=== PATIENT | male | born 1950 | race Caucasian/White ===

== ENCOUNTER 2023-04-24 15:16 | Emergency (ER) | payer MEDICARE, SELFPAY ==
[2023-04-24] VITALS (7 sets, daily range): BP systolic 162–169; BP diastolic 63–78; PULSE 64–70; RESP 16–22; TEMP 36.8; O2SAT 94–97; BMI 31.2
--- NOTE | 2023-04-24 15:35 | ECG_ITS ---
The 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
--- NOTE | 2023-04-24 15:35 | XR_ITS ---
The [address] [address] Patient Name: DONTAE GARCIA MRN: [id number] date: 1950 Sex: M Assigned Patient Location: ER Current Patient Location: ER Accession/Order Number: [id number] Exam Date: 04/24/2023 16:10 Report Date: 04/24/2023 16:35 At the request of: NGUYEN ASIF Procedure: XR chest 1V EXAM: XR chest 1V at 1606 hours HISTORY: SOB COMPARISON: None. TECHNIQUE: AP upright portable chest x-ray FINDINGS: The heart is at the upper limits of normal in size. No acute infiltrate, effusion or pneumothorax is identified. A subtle shadow within the cardiac silhouette suggest a hiatal hernia. The osseous structures are grossly intact. Surgical clips are seen at the base of the neck. XR/XR chest 1V IMPRESSION: No acute infiltrate or evidence of overt cardiac decompensation. A hiatal hernia is suggested. Direct comparison with a previous study may be helpful in confirming the chronicity of these findings. Electronically authenticated by: NOHEMI DA SILVA Date: 04/24/2023 16:35
--- NOTE | 2023-04-24 15:38 | ED.GENADUL1 ---
HPI - General Adult General Chief complaint: Shortness of Breath/Dyspnea Stated complaint: Uncontrolled Shaking Time Seen by Provider: 04/24/23 15:20 Source: patient Mode of arrival: walk-in Limitations: no limitations History of Present Illness HPI narrative: 72-year-old male presents for feeling shaky. It has been this way for a month. He recently lost his job. He was seen at another hospital emergency department and then was admitted to the psychiatric floor at [facility]. His son gives much of the history and states he was not put on any medications for anxiety. He has not had a fever or chest pain or palpitations. No syncope or vomiting Related Data Home Medications Medication Instructions Recorded Confirmed alprazolam 1 mg tablet 1 mg PO BEDTIME 04/24/23 04/24/23 diltiazem HCl 180 mg 180 mg PO Q24H 04/24/23 04/24/23 capsule,extended release 24 hr flecainide 100 mg tablet 100 mg PO Q12H 04/24/23 04/24/23 hydralazine 100 mg tablet 100 mg PO Q12H 04/24/23 04/24/23 levothyroxine 137 mcg tablet 137 mcg PO DAILY 04/24/23 04/24/23 (Synthroid) warfarin 5 mg tablet (Jantoven) 5 mg PO BEDTIME 04/24/23 04/24/23 Allergies Allergy/AdvReac Type Severity Reaction Status Date / Time No Known Drug Allergies Allergy Verified 04/24/23 15:33 Review of Systems ROS Narrative A ten point review of systems is negative except as noted above. PFSH PFSH Social History Smoking status: Heavy tobacco smoker Exam Narrative Exam Narrative: Nurses note and vital signs reviewed and patient is not hypoxic. General: The patient appears in no apparent respiratory distress. Patient is resting comfortably on cart. Skin: Warm, dry, no pallor noted. There is no rash noted. Head: Normocephalic, atraumatic Eye: Normal conjunctiva, no drainage Ears, Nose, Mouth, and Throat: oral mucosa is moist. Nares patent. Cardiovascular: Regular Rate and Rhythm Respiratory: Patient is in no distress, no accessory muscle use, lungs are clear to auscultation, no wheezing, rales or rhonchi Back: non-tender GI: Soft and nontender Musculoskeletal: The patient has no evidence of calf tenderness, no pitting edema, symmetrical pulses noted bilaterally Neurological: A&O, normal speech Psychiatric: Cooperative Constitutional Vital Signs, click to edit/add: Last Vital Signs Temp 98.2 F 04/24/23 15:21 Pulse 70 04/24/23 16:10 Resp 22 04/24/23 16:10 BP 162/73 H 04/24/23 16:00 Pulse Ox 96 04/24/23 16:10 O2 Del Method Room Air 04/24/23 15:21 Course Vital Signs Vital signs: Vital Signs Temperature 98.2 F 04/24/23 15:21 Pulse Rate 69 04/24/23 15:21 Respiratory Rate 16 04/24/23 15:21 Blood Pressure 169/78 H 04/24/23 15:21 Pulse Oximetry 97 04/24/23 15:21 Oxygen Delivery Method Room Air 04/24/23 15:21 Temperature 98.2 F 04/24/23 15:21 Pulse Rate 70 04/24/23 16:10 Respiratory Rate 22 04/24/23 16:10 Blood Pressure 162/73 H 04/24/23 16:00 Pulse Oximetry 96 04/24/23 16:10 Oxygen Delivery Method Room Air 04/24/23 15:21 Medical Decision Making MDM Narrative Medical decision making narrative: Extensive workup including CT brain here is negative. My clinical impression is that he has anxiety. He was instructed to have follow-up with his PCP. Treatment diagnosis and follow-up were discussed thoroughly with the patient and his son. Differential Diagnosis Differential Diagnosis: UTI, pneumonia, intracranial pathology, Lab Data Lab results reviewed: Yes I reviewed the patient's lab results Labs: Lab Results 04/24/23 04/24/23 04/24/23 Range/Units 15:41 16:00 16:04 WBC 8.8 (4.0-11.0) 10^3/uL RBC 3.90 L (4.70-6.10) 10^6/uL Hgb 12.0 L (14.0-18.0) g/dL Hct 34.5 L (42.0-54.0) % MCV 88.5 (80.0-94.0) fL MCH 30.8 (25.9-34.0) pg MCHC 34.8 (29.9-35.2) g/dL RDW 12.6 (11.0-15.0) % Plt Count 295 (150-450) 10^3/uL MPV 9.5 (9.5-13.5) fL Neut % (Auto) 79.9 H (43.0-75.0) % Lymph % (Auto) 8.2 L (20.5-60.0) % [place] % (Auto) 10.5 (1.7-12.0) % Eos % (Auto) 0.6 L (0.9-7.0) % Baso % (Auto) 0.5 (0.2-2.0) % Neut # (Auto) 7.0 H (1.4-6.5) 10^3/uL Lymph # (Auto) 0.7 L (1.2-3.8) 10^3/uL [place] # (Auto) 0.9 H (0.3-0.8) 10^3/uL Eos # (Auto) 0.1 (0.0-0.7) 10^3/uL Baso # (Auto) 0.0 (0.0-0.1) 10^3/uL Abs Immat Gran (auto) 0.03 (0.00-0.03) 10^3/uL Imm/Tot Granulo (auto) 0.3 (0.0-0.5) % Sodium 132 L (136-145) mmol/L Potassium 3.6 (3.5-5.1) mmol/L Chloride 98 (98-107) mmol/L Carbon Dioxide 25.7 (21.0-32.0) mmol/L Anion Gap 11.9 BUN 17.0 (7.0-18.0) mg/dL Creatinine 1.19 (0.70-1.30) mg/dL Est GFR ( Amer) >60 (>=60) Est GFR (Non-Af Amer) >60 (>=60) BUN/Creatinine Ratio 14.3 Glucose 105 (74-106) mg/dL Calcium 9.1 (8.5-10.1) mg/dL Troponin I High Sens 14.6 (4.0-76.1) pg/mL Urine Color Yellow (YELLOW) Urine Clarity Clear (CLEAR) Urine pH 5.5 (5.0-9.0) Ur Specific [place] 1.015 (1.005-1.025) Urine Protein Negative (NEG/TRACE) mg/dL Urine Glucose (UA) Negative (NEGATIVE) mg/dL Urine Ketones Negative (NEGATIVE) mg/dL Urine Occult Blood Negative (NEGATIVE) Urine Nitrite Negative (NEGATIVE) Urine Bilirubin Negative (NEGATIVE) Urine Urobilinogen 0.2 (0.2-1.0) EU/dL Ur Leukocyte Esterase Negative (NEGATIVE) Urine RBC None seen (0-2) #/HPF Urine WBC 0-2 A (NONE SEEN) #/HPF Ur Squamous Epith Cells None seen (NONE/RARE) #/LPF Urine Crystals None seen (None Seen) #/HPF Urine Bacteria Trace A (NONE SEEN) #/HPF Urine Casts None seen (NONE SEEN) #/LPF Urine Mucus Trace A (NONE SEEN) Influenza Type A Ag Negative Influenza Type B Ag Negative SARS-CoV-2 Ag (CV2AG) Negative (NEGATIVE) Imaging Data CT scan - head: Radiologist's impression: ITS Impressions Chest X-Ray 04/24/23 15:35 IMPRESSION: No acute infiltrate or evidence of overt cardiac decompensation. A hiatal hernia is suggested. Direct comparison with a previous study may be helpful in confirming the chronicity of these findings. Electronically authenticated by: NOHEMI DA SILVA Date: 04/24/2023 16:[address] 04/24/23 16:13 IMPRESSION: There is a focal area of diminished attenuation in the insular temporal lobe on the left, possibly a remote infarct or a cyst. No other intracranial abnormality is identified. There is a focal slightly expansile bone lesion frontally on the left, of uncertain etiology. Direct comparison with a previous study would be helpful. If no previous studies available and further evaluation of the above abnormalities is clinically indicated then an MRI is recommended. Electronically authenticated by: NOHEMI DA SILVA Date: 04/24/2023 16:48 ECG Data Attestation: I personally reviewed and interpreted this ECG as follows: (EKG on my interpretation shows sinus rhythm with a rate of 65.) Discharge Plan Discharge Chief Complaint: Shortness of Breath/Dyspnea Clinical Impression: Anxiety Patient Disposition: Home, Self-Care Time of Disposition Decision: 17:41 Condition: Good Mode of Transportation: Private Vehicle Prescriptions / Home Meds: No Action alprazolam 1 mg tablet 1 mg PO BEDTIME flecainide 100 mg tablet 100 mg PO Q12H hydralazine 100 mg tablet 100 mg PO Q12H warfarin [Danielven] 5 mg tablet 5 mg PO BEDTIME diltiazem HCl 180 mg capsule,extended release 24hr 180 mg PO Q24H levothyroxine [Synthroid] 137 mcg tablet 137 mcg PO DAILY Instructions: Anxiety (ED) Additional Instructions: Follow-up promptly with your PCP Stand Alone Forms: Portal Instructions Referrals: ZACHERY THURMAN [Primary Care Provider] - 1 week
--- NOTE | 2023-04-24 15:45 | PC.NURSE ---
PT STATED BEEN DEPRESSED. PT STATES HAVING SOB AND SHAKINESS FOR A FEW WEEKS AND SEEN AT [facility] [place] FOR SIMILAR EPISODES. PT BEEN CRYING A LOT TODAY. PT STATES [facility] [place] WANTED TO ADMIT TO THEIR PSYCHIATRIC UNIT BUT PT REFUSED. PT STATES WAS PLACED O ANTIDEPRESSANT BUT STOPPED AFTER 2 PILLS BECAUSE HE DIDN'T LIKE HOW IT MADE HIM FEEL. PT TAKES XANAX AT HOME BUT IT HASN'T BEEN HELPING WITH SYMPTOMS. PT FAMILY AT BEDSIDE STATES HAS HAS A COUPLE GAS LEAKS IN HIS APARTMENT AND THINK MAYBE HE HAS CARBON MONOXIDE POISONING
--- NOTE | 2023-04-24 16:13 | CT_ITS ---
The [address] [address] Patient Name: DONTAE GARCIA MRN: [id number] date: 1950 Sex: M Assigned Patient Location: ER Current Patient Location: ER Accession/Order Number: [id number] Exam Date: 04/24/2023 16:26 Report Date: 04/24/2023 16:48 At the request of: NGUYEN ASIF Procedure: CT head/brain wo con EXAM: CT head/brain wo con HISTORY: Intermittent confusion COMPARISON: None. TECHNIQUE: Multiple thin computed tomograms of the head were obtained, with sagittal and coronal reconstructions. FINDINGS: The ventricles are not enlarged, the lateral ventricles are symmetric and the third ventricles in the midline. The sylvian fissures are unremarkable. There is slight prominence of the cortical sulci over the convexities of the brain. A small amount of benign calcification is seen in the falx. A small area of diminished attenuation is seen in the insular temporal bone on the left, as best seen in image 19 of series 5, which may indicate a small remote infarct or possibly a benign cystic structure. No other focal abnormality is identified in the deep white matter. The cerebellum appears slightly atrophic but otherwise intact, and the visualized brainstem is unremarkable. The visualized paranasal sinuses are clear. The middle ears are aerated. The mastoid sinuses are clear. There is no apparent acute skull fracture. There is a focal lesion in the skull anteriorly on the left, as best seen in image 40 of series 3, measuring 2.5 by 2.1 x 1.5 cm, and slightly expanding the outer cortex. CT/CT head/brain wo con IMPRESSION: There is a focal area of diminished attenuation in the insular temporal lobe on the left, possibly a remote infarct or a cyst. No other intracranial abnormality is identified. There is a focal slightly expansile bone lesion frontally on the left, of uncertain etiology. Direct comparison with a previous study would be helpful. If no previous studies available and further evaluation of the above abnormalities is clinically indicated then an MRI is recommended. Electronically authenticated by: NOHEMI DA SILVA Date: 04/24/2023 16:48
[2023-04-24 16:18] LABS: Basophils Percent Auto 0.5 % (0.2-2.0); Eosinophils Absolute Auto 0.1 10^3/uL (0.0-0.7); Eosinophils Percent Auto 0.6 % (0.9-7.0); Hematocrit 34.5 % (42.0-54.0); Immature Granulocytes Abs Auto 0.03 10^3/uL (0.00-0.03); Immature Granulocytes Pct Auto 0.3 % (0.0-0.5); Lymphocytes Absolute Auto 0.7 10^3/uL (1.2-3.8); Lymphocytes Percent Auto 8.2 % (20.5-60.0); Mean Corpuscular HGB Conc 34.8 g/dL (29.9-35.2); Mean Corpuscular Hemoglobin 30.8 pg (25.9-34.0); Mean Corpuscular Volume 88.5 fL (80.0-94.0); Mean Platelet Volume 9.5 fL (9.5-13.5); Monocytes Absolute Auto 0.9 10^3/uL (0.3-0.8); Monocytes Percent Auto 10.5 % (1.7-12.0); Neutrophils Percent Auto 79.9 % (43.0-75.0); Platelet Count 295 10^3/uL (150-450); Red Cell Distribution Width 12.6 % (11.0-15.0); White Blood Count 8.8 10^3/uL (4.0-11.0)
[2023-04-24 16:22] LABS: Bilirubin Urine NEGATIVE (NEGATIVE); Blood Urine NEGATIVE (NEGATIVE); Clarity Urine CLEAR (CLEAR); Color Urine YELLOW (YELLOW); Glucose Urine UA NEGATIVE (NEGATIVE); Ketones Urine NEGATIVE (NEGATIVE); Leukocyte Esterase Urine NEGATIVE (NEGATIVE); Nitrite Urine NEGATIVE (NEGATIVE); Protein Urine NEGATIVE (NEG/TRACE); Specific Gravity Urine 1.015 (1.005-1.025); Urobilinogen Urine 0.2 EU/dL (0.2-1.0); pH Urine 5.5 (5.0-9.0)
[2023-04-24 16:29] LABS: Influenza Virus A Antigen Negative; Influenza Virus B Antigen Negative; Internal Control Within Normal Limits; SARS-CoV-2 Ag NEGATIVE (NEGATIVE)
[2023-04-24 16:33] LABS: Bacteria Urine TRACE #/HPF (NONE SEEN); Cast Seen? NONE SEEN #/LPF (NONE SEEN); Crystals Seen? None Seen #/HPF (None Seen); Mucus Urine TRACE (NONE SEEN); RBC Urine NONE SEEN #/HPF (0-2); Squamous Epithelial Cell Urine NONE SEEN #/LPF (NONE/RARE); WBC Urine 0-2 #/HPF (NONE SEEN)
[2023-04-24 16:33] LABS: Anion Gap 11.9; BUN Creatinine Ratio 14.3; Calcium 9.1 mg/dL (8.5-10.1); Carbon Dioxide 25.7 mmol/L (21.0-32.0); Chloride 98 mmol/L (98-107); Estimated GFR (African America >60 (>=60); Estimated GFR (Non-African Ame >60 (>=60); Glucose 105 mg/dL (74-106); Potassium 3.6 mmol/L (3.5-5.1); Sodium 132 mmol/L (136-145); Troponin I High Sensitivity 14.6 pg/mL (4.0-76.1)
--- NOTE | 2023-04-24 17:59 | PC.NURSE ---
Patients son states I just want to figure out why he's all of a sudden always anxious. He has slowed down on his partying since he lost his job a few weeks ago. 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 Son states its about time my dad started slowing down from living his best life. Pt states since I lost my job a few weeks ago, my income decreased by half so I can't afford all the drugs and alcohol anymore. I stopped using abruptly. Pts son told patient dad, you should stop using that synthetic weed from the vending machines at the bar too, that might be causing more anxiety. Physician notified of conversation.
== END 2023-04-24 18:04 | disposition home or self-care (01) ==
PROVIDERS: Emergency Provider Emergency Medicine; PCP Internal Medicine
DX: F41.9 Anxiety disorder, unspecified (principal); F17.210 Nicotine dependence, cigarettes, uncomplicated; Z20.822 Contact with and (suspected) exposure to COVID-19; Z79.01 Long term (current) use of anticoagulants; Z79.890 Hormone replacement therapy; Z79.899 Other long term (current) drug therapy
CPT/HCPCS: 36415; 70450; 71045; 80048; 81001; 84484; 85025; 87804; 87811; 93005; 99285

== ENCOUNTER 2023-05-29 15:10 | Emergency (ER) | payer MEDICARE, SELFPAY ==
[2023-05-29 15:15] VITALS: BP 158/64; PULSE 71; RESP 20; TEMP 36.8; O2SAT 96; BMI 30.4
--- NOTE | 2023-05-29 15:26 | ECG_ITS ---
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
--- NOTE | 2023-05-29 15:26 | XR_ITS ---
The [address] [address] Patient Name: DONTAE GARCIA MRN: [id number] date: 1950 Sex: M Assigned Patient Location: ER Current Patient Location: ER Accession/Order Number: [id number] Exam Date: 05/29/2023 15:35 Report Date: 05/29/2023 15:51 At the request of: NGUYEN ASIF Procedure: XR chest 1V EXAM: XR chest 1V HISTORY: SOB COMPARISON: 04/24/2023 TECHNIQUE: Upright AP portable chest x-ray FINDINGS: Lungs are clear without infiltrate or edema. Cardiac silhouette is prominent accentuated by magnification unchanged. Stable mediastinal contour. She'll cardiac density probable hiatal hernia. No pleural effusion or pneumothorax. Surgical clips lower neck area. XR/XR chest 1V IMPRESSION: Stable chest x-ray, no acute findings. Electronically authenticated by: YESSY KRAUSE Date: 05/29/2023 15:51
--- OUTSIDE RECORDS SUMMARY | 2023-05-29 15:32 | XMS_ITS | CCD ---
Author Name Unknown Address [address] [place] [address] Organization [facility] Care Team Providers Care Scaffold Builder Name Role Phone CHRISTINE KING Attending Unavailable JAILYN ROSENTHAL Primary Care Unavailable Unavailable Unavailable Zuhair Aguirre Unavailable Rony Sampson Unavailable [phone] Zachery Thurman MD Primary Care Provider Christine King Unavailable Saundra Cunningham RN Unavailable Rikki Castro MD Unavailable Yamile Mccoy PA-C Unavailable Ernestina Muñoz Unavailable Unavailable Unavailable Zuhair Aguirre Unavailable [phone] Rony Sampson Unavailable Zachery Thurman MD Primary Care Provider [phone] Christine King Unavailable Octavio CHIN, Saundra Alcala Unavailable Rikki Castro MD Unavailable [phone] Yamile Mccoy PA-C Unavailable Rony Sampson Unavailable Christine King Unavailable Octavio CHIN, Saundra Alcala Unavailable Matthew GARCIA Rikki Unavailable MD Zachery Thurman Primary Care Provider MD Christine King Attending Provider [phone] MD Nima Molina Attending Provider MD Zachery Thurman Primary Care Provider [phone] MD Christine King Attending Provider Issac, [facility] Cindi Alas Emergency Provider [phone] Zuhair Aguirre Unavailable Rony Balderas Unavailable [phone] Zachery Thurman MD Primary Care Provider Christine King Unavailable Saundra Cunningham RN Unavailable Rikki Castro MD Unavailable Yamile Mccoy PA-C Unavailable Adriana Bills Unavailable Cesar Martines Unavailable Christine King Attending Unavailable Christine King Referring Unavailable Zachery Thurman Primary Care Unavailable Christine King Attending Unavailable Christine King Referring Unavailable Zachery Thurman Primary Care Unavailable Christine King Attending Unavailable Christine King Referring Unavailable Zachery Thurman Primary Care Unavailable Knig, Christine Referring Unavailable King, Christine Attending Unavailable Zachery Thurman Primary Care Unavailable Saundra Cunningham RN Unavailable [phone] Zachery Thurman MD Primary Care Provider CHRISTINE KING Attending Unavailable ZACHERY THURMAN Primary Care Unavailable MD Zachery Thurman Primary Care Provider MD Christine King Attending Provider MD Anita Merrill Emergency Provider MD Zachery Thurman Primary Care Provider MD Christine King Attending Provider [phone] DO Pham Edmond Emergency Provider MD Darrell Duenas Admit Provider [phone] MD Darrell Duenas Attending Provider [phone] Christine King MD Unavailable [phone] ZACHERY THURMAN Attending Unavailable FAREED, ZACHERY L Referring Unavailable FAREED, ZACHERY L Referring Unavailable JORI LUJAN Attending Unava praveenaable JORI LUJAN Referring Unava ilable ZACHERY THURMAN Attending Unavailable FAREED, ZACHERY L Referring Unavailable FAREED, ZACHERY Coon Attending Unavailable ZACHERY THUMRAN L Referring Unavailable Zachery Thurman MD Unavailable Zachery Thurman MD Primary Care Provider Christine King MD Unavailable [phone] Phillip Orr MD Unavailable Regino GARCIA, Rony Unavailable MD Christine King Attending Provider FAREED, ZACHERY JANET Primary Care Unavailable CLAUDIA LEE Attending Unavailable CLAUDIA LEE Admitting Unavailable TRACY, NIMA Referring Unavailable HILL, ZACHERY JANET Primary Care Unavailable TRACY, NIMA Attending Unavailable TRACY, NIMA Referring Unavailable HILL, ZACHERY JANET Primary Care Unavailable CENTRE HALL, ZACHERY JANET Primary Care Unavailable CLAUDIA LEE Attending Unavailable CLAUDIA LEE Referring Unavailable CENTRE HALL, ZACHERY JANET Primary Care Unavailable CLAUDIA LEE Attending Unavailable CENTRE HALL, ZACHERY JANET Primary Care Unavailable LEECLAUDIA Attending Unavailable CENTRE HALL, ZACHERY JANET Primary Care Unavailable KEVIN TURCIOS Referring Unavailable HILL, ZACHERY JANET Primary Care Unavailable TRACY, NIMA Attending Unavailable HILL, ZACHERY JANET Primary Care Unavailable CLAUDIA LEE Attending Unavailable HILL, ZACHERY JANET Primary Care Unavailable TRACY, NIMA Attending Unavailable Fareed, Zachery Primary Care Unavailable Christine King Admitting Unavailable Christine King Attending Unavailable Srinivasan Gross Admitting Unavailable Srinivasan Gross Attending Unavailable [place], Zachery Primary Care Unavailable Darrell Duenas Admitting Unavailable John Bennett Attending Unavailab le [place], Zachery Primary Care Unavailable Eduardo Redding Jr Attending Unavailable Zachery Thurman Primary Care Unavailable Eduardo Redding Jr Admitting Unavailable Anita Merrill Admitting Unavailable Anita Merrill Attending Unavailable Zachery Thurman Primary [facility] Unavailable Zachery Thurman Primary [facility] Unavailable Юлия Ornelas Admitting Unavailable Юлия Ornelas Attending Unavailable Zachery Thurman Primary [facility] Unavailable Christine King Admitting Unavailable Christine King Attending Unavailable Medications Current Medications Medication Drug Class(es) Dates Sig (Normalized) Sig (Original) brimonidine tartrate 0.25 mg/ml ophthalmic solution (1 source) alpha-Adrenergic Agonist Brimonidine Tartrate (Lumify) 0.025 % solution Indications: Eye Redness Administer 1 drop into affected eye(s) Daily as needed 0 Active Carboxymethylcellulose (1 source) Carboxymethylcel lulose Sodium (REFRESH TEARS OP) Administer 1 drop into affected eye(s) if needed 0 Active dexamethasone 0.001 mg/mg / neomycin 0.0035 mg/mg / polymyxin b 10 unt/mg ophthalmic ointment (1 source) Aminoglycoside Antibacterial, Polymyxin-class Antibacterial, Corticosteroid Start: 023 End: NEOMYCIN 3.5 MG/G-POLYMYXIN B 10,000 UNIT/G-DEXAMETH 0.1 % EYE OINT Use 1 application in the left eye twice daily for 10 days. 3.5 g 2 06/07/2022 06/17/2022 Active Comment on above: Use 1 application in the left eye twice daily for 10 days. 24 hr dilTIAZem hydrochloride 180 mg extended release oral capsule (20 sources) Calcium Channel Av Start: 023 take 1 capsule by mouth once daily dilTIAZem CD (Cardizem CD) 180 mg 24 hr capsule Take 1 capsule (180 mg) by mouth once daily. 0 11/28/2022 Active Start: 03-23-2022 take 180 mg by mouth once daily in the morning Diltiazem Hcl Active 180 MG PO Every morning March 23, 2022 10:07am Start: 12-14-2020 dilTIAZem HCl ER Beads 180 MG Oral Capsule Extended Release 24 Hour Quantity: 90 Refills: 0 Ordered: 14-Dec-2020 DO Start : 14-Dec-2020 Active Start: 04-28-2020 End: 03-23-2022 take 120 mg by mouth once daily in the morning Diltiazem Hcl Discontinued 120 MG PO Every morning April 28, 2020 12:00am March 23, 2022 10:07am Start: 06-06-2018 End: 04-29-2020 take 180 mg by mouth once daily in the morning Diltiazem Hcl Discontinued 180 MG PO Every morning June 05, 2018 11:00pm April 29, 2020 11:01am Start: 04-18-2018 End: 06-06-2018 take 120 mg by mouth once daily Diltiazem Hcl Disconti nued 120 MG PO Daily April 18, 2018 12:00am June 06, 2018 11:30am take 1 capsule by mo ut every twenty-four hours in the morning dilTIAZem ER (Tiazac) 180 MG 24 hr capsule Take 1 capsule by mouth in the morning. 0 Active Comment on above: Take 180 mg by mouth once daily. flecainide acetate 100 mg oral tablet (20 sources) Antiarrhythmic Start: take 1 tablet by mouth every twelve hours flecainide (Tambocor) 100 mg tablet Take 1 tablet (100 mg) by mouth every 12 hours. 0 10/28/2020 Active Start: 04-28-2020 take 100 mg by mouth twice daily Flecainide Active 100 MG PO Twice daily 60 April 28, 2020 12:00am Start: 04-03-2020 End: 04-29-2020 take 100 mg by mouth twice daily Flecainide Discontinued 100 MG PO Twice daily April 03, 2020 12:00am April 29, 2020 11:01am Start: 11-11-2019 End: 04-03-2020 take 100 mg by mouth twice daily Flecainide Discontinued 100 MG PO Twice daily November 10, 2019 11:00pm April 03, 2020 1:16pm Start: 06-06-2018 End: 06-01-2019 take 50 mg by mouth every twelve hours Flecainide Discontinued 50 MG PO Q12H 60 June 05, 2018 11:00pm May 31, 2019 11:03pm take 1 tablet by zenaida th every twelve hours flecainide (Tambocor) 100 MG tablet Take 1 tablet by mouth every 12 (twelve) hours. 0 Active End: 03-30-2021 flecainide (TAMBOCOR) 50 mg tablet Take 100 mg by mouth twice daily. 0 03/30/2021 Discontinued (Dosage adjustment) Comment on above: Take 100 mg by mouth twice daily. fluconazole 200 mg oral tablet (1 source) Azole Antifungal Start: 06-12-19 End: 06-13-19 take 1 tablet by mouth once fluconazole (DIFLUCAN) 200 mg tablet Take 1 tablet by mouth one time only for 1 dose. 1 tablet 0 06/11/2021 06/12/2021 Active Comment on above: Take 1 tablet by zenaida th one time only for 1 dose. indapamide 1.25 mg oral tablet (1 source) Thiazide-like Diuretic Start: 02-23-20 End: 02-22-20 take 1 tablet by mouth once daily in the morning indapamide (Lozol) 1.25 mg tablet Indications: Essential hypertension, benign , Paroxysmal atrial fibrillation (CMS/HCC) Take 1 tablet (1.25 mg) by mouth once daily in the morning. 30 tablet 11 02/22/2023 02/22/2024 Active levothyroxine sodium 0.125 mg oral tablet (20 sources) l-Thyroxine Start: 04-16-19 take 137 ug by mouth once daily Levothyroxine Active 137 MCG PO DAILY@629April 16, 2023 12:00am Start: 06-01-2022 take 1 tablet by zenaida th once daily SYNTHROID 137 mcg tablet Take 1 tablet by mouth once daily. 0 06/01/2022 Active Start: 04-28-2020 End: 04-16-2023 take 125 ug by mouth once daily Levothyroxine Disconti nued 125 MCG PO DAILY@629April 28, 2020 12:00am April 16, 2023 8:03am Start: 04-18-2018 End: 04-29-2020 take 111 ug by mouth once daily in the morning Levothyroxine Discontinued 111 MCG PO Every morning April 18, 2018 12:00am April 29, 2020 11:01am Start: 03-26-2018 take 1 tablet by zenaida th once daily in the morning Levothyroxine Sodium 125 MCG 1 tablet on an empty stomach in the morning Orally Once a day Mar, Active Start: 03-26-2018 take 1 tablet by zenaida th once daily in the morning Levothyroxine Sodium 125 MCG 1 tablet on an empty stomach in the morning Orally Once a day Mar, Active Start: 04-02-2014 End: 03-30-2021 take 1 tablet by mouth once daily levothyroxine (SYNTHROID) 112 mcg tablet Indications: Hypothyroidism, postsurgical Take 1 tablet by mouth once daily. 30 tablet 6 04/02/2014 03/30/2021 Discontinued (Dosage adjustment) Comment on above: Take 125 mcg by mout h daily before breakfast. Take 1 tablet by zenaida th once daily. lidocaine 0.05 mg/mg medicated patch (5 sources) Antiarrhythmic, Amide Local Anesthetic Start: 03-23-19 apply 1 dose topically once daily Lidocaine Active 1 PATCH TOPICAL Daily March 23, 2022 12:00am leave on most painful area for up to 12 hrs sildenafil 50 mg oral tablet (20 sources) Phosphodiesterase 5 Inhibitor Start: 12-10-19 take 1 tablet by mouth every twenty-four hours as needed sildenafil (Viagra) 50 MG tablet Take 1 tablet by mouth Daily as needed for erectile dysfunction. 0 12/09/2021 Active Start: 07-02-2018 take 1 tablet by zenaida th once daily as needed Viagra 25 MG 1 tablet as needed Orally Once a day as needed for 30 day(s) Jun, Active Completed/Discontinued Medications Medication Drug Class(es) Dates Sig (Normalized) Sig (Original) acetaminophen 500 mg oral tablet (6 sources) Start: 04-28-2020 End: 05-28-2020 take 500 mg by mouth every four hours Acetaminophen Discontinued 500 MG PO Q4H 100 April 28, 2020 12:00am May 28, 2020 6:29am acetaminophen 21.7 mg/ml / HYDROcodone bitartrate 0.5 mg/ml oral solution (13 sources) Opioid Agonist Start: 05-14-2021 End: 07-27-2021 take 10 mL by mouth every six hours as needed for pain HYDROcodone-acetam inophen (HYCET) 7.5-325 mg/15 mL oral liquid Indications: Tonsil cancer (HCC) Take 10 mL by mouth every 6 hours as needed for pain. May alternate with NSAID if allowed. Take with stool softener. 400 mL 0 05/14/2021 07/27/2021 Discontinued (Discontinued by Patient) Comment on above: Take 10 mL by mouth every 6 hours as needed for pain. May alternate with NSAID if allowed. Take with stool softener. ALPRAZolam 1 mg oral tablet (20 sources) Benzodiazepine Start: 03-11-2014 End: 06-01-2023 take 1 mg by mouth once daily at bedtime Alprazolam Discontinued 1 MG PO Daily at bedtime April 18, 2018 12:00am April 29, 2020 11:01am Comment on above: Take 1 mg by mouth a t bedtime as needed. PO QHS PRN apixaban 5 mg oral tablet (8 sources) Factor Xa Inhibitor Start: 03-30-2020 Eliquis 5 MG Oral Tablet Quantity: 180 Refills: 0 Ordered: 30-Mar-2020 DO Start : 30-Mar-2020 Complete Start: 04-18-2018 End: 04-29-2020 take 2 tablets by mouth twice daily, then take 1 tablet by mouth twice daily Apixaban (Eliquis) 5 mg tablet Discontinued 5 MG PO Twice daily 60 April 18, 2018 12:00am April 29, 2020 11:01am 10 mg po BID x 7 days, then 5 mg po BID End: 03-18-2021 apixaban (ELIQUIS) 5 mg tab( s) Take by mouth twice daily. 0 03/18/2021 Discontinued Comment on above: Take by mouth twice daily. ascorbic acid 250 mg oral tablet (16 sources) Vitamin C Start: 04-14-2020 End: 04-29-2020 take 1 tablet by mouth once daily Ascorbic Acid (Vitamin C) (Vitamin C) 250 mg Tablet Discontinued 250 MG PO Daily April 14, 2020 12:00am April 29, 2020 11:01am take 1 tablet by mouth in the mo rning ascorbic acid (Vitamin C) 1000 MG tablet Take 1,000 mg by mouth in the morning. 0 Active ascorbic acid (V ITAMIN C ORAL) Take by mouth. 0 Active Comment on above: Take by mouth. calcium carbonate 500 mg chewable tablet (6 sources) Start: End: take 1000 mg by mouth every four hours Calcium Carbonate Discontinued 1000 MG PO Q4H April 28, 2020 12:00am May 28, 2020 6:33am cefuroxime 500 mg oral tablet (1 source) Cephalosporin Antibacterial Start: Cefuroxime Axetil 500 MG Oral Tablet Quantity: 20 Refills: 0 Ordered: 29-Apr-2020 DO Start : 29-Apr-2020 Complete Cholecalciferol (8 sources) Vitamin D Start: End: take 1 capsule by mouth once daily in the morning Cholecalciferol (Vitamin D3) (Vitamin D3) 100 mcg (4,000 unit) Capsule Discontinued 50 MCG PO Every morning November 10, 2019 11:00pm April 29, 2020 11:01am Start: 11-11-2019 End: 04-27-2021 cholecalciferol, vitamin D3, 100 mcg (4,000 unit) cap Cholecalciferol Cholecalciferol (Vitamin D3) Active 50 MCG Oral Daily November 11, 2019 3:11pm 11-11-2019 [facility] ([id number]) 0 11/11/2019 04/27/2021 Discontinued (Other) take 1 tablet by zenaida th in the morning cholecalciferol (Vitamin D-3) 10 MCG (400 UNIT) tablet Take 1 tablet by mouth in the morning. 0 Active Comment on above: Cholecalciferol Chol ecalciferol (Vitamin D3) Active 50 MCG Oral Daily November 11, 2019 3:11pm 11-11-2019 [facility] ([id number]) clotrimazole 10 mg oral lozenge (1 source) Azole Antifungal Start: End: clotrimazole (MYCELEX) 10 mg jules Use 1 Jules as instructed three times daily for 14 days. 42 tablet 0 06/25/2021 07/27/2021 Discontinued (Discontinued by Patient) Comment on above: Use 1 Jules as inst ructed three times daily for 14 days. cyanocobalamin, vitamin B-12, (VITAMIN B-12 ORAL) (9 sources) cyanocobalamin, vitamin B-12, (VITAMIN B-12 ORAL) Take by mouth. 0 Active Comment on above: Take by mouth. diphenhydrAMINE 12.5 mg/5 mL lidocaine visc 2% MAALOX 200-200-20 mg/5 mL oral liquid 1:1:1 (CPD) (1 source) Start: End: diphenhydrAMINE 12.5 mg/5 mL lidocaine visc 2% MAALOX 200-200-20 mg/5 mL oral liquid 1:1:1 (CPD) Take 5-10 mL by mouth, allowing to coat back of mouth and throat, 5-6 times daily as needed for discomfort (including before meals and at bedtime) 360 mL 1 05/12/2021 06/02/2021 Discontinued Comment on above: Take 5-10 mL by mout h, allowing to coat back of mouth and throat, 5-6 times daily as needed for discomfort (including before meals and at bedtime) diphenhydrAMINE 12.5 mg/5 mL lidocaine visc 2% MAALOX 200-200-20/5 mL nystatin oral liquid 4:1.66:1:1 (CPD) (8 sources) Start: End: take 5 mL by mouth every six hours as needed diphenhydrAMINE 12.5 mg/5 mL lidocaine visc 2% MAALOX 200-200-20/5 mL nystatin oral liquid 4:1.66:1:1 (CPD) Swish and swallow 5 mL by mouth every 6 hours as needed. 240 mL 2 06/02/2021 06/25/2021 Discontinued Start: 06-02-2021 take 5 mL by mouth e very six hours as needed diphenhydrAMINE 12.5 mg/5 mL lidocaine visc 2% MAALOX 200-200-20/5 mL nystatin oral liquid 4:1.66:1:1 (CPD) Swish and swallow 5 mL by mouth every 6 hours as needed. 240 mL 2 06/02/2021 Active Comment on above: Swish and swallow 5 mL by mouth every 6 hours as needed. docusate sodium 100 mg oral capsule (6 sources) Start: 04-28-19 End: 05-29-19 take 1 capsule by mouth twice daily Docusate Sodium (Dok) 100 mg Capsule Discontinued 100 MG PO Twice daily 60 April 28, 2020 12:00am May 28, 2020 6:32am dorzolamide 20 mg/ml / timolol 5 mg/ml ophthalmic solution (2 sources) Carbonic Anhydrase Inhibitor, beta-Adrenergic Av Start: 06-08-19 End: 09-06-19 take 1 drop(s) into the eye(s) twice daily dorzolamide-timolol (COSOPT) 22.3-6.8 mg/mL ophthalmic solution Use 1 Drop in the left eye twice daily. 5 mL 0 06/08/2022 2022 Discontinued (Other) Comment on above: Use 1 Drop in the le ft eye twice daily. Durolane (20 sources) Start: 12-19-19 Durolane Dec, 60 mg FLUoxetine 20 mg oral capsule (2 sources) Serotonin Reuptake Inhibitor Start: 04-16-19 End: 04-18-19 take 20 mg by mouth once daily Fluoxetine Discontinued 20 MG PO Daily April 16, 2023 12:00am April 18, 2023 12:34pm furosemide 20 mg oral tablet (6 sources) Loop Diuretic Start: 04-28-19 End: 05-29-19 take 20 mg by mouth once daily Furosemide Discontinued 20 MG PO Daily at 0800 30 April 28, 2020 12:00am May 28, 2020 6:32am hydrALAZINE hydrochloride 50 mg oral tablet (20 sources) Arteriolar Vasodilator Start: 02-25-20 take 2 tablets by mouth twice daily hydrALAZINE (APRESOLINE) 50 mg tablet Take 100 mg by mouth twice daily. 0 02/24/2021 Active Start: 01-14-2021 take 50 mg by mouth twice franco y Hydralazine Active 50 MG PO Twice daily March 23, 2022 12:00am Start: 01-14-2021 take 1 tablet by zenaida th twice daily hydrALAZINE (Apresoline) 100 mg tablet Take 1 tablet (100 mg) by mouth 2 times a day. 0 01/11/2023 Active Start: 04-28-2020 End: 05-28-2020 take 10 mg by mouth every four hours Hydralazine Discontinued 10 MG PO Q4H 60 April 28, 2020 12:00am May 28, 2020 6:32am Comment on above: Take 50 mg by mouth twice daily. Take 100 mg by mouth twice daily. hydroCHLOROthiazide 12.5 mg oral tablet (2 sources) Thiazide Diuretic Start: 2020 take 1 tablet by mouth once daily in the morning hydroCHLOROthiazide 12.5 MG Oral Tablet TAKE 1 TABLET DAILY IN THE MORNING. Quantity: 90 Refills: 3 Ordered: 28-Jan-2021 Christine King MD Start : 28-Jan-2021 Active hydroCHLOROthiazide 12.5 mg / lisinopril 20 mg oral tablet (20 sources) Thiazide Diuretic, Angiotensin Converting Enzyme Inhibitor Start: 2020 End: 2021 take 1 tablet by mouth once daily Lisinopril-hydroCHLOROth iazide 20-12.5 MG Oral Tablet TAKE 1 TABLET DAILY. Quantity: 90 Refills: 3 Ordered: 22-Feb-2021 Christine King MD Start : 22-Feb-2021 Active Start: 12-02-2020 Lisinopril-hyd roCHLOROthiazide 20-25 MG Oral Tablet Quantity: 90 Refills: 0 Ordered: 02-Dec-2020 DO Start : 02-Dec-2020 Complete Start: 05-28-2020 End: 03-23-2022 take 1 tablet by mouth once daily Lisinopril-Hydrochlorothiazide Discontin ued 20 - 25 TAB PO Daily May 28, 2020 12:00am March 23, 2022 10:08am Start: 04-18-2018 End: 04-29-2020 take 1 tablet by mouth once daily in the morning Lisinopril-Hydrochlorothiazide Discontin ued 1 TAB PO Every morning April 18, 2018 12:00am April 29, 2020 11:01am Start: 03-11-2014 End: 03-30-2021 lisinopril-hydrochlorothiazi de (PRINZIDE,ZESTORETIC) 20-12.5 mg per tablet PO 0 03/11/2014 03/30/2021 Discontinued (Dosage adjustment) Comment on above: Take 1 tablet by zenaida th once daily. PO hydrOXYzine pamoate 25 mg oral capsule (18 sources) Antihistamine Start: End: take 25 mg by mouth every three hours Hydroxyzine Pamoate Discontinued 25 MG PO Q3H April 28, 2020 12:00am May 28, 2020 6:31am Start: 04-16-2020 End: 04-29-2020 take 50 mg by mouth every three hours Hydroxyzine Pamoate Discontinued 50 MG PO Q3H April 16, 2020 12:00am April 29, 2020 11:01am iv contrast (will be provided with radiology test) (10 sources) Start: 2022 End: 2022 inject 1 dose intravenously once, then inject 1 dose intravenously once iv contrast (will be provided with radiology test) Indications: Localized enlarged lymph nodes , History of cancer tonsil , History of radiation therapy Inject 1 Each intravenously one time only for [address] Neck W IVCON No IV access, insert saline lock prior to the sedation, infusion, injection for imaging exam. Discontinue saline lock post exam. If Pt. has a central line or IVAD, may access for administration according to line specific nursing protocol. Once exam is complete flush line and de-access according to line specific nursing protocol in the CT contrast administration guidelines link. 1 Each 0 2022 2022 Start: 10-12-2021 End: 10-12-2021 inject 1 dose intravenously once, then inject 1 dose intravenously once iv contrast (will be provided with radiology test) Indications: History of cancer tonsil , History of radiation therapy , History of chemotherapy Inject 1 Each intravenously one time only for [address] Neck W IVCON No IV access, insert saline lock prior to the sedation, infusion, injection for imaging exam. Discontinue saline lock post exam. If Pt. has a central line or IVAD, may access for administration according to line specific nursing protocol. Once exam is complete flush line and de-access according to line specific nursing protocol in the CT contrast administration guidelines link. 1 Each 0 10/12/2021 10/12/2021 Start: 06-25-2021 End: 08-27-2021 iv contrast (will be provide d with radiology test) CT Chest W -Inject, intravenously, once for 1 dose.No IV access, insert saline lock prior to the beginning of sedation, infusion, injection of imaging exam. Discontinue saline lock post exam. If Pt. has a central line or IVAD, may access for administration according to line specific nursing protocol. Once exam is complete flush line and de-access according to line specific nursing protocol in the CT contrast administration guidelines link. 1 Each 0 06/25/2021 08/27/2021 Discontinued Start: 06-25-2021 iv contrast (w ill be provided with radiology test) CT Chest W -Inject, intravenously, once for 1 dose.No IV access, insert saline lock prior to the beginning of sedation, infusion, injection of imaging exam. Discontinue saline lock post exam. If Pt. has a central line or IVAD, may access for administration according to line specific nursing protocol. Once exam is complete flush line and de-access according to line specific nursing protocol in the CT contrast administration guidelines link. 1 Each 0 06/25/2021 Active Comment on above: CT Chest W -Inject, intravenously, once for 1 dose.No IV access, insert saline lock prior to the beginning of sedation, infusion, injection of imaging exam. Discontinue saline lock post exam. If Pt. has a central line or IVAD, may access for administration according to line specific nursing protocol. Once exam is complete flush line and de-access according to line specific nursing protocol in the CT contrast administration guidelines link. Inject 1 Each intrav enously one time only for [address] Neck W IVCON No IV access, insert saline lock prior to the sedation, infusion, injection for imaging exam. Discontinue saline lock post exam. If Pt. has a central line or IVAD, may access for administration according to line specific nursing protocol. Once exam is complete flush line and de-access according to line specific nursing protocol in the CT contrast administration guidelines link. Krill Voe-Peyeq-9-Dha-Epa (6 sources) Start: End: take 1 capsule by mouth once daily in the morning Krill Izh-Swnkv-3-Dha-Epa Discontinued 1 CAP PO Every morning November 10, 2019 11:00pm April 29, 2020 11:01am krill yzm-vralq-5-dha-epa 300-90 (27-45) mg cap (1 source) Start: End: 022 krill qlu-eraqo-4-dha-epa 300-90 (27-45) mg cap Krill Pri-Dkemv-2-Dha-Epa Krill Pua-Ukluf-5-Dha-Epa Active 1 CAP Oral Daily November 11, 2019 3:11pm 11-11-2019 [facility] ([id number]) 0 11/11/2019 04/26/2021 Discontinued (Discontinued by Patient) Comment on above: Krill [id number]-5-Dh a-Epa Krill Qul-Juenm-4-Dha-Epa Active 1 CAP Oral Daily November 11, 2019 3:11pm 11-11-2019 [facility] ([id number]) lisinopril 20 mg oral tablet (20 sources) Angiotensin Converting Enzyme Inhibitor Start: lisinopril (ZESTRIL, PRINIVIL) 20 mg tablet metaxalone 800 mg oral tablet (6 sources) Start: End: take 1 tablet by mouth three times daily Metaxalone (Skelaxin) 800 mg Tablet Discontinued 800 MG PO Three times daily October 06, 2019 11:00pm November 12, 2019 7:24am metoclopramide 5 mg oral tablet (6 sources) Dopamine-2 Receptor Antagonist Start: End: take 5 mg by mouth three times daily Metoclopramide Hcl Discontinued 5 MG PO Three times daily April 28, 2020 12:00am May 28, 2020 6:31am MULTIVITAMIN ORAL (3 sources) End: MULTIVITAMIN ORAL Take by mouth. 0 06/08/2021 Discontinued (Discontinued by Patient) Comment on above: Take by mouth. Multivitamin With Folic Acid (Thera) 400 mcg Tablet (6 sources) Start: End: take 1 tablet by mouth once daily in the morning Multivitamin With Folic Acid (Thera) 400 mcg Tablet Discontinued 1 TAB PO Every morning April 28, 2020 12:00am March 23, 2022 10:08am Start: 04-28-2020 take 1 tablet by zenaida th once daily in the morning Multivitamin With Folic Acid (Thera) 400 mcg Tablet Active 1 TAB PO Every morning April 28, 2020 12:00am multivitamin,ther and minerals (MULTIVITAMIN,TX-MINERALS ORAL) (1 source) Start: 11-11-2019 End: 03-27-2021 multivitamin,ther and minerals (MULTIVITAMIN,TX-MINERALS ORAL) Multivitamin,Tx-Minerals Multivitamin,Tx-Minerals Active 1 CAP Oral Daily November 11, 2019 3:11pm 11-11-2019 [facility] ([id number]) 0 11/11/2019 03/27/2021 Discontinued Comment on above: Multivitamin,Tx-Mine rals Multivitamin,Tx-Minerals Active 1 CAP Oral Daily November 11, 2019 3:11pm 11-11-2019 [facility] ([id number]) Multivitamin,Tx-Minerals (Multi-Vitamin Hp/Minerals) Capsule (6 sources) Start: 11-11-2019 End: 04-29-2020 take 1 capsule by mouth once daily in the morning Multivitamin,Tx-Minerals (Multi-Vitamin Hp/Minerals) Capsule Discontinued 1 CAP PO Every morning November 10, 2019 11:00pm April 29, 2020 11:01am nystatin [id number] unt/ml oral suspension (1 source) Polyene Antifungal Start: 05-31-2021 End: 06-07-2021 take 5 mL by mouth four times daily nystatin (MYCOSTATIN) 100,000 unit/mL suspension Swish and swallow 5 mL by mouth four times daily for 7 days. 140 mL 0 05/31/2021 06/07/2021 Comment on above: Swish and swallow 5 mL by mouth four times daily for 7 days. [place]-3 Fatty Acids-Fish Oil (Fish Oil) 340-1,000 mg Capsule (6 sources) Start: 04-28-2020 End: 03-23-2022 take 1 capsule by mouth once daily in the morning [place]-3 Fatty Acids-Fish Oil (Fish Oil) 340-1,000 mg Capsule Discontinued 1000 MG PO Every morning April 28, 2020 12:00am March 23, 2022 10:08am Start: 04-28-2020 take 1 capsule by [facility] once daily in the morning [place]-3 Fatty Acids-Fish Oil (Fish Oil) 340-1,000 mg Capsule Active 1000 MG PO Every morning April 28, 2020 12:00am ondansetron 8 mg oral tablet (20 sources) Serotonin-3 Receptor Antagonist Start: 04-22-2021 End: 08-27-2021 take 1 tablet by mouth every eight hours as needed ondansetron (ZOFRAN) 8 mg tablet Take 1 tablet by mouth every 8 hours as needed for nausea/vomiting. 90 tablet 2 04/22/2021 08/27/2021 Discontinued Start: 04-28-2020 End: 05-28-2020 take 4 mg by mouth every four hours Ondansetron Discontinued 4 MG PO Q4H April 28, 2020 12:00am May 28, 2020 6:31am Comment on above: Take 1 tablet by zenaida th every 8 hours as needed for nausea/vomiting. oxyCODONE hydrochloride 5 mg oral tablet (18 sources) Opioid Agonist Start: 04-16-19 End: 04-29-19 take 10 mg by mouth every four hours Oxycodone Discontinued 10 MG PO Every 4 hours April 16, 2020 April 29, 2020 11:01am Start: 04-16-2020 End: 05-28-2020 take 5 mg by mouth every four hours Oxycodone Discontinued 5 MG PO Every 4 hours 40 7 April 28, 2020 May 28, 2020 6:30am polysaccharide iron complex 150 mg oral capsule (6 sources) Start: 04-28-2020 End: 05-28-2020 Polysaccharide Iron Complex (Ferrex 150) 150 mg iron Capsule Discontinued 150 MG PO Every morning April 28, 2020 12:00am May 28, 2020 6:30am predniSONE 50 mg oral tablet (5 sources) Start: 03-23-2022 End: 04-16-2023 take 50 mg by mouth once daily at mealtime Prednisone Discontinued 50 MG PO Daily 07 22March 23, 2022 12:00am April 16, 2023 10:24am administer with food or milk prochlorperazine 10 mg oral tablet (18 sources) Phenothiazine Start: 04-22-2021 End: 08-27-2021 take 1 tablet by mouth every six hours as needed prochlorperazine (COMPAZINE) 10 mg tablet Take 1 tablet by mouth every 6 hours as needed. 100 tablet 2 04/22/2021 08/27/2021 Discontinued Comment on above: Take 1 tablet by zenaida every 6 hours as needed. sennosides, long-term 1.76 mg/ml oral solution (13 sources) Start: 05-14-2021 End: 07-27-2021 take 5 mL by mouth once daily at bedtime sennosides (SENNA) 8.8 mg/5 mL oral liquid Take 5 mL by mouth daily at bedtime. Hold for loose stool/diarrrhea. 200 mL 1 05/14/2021 07/27/2021 Discontinued (Discontinued by Patient) Comment on above: Take 5 mL by mouth d aily at bedtime. Hold for loose stool/diarrrhea. sulfamethoxazole 400 mg / trimethoprim 80 mg oral tablet (1 source) Dihydrofolate Reductase Inhibitor Antibacterial, Sulfonamide Antimicrobial Start: 05-20-2020 Sulfamethoxazole-Tri methoprim 400-80 MG Oral Tablet Quantity: 42 Refills: 0 Ordered: 20-May-2020 DO Start : 20-May-2020 Complete tamsulosin hydrochloride 0.4 mg oral capsule (6 sources) alpha-Adrenergic Av Start: 04-28-2020 End: 03-23-2022 take 0.4 mg by mouth at bedtime Tamsulosin Discontinued 0.4 MG PO Bedtime April 28, 2020 12:00am March 23, 2022 10:08am Triamcinolone (20 sources) Corticosteroid Start: 07-25-2017 Kenalog -40 mg July, 40 mg vancomycin 125 mg oral capsule (1 source) Glycopeptide Antibacterial Start: 05-11-2021 End: 05-22-2021 take 1 capsule by mouth four times daily vancomycin (VANCOCIN HCL) 125 mg capsule Take 1 capsule by mouth four times daily for 10 days. 40 capsule 0 05/11/2021 05/22/2021 Comment on above: Take 1 capsule by mo ut four times daily for 10 days. warfarin sodium 5 mg oral tablet (20 sources) Vitamin K Antagonist Start: 03-30-2021 take 1 tablet by mouth once daily warfarin (COUMADIN) 5 mg tablet Take 1 tablet by mouth once daily. jia 0 03/30/2021 Active Start: 06-19-2020 End: 03-26-2021 take 1 tablet by mouth once daily warfarin (COUMADIN) 5 mg tablet Take 1 tablet by mouth once daily. jia 0 03/30/2021 Active take 1 tablet by zenaida th once daily in the evening Warfarin 5mg 5 mg 1 tablet by mouth once daily in the evening Active Comment on above: Take 1 tablet by zenaida th once daily. jia Take 5 mg by mouth o nce daily. jia Problems Active Problems Problem Classification Problem Date Documented Da te Episodic/Chronic Abdominal pain (1 source) Upper abdominal pain, unspecified; Translations: [Upper abdominal pain, unspecified] Onset: 4 Episodic Acute and unspecified renal failure (6 sources) Injury of kidney; Translations: [Acute kidney failure, unspecified] 04-20-2020 Episodic Acute posthemorrhagic anemia (6 sources) Anemia following acute postoperative blood loss; Translations: [Acute posthemorrhagic anemia] 04-17-2020 Episodic Administrative/social admission (6 sources) Other reduced mobility; Translations: [Impaired mobility and activities of daily living] 04-17-2020 Episodic Alcohol-related disorders (20 sources) Alcoholism; Translations: [Alcohol dependence, uncomplicated] Chronic Anxiety disorders (20 sources) Anxiety; Translations: [Anxiety disorder, unspecified] Onset: 3 Resolved: 4 04-02-2023 Chronic Cancer of bone and connective tissue (1 source) 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, face and neck; Translations: [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, face and neck] 02-01-2021 Chronic Cancer of esophagus (14 sources) Malignant tumor of esophagus; Translations: [Malignant neoplasm of esophagus, unspecified site] Onset: 3 02-21-2023 Chronic Cancer of esophagus (20 sources) Personal history of malignant neoplasm of esophagus; Translations: [History of malignant neoplasm of esophagus] Onset: 9 04-20-2020 Episodic Cancer of head and neck (20 sources) Malignant tumor of tonsil; Translations: [Malignant neoplasm of tonsil, unspecified] Onset: 2 Chronic Cancer; other and unspecified primary (1 source) Malignant tumor of conjunctiva; 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] Onset: 3 09-05-2022 Chronic Cardiac dysrhythmias (20 sources) Paroxysmal atrial fibrillation; Translations: [Cardiac arrhythmia, unspecified] Onset: 4 04-02-2021 Chronic Chronic kidney disease (7 sources) Chronic kidney disease stage 3; Translations: [Stage 3 chronic kidney disease] Onset: 3 04-24-2020 Chronic Chronic obstructive pulmonary disease and bronchiectasis (20 sources) Simple chronic bronchitis; Translations: [Simple chronic bronchitis] Chronic Complications of surgical procedures or medical care (20 sources) Postoperative hypothyroidism; Translations: [Postprocedural hypothyroidism] Onset: 4 04-02-2021 Chronic Delirium, dementia, and amnestic and other cognitive disorders (6 sources) Cognitive disorder; Translations: [Unspecified 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] 03-28-2021 Chronic Esophageal disorders (20 sources) Rodriguez's esophagus; Translations: [Rodriguez's esophagus without dysplasia] 03-26-2021 Chronic Essential hypertension (20 sources) Essential (primary) hypertension; Translations: [Benign essential hypertension] Onset: 4 04-02-2021 Chronic Genitourinary symptoms and ill-defined conditions (6 sources) Retention of urine; Translations: [Retention of urine, unspecified] 04-23-2020 Episodic Hypertension with complications and secondary hypertension (6 sources) Chronic kidney disease due to hypertension; Translations: [Hypertensive chronic kidney disease with stage 1 through stage 4 chronic kidney disease, or unspecified chronic kidney disease] 04-24-2020 Chronic Miscellaneous mental health disorders (20 sources) Abnormal sexual function; Translations: [Sexual dysfunction, unspecified] Episodic Mood disorders (12 sources) Depressive disorder; Translations: [Depression with suicidal ideation] Onset: 4 04-16-2023 Chronic Mood disorders (2 sources) Mood disorders; Translations: [Depression, unspecified] Onset: 4 04-13-2023 Mycoses (1 source) Candidiasis of mouth; Translations: [Candidal stomatitis] Episodic Nausea and vomiting (6 sources) Nausea; Translations: [Nausea] 04-28-2020 Episodic Neoplasms of unspecified nature or uncertain behavior (4 sources) Conjunctival intraepithelial neoplasia; Translations: [Neoplasm of unspecified behavior of other specified sites] Episodic Nutritional deficiencies (6 sources) Nutritional deficiency state; Translations: [Nutritional deficiency, unspecified] 04-17-2020 Episodic Osteoarthritis (20 sources) Primary gonarthrosis, bilateral; Translations: [Bilateral primary osteoarthritis of knee] Chronic Other aftercare (20 sources) Encounter for therapeutic drug level monitoring; Translations: [Medication monitoring encounter Z51.81] Onset: 1 Resolved: 2 Episodic Other aftercare (2 sources) Taking high risk medication; Translations: [Other terminal carman (current) drug therapy] Onset: 3 02-22-2023 Episodic Other aftercare (2 sources) Other fci (current) drug therapy; Translations: [Other terminal carman (current) drug therapy] Onset: 3 Episodic Other and unspecified benign neoplasm (1 source) Papilloma of conjunctiva of left eye; Translations: [Benign neoplasm of left conjunctiva] Episodic Other circulatory disease (6 sources) H/O: atrial fibrillation; Translations: [Personal history of other diseases of the circulatory system] 04-17-2020 Episodic Other connective tissue disease (20 sources) History of bilateral total knee replacement; Translations: [Presence of artificial knee joint, bilateral] Chronic Other connective tissue disease (20 sources) History of total hip arthroplasty; Translations: [Presence of artificial hip joint, bilateral] Chronic Other connective tissue disease (12 sources) History of total knee arthroplasty; Translations: [Presence of right artificial knee joint] 04-14-2020 Chronic Other gastrointestinal disorders (20 sources) Occult blood in stools; Translations: [Other fecal abnormalities] 04-19-2020 Episodic Other gastrointestinal disorders (7 sources) Abnormal feces; Translations: [Other fecal abnormalities] Episodic Other injuries and conditions due to external causes (6 sources) Food lodged in esophagus; Translations: [Food in esophagus causing other injury, initial encounter] 01-20-2020 Episodic Other lower respiratory disease (1 source) Shortness of breath; Translations: [Shortness of breath] Onset: 4 Episodic Other nervous system disorders (20 sources) Chronic pain; Translations: [Other chronic pain] Chronic Other nutritional; endocrine; and metabolic disorders (1 source) Obesity, unspecified Onset: 9 Chronic Other nutritional; endocrine; and metabolic disorders (15 sources) Obesity; Translations: [Obesity, unspecified] Onset: 3 02-22-2023 Chronic Other nutritional; endocrine; and metabolic disorders (20 sources) Obese class I; Translations: [Obesity, unspecified] Onset: 4 03-26-2021 Chronic Other screening for suspected conditions (not mental disorders or infectious disease) (7 sources) Abnormal electrocardiogram [ECG] [EKG]; Translations: [Protein level - finding] Onset: 9 04-17-2020 Episodic Other skin disorders (6 sources) Neck swelling; Translations: [Localized swelling, mass and lump, neck] 04-11-2021 Episodic Peripheral and visceral atherosclerosis (1 source) Atherosclerosis of aorta; Translations: [Atherosclerosis of aorta] Onset: 4 03-29-2023 Chronic Residual codes; unclassified (20 sources) Patient encounter status; Translations: [Encounter for prophylactic measures, unspecified] Onset: 4 03-15-2021 Episodic Residual codes; unclassified (5 sources) History of antineoplastic chemotherapy; Translations: [Personal history of antineoplastic chemotherapy] Episodic Residual codes; unclassified (6 sources) Bilateral lower limb edema; Translations: [Localized edema] 04-17-2020 Episodic Screening and history of mental health and substance abuse codes (20 sources) Ex-smoker; Translations: [Personal history of tobacco use] Onset: 3 01-19-2021 Episodic Comment on above: quit 02/2018; Spondylosis; intervertebral disc disorders; other back problems (6 sources) Lumbar radiculopathy; Translations: [Radiculopathy, lumbar region] 10-07-2019 Episodic Substance-related disorders (20 sources) Nicotine dependence, unspecified, uncomplicated; Translations: [Nicotine dependence] Onset: 9 04-02-2021 Chronic Substance-related disorders (20 sources) Marijuana user; Translations: [Cannabis use, unspecified, uncomplicated] Onset: 3 03-26-2021 Episodic Suicide and intentional self-inflicted injury (1 source) Suicidal ideations; Translations: [Suicidal ideations] Onset: 4 Episodic Thyroid disorders (20 sources) Hypothyroidism; Translations: [Unspecified acquired hypothyroidism] Onset: 3 02-22-2023 Chronic Unclassified (1 source) Other terminal carman (current) drug therapy Onset: 9 Unclassified (20 sources) DISPOSITION AND FOLLOW-UP Onset: 4 03-15-2021 Urinary tract infections (6 sources) Urinary tract infection caused by Klebsiella; Translations: [Urinary tract infection, site not specified] 04-27-2020 Episodic Past or Other Problems Problem Classification Problem Date Documented Date Episodic/Chronic Cancer of head and neck (8 sources) History of malignant neoplasm of tonsil; Translations: [Personal history of malignant neoplasm of other sites of lip, oral cavity, and pharynx] Onset: 10-13-2022 Episodic Deficiency and other anemia (20 sources) Anemia; Translations: [Anemia, unspecified] Onset: 09-05-2022 02-21-2023 Episodic Fluid and electrolyte disorders (20 sources) Hypervolemia; Translations: [Fluid overload, unspecified] Onset: 05-16-2013 03-15-2021 Episodic Lymphadenitis (2 sources) Localized enlarged lymph nodes; Translations: [Localized enlarged lymph nodes] Onset: 10-13-2022 Episodic Other aftercare (20 sources) Drug therapy finding; Translations: [Long-term (current) use of other medications] Onset: 05-16-2013 03-15-2021 Episodic Other aftercare (20 sources) Long-term current use of anticoagulant; Translations: [[facility] (current) use of anticoagulants] Onset: 01-19-2021 01-19-2021 Episodic Other and unspecified benign neoplasm (1 source) Benign neoplasm of left conjunctiva; Translations: [Conjunctival papilloma, left] Onset: 05-30-2022 Episodic Other lower respiratory disease (20 sources) Respiratory insufficiency; Translations: [Other abnormalities of breathing] Onset: 03-23-2021 03-26-2021 Episodic Other nervous system disorders (20 sources) Postoperative pain ; Translations: [Other acute postprocedural pain] Onset: 05-15-2013 03-26-2021 Episodic Pleurisy; pneumothorax; pulmonary collapse (20 sources) Atelectasis; Translations: [Atelectasis] Onset: 05-15-2013 03-15-2021 Episodic Residual codes; unclassified (1 source) Personal history of irradiation; Translations: [History of radiation therapy] Onset: 10-13-2022 Episodic Unclassified (1 source) Onset: 02-22-2023 02-22-2023 Viral infection (20 sources) Disease caused by 2019-nCoV; Translations: [COVID-19] Onset: 03-18-2021 03-26-2021 Episodic Results Test Name Value Interpretation Reference Range Facility B-Type Natriuretic Peptideon 05-26-2023 Natriuretic peptide B (Bld) [Mass/Vol] 11.0 pg/mL Normal 5-100 [facility] Comment on above: Result Comment: PERF ORMED BY: [place] [address] PATHOLOGIST BAT LATHE OPERATOR MAXINE EL M.D. Performed By: #### U A #### [address] Complete Blood Count Auto Di ffon 05-26-2023 Basophils (Bld) [#/Vol] 0.1 10*3/uL Normal 0.0-0.2 [facility] Comment on above: Result Comment: PERF ORMED BY: [place] [address] PATHOLOGIST BAT LATHE OPERATOR MAXINE EL M.D. Performed By: #### U A #### [address] Basophils/100 WBC (Bld) 0.5 % Normal . [facility] Comment on above: Performed By: #### U A #### [address] Eosinophils (Bld) [#/Vol] 0.1 10*3/uL Normal 0.0-0.45 [facility] Comment on above: Performed By: #### U A #### [address] Eosinophils/100 WBC (Bld) 1.1 % Normal . [facility] Comment on above: Performed By: #### U A #### [address] Erythrocyte distribution width (RBC) [Ratio] 13.2 % Normal 12.0-14.8 [facility] Comment on above: Performed By: #### U A #### [address] Hematocrit (Bld) [Volume fraction] 35.0 % Low 38.8-50.0 [facility] Comment on above: Performed By: #### U A #### [address] Hemoglobin (Bld) [Mass/Vol] 11.9 g/dL Low 13.0-17.0 [facility] Comment on above: Performed By: #### U A #### [address] Lymphocytes (Bld) [#/Vol] 0.6 10*3/uL Low 1.00-4.8 [facility] Comment on above: Performed By: #### U A #### [address] Lymphocytes/100 WBC (Bld) 6.7 % Normal . [facility] Comment on above: Performed By: #### U A #### [address] MCH (RBC) [Entitic mass] 30.3 pg Normal 27.5-35.2 [facility] Comment on above: Performed By: #### U A #### [address] MCV (RBC) [Entitic vol] 88.8 fL Normal 83.5-101 [facility] Comment on above: Performed By: #### U A #### [address] Mean Corpuscular HGB Conc 34.1 g/dL Normal 32.5-35.6 [facility] Comment on above: Performed By: #### U A #### [address] Monocytes (Bld) [#/Vol] 0.8 10*3/uL Normal 0.0-0.8 [facility] Comment on above: Performed By: #### U A #### [address] Monocytes/100 WBC (Bld) 16.37 % Normal 0.00-20.00 [facility] Comment on above: Performed By: #### U A #### [address] Monocytes/100 WBC (Bld) 8.5 % Normal . [facility] Comment on above: Performed By: #### U A #### [address] Neutrophils (Bld) [#/Vol] 7.9 10*3/uL High 1.8-7.7 [facility] Comment on above: Performed By: #### U A #### [address] Neutrophils/100 WBC (Bld) 83.2 % Normal . [facility] Comment on above: Performed By: #### U A #### [address] NRBC% 0.0 /100{WBC} Normal 0-0.5 [facility] Comment on above: Performed By: #### U A #### [address] Platelet mean volume (Bld) [Entitic vol] 7.4 fL Normal 6.6-10.1 [facility] Comment on above: Performed By: #### U A #### [address] Platelets (Bld) [#/Vol] 320 10*3/uL Normal 150-450 [facility] Comment on above: Performed By: #### U A #### [address] RBC (Bld) [#/Vol] 3.94 10*6/uL Normal 3.90-5.60 [facility] Comment on above: Performed By: #### U A #### [address] WBC (Bld) [#/Vol] 9.5 10*3/uL Normal 4.1-10.5 [facility] Comment on above: Performed By: #### U A #### [address] Comprehensive Metabolic Pane jameson 05-26-2023 Albumin [Mass/Vol] 3.9 g/dL Normal 3.5-5.7 [facility] Comment on above: Performed By: #### U A #### [facility] [address] [place] [address] Albumin/Globulin [Mass ratio] 1.5 {ratio} Normal [facility] Comment on above: Performed By: #### U A #### [facility] [address] [place] [address] ALP [Catalytic activity/Vol] 58 U/L Normal 34-104 [facility] Comment on above: Performed By: #### U A #### [facility] [address] [place] [address] ALT [Catalytic activity/Vol] 13 U/L Normal 7-52 [facility] Comment on above: Performed By: #### U A #### [facility] [address] [place] [address] Anion gap [Moles/Vol] 13.8 mmol/L Normal 6.0-15.0 [facility] Comment on above: Performed By: #### U A #### [facility] [address] [place] [address] AST [Catalytic activity/Vol] 14 U/L Normal 13-39 [facility] Comment on above: Performed By: #### U A #### [facility] [address] [place] [address] Bilirubin [Mass/Vol] 0.6 mg/dL Normal 0.3-1.0 [facility] Comment on above: Performed By: #### U A #### [facility] [address] [place] [address] Calcium [Mass/Vol] 8.8 mg/dL Normal 8.6-10.3 [facility] Comment on above: Performed By: #### U A #### [facility] [address] [place] [address] Chloride [Moles/Vol] 97 mmol/L Low 98-107 [facility] Comment on above: Performed By: #### U A #### [address] CO2 [Moles/Vol] 21.7 mmol/L Normal 21.0-31.0 [facility] Comment on above: Performed By: #### U A #### [facility] [address] Creatinine [Mass/Vol] 1.19 mg/dL Normal 0.70-1.30 [facility] Comment on above: Performed By: #### U A #### [address] Creatinine Clr Calc Pharmacy 62.27 [facility] Comment on above: Result Comment: PERF ORMED BY: [place] [address] PATHOLOGIST BAT LATHE OPERATOR MAXINE EL M.D. Performed By: #### U A #### [address] GFR/1.73 sq M.predicted MDRD (S/P/Bld) [Vol rate/Area] mL/min/{1.73_m2} [facility] Comment on above: Performed By: #### U A #### [address] Globulin (S) [Mass/Vol] 2.6 g/dL Normal [facility] Comment on above: Performed By: #### U A #### [address] Glucose [Mass/Vol] 95 mg/dL Normal 70-100 [facility] Comment on above: Result Comment: [facility] Glucose Reference Range is dependent on time and content of last meal. Glucose of more than 200 mg/dL in a nonstressed, ambulatory subject supports the diagnosis of Diabetes Mellitus. ADA recommended reference range Performed By: #### U A #### [address] Potassium [Moles/Vol] 3.5 mmol/L Normal 3.5-5.1 [facility] Comment on above: Performed By: #### U A #### [address] Protein [Mass/Vol] 6.5 g/dL Normal 6.4-8.9 [facility] Comment on above: Performed By: #### U A #### [facility] [address] Sodium [Moles/Vol] 129 mmol/L Low 136-145 [facility] Comment on above: Performed By: #### U A #### [facility] [address] Urea nitrogen [Mass/Vol] 14 mg/dL Normal 7-25 [facility] Comment on above: Performed By: #### U A #### [facility] [address] Creatine Kinaseon 05-26-2023 CK [Catalytic activity/Vol] 37 U/L Normal 30-223 [facility] Comment on above: Performed By: #### U A #### [facility] [address] [place] [address] ECG 12 lead ECGon 05-26-2023 ECG 12 lead ECG [facility] Main [place] [address] [place] [address] Electrocardiograph Report Signed Patient: Washington Garcia MR#: [id number] : 1950 Acct:[id number] Age/Sex: 72 / M ADM Date: 05/25/23 Loc: ER Room: Type: [facility] ER Attending Dr: Ordering Provider: Eduardo Redding Jr, MD Date of Service: 05/25/2310/10/2199 ECG/ECG 12 lead ECG: Shortness of Breath/Dyspnea Copies to: Test Reason : Blood Pressure : 150/067 mmHG Vent. Rate : 075 BPM Atrial Rate : 075 BPM P-R Int : 198 ms QRS Dur : 118 ms QT Int : 420 ms P-R-T Axes : 089 047 010 degrees QTc Int : 469 ms Normal sinus rhythm Nonspecific ST abnormality Abnormal ECG When compared with ECG of 23-MAY-2023 17:55, No significant change was found Confirmed by EDUARDO REDDING MD ([id number]) on 05/27/2023 3:56:33 AM Referred By: Electronically Signed By:EDUARDO REDDING MD Transcribed By: MUS Signed By Eduardo Redding Jr, MD [id number] [facility] Troponin I High Sensitivityo n 05-26-2023 Troponin I High Sensitivity 15.8 pg/mL Normal 0.0-20.0 [facility] Comment on above: Result Comment: PERF ORMED BY: [place] [address] PATHOLOGIST BAT LATHE OPERATOR MAXINE EL M.D. Performed By: #### P TT, HS TROP, PT #### [address] XR chest 2V*on 05-26-2023 XR chest 2V* [facility] Main [place] [address] [place] [address] XRay Report Signed Patient: Washington Garcia MR#: [id number] : 1950 Acct:[id number] Age/Sex: 72 / M ADM Date: 05/25/23 Loc: ER Room: Type: [facility] ER Attending Dr: Copies to: Eduardo Redding Jr, MD Ordering Provider: Eduardo Redding Jr, MD Date of Service: 05/25/23 XR/XR chest 2V*: Shortness of Breath/Dyspnea AP erect AND LATERAL CHEST: CLINICAL HISTORY: Recent COVID and RSV. Shortness of breath, greater when laying down. Esophageal cancer. COMPARISON: 05/23/2023 There is mild basilar atelectasis and possible scarring. There is no additional consolidation, effusion or pneumothorax. The cardiac, hilar and mediastinal silhouettes are similar including a hiatal hernia/gastric pull-through . There is no vascular congestion. Mild degenerative changes seen at the spine. XR/XR chest 2V* IMPRESSION: MINOR ATELECTASIS AND POSSIBLE SCARRING. NO ACUTE FINDINGS. Impression dictated by: Tonie Murray M.D.05/26/2023 10:16 AM Dictation Location: [place] [address] Transcribed By: [facility] 05/26/23 1016 Dictated By: Tonie Murray MD 05/26/23 1013 Signed By: 05/26/23 1016 Normal [facility] Arterial Blood Gason 024 ABG Base Excess 1.2 mmol/L Normal -3.0-3.0 [facility] Comment on above: Performed By: #### P TT, HS TROP, PT #### [facility] [address] [place] [address] ABG Frac Inspired O2 21 % Normal [facility] Comment on above: Performed By: #### P TT, HS TROP, PT #### [facility] [address] [place] [address] ABG Oxygen Content 7.1 mmol/L Normal 6.6-9.7 [facility] Comment on above: Performed By: #### P TT, HS TROP, PT #### [facility] [address] [place] [address] ABG Oxygen Saturation 92.6 % Low 95.0-100.0 [facility] Comment on above: Performed By: #### P TT, HS TROP, PT #### [facility] [address] [place] [address] ABG PCO2 34.0 mm[Hg] Low 35.0-45.0 [facility] Comment on above: Performed By: #### P TT, HS TROP, PT #### [facility] [address] [place] [address] ABG PH 7.47 High 7.35-7.45 [facility] Comment on above: Performed By: #### P TT, HS TROP, PT #### [facility] [address] [place] [address] ABG PO2 63.4 mm[Hg] Low 80.0-100.0 [facility] Comment on above: Performed By: #### P TT, HS TROP, PT #### [facility] [address] [place] [address] [place] CO2 [Moles/Vol] 25.4 mmol/L Normal 23.0-27.0 [facility] Comment on above: Performed By: #### P TT, HS TROP, PT #### [facility] [address] [place] [address] [place] HCO3 (Bld) [Moles/Vol] 24.4 mmol/L Normal 23.0-29.0 [facility] Comment on above: Performed By: #### P TT, HS TROP, PT #### [facility] [address] [place] [address] Respiratory Critical Normal [facility] Comment on above: Result Comment: Crit ical Value called on: 05/23/2023 at 19:53 PERFORMED BY: [place] [address] PATHOLOGIST BAT LATHE OPERATOR MAXINE EL M.D. Performed By: #### P TT, HS TROP, PT #### [facility] [address] [place] [address] VBG Draw Site Left Radial Normal [facility] Comment on above: Performed By: #### P TT, HS TROP, PT #### [facility] [address] [place] [address] B-Type Natriuretic Peptideon 05-23-2023 Natriuretic peptide B (Bld) [Mass/Vol] 14.0 pg/mL Normal 5-100 [facility] Comment on above: Result Comment: PERF ORMED BY: [place] [address] PATHOLOGIST BAT LATHE OPERATOR MAXINE EL M.D. Performed By: #### C BC, BMP, TSH3 #### [facility] [address] [place] [address] COVID-19 / Flu A/B / RSV PCR on 05-23-2023 SARS-CoV-2 (COVID-19) RNA ALAN+probe Ql (Unsp spec) COVID-19 Cepheid Result Negative for SARS-CoV-2 RNA by RT-PCR Flu A Cepheid Result Negative for Flu A RNA by RT-PCR Flu B Cepheid Result Negative for Flu B RNA by RT-PCR RSV Cepheid Result Positive for RSV RNA by RT-PCR COVID19 Blank Space ---- Reference: Negative COVID19 Blank Space ---- Cepheid Disclaimer The Cepheid Xpert Xpress CoV-2/Flu/RSV Plus has Cepheid Disclaimer not been FDA cleared or approved; this test has Cepheid Disclaimer been authorized by FDA under an EUA for use by Cepheid Disclaimer authorized laboratories; this test has been Cepheid Disclaimer authorized only for the simultaneous qualitative Cepheid Disclaimer detection and differentiation of nucleic acids from Cepheid Disclaimer SARS-CoV-2, influenza A, influenza B, and Cepheid Disclaimer respiratory syncytial virus (RSV), and not for any Cepheid Disclaimer other viruses or pathogens; and this test is only Cepheid Disclaimer authorized for the duration of the declaration that Cepheid Disclaimer circumstances exist justifying the authorization of Cepheid Disclaimer emergency use of in vitro diagnostic tests for Cepheid Disclaimer detection and/or diagnosis of COVID-19 under Cepheid Disclaimer Section 564(b)(1) of the Act, 21 U.S.C. 360bbb- Cepheid Disclaimer 3(b)(1), unless the authorization is terminated or Cepheid Disclaimer revoked sooner. PERFORMED BY: [place] [address] PATHOLOGIST BAT LATHE OPERATOR MAXINE EL M.D. Normal [facility] Comment on above: Performed By: #### C OVID19 FLU RSV, CEPHEID NEG #### [facility] [address] Cepheid COVID PCR Negativeon 05-23-2023 SARS-CoV-2 (COVID-19) RNA ALAN+probe Ql (Unsp spec) Negative Normal Negative [facility] Comment on above: Result Comment: This is a duplicate Cepheid Xpert Xpress CoV-2/Flu/RSV Plus RNA by RT-PCR result to be used for statistical tracking purpose only. PERFORMED BY: [facility] [address] [place] [address] PATHOLOGIST BAT LATHE OPERATOR JIANLAN SUN M.D. Performed By: #### C OVID19 FLU RSV, CEPHEID NEG #### [facility] [address] Complete Blood Count Auto Di ffon 05-23-2023 Basophils (Bld) [#/Vol] 0.1 10*3/uL Normal 0.0-0.2 [facility] Comment on above: Result Comment: PERF ORMED BY: [place] [address] PATHOLOGIST BAT LATHE OPERATOR MAXINE EL M.D. Performed By: #### C BC, BMP, TSH3 #### [facility] [address] Basophils/100 WBC (Bld) 0.8 % Normal . [facility] Comment on above: Performed By: #### C BC, BMP, TSH3 #### [address] Eosinophils (Bld) [#/Vol] 0.1 10*3/uL Normal 0.0-0.45 [facility] Comment on above: Performed By: #### C BC, BMP, TSH3 #### [address] Eosinophils/100 WBC (Bld) 0.7 % Normal . [facility] Comment on above: Performed By: #### C BC, BMP, TSH3 #### [address] Erythrocyte distribution width (RBC) [Ratio] 13.3 % Normal 12.0-14.8 [facility] Comment on above: Performed By: #### C BC, BMP, TSH3 #### [address] Hematocrit (Bld) [Volume fraction] 35.9 % Low 38.8-50.0 [facility] Comment on above: Performed By: #### C BC, BMP, TSH3 #### [address] Hemoglobin (Bld) [Mass/Vol] 12.4 g/dL Low 13.0-17.0 [facility] Comment on above: Performed By: #### C BC BMP, TSH3 #### [address] Lymphocytes (Bld) [#/Vol] 0.8 10*3/uL Low 1.00-4.8 [facility] Comment on above: Performed By: #### C BC BMP, TSH3 #### [address] Lymphocytes/100 WBC (Bld) 9.0 % Normal . [facility] Comment on above: Performed By: #### C BC BMP, TSH3 #### [address] MCH (RBC) [Entitic mass] 30.6 pg Normal 27.5-35.2 [facility] Comment on above: Performed By: #### C RG BMP, TSH3 #### [address] MCV (RBC) [Entitic vol] 89.0 fL Normal 83.5-101 [facility] Comment on above: Performed By: #### C STACIE DIEZ, TSH3 #### [address] Mean Corpuscular HGB Conc 34.4 g/dL Normal 32.5-35.6 [facility] Comment on above: Performed By: #### C BC BMP, TSH3 #### [address] Monocytes (Bld) [#/Vol] 0.9 10*3/uL High 0.0-0.8 [facility] Comment on above: Performed By: #### C BC BMP, TSH3 #### [address] Monocytes/100 WBC (Bld) 16.85 % Normal 0.00-20.00 [facility] Comment on above: Performed By: #### C BC, BMP, TSH3 #### [address] Monocytes/100 WBC (Bld) 9.7 % Normal . [facility] Comment on above: Performed By: #### C STACIE DIEZ, TSH3 #### [address] Neutrophils (Bld) [#/Vol] 7.5 10*3/uL Normal 1.8-7.7 [facility] Comment on above: Performed By: #### C STACIE DIEZ, TSH3 #### [address] Neutrophils/100 WBC (Bld) 79.8 % Normal . [facility] Comment on above: Performed By: #### C STACIE DIEZ TSH3 #### [address] NRBC% 0.0 /100{WBC} Normal 0-0.5 [facility] Comment on above: Performed By: #### C STACIE DIEZ, TSH3 #### [address] Platelet mean volume (Bld) [Entitic vol] 7.5 fL Normal 6.6-10.1 [facility] Comment on above: Performed By: #### C STACIE DIEZ, TSH3 #### [address] Platelets (Bld) [#/Vol] 312 10*3/uL Normal 150-450 [facility] Comment on above: Performed By: #### C STACIE DIEZ, TSH3 #### [address] RBC (Bld) [#/Vol] 4.03 10*6/uL Normal 3.90-5.60 [facility] Comment on above: Performed By: #### C STACIE DIEZ, TSH3 #### [address] WBC (Bld) [#/Vol] 9.4 10*3/uL Normal 4.1-10.5 [facility] Comment on above: Performed By: #### C STACIE DIEZ, TSH3 #### [facility] [address] Comprehensive Metabolic Pane jameson 05-23-2023 Albumin [Mass/Vol] 4.1 g/dL Normal 3.5-5.7 [facility] Comment on above: Performed By: #### C BC, BMP, TSH3 #### [facility] [address] Albumin/Globulin [Mass ratio] 1.6 {ratio} Normal [facility] Comment on above: Performed By: #### C BC, BMP, TSH3 #### [facility] [address] ALP [Catalytic activity/Vol] 61 U/L Normal 34-104 [facility] Comment on above: Performed By: #### C BC, BMP, TSH3 #### [facility] [address] ALT [Catalytic activity/Vol] 11 U/L Normal 7-52 [facility] Comment on above: Performed By: #### C BC, BMP, TSH3 #### [facility] [address] [place] [id number] [facility] Anion gap [Moles/Vol] 15.2 mmol/L High 6.0-15.0 [facility] Comment on above: Performed By: #### C BC, BMP, TSH3 #### [facility] [address] [place] [id number] [facility] AST [Catalytic activity/Vol] 13 U/L Normal 13-39 [facility] Comment on above: Performed By: #### C BC, BMP, TSH3 #### [facility] [address] [place] [id number] [place] Bilirubin [Mass/Vol] 0.6 mg/dL Normal 0.3-1.0 [facility] Comment on above: Performed By: #### C BC, BMP, TSH3 #### [facility] [address] [place] [id number] [facility] Calcium [Mass/Vol] 9.1 mg/dL Normal 8.6-10.3 [facility] Comment on above: Performed By: #### C RG, BMP, TSH3 #### [facility] [address] [place] [address] [place] Chloride [Moles/Vol] 100 mmol/L Normal 98-107 [facility] Comment on above: Performed By: #### C BC, BMP, TSH3 #### [facility] [address] CO2 [Moles/Vol] 22.4 mmol/L Normal 21.0-31.0 [facility] Comment on above: Performed By: #### C GR, STACIE, TSH3 #### [facility] [address] Creatinine [Mass/Vol] 1.16 mg/dL Normal 0.70-1.30 [facility] Comment on above: Performed By: #### C RG BMP, TSH3 #### [facility] [address] [place] [address] [place] Creatinine Clr Calc Pharmacy 63.61 [facility] Comment on above: Result Comment: PERF ORMED BY: [place] [address] PATHOLOGIST BAT LATHE OPERATOR MAXINE EL M.D. Performed By: #### C STACIE DIEZ, TSH3 #### [facility] [address] [place] [address] [place] GFR/1.73 sq M.predicted MDRD (S/P/Bld) [Vol rate/Area] mL/min/{1.73_m2} [facility] Comment on above: Performed By: #### C RG, BMP, TSH3 #### [facility] [address] [place] [address] [place] Globulin (S) [Mass/Vol] 2.5 g/dL [facility] Comment on above: Performed By: #### C RG, BMP, TSH3 #### [facility] [address] [place] [address] [place] Glucose [Mass/Vol] 115 mg/dL High 70-100 [facility] Comment on above: Result Comment: [facility] Glucose Reference Range is dependent on time and content of last meal. Glucose of more than 200 mg/dL in a nonstressed, ambulatory subject supports the diagnosis of Diabetes Mellitus. ADA recommended reference range Performed By: #### C STACIE DIEZ, TSH3 #### [facility] [address] Potassium [Moles/Vol] 3.6 mmol/L Normal 3.5-5.1 [facility] Comment on above: Performed By: #### C STACIE DIEZ, TSH3 #### [facility] [address] Protein [Mass/Vol] 6.6 g/dL Normal 6.4-8.9 [facility] Comment on above: Performed By: #### C STACIE DIEZ, TSH3 #### [address] Sodium [Moles/Vol] 134 mmol/L Low 136-145 [facility] Comment on above: Performed By: #### C STACIE DIEZ, TSH3 #### [place] [address] [place] Urea nitrogen [Mass/Vol] 15 mg/dL Normal 7-25 [facility] Comment on above: Performed By: #### C STACIE DIEZ, TSH3 #### [place] [id number] [facility] Creatine Kinaseon 05-23-2023 CK [Catalytic activity/Vol] 35 U/L Normal 30-223 [facility] Comment on above: Performed By: #### C STACIE DIEZ, TSH3 #### [place] [id number] [place] ECG 12 lead ECGon 05-23-2023 ECG 12 lead ECG [facility] Main [place] [address] [place] [address] Electrocardiograph Report Signed Patient: Washington Garcia MR#: [id number] : 1950 Acct:[id number] Age/Sex: 72 / M ADM Date: 05/23/23 Loc: ER Room: Type: [facility] ER Attending Dr: Ordering Provider: Srinivasan Gross PA-C Date of Service: 05/23/2308/10/1750 ECG/ECG 12 lead ECG: DYSPNEA Copies to: Test Reason : Blood Pressure : 214/086 mmHG Vent. Rate : 071 BPM Atrial Rate : 071 BPM P-R Int : 192 ms QRS Dur : 118 ms QT Int : 402 ms P-R-T Axes : 078 067 065 degrees QTc Int : 436 ms Normal sinus rhythm Nonspecific intraventricular conduction delay Nonspecific ST abnormality Abnormal ECG When compared with ECG of 17-MAY-2023 14:11, Non-specific change in ST segment in Inferior leads Confirmed by PHAM EDMOND DO ([id number]) on 05/23/2023 7:00:04 PM Referred By: Electronically Signed By:PHAM EDMOND DO Transcribed By: MUS Signed By Pham Edmond DO 1900 Normal [facility] Partial Thromboplastin Timeo n 05-23-2023 aPTT Coag (Bld) [Time] 53.7 s [facility] 25.1-36.5 [facility] Comment on above: Result Comment: A he matocrit value greater than 55% may lead to inaccurate results in coagulation testing. Patients having hematocrit values >55% require a special collection tube for coagulation studies. Please contact the laboratory at [phone] for redraw instructions. PERFORMED BY: [place] [address] PATHOLOGIST BAT LATHE OPERATOR MAXINE EL M.D. Performed By: #### C , BMP, TSH3 #### [address] Prothrombin Time INRon 05-22 INR Coag (PPP) [Relative time] 5.6 {INR} Off scale [facility] Comment on above: Result Comment: Crit ical value result called at 1921 on 05/23/23 INR Therapeutic Range A) Pre- and Peroperative OAT started two weeks before surgery. NOT HIP SURGERY: 1.5 - 2.5 HIP SURGERY: 2 - 3 B) Primary and secondary prevention of venous THROMBOSIS: 2 - 3 C) Active venous thrombosis, pulmonary embolism and prevention of recurrent venous thrombosis: 2 - 3 D) Prevention of arterial thromboembolism including patients with mechanical heart valves: 3 - 4.5 Performed By: #### C RG, BMP, TSH3 #### [facility] [address] [place] [address] PT Coag (PPP) [Time] 62.1 s High 9.0-12.9 [facility] Comment on above: Result Comment: A he matocrit value greater than 55% may lead to inaccurate results in coagulation testing. Patients having hematocrit values >55% require a special collection tube for coagulation studies. Please contact the laboratory at [phone] for redraw instructions. Performed By: #### C RG, BMP, TSH3 #### [facility] [address] [place] [address] Troponin I High Sensitivityo n 05-23-2023 Troponin I High Sensitivity 11.8 pg/mL Normal 0.0-20.0 [facility] Comment on above: Result Comment: PERF ORMED BY: [place] [address] PATHOLOGIST BAT LATHE OPERATOR MAXINE EL M.D. Performed By: #### C RG, STACIE, TSH3 #### [address] XR chest 2V*on 05-23-2023 XR chest 2V* [facility] Main [place] [address] [place] [address] XRay Report Signed Patient: Washington Garcia MR#: [id number] : 1950 Acct:[id number] Age/Sex: 72 / M ADM Date: 05/23/23 Loc: ER Room: Type: [facility] ER Attending Dr: Copies to: Srinivasan Gross PA-C Ordering Provider: Srinivasan Gross PA-C Date of Service: 05/23/23 XR/XR chest 2V*: DYSPNEA Chest 2 views CLINICAL HISTORY: Shortness of breath wheezing positive COVID. COMPARISON: Chest 04/02/2023 FINDINGS: Heart normal in size. Lungs are clear. No free air. XR/XR chest 2V* IMPRESSION: NO ACUTE CARDIOPULMONARY ABNORMALITY. Impression dictated by: Kristopher Nunez Jr., D.O.05/23/2023 6:05 PM Dictation Location: RADIO-PC-15 Transcribed By: ARMIDA 05/23/231804 Dictated By: Kristopher Nunez Jr, DO 05/23/231803 Signed By: 05/23/231804 [facility] [place] 05-19-2023 CNPN Telephone (THORMN) ----- WASHINGTON GARCIA ([id number]) 1950 [employer]* Date Time Provider Department 05/19/23 ALEX PARKS During your visit today, we recorded the following information about you: Rossy Daniels 05/19/2023 10:11 AM Signed RECEIVED CALL FROM: Patient PATIENT INFORMATION: Name: Washington Garcia : 1950 (home) [phone] (cell) Email: No e-mail address on record Referring Provider: No referring provider defined for this encounter. Phone: N/A Fax: Requested Surgeon: Alex Parks M.D., Ph. D. Reason for appointment/diagnosis: Pt is requesting appt with Dr. Parks. Recently went to ER had acid reflux wants next available appt. Rossy Woods May 19, 2023 10:10 AM Grace Walker, RN 05/22/2023 11:47 AM Signed May 22, 2023 1145 - pt notes that he was having sharp pains in my belly and the ED noted to be acid reflux . Pt notes he also developed a COVID infection last week (tested positive this Friday 05/19). Pt ntoes he does not take PPI notign Oh no that shit messes up my stomach real bad Pt further explained that he had no appetite and not longer teakes request EGD with dr eagle [facility] [employer] visit after per last OPD notes THOR 09/08/2020 IMPRESSION: 70 year old year old male s/p Transhiatal approach, thoracic esophagectomy, proximal gastrectomy, abdominal lymphadenectomy, pyloromyotomy, J-tube placement 05/15/[address] Parks for T1bN0 adenocarcinoma of the esophagus. PLAN: - Return in 2 years for EGD - CT Neck if symptoms continue Grace Walker RN 05/22/2023 11:47 AM Signed Addended by: GRACE WALKER on: 05/22/2023 11:47 AM Modules accepted: Orders Allergies As of Date: 05/19/2023 (No Known Allergies) Date Reviewed: 03/24/2023 Reviewed by: Cristal Conley CT - Fully Assessed Reason for Visit: Appointment [186] Primary Visit Diagnosis:Gastroesophagea l reflux disease, unspecified whether esophagitis present [K21.9] Order(s):EGD DIAGNOSTIC [GI9] Order #: [id number] FUTURE Prescriptions as of 05/22/2023 - SYNTHROID 137 mcg tablet Take 1 tablet by mouth once daily. - ascorbic acid (VITAMIN C ORAL) Take by mouth. - cyanocobalamin, vitamin B-12, (VITAMIN B-12 ORAL) Take by mouth. - lisinopril (ZESTRIL, PRINIVIL) 20 mg tablet - flecainide (TAMBOCOR) 100 mg tablet Take 100 mg by mouth twice daily. - ALPRAZolam (XANAX) 1 mg tablet Take 1 mg by mouth at bedtime as needed. - warfarin (COUMADIN) 5 mg tablet Take 1 tablet by mouth once daily. jia - hydrALAZINE (APRESOLINE) 50 mg tablet Take 100 mg by mouth twice daily. - diltiazem CR (TIAZAC, TAZTIA XT) 180 mg 24 hr capsule Take 180 mg by mouth once daily. 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] Former smoker [Z87.891] Marijuana use [F12.90] Chronic anticoagulation [Z79.01] 01/19/2021 COVID [U07.1] 03/18/2021 Tonsil cancer (HCC) [C09.9] 03/23/2021 Respiratory insufficiency [R06.89] 03/23/2021 Delirium [R41.0] 03/29/2021 04/02/2021 Nicotine use disorder, F17.2 [F17.200] 03/31/2021 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] 04/20/2021 Encounter Status:Closed by ROSSY DANIELS on 05/19/23 Normal [facility] CT abdomen pelvis w conon CT abdomen pelvis w con [facility] [place] [address] CT Scan Report Signed Patient: Washington Garcia MR#: [id number] : 1950 Acct:[id number] Age/Sex: 72 / M ADM Date: 05/17/23 Loc: ER Room: Type: [facility] ER Attending Dr: Copies to: Юлия Ornelas APRN Ordering Provider: Юлия Ornelas APRN Date of Service: 05/17/23 CT/CT abdomen pelvis w con: pain CT ABDOMEN AND PELVIS WITH INTRAVENOUS CONTRAST: CLINICAL HISTORY: Generalized abdominal pain with decreased appetite and diarrhea for 2 days. COMPARISON: CT abdomen and pelvis 04/26/2020 TECHNIQUE: Spiral images were obtained through the abdomen and pelvis following the administration of intravenous contrast. This CT exam was performed using one or more following dose reduction te chniques: Automated exposure control, adjustment of the mA and/or kV according to patient size, or use of iterative reconstruction technique. FINDINGS: Lung Bases: [Partially visualized gastric pull-through with compressive atelectasis involving the right lower lobe.] Organs:Cholelithiasis. No CBD dilatation. Liver portal vein spleen pancreas and adrenal glands all appear unremarkable. Cystic changes involving the kidneys. Abdominal aorta appears normal in caliber.[ GI: Distal stomach is grossly unremarkable. Small bowel appears nondilated. Left colon diverticulosis.[ Pelvis:[Urinary bladder is grossly unremarkable. Prostate gland normal in size.] Peritoneum/Retroperitoneu m:No free air, free fluid or lymphadenopathy.[ Abd wall/Bones:Abdominal wall demonstrates no acute findings. Osseous structures demonstrate degenerative change.[ CT/CT abdomen pelvis w con IMPRESSION: No acute findings. Impression dictated by: Kristopher Nunez Jr., DGissellOGissell05/17/2023 4:16 PM Dictation Location: [place] [address] Transcribed By: [facility] 05/17/23 1616 Dictated By: Kristopher Nunez Jr, DO 05/17/23 1612 Signed By: 05/17/23 1616 Normal [facility] Complete Blood Count Auto Di ffon 05-17-2023 Basophils (Bld) [#/Vol] 0.0 10*3/uL Normal 0.0-0.2 [facility] Comment on above: Result Comment: PERF ORMED BY: [place] [address] PATHOLOGIST BAT LATHE OPERATOR MAXINE EL M.D. Performed By: #### P TT, HS TROP, PT #### [facility] [address] Basophils/100 WBC (Bld) 0.6 % Normal . [facility] Comment on above: Performed By: #### P TT, HS TROP, PT #### [facility] [address] [place] [address] [place] Eosinophils (Bld) [#/Vol] 0.1 10*3/uL Normal 0.0-0.45 [facility] Comment on above: Performed By: #### P TT, HS TROP, PT #### [facility] [address] Eosinophils/100 WBC (Bld) 1.0 % Normal . [facility] Comment on above: Performed By: #### P TT, HS TROP, PT #### [facility] [address] Erythrocyte distribution width (RBC) [Ratio] 13.5 % Normal 12.0-14.8 [facility] Comment on above: Performed By: #### P TT, HS TROP, PT #### [facility] [address] Hematocrit (Bld) [Volume fraction] 36.9 % Low 38.8-50.0 [facility] Comment on above: Performed By: #### P TT, HS TROP, PT #### [facility] [address] Hemoglobin (Bld) [Mass/Vol] 12.8 g/dL Low 13.0-17.0 [facility] Comment on above: Performed By: #### P TT, HS TROP, PT #### [facility] [address] [place] [address] [place] Lymphocytes (Bld) [#/Vol] 0.3 10*3/uL Low 1.00-4.8 [facility] Comment on above: Performed By: #### P TT, HS TROP, PT #### [place] [address] [place] Lymphocytes/100 WBC (Bld) 6.1 % Normal . [facility] Comment on above: Performed By: #### P TT, HS TROP, PT #### [facility] [address] [place] [address] [place] MCH (RBC) [Entitic mass] 31.0 pg Normal 27.5-35.2 [facility] Comment on above: Performed By: #### P TT, HS TROP, PT #### [facility] [address] [place] [address] [place] MCV (RBC) [Entitic vol] 89.0 fL Normal 83.5-101 [facility] Comment on above: Performed By: #### P TT, HS TROP, PT #### [facility] [address] Mean Corpuscular HGB Conc 34.8 g/dL Normal 32.5-35.6 [facility] Comment on above: Performed By: #### P TT, HS TROP, PT #### [facility] [address] [place] [address] [place] Monocytes (Bld) [#/Vol] 1.0 10*3/uL High 0.0-0.8 [facility] Comment on above: Performed By: #### P TT, HS TROP, PT #### [facility] [address] [place] [address] [place] Monocytes/100 WBC (Bld) 17.71 % Normal 0.00-20.00 [facility] Comment on above: Performed By: #### P TT, HS TROP, PT #### [facility] [address] [place] [address] [place] Monocytes/100 WBC (Bld) 17.6 % Normal . [facility] Comment on above: Performed By: #### P TT, HS TROP, PT #### [facility] [address] [place] [address] Neutrophils (Bld) [#/Vol] 4.3 10*3/uL Normal 1.8-7.7 [facility] Comment on above: Performed By: #### P TT, HS TROP, PT #### [facility] [address] [place] [address] [place] Neutrophils/100 WBC (Bld) 74.7 % Normal . [facility] Comment on above: Performed By: #### P TT, HS TROP, PT #### [facility] [address] [place] [address] [place] NRBC% 0.1 /100{WBC} Normal 0-0.5 [facility] Comment on above: Performed By: #### P TT, HS TROP, PT #### [facility] [address] [place] [address] Platelet mean volume (Bld) [Entitic vol] 7.4 fL Normal 6.6-10.1 [facility] Comment on above: Performed By: #### P TT, HS TROP, PT #### [facility] [address] Platelets (Bld) [#/Vol] 256 10*3/uL Normal 150-450 [facility] Comment on above: Performed By: #### P TT, HS TROP, PT #### [facility] [address] RBC (Bld) [#/Vol] 4.14 10*6/uL Normal 3.90-5.60 [facility] Comment on above: Performed By: #### P TT, HS TROP, PT #### [facility] [address] WBC (Bld) [#/Vol] 5.7 10*3/uL Normal 4.1-10.5 [facility] Comment on above: Performed By: #### P TT, HS TROP, PT #### [facility] [address] Comprehensive Metabolic Pane jameson 05-17-2023 Albumin [Mass/Vol] 4.3 g/dL Normal 3.5-5.7 [facility] Comment on above: Performed By: #### P TT, HS TROP, PT #### [facility] [address] Albumin/Globulin [Mass ratio] 1.6 {ratio} Normal [facility] Comment on above: Performed By: #### P TT, HS TROP, PT #### [facility] [address] ALP [Catalytic activity/Vol] 56 U/L Normal 34-104 [facility] Comment on above: Performed By: #### P TT, HS TROP, PT #### [facility] [address] ALT [Catalytic activity/Vol] 15 U/L Normal 7-52 [facility] Comment on above: Performed By: #### P TT, HS TROP, PT #### [facility] [address] [place] [address] [place] Anion gap [Moles/Vol] 12.3 mmol/L Normal 6.0-15.0 [facility] Comment on above: Performed By: #### P TT, HS TROP, PT #### [facility] [address] AST [Catalytic activity/Vol] 15 U/L Normal 13-39 [facility] Comment on above: Performed By: #### P TT, HS TROP, PT #### [facility] [address] [place] [address] [place] Bilirubin [Mass/Vol] 0.5 mg/dL Normal 0.3-1.0 [facility] Comment on above: Performed By: #### P TT, HS TROP, PT #### [facility] [address] Calcium [Mass/Vol] 9.2 mg/dL Normal 8.6-10.3 [facility] Comment on above: Performed By: #### P TT, HS TROP, PT #### [facility] [address] [place] [address] [place] Chloride [Moles/Vol] 98 mmol/L Normal 98-107 [facility] Comment on above: Performed By: #### P TT, HS TROP, PT #### [facility] [address] [place] [address] [place] CO2 [Moles/Vol] 24.8 mmol/L Normal 21.0-31.0 [facility] Comment on above: Performed By: #### P TT, HS TROP, PT #### [facility] [address] [place] [address] [place] Creatinine [Mass/Vol] 1.14 mg/dL Normal 0.70-1.30 [facility] Comment on above: Performed By: #### P TT, HS TROP, PT #### [facility] [address] [place] [address] [place] Creatinine Clr Calc Pharmacy 65.35 Normal [facility] Comment on above: Result Comment: PERF ORMED BY: [facility] [address] [place] [id number] PATHOLOGIST BAT LATHE OPERATOR MAXINE EL M.D. Performed By: #### P TT, HS TROP, PT #### [facility] [address] [place] [address] [place] GFR/1.73 sq M.predicted MDRD (S/P/Bld) [Vol rate/Area] mL/min/{1.73_m2} [facility] Comment on above: Performed By: #### P TT, HS TROP, PT #### [facility] [address] Globulin (S) [Mass/Vol] 2.7 g/dL [facility] Comment on above: Performed By: #### P TT, HS TROP, PT #### [facility] [address] Glucose [Mass/Vol] 103 mg/dL High 70-100 [facility] Comment on above: Result Comment: [place] Glucose Reference Range is dependent on time and content of last meal. Glucose of more than 200 mg/dL in a nonstressed, ambulatory subject supports the diagnosis of Diabetes Mellitus. ADA recommended reference range Performed By: #### P TT, HS TROP, PT #### [facility] [address] Potassium [Moles/Vol] 4.1 mmol/L Normal 3.5-5.1 [facility] Comment on above: Performed By: #### P TT, HS TROP, PT #### [facility] [address] [place] [address] [place] Protein [Mass/Vol] 7.0 g/dL Normal 6.4-8.9 [facility] Comment on above: Performed By: #### P TT, HS TROP, PT #### [facility] [address] [place] [address] [place] Sodium [Moles/Vol] 131 mmol/L Low 136-145 [facility] Comment on above: Performed By: #### P TT, HS TROP, PT #### [facility] [address] [place] [address] [place] Urea nitrogen [Mass/Vol] 13 mg/dL Normal - [facility] Comment on above: Performed By: #### P TT, HS TROP, PT #### [facility] [address] [place], [place] [id number] [facility] ECG 12 lead ECGon 05-17-2023 ECG 12 lead ECG [facility] Main [place] [address] [place] [address] Electrocardiograph Report Signed Patient: [place] Garcia MR#: [id number] : 1950 Acct:[id number] Age/Sex: 72 / M ADM Date: 05/17/23 Loc: ER Room: Type: [facility] ER Attending Dr: Ordering Provider: Юлия Ornelas APRN Date of Service: 05/17/23 ECG/ECG 12 lead ECG: Abdominal Pain Copies to: Test Reason : Blood Pressure : 165/067 mmHG Vent. Rate : 073 BPM Atrial Rate : 073 BPM P-R Int : 186 ms QRS Dur : 104 ms QT Int : 380 ms P-R-T Axes : 057 058 026 degrees QTc Int : 418 ms Normal sinus rhythm Confirmed by Garret ROBINS DO ([id number]) on 05/17/2023 3:19:01 PM Referred By: Electronically Signed By:Garret ROBINS DO Transcribed By: MUS Signed By Garret Robins DO 0 05/17/23 1519 Normal [facility] Lipaseon 05-17-2023 Lipase [Catalytic activity/Vol] 8.0 U/L Low 11.0-82.0 [facility] Comment on above: Result Comment: PERF ORMED BY: [place] [address] PATHOLOGIST BAT LATHE OPERATOR MAXINE EL M.D. Performed By: #### P TT, HS TROP, PT #### [facility] [address] [place], [place] [address] [place] Partial Thromboplastin Timeo n 05-17-2023 aPTT Coag (Bld) [Time] 49.7 s High 25.1-36.5 [facility] Comment on above: Result Comment: A he matocrit value greater than 55% may lead to inaccurate results in coagulation testing. Patients having hematocrit values >55% require a special collection tube for coagulation studies. Please contact the laboratory at [phone] for redraw instructions. PERFORMED BY: [place] [address] PATHOLOGIST BAT LATHE OPERATOR MAXINE EL M.D. Performed By: #### P TT, HS TROP, PT #### [address] Prothrombin Time INRon 05-17 INR Coag (PPP) [Relative time] 3.2 {INR} Normal [facility] Comment on above: Result Comment: INR Therapeutic Range A) Pre- and Peroperative OAT started two weeks before surgery. NOT HIP SURGERY: 1.5 - 2.5 HIP SURGERY: 2 - 3 B) Primary and secondary prevention of venous THROMBOSIS: 2 - 3 C) Active venous thrombosis, pulmonary embolism and prevention of recurrent venous thrombosis: 2 - 3 D) Prevention of arterial thromboembolism including patients with mechanical heart valves: 3 - 4.5 Performed By: #### P TT, HS TROP, PT #### [place] [id number] [facility] PT Coag (PPP) [Time] 35.6 s High 9.0-12.9 [facility] Comment on above: Result Comment: A he matocrit value greater than 55% may lead to inaccurate results in coagulation testing. Patients having hematocrit values >55% require a special collection tube for coagulation studies. Please contact the laboratory at [phone] for redraw instructions. Performed By: #### P TT, HS TROP, PT #### [address] Troponin I High Sensitivityo n 05-17-2023 Troponin I High Sensitivity 11.7 pg/mL Normal 0.0-20.0 [facility] Comment on above: Result Comment: PERF ORMED BY: [place] [id number] PATHOLOGIST BAT LATHE OPERATOR MAXINE EL M.D. Performed By: #### P TT, HS TROP, PT #### [address] [place] [address] [place] Urinalysison 05-17-2023 Appearance (U) Clear Normal Clear [facility] Comment on above: Order Comment: Name Collection Type:: Clean-Voided Midstream Performed By: #### U A #### [facility] [address] [place], [place] [address] [place] Bilirubin,Urine Negative Normal Negative [facility] Comment on above: Order Comment: Name Collection Type:: Clean-Voided Midstream Performed By: #### U A #### [facility] [address] [place] [address] [place] Color (U) Yellow Normal Yellow [facility] Comment on above: Order Comment: Name Collection Type:: Clean-Voided Midstream Performed By: #### U A #### [facility] [address] [place] [address] [place] Glucose Ql (U) Normal Normal Normal [facility] Comment on above: Order Comment: Name Collection Type:: Clean-Voided Midstream Performed By: #### U A #### [facility] [address] [place] [address] [place] Ketones Ql (U) Negative Normal Negative [facility] Comment on above: Order Comment: Name Collection Type:: Clean-Voided Midstream Performed By: #### U A #### [facility] [address] [place] [address] [place] Leukocyte esterase Test strip Ql (U) Negative Normal Negative [facility] Comment on above: Order Comment: Name Collection Type:: Clean-Voided Midstream Performed By: #### U A #### [facility] [address] [place] [address] [place] Nitrite,Urine Negative Normal Negative [facility] Comment on above: Order Comment: Name Collection Type:: Clean-Voided Midstream Performed By: #### U A #### [facility] [address] [place], [place] [address] [place] Occult Blood,Urine Negative Normal Negative [facility] Comment on above: Order Comment: Name Collection Type:: Clean-Voided Midstream Result Comment: PERF ORMED BY: [place] [id number] PATHOLOGIST BAT LATHE OPERATOR MAXINE EL M.D. Performed By: #### U A #### [address] pH (U) 6.0 [pH] Normal 5.0-9.0 [facility] Comment on above: Order Comment: Name Collection Type:: Clean-Voided Midstream Performed By: #### U A #### [address] Protein,Urine Negative Normal Negative [facility] Comment on above: Order Comment: Name Collection Type:: Clean-Voided Midstream Performed By: #### U A #### [address] Specificy [place],Urine 1.018 Normal 1.001-1.03 0 [facility] Comment on above: Order Comment: Name Collection Type:: Clean-Voided Midstream Performed By: #### U A #### [address] Urobilinogen,Urine Normal Normal Normal [facility] Comment on above: Order Comment: Name Collection Type:: Clean-Voided Midstream Performed By: #### U A #### [address] Prothrombin Time INRon 04-25 INR Coag (PPP) [Relative time] 2.9 {INR} [facility] [employer] Other Prothrombin Time INR [facility] [employer] Other CNPMichelle 04-24-2023 CNPN Telephone (HNQ) ----- WASHINGTON GARCIA ([id number]) 1950 Delfina Mora Co* Date Time Provider Department 04/24/23 NIMA MOLINA During your visit today, we recorded the following information about you: Krissy Gauthier 04/24/2023 3:50 PM Signed Patient is not in his right mind and this happened in the last month. Kind of similar to what happened after surgery. Frida Ruiz, RN 04/24/2023 3:58 PM Signed Spoke to son, Edi, they are in the ED and just wanted to let know. I told him that was the best place for him. Allergies As of Date: 04/24/2023 (No Known Allergies) Date Reviewed: 03/24/2023 Reviewed by: Cristal Conley, CT - Fully Assessed Reason for Visit: Patient Update [1234] Prescriptions as of 04/24/2023 - SYNTHROID 137 mcg tablet Take 1 tablet by mouth once daily. - ascorbic acid (VITAMIN C ORAL) Take by mouth. - cyanocobalamin, vitamin B-12, (VITAMIN B-12 ORAL) Take by mouth. - lisinopril (ZESTRIL, PRINIVIL) 20 mg tablet - flecainide (TAMBOCOR) 100 mg tablet Take 100 mg by mouth twice daily. - ALPRAZolam (XANAX) 1 mg tablet Take 1 mg by mouth at bedtime as needed. - warfarin (COUMADIN) 5 mg tablet Take 1 tablet by mouth once daily. jia - hydrALAZINE (APRESOLINE) 50 mg tablet Take 100 mg by mouth twice daily. - diltiazem CR (TIAZAC, TAZTIA XT) 180 mg 24 hr capsule Take 180 mg by mouth once daily. Problem List As Of Date 04/24/2023 Noted Resolved Transhiatal approach, thoracic esophagectomy, p*04/18/2013 03/25/2021 Multiple thyroid nodules [E04.2] 04/23/2013 04/02/2014 Atelectasis [J98.11] 05/15/2013 Intravascular volume depletion [E86.1] 05/15/2013 05/16/2013 Postoperative pain [G89.18] 05/15/2013 Fluid overload [E87.70] 05/16/2013 Hypertension [I10] 05/16/2013 DVT prophylaxis [NFH7877] 05/16/2013 DISPOSITION AND FOLLOW-UP [V999.01] 05/16/2013 A-fib (HCC) [I48.91] 05/18/2013 Postoperative hypothyroidism [E89.0] 04/09/2013 Obesity (BMI 30.0-34.9) [E66.9] 04/09/2013 Rdoriguez's esophagus [K22.70] Former smoker [Z87.891] Marijuana use [F12.90] Chronic anticoagulation [Z79.01] 01/19/2021 COVID [U07.1] 03/18/2021 Tonsil cancer (HCC) [C09.9] 03/23/2021 Respiratory insufficiency [R06.89] 03/23/2021 Delirium [R41.0] 03/29/2021 04/02/2021 Nicotine use disorder, F17.2 [F17.200] 03/31/2021 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 NOT HIP SURGERY: 1.5 - 2.5 HIP SURGERY: 2 - 3 B) Primary and secondary prevention of venous THROMBOSIS: 2 - 3 C) Active venous thrombosis, pulmonary embolism and prevention of recurrent venous thrombosis: 2 - 3 D) Prevention of arterial thromboembolism including patients with mechanical heart valves: 3 - 4.5 PERFORMED BY: [place] [address] PATHOLOGIST BAT LATHE OPERATOR MAXINE EL M.D. Performed By: #### P T #### [address] PT Coag (PPP) [Time] 31.9 s High 9.0-12.9 [facility] Comment on above: Result Comment: A he matocrit value greater than 55% may lead to inaccurate results in coagulation testing. Patients having hematocrit values >55% require a special collection tube for coagulation studies. Please contact the laboratory at [phone] for redraw instructions. Performed By: #### P T #### [facility] [address] [place] [id number] [place] Lipid Panelon 04-17-2023 Cholesterol [Mass/Vol] 146 mg/dL Normal 140-200 [facility] Comment on above: Order Comment: FASTI NG N Comment use from ER Result Comment: Chol less than 200 mg/dl low risk Chol 201-239 mg/dl borderline risk Chol 240 mg/dl and greater high risk Performed By: #### P TT, HS TROP, PT #### [facility] [address] [place] [id number] [facility] Cholesterol in HDL [Mass/Vol] 45 mg/dL Normal 23-92 [facility] Comment on above: Order Comment: FASTI NG N Comment use from ER Result Comment: HDL CHOL ATP-III CLASSIFICATION Cardiovascular Risk HDL > or equal to 60 mg/dL LOW HDL < 40 mg/dL HIGH Performed By: #### P TT, HS TROP, PT #### [facility] [address] [place] [id number] [place] Cholesterol.total/Chol esterol in HDL [Mass ratio] 3.2 {ratio} Normal <5.0 [facility] Comment on above: Order Comment: FASTI NG N Comment use from ER Performed By: #### P TT, HS TROP, PT #### [facility] [address] [place] [id number] [facility] LDL Cholesterol,Calculated 85 mg/dL Normal 0-100 [facility] Comment on above: Order Comment: FASTI NG N Comment use from ER Result Comment: LDL ATP III CLASSIFICATION LDL less than 100 mg/dL Optimal LDL 100-129 mg/dL Near or above optimal LDL 130-159 mg/dL Borderline high LDL 160-189 mg/dL High LDL greater than 189 mg/dL Very high Performed By: #### P TT, HS TROP, PT #### [facility] [address] [place] [address] [place] Triglyceride w/Reflex 78 mg/dL Normal 0-149 [facility] Comment on above: Order Comment: FASTI NG N Comment use from ER Result Comment: TRIG ATP III CLASSIFICATION TRIG less than 150 mg/dL Normal TRIG 150-199 mg/dL Borderline high TRIG 200-500 mg/dL High TRIG greater than 500 mg/dL Very high Standard traceable to the Center for Disease Conrtrol and Prevention (CDC) test method. Performed By: #### P TT, HS TROP, PT #### [address] VLDL CHOLESTEROL 15 mg/dL Normal [facility] Comment on above: Order Comment: NICOL AUDRA N Comment use from ER Performed By: #### P TT, HS TROP, PT #### [address] Prothrombin Time INRon 04-17 INR Coag (PPP) [Relative time] 2.8 {INR} Normal [facility] Comment on above: Result Comment: INR Therapeutic Range A) Pre- and Peroperative OAT started two weeks before surgery. NOT HIP SURGERY: 1.5 - 2.5 HIP SURGERY: 2 - 3 B) Primary and secondary prevention of venous THROMBOSIS: 2 - 3 C) Active venous thrombosis, pulmonary embolism and prevention of recurrent venous thrombosis: 2 - 3 D) Prevention of arterial thromboembolism including patients with mechanical heart valves: 3 - 4.5 PERFORMED BY: [place] [address] PATHOLOGIST BAT LATHE OPERATOR MAXINE EL M.D. Performed By: #### P TT, HS TROP, PT #### [place] [id number] [facility] PT Coag (PPP) [Time] 31.5 s High 9.0-12.9 [facility] Comment on above: Result Comment: A he matocrit value greater than 55% may lead to inaccurate results in coagulation testing. Patients having hematocrit values >55% require a special collection tube for coagulation studies. Please contact the laboratory at [phone] for redraw instructions. Performed By: #### P TT, HS TROP, PT #### [address] Thyroid Stim Hormone w/Rflxo n 04-17-2023 Thyroid Stim Hormone w/Rflx 1.13 u[iU]/mL Normal 0.45-5.33 [facility] Comment on above: Order Comment: FASTI NG N Comment use from ER Performed By: #### P TT, HS TROP, PT #### [facility] [address] [place] [id number] [facility] Vitamin D 25 Hydroxy Totalon 04-17-2023 Vitamin D 25 Hydroxy Total 35.7 ng/mL Normal 30-100 [facility] Comment on above: Order Comment: FASTI NG N Comment use from ER Result Comment: OSIEL MIN D STATUS 25(OH)VITAMIN D RANGE (ng/mL) Deficient <20 Insufficient 20 to <30 Sufficient 30 to 100 Reference: Lashawn MF,Thu NC, Joceline VILLALBA, et al. Evaluation,treatment, and prevention of vitamin D deficiency; an Endocrine Society clinical practice guideline. JCEM. 2010; 96(7):1911-30. PERFORMED BY: [place] [address] PATHOLOGIST BAT LATHE OPERATOR MAXINE EL M.D. Performed By: #### P TT, HS TROP, PT #### [facility] [facility] [address] [place] [address] [facility] Alanine aminotransferase [En zymatic activity/volume] in Serum or PlasmaOrdered By: Pham Edmond on 04-16-2023 ALT [Catalytic activity/Vol] 13 U/L 7-52 [facility] Albumin [Mass/volume] in Ser um or Plasma by Bromocresol green (BCG) dye binding methoOrdered By: Pham Edmond on 04-16-2023 Albumin BCG dye [Mass/Vol] 4.1 g/dL 3.5-5.7 [facility] Alkaline phosphatase [Enzyma tic activity/volume] in Serum or PlasmaOrdered By: Pham Edmond on 04-16-2023 ALP [Catalytic activity/Vol] 58 U/L 34-104 [facility] Amphetamine Screen Ql (U)Ord ered By: Pham Edmond on 04-16-2023 Amphetamines Ql (U) Negative Negative [facility] Aspartate aminotransferase [ Enzymatic activity/volume] in Serum or PlasmaOrdered By: Pham Edmond on 04-16-2023 AST [Catalytic activity/Vol] 14 U/L 13-39 [facility] Barbiturates [Presence] in U rine by Screen methodOrdered By: Pham Edmond on 04-16-2023 Barbiturates Screen Ql (U) Negative Negative [facility] Basophils Auto (Bld) [#/Vol] Ordered By: Pham Edmond on 04-16-2023 Basophils (Bld) [#/Vol] 0.1 10*3/uL 0.0-0.2 [facility] Basophils/100 WBC Auto (Bld) Ordered By: Pham Edmond on 04-16-2023 Basophils/100 WBC (Bld) 0.7 % . [facility] Benzodiazepines Screen Ql (U )Ordered By: Pham Edmond on 04-16-2023 Benzodiazepines Ql (U) Positive Negative [facility] Benzoylecgonine [Presence] i n Urine by Screen methodOrdered By: Pham Edmond on 04-16-2023 Benzoylecgonine Screen Ql (U) Negative Negative [facility] Bilirubin Test strip Ql (U)O rdered By: Pham Edmond on 04-16-2023 Bilirubin Ql (U) Negative Negative [facility] Bilirubin.total [Mass/volume ] in Serum or PlasmaOrdered By: Pham Edmond on 04-16-2023 Bilirubin [Mass/Vol] 0.5 mg/dL 0.3-1.0 [facility] Calcium [Mass/volume] in Ser um or PlasmaOrdered By: Pham Edmond on 04-16-2023 Calcium [Mass/Vol] 9.4 mg/dL 8.6-10.3 [facility] Cannabinoids [Presence] in U rine by Screen methodOrdered By: Pham dEmond on 04-16-2023 Cannabinoids Screen Ql (U) Positive Negative [facility] Comment on above: These are unconfirme d results and should not be used for legal purposes. Drug Cut-Off Concentration: AMPH 1000 ng/mL DUC 200 ng/mL BEAU 200 ng/mL COCM 300 ng/mL OP 300 ng/mL PCP 25 ng/mL THC 20 ng/mL Carbon dioxide, total [Moles /volume] in Serum or PlasmaOrdered By: Pahm Edmond on 04-16-2023 CO2 [Moles/Vol] 23.0 mmol/L 21.0-31.0 [facility] Chloride [Moles/volume] in S calos or PlasmaOrdered By: Pham Katherine on 04-16-2023 Chloride [Moles/Vol] 99 mmol/L 98-107 [facility] Color Auto (U)Ordered By: Maicol Edmond on 04-16-2023 Color (U) Yellow Yellow [facility] Complete Blood Count Auto Di ffon 04-16-2023 Basophils (Bld) [#/Vol] 0.1 10*3/uL Normal 0.0-0.2 [facility] Comment on above: Result Comment: PERF ORMED BY: [place] [address] PATHOLOGIST BAT LATHE OPERATOR MAXINE EL M.D. Performed By: #### P TT, HS TROP, PT #### [facility] [address] [place] [address] Basophils/100 WBC (Bld) 0.7 % Normal . [facility] Comment on above: Performed By: #### P TT, HS TROP, PT #### [facility] [address] [place] [address] [place] Eosinophils (Bld) [#/Vol] 0.1 10*3/uL Normal 0.0-0.45 [facility] Comment on above: Performed By: #### P TT, HS TROP, PT #### [facility] [address] [place] [address] [place] Eosinophils/100 WBC (Bld) 1.5 % Normal . [facility] Comment on above: Performed By: #### P TT, HS TROP, PT #### [facility] [address] [place] [address] Erythrocyte distribution width (RBC) [Ratio] 13.5 % Normal 12.0-14.8 [facility] Comment on above: Performed By: #### P TT, HS TROP, PT #### [facility] [address] [place] [address] Hematocrit (Bld) [Volume fraction] 35.8 % Low 38.8-50.0 [facility] Comment on above: Performed By: #### P TT, HS TROP, PT #### [address] Hemoglobin (Bld) [Mass/Vol] 12.4 g/dL Low 13.0-17.0 [facility] Comment on above: Performed By: #### P TT, HS TROP, PT #### [address] Lymphocytes (Bld) [#/Vol] 0.9 10*3/uL Low 1.00-4.8 [facility] Comment on above: Performed By: #### P TT, HS TROP, PT #### [address] Lymphocytes/100 WBC (Bld) 10.5 % Normal . [facility] Comment on above: Performed By: #### P TT, HS TROP, PT #### [address] MCH (RBC) [Entitic mass] 31.2 pg Normal 27.5-35.2 [facility] Comment on above: Performed By: #### P TT, HS TROP, PT #### [address] MCV (RBC) [Entitic vol] 89.7 fL Normal 83.5-101 [facility] Comment on above: Performed By: #### P TT, HS TROP, PT #### [address] Mean Corpuscular HGB Conc 34.8 g/dL Normal 32.5-35.6 [facility] Comment on above: Performed By: #### P TT, HS TROP, PT #### [address] Monocytes (Bld) [#/Vol] 0.9 10*3/uL High 0.0-0.8 [facility] Comment on above: Performed By: #### P TT, HS TROP, PT #### [address] [place] [address] [place] Monocytes/100 WBC (Bld) 16.79 % Normal 0.00-20.00 [facility] Comment on above: Performed By: #### P TT, HS TROP, PT #### [facility] [address] [place] [address] [place] Monocytes/100 WBC (Bld) 10.5 % Normal . [facility] Comment on above: Performed By: #### P TT, HS TROP, PT #### [facility] [address] [place] [address] [place] Neutrophils (Bld) [#/Vol] 6.8 10*3/uL Normal 1.8-7.7 [facility] Comment on above: Performed By: #### P TT, HS TROP, PT #### [place] [address] [place] Neutrophils/100 WBC (Bld) 76.8 % Normal . [facility] Comment on above: Performed By: #### P TT, HS TROP, PT #### [place] [address] [place] NRBC% 0.0 /100{WBC} Normal 0-0.5 [facility] Comment on above: Performed By: #### P TT, HS TROP, PT #### [place] [address] [place] Platelet mean volume (Bld) [Entitic vol] 7.7 fL Normal 6.6-10.1 [facility] Comment on above: Performed By: #### P TT, HS TROP, PT #### [facility] [address] [place] [address] [place] Platelets (Bld) [#/Vol] 334 10*3/uL Normal 150-450 [facility] Comment on above: Performed By: #### P TT, HS TROP, PT #### [place] [address] [place] RBC (Bld) [#/Vol] 3.99 10*6/uL Normal 3.90-5.60 [facility] Comment on above: Performed By: #### P TT, HS TROP, PT #### [facility] [address] WBC (Bld) [#/Vol] 8.9 10*3/uL Normal 4.1-10.5 [facility] Comment on above: Performed By: #### P TT, HS TROP, PT #### [facility] [address] [place] [address] Comprehensive Metabolic Pane jameson 04-16-2023 Albumin [Mass/Vol] 4.1 g/dL Normal 3.5-5.7 [facility] Comment on above: Performed By: #### P TT, HS TROP, PT #### [facility] [address] [place] [address] Albumin/Globulin [Mass ratio] 1.7 {ratio} Normal [facility] Comment on above: Performed By: #### P TT, HS TROP, PT #### [facility] [address] [place] [address] ALP [Catalytic activity/Vol] 58 U/L Normal 34-104 [facility] Comment on above: Performed By: #### P TT, HS TROP, PT #### [facility] [address] [place] [address] ALT [Catalytic activity/Vol] 13 U/L Normal 7-52 [facility] Comment on above: Performed By: #### P TT, HS TROP, PT #### [facility] [address] [place] [address] Anion gap [Moles/Vol] 13.8 mmol/L Normal 6.0-15.0 [facility] Comment on above: Performed By: #### P TT, HS TROP, PT #### [facility] [address] [place] [address] AST [Catalytic activity/Vol] 14 U/L Normal 13-39 [facility] Comment on above: Performed By: #### P TT, HS TROP, PT #### [facility] [address] [place] [address] Bilirubin [Mass/Vol] 0.5 mg/dL Normal 0.3-1.0 [facility] Comment on above: Performed By: #### P TT, HS TROP, PT #### [facility] [address] Calcium [Mass/Vol] 9.4 mg/dL Normal 8.6-10.3 [facility] Comment on above: Performed By: #### P TT, HS TROP, PT #### [facility] [address] [place] [address] [place] Chloride [Moles/Vol] 99 mmol/L Normal 98-107 [facility] Comment on above: Performed By: #### P TT, HS TROP, PT #### [facility] [address] CO2 [Moles/Vol] 23.0 mmol/L Normal 21.0-31.0 [facility] Comment on above: Performed By: #### P TT, HS TROP, PT #### [facility] [address] Creatinine [Mass/Vol] 1.10 mg/dL Normal 0.70-1.30 [facility] Comment on above: Performed By: #### P TT, HS TROP, PT #### [facility] [address] [place] [address] [place] Creatinine Clr Calc Pharmacy 68.51 [facility] Comment on above: Result Comment: PERF ORMED BY: [place] [address] PATHOLOGIST BAT LATHE OPERATOR MAXINE EL M.D. Performed By: #### P TT, HS TROP, PT #### [facility] [address] [place] [address] [place] GFR/1.73 sq M.predicted MDRD (S/P/Bld) [Vol rate/Area] mL/min/{1.73_m2} [facility] Comment on above: Performed By: #### P TT, HS TROP, PT #### [facility] [address] [place] [address] [place] Globulin (S) [Mass/Vol] 2.4 g/dL [facility] Comment on above: Performed By: #### P TT, HS TROP, PT #### [facility] [address] [place] [address] [place] Glucose [Mass/Vol] 122 mg/dL High 70-100 [facility] Comment on above: Result Comment: [place] Glucose Reference Range is dependent on time and content of last meal. Glucose of more than 200 mg/dL in a nonstressed, ambulatory subject supports the diagnosis of Diabetes Mellitus. ADA recommended reference range Performed By: #### P TT, HS TROP, PT #### [facility] [address] [place] [id number] [facility] Potassium [Moles/Vol] 3.8 mmol/L Normal 3.5-5.1 [facility] Comment on above: Performed By: #### P TT, HS TROP, PT #### [facility] [address] Protein [Mass/Vol] 6.5 g/dL Normal 6.4-8.9 [facility] Comment on above: Performed By: #### P TT, HS TROP, PT #### [facility] [address] [place] [address] [place] Sodium [Moles/Vol] 132 mmol/L Low 136-145 [facility] Comment on above: Performed By: #### P TT, HS TROP, PT #### [facility] [address] [place] [id number] [place] Urea nitrogen [Mass/Vol] 18 mg/dL Normal 7-25 [facility] Comment on above: Performed By: #### P TT, HS TROP, PT #### [facility] [address] [place] [id number] [place] Creatinine [Mass/volume] in Serum or PlasmaOrdered By: Pham Edmond on 04-16-2023 Creatinine [Mass/Vol] 1.10 mg/dL 0.70-1.30 [facility] Drug Screen,Urineon 04-16-19 24 Amphetamine Screen,Urine Negative Normal Negative [facility] Comment on above: Performed By: #### C BC, BMP, TSH3 #### [facility] [address] [place] [address] [place] Barbiturate Screen,Urine Negative Normal Negative [facility] Comment on above: Performed By: #### C BC, BMP, TSH3 #### [place] [address] [place] Benzodiazepines Screen,Urine Positive High Negative [facility] Comment on above: Performed By: #### C BC, BMP, TSH3 #### [place] [address] [place] Cannabinoid Screen,Urine Positive High Negative [facility] Comment on above: Result Comment: Thes e are unconfirmed results and should not be used for legal purposes. Drug Cut-Off Concentration: AMPH 1000 ng/mL DUC 200 ng/mL BEAU 200 ng/mL COCM 300 ng/mL OP 300 ng/mL PCP 25 ng/mL THC 20 ng/mL PERFORMED BY: [place] [address] PATHOLOGIST BAT LATHE OPERATOR MAXINE EL M.D. Performed By: #### C BC, BMP, TSH3 #### [place] [address] [place] Cocaine Screen,Urine Negative Normal Negative [facility] Comment on above: Performed By: #### C BC, BMP, TSH3 #### [place] [address] [place] Opiate Screen,Urine Negative Normal Negative [facility] Comment on above: Performed By: #### C BC, BMP, TSH3 #### [place] [address] [place] Phencyclidine Screen,Urine Negative Normal Negative [facility] Comment on above: Performed By: #### C BC, BMP, TSH3 #### [address] ECG 12 lead ECGon 04-16-2023 ECG 12 lead ECG [facility] [place] [address] [place] [address] Electrocardiograph Report Signed Patient: Washington Garcia MR#: [id number] : 1950 Acct:[id number] Age/Sex: 72 / M ADM Date: 04/16/23 Loc: 1S Room: [address] [place] [address] Type: DIS IN Attending Dr: John Bennett MD Ordering Provider: Darrell Duenas MD Date of Service: 04/16/23 ECG/ECG 12 lead ECG: use of antipsychotics Copies to: Test Reason : Blood Pressure : / mmHG Vent. Rate : 069 BPM Atrial Rate : 069 BPM P-R Int : 184 ms QRS Dur : 114 ms QT Int : 380 ms P-R-T Axes : 066 041 056 degrees QTc Int : 407 ms Normal sinus rhythm Normal ECG When compared with ECG of 02-APR-2023 18:04, No significant change was found Confirmed by Dania Alberto ([id number]) on 04/16/2023 10:48:59 AM Referred By: Electronically Signed By:Dania Alberto REVISED DOCUMENT/05/10/2023/ (corrected prov sig) Transcribed By: MUS Signed By Dania Alberto MD 4 0012 Normal [facility] Eosinophils Auto (Bld) [#/Vo l]Ordered By: Pham Edmond on 04-16-2023 Eosinophils (Bld) [#/Vol] 0.1 10*3/uL 0.0-0.45 [facility] Eosinophils/100 WBC Auto (Bl d)Ordered By: Pham Edmond on 04-16-2023 Eosinophils/100 WBC (Bld) 1.5 % . [facility] Erythrocyte distribution wid th Auto (RBC) [Ratio]Ordered By: Pham Edmond on 04-16-2023 Erythrocyte distribution width (RBC) [Ratio] 13.5 % 12.0-14.8 [facility] Ethanol [Mass/volume] in Ser um or PlasmaOrdered By: Pham Edmond on 04-16-2023 Ethanol [Mass/Vol] mg/dL [facility] Ethanol [Mass/Vol] TNP [facility] Comment on above: Test not performed Ethyl Alcohol Profileon 03-21 Ethanol [Mass/Vol] mg/dL Normal [facility] Comment on above: Performed By: #### P TT, HS TROP, PT #### [facility] [address] Percent Ethanol Not performed Normal [facility] Comment on above: Result Comment: PERF ORMED BY: [facility] [address] [facility] [place] [address] PATHOLOGIST BAT LATHE OPERATOR MAXINE EL M.D. Performed By: #### P TT, HS TROP, PT #### [facility] [address] [place] [address] [place] Globulin Calc (S) [Mass/Vol] Ordered By: Pham Edmond on 04-16-2023 Globulin (S) [Mass/Vol] 2.4 g/dL [facility] Glucose [Mass/volume] in Ser um or PlasmaOrdered By: Pham Edmond on 04-16-2023 Glucose [Mass/Vol] 122 mg/dL 70-100 [facility] Comment on above: ADA recommended refe rence rangeRandom Glucose Reference Range is dependent on time and content of last meal. Glucose of more than 200 mg/dL in a nonstressed, ambulatory subject supports the diagnosis of Diabetes Mellitus. Hematocrit Auto (Bld) [Volum e fraction]Ordered By: Pham Edmond on 04-16-2023 Hematocrit (Bld) [Volume fraction] 35.8 % 38.8-50.0 [facility] Hemoglobin [Mass/volume] in BloodOrdered By: Pham Edmond on 04-16-2023 Hemoglobin (Bld) [Mass/Vol] 12.4 g/dL 13.0-17.0 [facility] Ketones Auto test strip (U) [Mass/Vol]Ordered By: Pham Edmond on 04-16-2023 Ketones (U) [Mass/Vol] Negative Negative [facility] Leukocytes [#/volume] correc ross for nucleated erythrocytes in Blood by Automated counOrdered By: Pham Edmond on 04-16-2023 WBC corrected for nucl RBC Auto (Bld) [#/Vol] 8.9 10*3/uL 4.1-10.5 [facility] Lipid Panelon 04-16-2023 Cholesterol [Mass/Vol] 162 mg/dL Normal 140-200 [facility] Comment on above: Result Comment: Chol less than 200 mg/dl low risk Chol 201-239 mg/dl borderline risk Chol 240 mg/dl and greater high risk Performed By: #### P TT, HS TROP, PT #### [facility] [address] Cholesterol in HDL [Mass/Vol] 52 mg/dL Normal 23-92 [facility] Comment on above: Result Comment: HDL CHOL ATP-III CLASSIFICATION Cardiovascular Risk HDL > or equal to 60 mg/dL LOW HDL < 40 mg/dL HIGH Performed By: #### P TT, HS TROP, PT #### [facility] [address] Cholesterol.total/Chol esterol in HDL [Mass ratio] 3.1 {ratio} Normal <5.0 [facility] Comment on above: Performed By: #### P TT, HS TROP, PT #### [facility] [address] LDL Cholesterol,Calculated 91 mg/dL Normal 0-100 [facility] Comment on above: Result Comment: LDL ATP III CLASSIFICATION LDL less than 100 mg/dL Optimal LDL 100-129 mg/dL Near or above optimal LDL 130-159 mg/dL Borderline high LDL 160-189 mg/dL High LDL greater than 189 mg/dL Very high Performed By: #### P TT, HS TROP, PT #### [facility] [address] Triglyceride w/Reflex 96 mg/dL Normal 0-149 [facility] Comment on above: Result Comment: TRIG ATP III CLASSIFICATION TRIG less than 150 mg/dL Normal TRIG 150-199 mg/dL Borderline high TRIG 200-500 mg/dL High TRIG greater than 500 mg/dL Very high Standard traceable to the Center for Disease Conrtrol and Prevention (CDC) test method. Performed By: #### P TT, HS TROP, PT #### [facility] [address] VLDL CHOLESTEROL 19 mg/dL Normal [facility] Comment on above: Performed By: #### P TT, HS TROP, PT #### [facility] [address] Lymphocytes Auto (Bld) [#/Vo l]Ordered By: Pham Edmond on 04-16-2023 Lymphocytes (Bld) [#/Vol] 0.9 10*3/uL 1.00-4.8 [facility] Lymphocytes/100 WBC Auto (Bl d)Ordered By: Pham Edmond on 04-16-2023 Lymphocytes/100 WBC (Bld) 10.5 % . [facility] MCH Auto (RBC) [Entitic mass ]Ordered By: Pham Edmond on 04-16-2023 MCH (RBC) [Entitic mass] 31.2 pg 27.5-35.2 [facility] MCHC Auto (RBC) [Mass/Vol]Or dered By: Pham Edmond on 04-16-2023 MCHC (RBC) [Mass/Vol] 34.8 g/dL 32.5-35.6 [facility] MCV Auto (RBC) [Entitic vol] Ordered By: Pham Edmond on 04-16-2023 MCV (RBC) [Entitic vol] 89.7 fL 83.5-101 [facility] Monocyte distribution width [Entitic volume] in Blood by AutomatedOrdered By: Pham Edmond on 04-16-2023 Monocyte distribution width Auto (Bld) [Entitic vol] 16.79 % 0.00-20.00 [facility] Monocytes Auto (Bld) [#/Vol] Ordered By: Pham Edmond on 04-16-2023 Monocytes (Bld) [#/Vol] 0.9 10*3/uL 0.0-0.8 [facility] Monocytes/100 WBC Auto (Bld) Ordered By: Pham Edmond on 04-16-2023 Monocytes/100 WBC (Bld) 10.5 % . [facility] Neutrophils Auto (Bld) [#/Vo l]Ordered By: Pham Edmond on 04-16-2023 Neutrophils (Bld) [#/Vol] 6.8 10*3/uL 1.8-7.7 [facility] Neutrophils/100 WBC Auto (Bl d)Ordered By: Pham Edmond on 04-16-2023 Neutrophils/100 WBC (Bld) 76.8 % . [facility] Nitrite Test strip Ql (U)Ord ered By: Pham Edmond on 04-16-2023 Nitrite Ql (U) Negative Negative [facility] No Panel InformationOrdered By: Pham Edmond on 04-16-2023 Estimated GFR (CKD-EPI) > 60.0 mL/Min [facility] Creatinine Clearance (Chem 68.51 [facility] Nucleated erythrocytes [Pres ence] in Blood by Automated countOrdered By: Pham Edmond on 04-16-2023 Nucleated RBC Auto Ql (Bld) 0.0 /100{WBC} 0-0.5 [facility] Opiates [Presence] in Urine by Screen methodOrdered By: Pham Edmond on 04-16-2023 Opiates Screen Ql (U) Negative Negative [facility] Phencyclidine Screen Ql (U)O rdered By: Pham Edmond on 04-16-2023 Phencyclidine Ql (U) Negative Negative [facility] Platelet mean volume Auto (B ld) [Entitic vol]Ordered By: Pham Edmond on 04-16-2023 Platelet mean volume (Bld) [Entitic vol] 7.7 fL 6.6-10.1 [facility] Platelets Auto (Bld) [#/Vol] Ordered By: Pham Edmond on 04-16-2023 Platelets (Bld) [#/Vol] 334 10*3/uL 150-450 [facility] Potassium [Moles/volume] in Serum or PlasmaOrdered By: Pham Edmond on 04-16-2023 Potassium [Moles/Vol] 3.8 mmol/L 3.5-5.1 [facility] Protein Auto test strip (U) [Mass/Vol]Ordered By: Pham Edmond on 04-16-2023 Protein (U) [Mass/Vol] Negative Negative [facility] Protein [Mass/volume] in Ser um or PlasmaOrdered By: Pham Edmond on 04-16-2023 Protein [Mass/Vol] 6.5 g/dL 6.4-8.9 [facility] Prothrombin Time INRon 04-16 INR Coag (PPP) [Relative time] 2.6 {INR} Normal [facility] Comment on above: Result Comment: INR Therapeutic Range A) Pre- and Peroperative OAT started two weeks before surgery. NOT HIP SURGERY: 1.5 - 2.5 HIP SURGERY: 2 - 3 B) Primary and secondary prevention of venous THROMBOSIS: 2 - 3 C) Active venous thrombosis, pulmonary embolism and prevention of recurrent venous thrombosis: 2 - 3 D) Prevention of arterial thromboembolism including patients with mechanical heart valves: 3 - 4.5 PERFORMED BY: [place] [address] PATHOLOGIST BAT LATHE OPERATOR MAXINE EL M.D. Performed By: #### C RG, STACIE, TSH3 #### [facility] [address] PT Coag (PPP) [Time] 29.7 s High 9.0-12.9 [facility] Comment on above: Result Comment: A he matocrit value greater than 55% may lead to inaccurate results in coagulation testing. Patients having hematocrit values >55% require a special collection tube for coagulation studies. Please contact the laboratory at [phone] for redraw instructions. Performed By: #### C RG, STACIE, TSH3 #### [facility] [address] [place] [id number] [facility] RBC Auto (Bld) [#/Vol]Ordere d By: Pham Edmond on 04-16-2023 RBC (Bld) [#/Vol] 3.99 10*6/uL 3.90-5.60 [facility] Serum or plasma albumin/glob ulin mass ratioOrdered By: Pham Edmond on 04-16-2023 Albumin/Globulin [Mass ratio] 1.7 {ratio} [facility] Serum or plasma anion gap de terminationOrdered By: Pham Edmond on 04-16-2023 Anion gap [Moles/Vol] 13.8 mmol/L 6.0-15.0 [facility] Sodium [Moles/volume] in Ser um or PlasmaOrdered By: Pham Edmond on 04-16-2023 Sodium [Moles/Vol] 132 mmol/L 136-145 [facility] Specific gravity Auto test s trip (U) [Rel density]Ordered By: Pham Edmond on 04-16-2023 Specific gravity (U) [Rel density] 1.016 1.001-1.03 0 [facility] Thyroid Stim Hormone w/Rflxo n 04-16-2023 Thyroid Stim Hormone w/Rflx 1.07 u[iU]/mL Normal 0.45-5.33 [facility] Comment on above: Performed By: #### P TT, HS TROP, PT #### [facility] [address] [place] [address] [place] Urea nitrogen [Mass/volume] in Serum or PlasmaOrdered By: Pham Edmond on 04-16-2023 Urea nitrogen [Mass/Vol] 18 mg/dL 10-11 [facility] Urinalysison 04-16-2023 Appearance (U) Clear Normal Clear [facility] Comment on above: Order Comment: Name Collection Type:: Clean-Voided Midstream Performed By: #### C BC, BMP, TSH3 #### [facility] [address] [place] [address] [place] Bilirubin,Urine Negative Normal Negative [facility] Comment on above: Order Comment: Name Collection Type:: Clean-Voided Midstream Performed By: #### C BC, BMP, TSH3 #### [facility] [address] [place] [address] [place] Color (U) Yellow Normal Yellow [facility] Comment on above: Order Comment: Name Collection Type:: Clean-Voided Midstream Performed By: #### C BC, BMP, TSH3 #### [facility] [address] [id number] [place] Glucose Ql (U) Normal Normal Normal [facility] Comment on above: Order Comment: Name Collection Type:: Clean-Voided Midstream Performed By: #### C BC, BMP, TSH3 #### [facility] [address] [id number] [place] Ketones Ql (U) Negative Normal Negative [facility] Comment on above: Order Comment: Name Collection Type:: Clean-Voided Midstream Performed By: #### C BC, BMP, TSH3 #### [facility] [address] [id number] [place] Leukocyte esterase Test strip Ql (U) Negative Normal Negative [facility] Comment on above: Order Comment: Name Collection Type:: Clean-Voided Midstream Performed By: #### C BC, BMP, TSH3 #### [place] [address] [place] Nitrite,Urine Negative Normal Negative [facility] Comment on above: Order Comment: Name Collection Type:: Clean-Voided Midstream Performed By: #### C BC, BMP, TSH3 #### [address] Occult Blood,Urine Negative Normal Negative [facility] Comment on above: Order Comment: Name Collection Type:: Clean-Voided Midstream Result Comment: PERF ORMED BY: [place] [address] PATHOLOGIST BAT LATHE OPERATOR MAXINE EL M.D. Performed By: #### C BC, BMP, TSH3 #### [address] pH (U) 5.5 [pH] Normal 5.0-9.0 [facility] Comment on above: Order Comment: Name Collection Type:: Clean-Voided Midstream Performed By: #### C BC, BMP, TSH3 #### [address] Protein,Urine Negative Normal Negative [facility] Comment on above: Order Comment: Name Collection Type:: Clean-Voided Midstream Performed By: #### C BC, BMP, TSH3 #### [address] Specificy [place],Urine 1.016 Normal 1.001-1.03 0 [facility] Comment on above: Order Comment: Name Collection Type:: Clean-Voided Midstream Performed By: #### C BC, BMP, TSH3 #### [address] Urobilinogen,Urine Normal Normal Normal [facility] Comment on above: Order Comment: Name Collection Type:: Clean-Voided Midstream Performed By: #### C BC, BMP, TSH3 #### [facility] [address] [place] [address] Urine clarity by refractomet ry automatedOrdered By: Pham Edmond on 04-16-2023 Clarity Refractometry automated (U) Clear Clear [facility] Urine glucose measurement by automated test strip (mass/volume)Ordered By: Pham Edmond on 04-16-2023 Glucose Auto test strip (U) [Mass/Vol] Normal mg/dL Normal [facility] Urine hemoglobin detection b y automated test stripOrdered By: Pham Edmond on 04-16-2023 Hemoglobin Auto test strip Ql (U) Negative Negative [facility] Urine leukocyte esterase det ection by automated test stripOrdered By: Pham Edmond on 04-16-2023 Leukocyte esterase Auto test strip Ql (U) Negative Negative [facility] Urobilinogen Auto test strip (U) [Mass/Vol]Ordered By: Pham Edmond on 04-16-2023 Urobilinogen (U) [Mass/Vol] Normal mg/dL Normal [facility] Vitamin D 25 Hydroxy Totalon 04-16-2023 Vitamin D 25 Hydroxy Total 37.5 ng/mL Normal 30-100 [facility] Comment on above: Result Comment: OSIEL MIN D STATUS 25(OH)VITAMIN D RANGE (ng/mL) Deficient <20 Insufficient 20 to <30 Sufficient 30 to 100 Reference: Lashawn MF,Thu NC, Joceline VILLALBA, et al. Evaluation,treatment, and prevention of vitamin D deficiency; an Endocrine Society clinical practice guideline. JCEM. 2010; 96(7):1911-30. PERFORMED BY: [place] [address] PATHOLOGIST BAT LATHE OPERATOR MAXINE EL M.D. Performed By: #### P TT, HS TROP, PT #### [facility] [address] [place] [address] WBC Auto (Bld) [#/Vol]Ordere d By: Pham Edmond on 04-16-2023 WBC (Bld) [#/Vol] 8.9 10*3/uL 4.1-10.5 [facility] pH Auto test strip (U)Ordere d By: Pham Edmond on 04-16-2023 pH (U) 5.5 [pH] 5.0-9.0 [facility] Prothrombin Time INRon 04-13 INR Coag (PPP) [Relative time] 2.3 {INR} [facility] [employer] Other Prothrombin Time INR [facility] [employer] Other Activated partial thrombopla stin time (aPTT) in platelet poor plasma by coagulation aOrdered By: Anita Merrill on 04-02-2023 aPTT Coag (PPP) [Time] 40.8 s 25.1-36.5 [facility] Comment on above: A hematocrit value g reater than 55% may lead to inaccurate results in coagulation testing. Patients having hematocrit values >55% require a special collection tube for coagulation studies. Please contact the laboratory at [phone] for redraw instructions. Alanine aminotransferase [En zymatic activity/volume] in Serum or PlasmaOrdered By: Anita Merrill on 04-02-2023 ALT [Catalytic activity/Vol] 17 U/L 7-52 [facility] Albumin [Mass/volume] in Ser um or Plasma by Bromocresol green (BCG) dye binding methoOrdered By: Anita Merrill on 04-02-2023 Albumin BCG dye [Mass/Vol] 4.2 g/dL 3.5-5.7 [facility] Alkaline phosphatase [Enzyma tic activity/volume] in Serum or PlasmaOrdered By: Anita Merrill on 04-02-2023 ALP [Catalytic activity/Vol] 63 U/L 34-104 [facility] Aspartate aminotransferase [ Enzymatic activity/volume] in Serum or PlasmaOrdered By: Anita Merrill on 04-02-2023 AST [Catalytic activity/Vol] 16 U/L 13-39 [facility] B-Type Natriuretic Peptideon 04-02-2023 Natriuretic peptide B (Bld) [Mass/Vol] 12.0 pg/mL Normal 5-100 [facility] Comment on above: Result Comment: PERF ORMED BY: [facility] [address] [place] [address] PATHOLOGIST BAT LATHE OPERATOR MAXINE EL M.D. Performed By: #### U A #### [facility] [address] [place] [address] [place] Basophils Auto (Bld) [#/Vol] Ordered By: Anita Merrill on 04-02-2023 Basophils (Bld) [#/Vol] 0.1 10*3/uL 0.0-0.2 [facility] Basophils/100 WBC Auto (Bld) Ordered By: Anita Merrill on 04-02-2023 Basophils/100 WBC (Bld) 1.3 % . [facility] Bilirubin.total [Mass/volume ] in Serum or PlasmaOrdered By: Anita Merrill on 04-02-2023 Bilirubin [Mass/Vol] 0.4 mg/dL 0.3-1.0 [facility] Calcium [Mass/volume] in Ser um or PlasmaOrdered By: Anita Merrill on 04-02-2023 Calcium [Mass/Vol] 9.1 mg/dL 8.6-10.3 [facility] Carbon dioxide, total [Moles /volume] in Serum or PlasmaOrdered By: Anita Merrill on 04-02-2023 CO2 [Moles/Vol] 24.1 mmol/L 21.0-31.0 [facility] Chloride [Moles/volume] in S calos or PlasmaOrdered By: Anita Merrill on 04-02-2023 Chloride [Moles/Vol] 101 mmol/L 98-107 [facility] Complete Blood Count Auto Di ffon 04-02-2023 Basophils (Bld) [#/Vol] 0.1 10*3/uL Normal 0.0-0.2 [facility] Comment on above: Result Comment: PERF ORMED BY: [place] [address] PATHOLOGIST BAT LATHE OPERATOR MAXIEN EL M.D. Performed By: #### C STACIE DIEZ, TSH3 #### [address] Basophils/100 WBC (Bld) 1.3 % Normal . [facility] Comment on above: Performed By: #### C STACIE DIEZ, TSH3 #### [address] Eosinophils (Bld) [#/Vol] 0.1 10*3/uL Normal 0.0-0.45 [facility] Comment on above: Performed By: #### C STACIE DIEZ, TSH3 #### [address] Eosinophils/100 WBC (Bld) 1.4 % Normal . [facility] Comment on above: Performed By: #### C STACIE DIEZ, TSH3 #### [address] Erythrocyte distribution width (RBC) [Ratio] 13.5 % Normal 12.0-14.8 [facility] Comment on above: Performed By: #### C STACIE DIEZ, TSH3 #### [address] Hematocrit (Bld) [Volume fraction] 35.6 % Low 38.8-50.0 [facility] Comment on above: Performed By: #### C STACIE DIEZ, TSH3 #### [address] Hemoglobin (Bld) [Mass/Vol] 12.4 g/dL Low 13.0-17.0 [facility] Comment on above: Performed By: #### C STACIE DIEZ, TSH3 #### [address] Lymphocytes (Bld) [#/Vol] 0.8 10*3/uL Low 1.00-4.8 [facility] Comment on above: Performed By: #### C STACIE DIEZ, TSH3 #### [place] [address] [place] Lymphocytes/100 WBC (Bld) 10.9 % Normal . [facility] Comment on above: Performed By: #### C STACIE DIEZ, TSH3 #### [address] MCH (RBC) [Entitic mass] 31.1 pg Normal 27.5-35.2 [facility] Comment on above: Performed By: #### C BC, BMP, TSH3 #### [facility] [address] MCV (RBC) [Entitic vol] 89.7 fL Normal 83.5-101 [facility] Comment on above: Performed By: #### C BC, BMP, TSH3 #### [facility] [address] Mean Corpuscular HGB Conc 34.7 g/dL Normal 32.5-35.6 [facility] Comment on above: Performed By: #### C BC, BMP, TSH3 #### [facility] [address] [place] [address] [place] Monocytes (Bld) [#/Vol] 1.0 10*3/uL High 0.0-0.8 [facility] Comment on above: Performed By: #### C BC, BMP, TSH3 #### [place] [address] [place] Monocytes/100 WBC (Bld) 18.10 % Normal 0.00-20.00 [facility] Comment on above: Performed By: #### C BC, BMP, TSH3 #### [facility] [address] [place] [address] [place] Monocytes/100 WBC (Bld) 13.4 % Normal . [facility] Comment on above: Performed By: #### C BC, BMP, TSH3 #### [facility] [address] [place] [address] [place] Neutrophils (Bld) [#/Vol] 5.5 10*3/uL Normal 1.8-7.7 [facility] Comment on above: Performed By: #### C BC, BMP, TSH3 #### [facility] [address] [place] [address] [place] Neutrophils/100 WBC (Bld) 73.0 % Normal . [facility] Comment on above: Performed By: #### C BC, BMP, TSH3 #### [facility] [address] [place] [address] [place] NRBC% 0.1 /100{WBC} Normal 0-0.5 [facility] Comment on above: Performed By: #### C STACIE DIEZ, TSH3 #### [address] Platelet mean volume (Bld) [Entitic vol] 7.5 fL Normal 6.6-10.1 [facility] Comment on above: Performed By: #### C RG BMP, TSH3 #### [address] Platelets (Bld) [#/Vol] 295 10*3/uL Normal 150-450 [facility] Comment on above: Performed By: #### C RG, STACIE, TSH3 #### [address] RBC (Bld) [#/Vol] 3.97 10*6/uL Normal 3.90-5.60 [facility] Comment on above: Performed By: #### C STACIE DIEZ, TSH3 #### [address] WBC (Bld) [#/Vol] 7.5 10*3/uL Normal 4.1-10.5 [facility] Comment on above: Performed By: #### C STACIE DIEZ, TSH3 #### [address] Comprehensive Metabolic Pane jameson 04-02-2023 Albumin [Mass/Vol] 4.2 g/dL Normal 3.5-5.7 [facility] Comment on above: Performed By: #### U A #### [address] Albumin/Globulin [Mass ratio] 1.7 {ratio} Normal [facility] Comment on above: Performed By: #### U A #### [address] ALP [Catalytic activity/Vol] 63 U/L Normal 34-104 [facility] Comment on above: Performed By: #### U A #### [address] ALT [Catalytic activity/Vol] 17 U/L Normal 7-52 [facility] Comment on above: Performed By: #### U A #### [facility] [address] Anion gap [Moles/Vol] 11.8 mmol/L Normal 6.0-15.0 [facility] Comment on above: Performed By: #### U A #### [facility] [address] AST [Catalytic activity/Vol] 16 U/L Normal 13-39 [facility] Comment on above: Performed By: #### U A #### [facility] [address] Bilirubin [Mass/Vol] 0.4 mg/dL Normal 0.3-1.0 [facility] Comment on above: Performed By: #### U A #### [facility] [address] [place] [address] Calcium [Mass/Vol] 9.1 mg/dL Normal 8.6-10.3 [facility] Comment on above: Performed By: #### U A #### [facility] [address] [place] [address] [place] Chloride [Moles/Vol] 101 mmol/L Normal 98-107 [facility] Comment on above: Performed By: #### U A #### [facility] [address] [place] [address] CO2 [Moles/Vol] 24.1 mmol/L Normal 21.0-31.0 [facility] Comment on above: Performed By: #### U A #### [facility] [address] [place] [address] [place] Creatinine [Mass/Vol] 1.14 mg/dL Normal 0.70-1.30 [facility] Comment on above: Performed By: #### U A #### [facility] [address] [place] [address] Creatinine Clr Calc Pharmacy 67.12 Normal [facility] Comment on above: Result Comment: PERF ORMED BY: [place] [address] PATHOLOGIST BAT LATHE OPERATOR MAXINE EL M.D. Performed By: #### U A #### [facility] [address] [place] [address] [place] GFR/1.73 sq M.predicted MDRD (S/P/Bld) [Vol rate/Area] mL/min/{1.73_m2} [facility] Comment on above: Performed By: #### U A #### [address] Globulin (S) [Mass/Vol] 2.5 g/dL [facility] Comment on above: Performed By: #### U A #### [address] Glucose [Mass/Vol] 101 mg/dL High 70-100 [facility] Comment on above: Result Comment: [place] Glucose Reference Range is dependent on time and content of last meal. Glucose of more than 200 mg/dL in a nonstressed, ambulatory subject supports the diagnosis of Diabetes Mellitus. ADA recommended reference range Performed By: #### U A #### [address] Potassium [Moles/Vol] 3.9 mmol/L Normal 3.5-5.1 [facility] Comment on above: Performed By: #### U A #### [place] [address] [place] Protein [Mass/Vol] 6.7 g/dL Normal 6.4-8.9 [facility] Comment on above: Performed By: #### U A #### [place] [address] [place] Sodium [Moles/Vol] 133 mmol/L Low 136-145 [facility] Comment on above: Performed By: #### U A #### [place] [address] [place] Urea nitrogen [Mass/Vol] 19 mg/dL Normal 7-25 [facility] Comment on above: Performed By: #### U A #### [facility] [address] [id number] [facility] Creatinine [Mass/volume] in Serum or PlasmaOrdered By: Anita Merrill on 04-02-2023 Creatinine [Mass/Vol] 1.14 mg/dL 0.70-1.30 [facility] ECG 12 lead ECGon 04-02-2023 ECG 12 lead ECG [facility] [place] [address] [id number] Electrocardiograph Report Signed Patient: Washington Garcia MR#: [id number] : 1950 Acct:[id number] Age/Sex: 72 / M ADM Date: 04/02/23 Loc: ER Room: Type: [facility] ER Attending Dr: Ordering Provider: Anita Merrill MD Date of Service: 04/02/23 ECG/ECG 12 lead ECG: [id number] Copies to: Test Reason : Blood Pressure : / mmHG Vent. Rate : 066 BPM Atrial Rate : 066 BPM P-R Int : 184 ms QRS Dur : 114 ms QT Int : 414 ms P-R-T Axes : 064 050 044 degrees QTc Int : 434 ms Normal sinus rhythm Normal ECG When compared with ECG of 28-MAR-2021 13:04, No significant change was found Confirmed by ANITA MERRILL MD ([id number]) on 04/02/2023 7:28:43 PM Referred By: Electronically Signed By:ANITA MERRILL MD Transcribed By: MUS Signed By Anita Merrill MD 03/20 Normal [facility] Eosinophils Auto (Bld) [#/Vo l]Ordered By: Anita Merrill on 04-02-2023 Eosinophils (Bld) [#/Vol] 0.1 10*3/uL 0.0-0.45 [facility] Eosinophils/100 WBC Auto (Bl d)Ordered By: Anita Merrill on 04-02-2023 Eosinophils/100 WBC (Bld) 1.4 % . [facility] Erythrocyte distribution wid th Auto (RBC) [Ratio]Ordered By: Anita Merrill on 04-02-2023 Erythrocyte distribution width (RBC) [Ratio] 13.5 % 12.0-14.8 [facility] Globulin Calc (S) [Mass/Vol] Ordered By: Anita Merrill on 04-02-2023 Globulin (S) [Mass/Vol] 2.5 g/dL [facility] Glucose [Mass/volume] in Ser um or PlasmaOrdered By: Anita Merrill on 04-02-2023 Glucose [Mass/Vol] 101 mg/dL 70-100 [facility] Comment on above: ADA recommended refe rence rangeRandom Glucose Reference Range is dependent on time and content of last meal. Glucose of more than 200 mg/dL in a nonstressed, ambulatory subject supports the diagnosis of Diabetes Mellitus. Hematocrit Auto (Bld) [Volum e fraction]Ordered By: Anita Merrill on 04-02-2023 Hematocrit (Bld) [Volume fraction] 35.6 % 38.8-50.0 [facility] Hemoglobin [Mass/volume] in BloodOrdered By: Anita Merrill on 04-02-2023 Hemoglobin (Bld) [Mass/Vol] 12.4 g/dL 13.0-17.0 [facility] INR in Platelet poor plasma by Coagulation assayOrdered By: Anita Merrill on 04-02-2023 INR Coag (PPP) [Relative time] 2.0 {INR} [facility] Comment on above: INR Therapeutic Rang e A) Pre- and Peroperative OAT started two weeks before surgery. NOT HIP SURGERY: 1.5 - 2.5 HIP SURGERY: 2 - 3B) Primary and secondary prevention of venous THROMBOSIS: 2 - 3C) Active venous thrombosis, pulmonary embolismand prevention of recurrent venous thrombosis: 2 - 3D) Prevention of arterial thromboembolismincluding patients with mechanical heart valves: 3 - 4.5 Laboratory - Chemistry and C hemistry - challengeOrdered By: Anita Merrill on 04-02-2023 CO2 [Moles/Vol] 25.0 mmol/L 24.0-29.0 [facility] HCO3 (Bld) [Moles/Vol] 23.9 mmol/L 23.0-29.0 [facility] Leukocytes [#/volume] correc ross for nucleated erythrocytes in Blood by Automated counOrdered By: Anita Merrill on 04-02-2023 WBC corrected for nucl RBC Auto (Bld) [#/Vol] 7.5 10*3/uL 4.1-10.5 [facility] Lymphocytes Auto (Bld) [#/Vo l]Ordered By: Anita Merrill on 04-02-2023 Lymphocytes (Bld) [#/Vol] 0.8 10*3/uL 1.00-4.8 [facility] Lymphocytes/100 WBC Auto (Bl d)Ordered By: Anita Merrill on 04-02-2023 Lymphocytes/100 WBC (Bld) 10.9 % . [facility] MCH Auto (RBC) [Entitic mass ]Ordered By: Anita Merrill on 04-02-2023 MCH (RBC) [Entitic mass] 31.1 pg 27.5-35.2 [facility] MCHC Auto (RBC) [Mass/Vol]Or dered By: Anita Merrill on 04-02-2023 MCHC (RBC) [Mass/Vol] 34.7 g/dL 32.5-35.6 [facility] MCV Auto (RBC) [Entitic vol] Ordered By: Anita Merrill on 04-02-2023 MCV (RBC) [Entitic vol] 89.7 fL 83.5-101 [facility] Monocyte distribution width [Entitic volume] in Blood by AutomatedOrdered By: Anita Merrill on 04-02-2023 Monocyte distribution width Auto (Bld) [Entitic vol] 18.10 % 0.00-20.00 [facility] Monocytes Auto (Bld) [#/Vol] Ordered By: Anita Merrill on 04-02-2023 Monocytes (Bld) [#/Vol] 1.0 10*3/uL 0.0-0.8 [facility] Monocytes/100 WBC Auto (Bld) Ordered By: Anita Merrill on 04-02-2023 Monocytes/100 WBC (Bld) 13.4 % . [facility] Natriuretic peptide B [Mass/ Vol]Ordered By: Antia Merrill on 04-02-2023 Natriuretic peptide B (Bld) [Mass/Vol] 12.0 pg/mL 5-100 [facility] Neutrophils Auto (Bld) [#/Vo l]Ordered By: Anita Merrill on 04-02-2023 Neutrophils (Bld) [#/Vol] 5.5 10*3/uL 1.8-7.7 [facility] Neutrophils/100 WBC Auto (Bl d)Ordered By: Anita Merrill on 04-02-2023 Neutrophils/100 WBC (Bld) 73.0 % . [facility] No Panel InformationOrdered By: Anita Merrill on 04-02-2023 Blood Gas Critical Value See comment [facility] Comment on above: Critical Value morales d on: 04/02/2023 at 18:25 Blood Gas Sample Site Venous Fir [facility] FiO2 21 % [facility] Venous Blood Base Excess -0.1 mmol/L -3.0-3.0 [facility] Venous Blood Oxygen Content 7.5 mmol/L 6.6-9.7 [facility] Venous Blood Oxygen Saturation 92.4 % 73.0-76.0 [facility] Venous Blood Partial Pressure CO2 36.8 mm[Hg] 38.0-50.0 [facility] Venous Blood Partial Pressure O2 62.7 mm[Hg] 35.0-45.0 [facility] Venous Blood pH 7.43 7.32-7.43 [facility] Estimated GFR (CKD-EPI) > 60.0 mL/Min [facility] Creatinine Clearance (Chem 67.12 [facility] Nucleated erythrocytes [Pres ence] in Blood by Automated countOrdered By: Anita Merrill on 04-02-2023 Nucleated RBC Auto Ql (Bld) 0.1 /100{WBC} 0-0.5 [facility] Partial Thromboplastin Timeo n 04-02-2023 aPTT Coag (Bld) [Time] 40.8 s High 25.1-36.5 [facility] Comment on above: Result Comment: A he matocrit value greater than 55% may lead to inaccurate results in coagulation testing. Patients having hematocrit values >55% require a special collection tube for coagulation studies. Please contact the laboratory at [phone] for redraw instructions. PERFORMED BY: [facility] [address] [place] [address] PATHOLOGIST BAT LATHE OPERATOR MAXINE EL M.D. Performed By: #### U A #### [address] Platelet mean volume Auto (B ld) [Entitic vol]Ordered By: Anita Merrill on 04-02-2023 Platelet mean volume (Bld) [Entitic vol] 7.5 fL 6.6-10.1 [facility] Platelets Auto (Bld) [#/Vol] Ordered By: Anita Merrill on 04-02-2023 Platelets (Bld) [#/Vol] 295 10*3/uL 150-450 [facility] Potassium [Moles/volume] in Serum or PlasmaOrdered By: Anita Merrill on 04-02-2023 Potassium [Moles/Vol] 3.9 mmol/L 3.5-5.1 [facility] Protein [Mass/volume] in Ser um or PlasmaOrdered By: Anita Merrill on 04-02-2023 Protein [Mass/Vol] 6.7 g/dL 6.4-8.9 [facility] Prothrombin Time INRon 04-02 INR Coag (PPP) [Relative time] 2.0 {INR} Normal [facility] Comment on above: Result Comment: INR Therapeutic Range A) Pre- and Peroperative OAT started two weeks before surgery. NOT HIP SURGERY: 1.5 - 2.5 HIP SURGERY: 2 - 3 B) Primary and secondary prevention of venous THROMBOSIS: 2 - 3 C) Active venous thrombosis, pulmonary embolism and prevention of recurrent venous thrombosis: 2 - 3 D) Prevention of arterial thromboembolism including patients with mechanical heart valves: 3 - 4.5 Performed By: #### U A #### [facility] [address] [id number] [facility] PT Coag (PPP) [Time] 22.4 s High 9.0-12.9 [facility] Comment on above: Result Comment: A he matocrit value greater than 55% may lead to inaccurate results in coagulation testing. Patients having hematocrit values >55% require a special collection tube for coagulation studies. Please contact the laboratory at [phone] for redraw instructions. Performed By: #### U A #### [facility] [address] [id number] [facility] Prothrombin time (PT)Ordered By: Anita Merrill on 04-02-2023 PT Coag (PPP) [Time] 22.4 s 9.0-12.9 [facility] Comment on above: A hematocrit value g reater than 55% may lead to inaccurate results in coagulation testing. Patients having hematocrit values >55% require a special collection tube for coagulation studies. Please contact the laboratory at [phone] for redraw instructions. RBC Auto (Bld) [#/Vol]Ordere d By: Anita Merrill on 04-02-2023 RBC (Bld) [#/Vol] 3.97 10*6/uL 3.90-5.60 [facility] Serum or plasma albumin/glob ulin mass ratioOrdered By: Anita Merrill on 04-02-2023 Albumin/Globulin [Mass ratio] 1.7 {ratio} [facility] Serum or plasma anion gap de terminationOrdered By: Anita Merrill on 04-02-2023 Anion gap [Moles/Vol] 11.8 mmol/L 6.0-15.0 [facility] Sodium [Moles/volume] in Ser um or PlasmaOrdered By: Anita Merrill on 04-02-2023 Sodium [Moles/Vol] 133 mmol/L 136-145 [facility] Troponin I High Sensitivityo n 04-02-2023 Troponin I High Sensitivity 9.3 pg/mL Normal 0.0-20.0 [facility] Comment on above: Result Comment: PERF ORMED BY: [place] [address] PATHOLOGIST BAT LATHE OPERATOR MAXINE EL M.D. Performed By: #### U A #### [address] Troponin I.cardiac [Mass/vol ume] in Serum or Plasma by Detection limit <= 0.01 ng/Ordered By: Anita Merrill on 04-02-2023 Troponin I.cardiac DL <= 0.01 ng/mL [Mass/Vol] 9.3 pg/mL 0.0-20.0 [facility] Urea nitrogen [Mass/volume] in Serum or PlasmaOrdered By: Anita Merrill on 04-02-2023 Urea nitrogen [Mass/Vol] 19 mg/dL 7-25 [facility] Venous Blood Gason CO2 [Moles/Vol] 25.0 mmol/L Normal 24.0-29.0 [facility] Comment on above: Performed By: #### U A #### [facility] [address] [place] [address] HCO3 (Bld) [Moles/Vol] 23.9 mmol/L Normal 23.0-29.0 [facility] Comment on above: Performed By: #### U A #### [facility] [address] [place] [address] Respiratory Critical Normal [facility] Comment on above: Result Comment: Crit ical Value called on: 04/02/2023 at 18:25 PERFORMED BY: [place] [address] PATHOLOGIST BAT LATHE OPERATOR MAXINE EL M.D. Performed By: #### U A #### [address] VBG Base Excess -0.1 mmol/L Normal -3.0-3.0 [facility] Comment on above: Performed By: #### U A #### [facility] [address] [place] [address] VBG Draw Site Venous Normal [facility] Comment on above: Performed By: #### U A #### [facility] [address] [place] [address] VBG Frac Inspired O2 21 % Normal [facility] Comment on above: Performed By: #### U A #### [facility] [address] [place] [address] VBG O2 Content 7.5 mmol/L Normal 6.6-9.7 [facility] Comment on above: Performed By: #### U A #### [facility] [address] [place] [address] VBG Oxygen Saturation 92.4 % Off scale high 73.0-76.0 [facility] Comment on above: Performed By: #### U A #### [facility] [address] [place] [address] VBG PCO2 36.8 mm[Hg] Low 38.0-50.0 [facility] Comment on above: Performed By: #### U A #### [facility] [address] [place] [address] VBG PH Venous PH 7.43 Normal 7.32-7.43 [facility] Comment on above: Performed By: #### U A #### [facility] [address] [place] [address] VBG PO2 62.7 mm[Hg] High 35.0-45.0 [facility] Comment on above: Performed By: #### U A #### [facility] [address] [place] [address] WBC Auto (Bld) [#/Vol]Ordere d By: Anita Merrill on 04-02-2023 WBC (Bld) [#/Vol] 7.5 10*3/uL 4.1-10.5 [facility] XR chest 1V portableon 04-02 XR chest 1V portable [facility] Main [place] [address] [place] [address] XRay Report Signed Patient: Washington Garcia MR#: [id number] : 1950 Acct:[id number] Age/Sex: 72 / M ADM Date: 04/02/23 Loc: ER Room: Type: [facility] ER Attending Dr: Copies to: Anita Merrill MD Ordering Provider: Anita Merrill MD Date of Service: 04/02/23 XR/XR chest 1V portable: DYSPNEA XR chest 1V portable 04/02/2023 5:54 PM SIGNS AND SYMPTOMS: Hypertension DYSPNEA PROTOCOL: Frontal radiograph of the chest COMPARISON: 03/28/2021 FINDINGS: The trachea is midline. The heart and mediastinal structures are within normal limits. Surgical clips are noted at the base of the neck. The lung parenchyma is clear. The bony thorax is intact. XR/XR chest 1V portable IMPRESSION: No acute cardiopulmonary pathology. Impression dictated by: Carrillo Mitchell M.D.04/02/2023 6:19 PM Dictation Location: [place] [address] Transcribed By: [facility] 04/02/231818 Dictated By: Carrillo Mitchell II, MD 04/02/231817 Signed By: 04/02/231818 [facility] Prothrombin Time INRon 03-30 INR Coag (PPP) [Relative time] 1.6 {INR} [facility] [employer] Other Prothrombin Time INR [facility] [employer] Other CNOVon 03-24-2023 CNOV Office Visit (OTOLMN ) ----- WASHINGTON GARCIA ([id number]) 1950 Delfina Arciniega* Date Time Provider Department 03/24/23 10:45 AM MARÍA THOMPSON OTOLMICAH During your visit today, we recorded the following information about you: Cristal Conley, OMAR 03/24/2023 10:33 AM Signed Tobacco Use: 1 packs/day, for 50 years. Quit 03/13/2017. Types: Cigarettes Was smoking cessation packet given? N/A - Patient is a non-smoker or quit >1 year ago. Was a referral initiated?N/A Patient is a non-smoker María Thompson, KATHERINE.LIVESTOCK BREEDER 03/28/2023 8:18 AM Signed [facility] Note CC: oncologic follow up Patient of Dr. 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 01/06/21 - CT Neck Enlarged left level II lymph node concerning for malignancy. 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 01/25/21: Laryngoscopy direct with excision of tumor w/ microscope (left), biopsy of left tonsillar lesion 02/01/[address] Hypermetabolic left tonsillar malignancy. Hypermetabolic bilateral cervical lymphadenopathy. 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 05/14 lymph nodes positive with extranodal extension, pT1N1 p16 positive squamous cell carcinoma. Hospital course complicated by left neck hematoma necessitating incision and drainage and tracheostomy. Patient readmitted after having some mental status changes. 06/02/21 - 06/09/21 - completed concurrent chemotherapy and radiation, respectively. Could only tolerate 160 mg/m2 secondary to renal dysfunction 07/29/2021 -PET/CT -no evidence of focal uptake to suggest FDG avid neoplastic process. 07/30/2021 -CT neck -expected posttreatment changes without mass, nodularity or lymphadenopathy. CT chest -no evidence of intrathoracic metastases 01/05/22 - CT neck / chest - postoperative changes. No suggested recurrent disease. Chest - a 0.3 cm left upper nodule is unchanged. No lymphadenopathy. 10/13/22 - CT Neck soft tissue - stable postoperative and posttreatment appearance of neck, no cervical lymphadenopathy HPI: Patient is a 72 year old male with a history of [id number] p16+ left tonsillar SCC status post left transoral radical tonsillectomy, right tonsillectomy, left selective neck dissection levels 2 through 4 with adjuvant chemoradiation completed in May of 2021. ( Could only tolerate 160 mg/m2 secondary to renal dysfunction) questions/concerns today include: Today doing well. Denies dysphagia, odynophagia, voice changes, otalgia, dyspnea or weight changes. Has also not felt any new lumps/bumps in the neck on personal exam his son did not come in the room with him today he continues his lymphedema treatments Remains active Last 2 Encounter Wt Readings: Date: Wt: 08/27/2021 95.7 kg (211 lb) 08/27/2021 95.7 kg (211 lb) There were no vitals taken for this visit. Current Outpatient Medications Medication Sig Dispense Refill SYNTHROID 137 mcg tablet Take 1 tablet by mouth once daily. ascorbic acid (VITAMIN C ORAL) Take by mouth. lisinopril (ZESTRIL, PRINIVIL) 20 mg tablet flecainide (TAMBOCOR) 100 mg tablet Take 100 mg by mouth twice daily. ALPRAZolam (XANAX) 1 mg tablet Take 1 mg by mouth at bedtime as needed. warfarin (COUMADIN) 5 mg tablet Take 1 tablet by mouth once daily. jia hydrALAZINE (APRESOLINE) 50 mg tablet Take 100 mg by mouth twice daily. diltiazem CR (TIAZAC, TAZTIA XT) 180 mg 24 hr capsule Take 180 mg by mouth once daily. cyanocobalamin, vitamin B-12, (VITAMIN B-12 ORAL) Take by mouth. (Patient not taking: Reported on 11/15/2022) No current facility-administered medications for this visit. EXAM: * General appearance: Well developed, well nourished male without obvious deformities. Patient has a normal body habitus and is well groomed. * Communication: The patient speaks with a normal voice without hoarseness or breaks in speech. Head and Face: * Overall appearance: No evident asymmetries, obvious scars, lesions or masses. Palpation of face did not reveal any sinus tenderness. * Parotid and submandibul (more content not included)... Normal [facility] Prothrombin Time INRon 03-09 INR Coag (PPP) [Relative time] 1.9 {INR} [employer] Other Prothrombin Time INR [facility] [employer] Other ECG 12 [place]on 02-22-2023 ECG revealed normal sinus rhythm normal ECG [facility] Work Phone: Prothrombin Time INRon 02-02 INR Coag (PPP) [Relative time] 2.0 {INR} [employer] Other Prothrombin Time INR [facility] [employer] Other Prothrombin Time INRon 12-29 INR Coag (PPP) [Relative time] 2.5 {INR} [employer] Other Prothrombin Time INR [employer] Other Prothrombin Time INRon 12-01 INR Coag (PPP) [Relative time] 2.3 {INR} [employer] Other Prothrombin Time INR [facility] [employer] Other Prothrombin Time INRon 11-03 INR Coag (PPP) [Relative time] 2.6 {INR} [employer] Other Prothrombin Time INR [facility] [employer] Other CNOVon 10-25-2022 CNOV Office Visit (OTMNCA ) ----- WASHINGTON GARCIA ([id number]) 1950 M Morgan Arciniega* Date Time Provider Department 10/25/22 10:30 AM NIMA MOLINA OTABBY During your visit today, we recorded the following information about you: Nima Molina MD 10/31/2022 12:37 PM Signed Staging: -[id number] esophageal adenocarcinoma (tx 2013) -[id number] p16+ left tonsillar SCC History ID: 2013: [id number] esophageal adenocarcinoma (underwent Transhiatal approach, thoracic esophagectomy, proximal gastrectomy, abdominal lymphadenectomy, pyloromyotomy 2015: total thyroidectomy with 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 01/06/21 - CT Neck Enlarged left level II lymph node concerning for malignancy. 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 01/25/21: Laryngoscopy direct with excision of tumor w/ microscope (left), biopsy of left tonsillar lesion 02/01/[address] Hypermetabolic left tonsillar malignancy. Hypermetabolic bilateral cervical lymphadenopathy. 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 05/14 lymph nodes positive with extranodal extension, pT1N1 p16 positive squamous cell carcinoma. Hospital course complicated by left neck hematoma necessitating incision and drainage and tracheostomy. Patient readmitted after having some mental status changes. 06/02/21 - 06/09/21 - completed concurrent chemotherapy and radiation, respectively. Could only tolerate 160 mg/m2 secondary to renal dysfunction 07/29/2021 -PET/CT -no evidence of focal uptake to suggest FDG avid neoplastic process. 07/30/2021 -CT neck -expected posttreatment changes without mass, nodularity or lymphadenopathy. CT chest -no evidence of intrathoracic metastases 01/05/22 - CT neck / chest - postoperative changes. No suggested recurrent disease. Chest - a 0.3 cm left upper nodule is unchanged. No lymphadenopathy. 10/13/22 - CT Neck soft tissue - stable postoperative and posttreatment appearance of neck, no cervical lymphadenopathy HPI: Washington Garcia is a 72 y/o male with a history of [id number] p16+ left tonsillar SCC status post left transoral radical tonsillectomy, right tonsillectomy, left selective neck dissection levels 2 through 4 with adjuvant chemoradiation completed in May of 2021. He is here today with his son and granddaughter. He reports that he is doing well with no issues. He underwent lymphedema treatment and massages his neck daily. He is actively golfing. 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 HTN (hypertension) Hx of peptic ulcer NEGATIVE MEDICAL HISTORY No TB, pnuemonia, DM, heart dis PAST SURGICAL HISTORY Procedure Laterality Date CONJUNCTIVAL SURGERY UNLISTED Left 05/30/2022 Ex of Lesion on Left Conjunctiva for MEJIA left eye 05/30/2022 ESOPHAGECTOMYANDGASTRI ANASTANDVAGOT 05/15/2013 Transhiatal esophagectomy for esophageal cancer ESOPHAGOGASTRODUODENOSCOP Y TRANSORAL DIAGNOSTIC EGD- several HERNIA REPAIR HX inguinal hernia x2, ventral hernia PAST SURGICAL HISTORY OF skin growth removal PAST SURGICAL HISTORY OF 04/2013 G-tube insertion and removal Current Outpatient Medications Medication Sig Dispense Refill SYNTHROID 137 mcg tablet Take 1 tablet by mouth once daily. ascorbic acid (VITAMIN C ORAL) Take by mouth. cyanocobalamin, vitamin B-12, (VITAMIN B-12 ORAL) Take by mouth. lisinopril (ZESTRIL, PRINIVIL) 20 mg tablet flecainide (TAMBOCOR) 100 mg tablet Take 100 mg by mouth twice daily. ALPRAZolam (XANAX) 1 mg tablet Take 1 mg by mouth at bedtime as needed. warfarin (COUMADIN) 5 mg tablet Take 1 tablet by mouth once daily. jia hydrALAZINE (APRESOLINE) 50 mg tablet Take 50 mg by mouth twice daily. diltiazem CR (TIAZAC, TAZTIA XT) 180 mg 24 hr capsule Take 180 mg by mouth once daily. No current facility-administered medications for this visit. ALLERGIES No Known Allergies PHYSICAL EXAM (detailed): Constitutional: * There were no vitals taken for this visit. * General appearance: Well developed, well nourished male without obvious deformities. Patient has a normal body habitus and is well groomed. * Communication: The patient speak (more content not included)... Normal [facility] 10-14-2022 [facility] Telephone (OTOLMN) ----- WASHINGTON GARCIA ([id number]) 1950 Delfina Arciniega* Date Time Provider Department 10/14/22 NIMA MOLINA OTLAWSON During your visit today, we recorded the following information about you: Frida Ruiz RN 10/14/2022 10:22 AM Signed Spoke to Washington about CT scan being ''ok'' per Dr. Molina. He verbally understood, no further questions at this time. Allergies As of Date: 10/14/2022 (No Known Allergies) Date Reviewed: 2022 Reviewed by: Cristal Conley CT - Fully Assessed Reason for Visit: Results [95] Cmt: CT neck scan Prescriptions as of 10/14/2022 - SYNTHROID 137 mcg tablet Take 1 tablet by mouth once daily. - ascorbic acid (VITAMIN C ORAL) Take by mouth. - cyanocobalamin, vitamin B-12, (VITAMIN B-12 ORAL) Take by mouth. - lisinopril (ZESTRIL, PRINIVIL) 20 mg tablet - flecainide (TAMBOCOR) 100 mg tablet Take 100 mg by mouth twice daily. - ALPRAZolam (XANAX) 1 mg tablet Take 1 mg by mouth at bedtime as needed. - warfarin (COUMADIN) 5 mg tablet Take 1 tablet by mouth once daily. jia - hydrALAZINE (APRESOLINE) 50 mg tablet Take 50 mg by mouth twice daily. - diltiazem CR (TIAZAC, TAZTIA XT) 180 mg 24 hr capsule Take 180 mg by mouth once daily. 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] Former smoker [Z87.891] Marijuana use [F12.90] Chronic anticoagulation [Z79.01] 01/19/2021 COVID [U07.1] 03/18/2021 Tonsil cancer (HCC) [C09.9] 03/23/2021 Respiratory insufficiency [R06.89] 03/23/2021 Delirium [R41.0] 03/29/2021 04/02/2021 Nicotine use disorder, F17.2 [F17.200] 03/31/2021 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] 04/20/2021 Encounter Status:Closed by FRIDA RUIZ on 10/14/22 Normal [facility] CREATININE BLDon 10-13-2022 Creatinine [Mass/Vol] 1.47 mg/dL High 0.73-1.22 [facility] Comment on above: Order Comment: Speci men Type: BLOOD SPECIMENOrdering Facility: [facility] Address: [address] [place] [address] Performed By: #### C RET1 ####[facility] LABCLIA [id number] [place] [address] ESTIMATED GLOMERULAR FILTRATION RATE 51 mL/min/1.73m??? Low >=60 [facility] Comment on above: Order Comment: Speci waqar Type: BLOOD SPECIMENOrdering Facility: [facility] Address: [address] [place] [address] Result Comment: Nya mated Glomerular Filtration Rate (eGFR) is calculated using the 2020 CKD-EPI creatinine equation. This equation utilizes serum creatinine, sex, and age as parameters. The creatinine assay has traceable calibration to isotope dilution-mass spectrometry. Refer to KDIGO guidelines for clinical interpretation. In patients with unstable renal function, e.g. those with acute kidney injury, the eGFR may not accurately reflect actual GFR. 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 TECHNIQUE: CT neck soft tissues following IV administration of [address] Dose-Length Product (DLP): 508 mGy*cm CT Dose Reduction Employed: Automated exposure control (AEC) COMPARISON: CT neck 01/05/2022 RESULT: Post-treatment changes: Postoperative changes of prior total thyroidectomy as well as extensive LEFT cervical lymphadenectomy with multiple surgical clips in the LEFT neck. Additional posttreatment/post radiation changes including skin thickening and subcutaneous fat stranding particularly involving the LEFT lower facial and LEFT submandibular regions, asymmetric thickening of the LEFT platysma, and ill-defined nonloculated fluid tracking along the LEFT sternocleidomastoid muscle, not significantly changed in appearance from 01/05/2022. Additional mild hypopharyngeal and epiglottic edema without significant airway narrowing also likely secondary to posttreatment/post radiation change. Neoplasm: No abnormal enhancing soft tissue in the operative bed to suggest residual/recurrent neoplasm. Lymph nodes: Extensive LEFT cervical lymphadenectomy as detailed above. No cervical lymphadenopathy by size, number or morphologic criteria. Small nonspecific lymph nodes are scattered throughout the neck. Aerodigestive tract: The oral cavity is partially obscured by artifact from dental amalgam. Posttreatment/post radiation changes as detailed above. The nasal cavities, naso-oropharynx, pharyngeal mucosal space, laryngeal structures and infraglottic trachea are otherwise within normal limits. Major salivary glands: Within normal limits. Thyroid gland: Thyroidectomy. Carotid space: Coarse atherosclerotic calcifications of the bilateral proximal cervical ICA is without clinically significant stenosis, although the study is not optimized for carotid artery assessment. Patent carotid and jugular systems. 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 Atherosclerotic calcifications involving the bilateral carotid siphons. Paranasal sinuses, middle ears, mastoids: Mild mucosal thickening of the bilateral maxillary sinuses with mucous retention cyst in the inferior LEFT maxillary sinus. Hypoplastic LEFT mastoid air cells. Bilateral mastoid air cells remain clear. Anterior inferior dislocation of the LEFT mandibular condyle and anterior inferior subluxation of the RIGHT mandibular condyle at the bilateral TMJs. The patient is largely edentulous. Orbits: Within normal limits. Bones: No suspicious osseous lesions in the imaged calvarium, skull base and spine. Normal cervicothoracic alignment. Multilevel mild to moderate cervical spondylosis. Temporomandibular joints are maintained. Lungs: Mild upper lobe predominant centrilobular emphysematous changes. Partially visualized postoperative changes of esophagectomy with gastric pull-through. IMPRESSION: 1. Stable postoperative and posttreatment/post radiation appearance of the neck. No evidence of residual/recurrent disease. 2. No cervical lymphadenopathy or other CT evidence of metastatic disease in the neck. Primary: 1. Expected post-treatment changes in the neck without evidence of recurrent disease in the primary site. ? Neck: 1. No evidence of abnormal lymph nodes. [email or web address] Transcribe Date/Time: Oct 13 2022 12:05P Dictated by: SHERINE BRIZUELA MD This examination was interpreted and the report reviewed and electronically signed by: SHERINE BRIZUELA MD on Oct 13 2022 12:19PM EST Thank you for allowing us to participate in the care of your patient. Should there be any questions regarding this interpretation, please call [phone]. If you are unable to reach us at the number above, please feel free to contact [facility]Radiology at [phone]. [id number] Normal [facility] Tele[facility] (HEMTSA) ----- WASHINGTON GARCIA ([id number]) 1950 Delfina Arciniega* Date Time Provider Department 09/14/22 NIMA MOLINA During your visit today, we recorded the following information about you: Kevin Pack RN 09/14/2022 3:20 PM Signed Please sign Cre order for pending CT scan. Thank You! GIUSEPPE Del Angel MD 09/15/2022 1:30 PM Signed Order signed. Allergies As of Date: 09/14/2022 (No Known Allergies) Date Reviewed: 2022 Reviewed by: OMAR Villegas - Fully Assessed Reason for Visit: Orders [681] Primary Visit Diagnosis:Tonsil cancer (HCC) [C09.9] Comment:Diagnosis Order(s):CREATININE BLD [SQCRET] Order #: [id number] FUTURE Prescriptions as of 09/15/2022 - SYNTHROID 137 mcg tablet Take 1 tablet by mouth once daily. - ascorbic acid (VITAMIN C ORAL) Take by mouth. - cyanocobalamin, vitamin B-12, (VITAMIN B-12 ORAL) Take by mouth. - lisinopril (ZESTRIL, PRINIVIL) 20 mg tablet - flecainide (TAMBOCOR) 100 mg tablet Take 100 mg by mouth twice daily. - ALPRAZolam (XANAX) 1 mg tablet Take 1 mg by mouth at bedtime as needed. - warfarin (COUMADIN) 5 mg tablet Take 1 tablet by mouth once daily. jia - hydrALAZINE (APRESOLINE) 50 mg tablet Take 50 mg by mouth twice daily. - diltiazem CR (TIAZAC, TAZTIA XT) 180 mg 24 hr capsule Take 180 mg by mouth once daily. Problem List As Of Date 09/14/2022 Noted Resolved Transhiatal approach, thoracic esophagectomy, p*04/18/2013 03/25/2021 Multiple thyroid nodules [E04.2] 04/23/2013 04/02/2014 Atelectasis [J98.11] 05/15/2013 Intravascular volume depletion [E86.1] 05/15/2013 05/16/2013 Postoperative pain [G89.18] 05/15/2013 Fluid overload [E87.70] 05/16/2013 Hypertension [I10] 05/16/2013 DVT prophylaxis [Z79.899] 05/16/2013 DISPOSITION AND FOLLOW-UP [V999.01] 05/16/2013 A-fib (HCC) [I48.91] 05/18/2013 Postoperative hypothyroidism [E89.0] 04/09/2013 Obesity (BMI 30.0-34.9) [E66.9] 04/09/2013 Rodriguez's esophagus [K22.70] Former smoker [Z87.891] Marijuana use [F12.90] Chronic anticoagulation [Z79.01] 01/19/2021 COVID [U07.1] 03/18/2021 Tonsil cancer (HCC) [C09.9] 03/23/2021 Respiratory insufficiency [R06.89] 03/23/2021 Delirium [R41.0] 03/29/2021 04/02/2021 Nicotine use disorder, F17.2 [F17.200] 03/31/2021 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] 04/20/2021 Encounter Status:Closed by NIMA MOLINA on 09/15/22 Normal [facility] Prothrombin Time INRon 09-01 INR Coag (PPP) [Relative time] 2.2 {INR} [employer] Other Prothrombin Time INR [employer] Other Office Visit (Cardiology)on 08-16-2022 Follow-up visit Diagnoses/Problems Assessed Class 1 obesity with body mass index (BMI) of 31.0 to 31.9 in adult (278.00,V85.31) (E66.9,Z68.31) Essential hypertension, benign (401.1) (I10) Former smoker (V15.82) (Z87.891) quit 02/2018 Orders Class 1 obesity with body mass index (BMI) of 31.0 to 31.9 in adult Healthy Weight Tips; Status:Complete - Retrospective Authorization; Done: 16Aug2022 Some eating tips that can help you lose weight.; Status:Complete - Retrospective Authorization; Done: 16Aug2022 SocHx: Former smoker Tobacco Use Screening; Status:Complete; Done: 16Aug2022 Tobacco Use Screening; Status:Complete; Done: 16Aug2022 Patient Instructions Please bring all medicines, vitamins, and herbal supplements with you when you come to the office. Prescriptions will not be filled unless you are compliant with your follow up appointments or have a follow up appointment scheduled as per instruction of your physician. Refills should be requested at the time of your visit. Same meds Follow up in 6 months Chief Complaint WASHINGTON GARCIA is being seen for a 3 week follow-up of. Patient is in the office for hypertension management. Since he was last seen in the office, weeks ago and the adjustment made to his medications his pressure is currently completely under control with no side effects. Present medical therapy will be left unchanged. Scheduled follow-up will be left as it is. Surgical History Problems History of Complete colonoscopy History of Esophagectomy History of Eye surgery History of Knee replacement History of Thyroidectomy History of Tonsillectomy Current Meds Medication NameInstruction ALPRAZolam 1 MG Oral TabletTAKE 1 TABLET AT BEDTIME NEEDED. dilTIAZem HCl ER Beads 180 MG Oral Capsule Extended Release 24 Hour Flecainide Acetate 100 MG Oral TabletTake 1 tablet every 12 hours hydrALAZINE HCl - 100 MG Oral Tablettake 1 tablet by mouth twice a day Jantoven 5 MG Oral TablettAKE 1 TABLET DAILY DIRECTED BY [facility] Lisinopril 20 MG Oral TabletTAKE 1 TABLET DAILY. Synthroid 137 MCG Oral TabletTAKE 1 TABLET DAILY. Patient did not bring medication list or bottles. Updated verbally with patient Allergies Medication No Known Drug Allergies Recorded By: Cristal Church; 12/03/2020 3:08:11 PM Social History Problems Alcohol ingestion (V69.8) (Z78.9) 3 beer weekly Daily caffeine consumption Coffee 2 cups daily Former smoker (V15.82) (Z87.891) quit 02/2018 Illicit drug use (305.90) (F19.90) medical Review of Systems Constitutional: not feeling tired. Cardiovascular: no intermittent leg claudication and as noted in HPI. Respiratory: no cough and no shortness of breath. Gastrointestinal: no change in bowel habits and no blood in stools. Integumentary: no skin rashes. Neurological: no seizures and no frequent falls. All other systems have been reviewed and are negative for complaint. Vitals Vital Signs Recorded: [id number] 09:19AM Heart Rate74, Apical Skiwevct773, LUE, Sitting Nxpmsbbgs61, LUE, Sitting Height5 ft 9 in Sjmzjq248 lb BMI Iclxhshnsq00.45 kg/m2 BSA Calculated2.12 Tobacco Useb) No Falls Screening (Age 18+)a) No falls within the last year EKG done in office today. right arm bp 130/0 possible vascular disease Signatures Electronically signed by : Christine King MD; Aug 16 2022 9:56AM EST (Author) Normal [facility] Follow-up visit Diagnoses/Problems Assessed Class 1 obesity with body mass index (BMI) of 31.0 to 31.9 in adult (278.00,V85.31) (E66.9,Z68.31) Essential hypertension, benign (401.1) (I10) Former smoker (V15.82) (Z87.891) quit 02/2018 Orders Class 1 obesity with body mass index (BMI) of 31.0 to 31.9 in adult Healthy Weight Tips; Status:Complete - Retrospective Authorization; Done: [id number] Some eating tips that can help you lose weight.; Status:Complete - Retrospective Authorization; Done: [id number] SocHx: Former smoker Tobacco Use Screening; Status:Complete; Done: [id number] Tobacco Use Screening; Status:Complete; Done: [id number] Patient Instructions Please bring all medicines, vitamins, and herbal supplements with you when you come to the office. Prescriptions will not be filled unless you are compliant with your follow up appointments or have a follow up appointment scheduled as per instruction of your physician. Refills should be requested at the time of your visit. Same meds Follow up in 6 months Chief Complaint WASHINGTON GARCIA is being seen for a 3 week follow-up of. Patient is in the office for hypertension management. Since he was last seen in the office, weeks ago and the adjustment made to his medications his pressure is currently completely under control with no side effects. Present medical therapy will be left unchanged. Scheduled follow-up will be left as it is. Surgical History Problems History of Complete colonoscopy History of Esophagectomy History of Eye surgery History of Knee replacement History of Thyroidectomy History of Tonsillectomy Current Meds Medication NameInstruction ALPRAZolam 1 MG Oral TabletTAKE 1 TABLET AT BEDTIME NEEDED. dilTIAZem HCl ER Beads 180 MG Oral Capsule Extended Release 24 Hour Flecainide Acetate 100 MG Oral TabletTake 1 tablet every 12 hours hydrALAZINE HCl - 100 MG Oral Tablettake 1 tablet by mouth twice a day Jantoven 5 MG Oral TablettAKE 1 TABLET DAILY [facility]ED [facility] Lisinopril 20 MG Oral TabletTAKE 1 TABLET DAILY. Synthroid 137 MCG Oral TabletTAKE 1 TABLET DAILY. Patient did not bring medication list or bottles. Updated verbally with patient Allergies Medication No Known Drug Allergies Recorded By: Cristal Church; 12/03/2020 3:08:11 PM Social History Problems Alcohol ingestion (V69.8) (Z78.9) 3 beer weekly Daily caffeine consumption Coffee 2 cups daily Former smoker (V15.82) (Z87.891) quit 02/2018 Illicit drug use (305.90) (F19.90) medical Review of Systems Constitutional: not feeling tired. Cardiovascular: no intermittent leg claudication and as noted in HPI. Respiratory: no cough and no shortness of breath. Gastrointestinal: no change in bowel habits and no blood in stools. Integumentary: no skin rashes. Neurological: no seizures and no frequent falls. All other systems have been reviewed and are negative for complaint. Vitals Vital Signs Recorded: [id number] 09:19AM Heart Rate74, Apical Euvpyhgu920, LUE, Sitting Gbipaoccg12, LUE, Sitting Height5 ft 9 in Mofprf900 lb BMI Vqsqbgevdf78.45 kg/m2 BSA Calculated2.12 Tobacco Useb) No Falls Screening (Age 18+)a) No falls within the last year 1 right arm bp 130/0 possible vascular disease 1 Amended By: Cristal Church; Aug 16 2022 10:20 AM ESTSignatures Electronically signed by : Christine King MD; Aug 23 2022 8:48AM EST Normal [employer] Tobacco Screening.on 023 Fall risk assessment a) No falls within the last year -[facility] DO Work Phone: Tobacco use status [facility] b) No -[facility] 250 DO Work Phone: Basic Metabolic Panelon 07-19 Anion gap [Moles/Vol] 10.6 mmol/L Normal 6.0-15.0 [facility] Comment on above: Performed By: #### C BC, BMP, TSH3 #### [facility] [address] [place] [address] [place] Calcium [Mass/Vol] 9.3 mg/dL Normal 8.6-10.3 [facility] Comment on above: Performed By: #### C STACIE DIEZ, TSH3 #### [facility] [address] [place] [id number] [place] Chloride [Moles/Vol] 101 mmol/L Normal 98-107 [facility] Comment on above: Performed By: #### C STACIE DIEZ, TSH3 #### [facility] [address] [place] [address] [place] CO2 [Moles/Vol] 26.7 mmol/L Normal 21.0-31.0 [facility] Comment on above: Performed By: #### C STACIE DIEZ, TSH3 #### [facility] [address] [place] [address] [place] Creatinine [Mass/Vol] 1.31 mg/dL High 0.70-1.30 [facility] Comment on above: Performed By: #### C STACIE DIEZ, TSH3 #### [facility] [address] [place] [address] [place] GFR/1.73 sq M.predicted MDRD (S/P/Bld) [Vol rate/Area] 58.195 mL/min/{1.73_m2} Normal [facility] Comment on above: Performed By: #### C STACIE DIEZ, TSH3 #### [facility] [address] [place] [address] [place] Glucose [Mass/Vol] 67 mg/dL Low 70-100 [facility] Comment on above: Result Comment: [place] Glucose Reference Range is dependent on time and content of last meal. Glucose of more than 200 mg/dL in a nonstressed, ambulatory subject supports the diagnosis of Diabetes Mellitus. ADA recommended reference range Performed By: #### C STACIE DIEZ, TSH3 #### [facility] [address] [place] [id number] [place] Potassium [Moles/Vol] 4.3 mmol/L Normal 3.5-5.1 [facility] Comment on above: Performed By: #### C BC, BMP, TSH3 #### [facility] [address] Sodium [Moles/Vol] 134 mmol/L Low 136-145 [facility] Comment on above: Performed By: #### C BC, BMP, TSH3 #### [facility] [address] Urea nitrogen [Mass/Vol] 24 mg/dL Normal 7-25 [facility] Comment on above: Performed By: #### C BC, BMP, TSH3 #### [facility] [address] Complete Blood Count Auto Di ffon 08-09-2022 Basophils (Bld) [#/Vol] 0.1 10*3/uL Normal 0.0-0.2 [facility] Comment on above: Result Comment: PERF ORMED BY: [place] [address] PATHOLOGIST BAT LATHE OPERATOR MAXINE EL M.D. Performed By: #### C RG, BMP, TSH3 #### [address] Basophils/100 WBC (Bld) 0.8 % Normal . [facility] Comment on above: Performed By: #### C BC, BMP, TSH3 #### [address] Eosinophils (Bld) [#/Vol] 0.1 10*3/uL Normal 0.0-0.45 [facility] Comment on above: Performed By: #### C BC, BMP, TSH3 #### [place] [address] [place] Eosinophils/100 WBC (Bld) 1.8 % Normal . [facility] Comment on above: Performed By: #### C BC, BMP, TSH3 #### [address] Erythrocyte distribution width (RBC) [Ratio] 14.0 % Normal 12.0-14.8 [facility] Comment on above: Performed By: #### C BC, BMP, TSH3 #### [address] Hematocrit (Bld) [Volume fraction] 35.8 % Low 38.8-50.0 [facility] Comment on above: Performed By: #### C BC, BMP, TSH3 #### [address] Hemoglobin (Bld) [Mass/Vol] 12.2 g/dL Low 13.0-17.0 [facility] Comment on above: Performed By: #### C BC, BMP, TSH3 #### [address] Lymphocytes (Bld) [#/Vol] 1.0 10*3/uL Normal 1.00-4.8 [facility] Comment on above: Performed By: #### C BC, BMP, TSH3 #### [address] Lymphocytes/100 WBC (Bld) 14.9 % Normal . [facility] Comment on above: Performed By: #### C BC, BMP, TSH3 #### [address] MCH (RBC) [Entitic mass] 30.7 pg Normal 27.5-35.2 [facility] Comment on above: Performed By: #### C BC, BMP, TSH3 #### [address] MCV (RBC) [Entitic vol] 90.0 fL Normal 83.5-101 [facility] Comment on above: Performed By: #### C BC, BMP, TSH3 #### [address] Mean Corpuscular HGB Conc 34.1 g/dL Normal 32.5-35.6 [facility] Comment on above: Performed By: #### C BC, BMP, TSH3 #### [address] Monocytes (Bld) [#/Vol] 1.0 10*3/uL High 0.0-0.8 [facility] Comment on above: Performed By: #### C STACIE DIEZ, TSH3 #### [address] Monocytes/100 WBC (Bld) 15.3 % Normal . [facility] Comment on above: Performed By: #### C STACIE DIEZ, TSH3 #### [facility] [address] [place] [address] Neutrophils (Bld) [#/Vol] 4.4 10*3/uL Normal 1.8-7.7 [facility] Comment on above: Performed By: #### C STACIE DIEZ, TSH3 #### [address] Neutrophils/100 WBC (Bld) 67.2 % Normal . [facility] Comment on above: Performed By: #### C STACIE DIEZ, TSH3 #### [address] NRBC% 0.1 /100{WBC} Normal 0-0.5 [facility] Comment on above: Performed By: #### C STACIE DIEZ, TSH3 #### [address] Platelet mean volume (Bld) [Entitic vol] 7.6 fL Normal 6.6-10.1 [facility] Comment on above: Performed By: #### C STACIE DIEZ, TSH3 #### [facility] [address] [place] [address] Platelets (Bld) [#/Vol] 278 10*3/uL Normal 150-450 [facility] Comment on above: Performed By: #### C STACIE DIEZ, TSH3 #### [facility] [address] [place] [address] [place] RBC (Bld) [#/Vol] 3.98 10*6/uL Normal 3.90-5.60 [facility] Comment on above: Performed By: #### C STACIE DIEZ, TSH3 #### [address] [place] [address] [facility] WBC (Bld) [#/Vol] 6.5 10*3/uL Normal 4.1-10.5 [facility] Comment on above: Performed By: #### C BC, BMP, TSH3 #### [facility] [address] [place] [id number] [facility] No Panel Informationon 08-09 0.1\S\0.1 Normal 0-0.5 -[facility] 250 DO Work Phone: [phone] Comment on above: PERFORMED BY:[facility] [place] H[place]ITAL[place], [place] [phone] MEDICAL DIRECTORMAXINE EL M.D. 1.0\S\1.0 Normal 1.00-4.8 -[facility] 250 DO Work Phone: [phone] 4.4\S\4.4 Normal 1.8-7.7 -[facility] DO Work Phone: [phone] 0.8\S\0.8 Normal . -[facility] 250 DO Work Phone: [phone] 1.8\S\1.8 Normal . [facility] 250 DO Work Phone: [phone] 15.3\S\15.3 Normal . [facility] 250 DO Work Phone: [phone] 14.9\S\14.9 Normal . [facility] 250 DO Work Phone: [phone] 67.2\S\67.2 Normal . -[facility] DO Work Phone: [phone] 7.6\S\7.6 Normal 6.6-10.1 -[facility] DO Work Phone: [phone] 278\S\278 Normal 150-450 [facility] 250 DO Work Phone: [phone] 14.0\S\14.0 Normal 12.0-14.8 [facility] 250 DO Work Phone: [phone] 34.1\S\34.1 Normal 32.5-35.6 [facility] 250 DO Work Phone: [phone] 30.7\S\30.7 Normal 27.5-35.2 [facility] harris 250 DO Work Phone: [phone] 90.0\S\90.0 Normal 83.5-101 [facility] Boby harris 250 DO Work Phone: [phone] 35.8\S\35.8 below low threshold 38.8-50.0 [facility] h[facility] 250 DO Work Phone: [phone] 12.2\S\12.2 below low threshold 13.0-17.0 [facility] Boby harris 250 DO Work Phone: [phone] 3.98\S\3.98 Normal 3.90-5.60 [facility] Boby harris 250 DO Work Phone: [phone] 6.5\S\6.5 Normal 4.1-10.5 [facility] Boby harris 250 DO Work Phone: [phone] 58.195\S\58.195 Normal [facility] Boby harris 250 DO Work Phone: [phone] 10.6\S\10.6 Normal 6.0-15.0 [facility] Boby harris 250 DO Work Phone: [phone] 9.3\S\9.3 Normal 8.6-10.3 [facility] HeartClaudia y 250 DO Work Phone: [phone] 26.7\S\26.7 Normal 21.0-31.0 [facility] Boby harris 250 DO Work Phone: [phone] 101\S\101 Normal 98-107 [facility] Boby harris 250 DO Work Phone: 4.3\S\4.3 Normal 3.5-5.1 -[facility] [employer] InstallationsClaudia harris 250 DO Work Phone: 134\S\134 below low threshold 136-145 [facility] Boby harris 250 DO Work Phone: 1.31\S\1.31 above high threshold 0.70-1.30 [facility] Boby harris 250 DO Work Phone: 24\S\24 Normal 7-25 [facility] Boby harris 250 DO Work Phone: 67\S\67 below low threshold 70-100 [facility] Boby harris 250 DO Work Phone: Comment on above: Random Glucose Refer ence Range is dependent on time and content of last meal. Glucose of more than 200 mg/dL in a nonstressed, ambulatory subject supports the diagnosis of Diabetes Mellitus. ADA recommended reference range 2.21\S\2.21 Normal 0.45-5.33 -[facility] Boby harris 250 DO Work Phone: Comment on above: PERFORMED BY:[facility] [place] [place], [place] [phone] MEDICAL DIRECTORMAXINE EL M.D. Thyroid Stimulating Hormoneo n 08-09-2022 TSH Qn 2.21 m[IU]/L Normal 0.45-5.33 [facility] Comment on above: Result Comment: PERF ORMED BY: [facility] [address] [place] [address] PATHOLOGIST BAT LATHE OPERATOR MAXINE EL M.D. Performed By: #### C BC, BMP, TSH3 #### [address] [address] [facility] Office Visit (Cardiology)on 07-27-2022 Follow-up visit Diagnoses/Problems Assessed Paroxysmal atrial fibrillation (427.31) (I48.0) History of thyroidectomy (246.8) (E89.0) Hypothyroidism (244.9) (E03.9) High risk medication use (V58.69) (Z79.899) Essential hypertension, benign (401.1) (I10) Esophageal cancer (150.9) (C15.9) Class 1 obesity with body mass index (BMI) of 31.0 to 31.9 in adult (278.00,V85.31) (E66.9,Z68.31) Orders Class 1 obesity with body mass index (BMI) of 31.0 to 31.9 in adult Healthy Weight Tips; Status:Complete; Done: 27Jul2022 Some eating tips that can help you lose weight.; Status:Complete; Done: 27Jul2022 Essential hypertension, benign Renew: hydrALAZINE HCl - 100 MG Oral Tablet; take 1 tablet by mouth twice a day Essential hypertension, benign, High risk medication use, Hypothyroidism, Paroxysmal atrial fibrillation Basic Metabolic Panel; Status:Active; Requested for:27Jul2022; Complete Blood Count; Status:Active; Requested for:27Jul2022; TSH - Thyroid Stimulating Hormone, Serum; Status:Active; Requested for:27Jul2022; Paroxysmal atrial fibrillation Renew: Flecainide Acetate 100 MG Oral Tablet; Take 1 tablet every 12 hours IO EKG Electrocardiogram- 12 Lead; Status:Complete; Done: 27Jul2022 Patient Instructions Please bring all medicines, vitamins, and herbal supplements with you when you come to the office. Prescriptions will not be filled unless you are compliant with your follow up appointments or have a follow up appointment scheduled as per instruction of your physician. Refills should be requested at the time of your visit. BP/OV in 3 weeks Chief Complaint WASHINGTON GARCIA is being seen for a 6 month follow-up of. Patient is in the office for follow-up for paroxysmal atrial fibrillation among other problems noted below. He is on flecainide and Coumadin and has been in sinus rhythm without breakthrough events. He esophageal cancer is in remission as is his head and neck cancers. 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 Details are not available. He was found to be hypertensive in the office today. He maintains active lifestyle. He is compliant with medical therapy. His weight remains significantly above target and education to bring his weight down was discussed with the patient. Assessment/recommendation s: 1?paroxysmal atrial fibrillation, currently in sinus rhythm on flecainide. Currently on Coumadin with therapeutic INR without any bleeding problems 2? cardiac catheterization July 2018 revealed normal coronary arteries 3?hypertension presently not under control, We will increase hydralazine up to 100 mg twice daily and follow blood pressure readings in the near future 4?obesity, healthy lifestyle with low calorie diet and exercise was highly recommended 5?status post thyroidectomy with hypothyroidism on replacement therapy, followed by PCP 6?history of esophageal cancer more than 7 years ago, in remission, the patient was diagnosed with head and neck cancer and finished his radiation and chemotherapy after having surgery. He will continue to follow with the [facility] Surgical History Problems History of Complete colonoscopy History of Esophagectomy History of Eye surgery History of Knee replacement History of Thyroidectomy History of Tonsillectomy Current Meds Medication NameInstruction ALPRAZolam 1 MG Oral TabletTAKE 1 TABLET AT BEDTIME NEEDED. dilTIAZem HCl ER Beads 180 MG Oral Capsule Extended Release 24 Hour Flecainide Acetate 100 MG Oral TabletTake 1 tablet every 12 hours hydrALAZINE HCl - 50 MG Oral TabletTake 1 tablet twice a day Jantoven 5 MG Oral TablettAKE 1 TABLET DAILY DIRECTED BY [facility] Lisinopril 20 MG Oral TabletTAKE 1 TABLET DAILY. Synthroid 137 MCG Oral TabletTAKE 1 TABLET DAILY. 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 Cardiovascular: no intermittent leg claudication and as noted in HPI. Respiratory: no cough and no shortness of breath. Gastrointestinal: no change in bowel habits and no blood in stools. Integumentary: no skin rashes. Neurological: no seizures and no frequent falls. All other systems have been reviewed and are negative for complaint. Vitals Vital Signs Recorded: 27Jul2022 12:06PMRecorded: 27Jul2022 11:51AM Veaytyjx480, LUE, Ptswafm714, LUE, Sitting Txvqdzicg13, LUE, Nchzhhj61, LUE, Sitting Heart Rate63, Apical Height5 ft 9 in Pojfoz208 lb BMI Vbroidzkwr94.01 kg/m2 BSA Calculated2.11 Tobacco Useb) No PHQ-2 #1. Over the last 2 weeks have you felt down, depressed or hopeless? (If yes, answer PHQ-9 below)No PHQ-2 #2. (more content not included)... Normal [facility] Tobacco Screening.on 023 Adult depression screening assessment No [facility] 250 DO Work Phone: Fall risk assessment a) No falls within the last year [facility] 250 DO Work Phone: Tobacco use status [facility] b) No [facility] 250 DO Work Phone: CNOVon 2022 CNOV Office Visit (OTMNCA ) ----- WASHINGTON GARCIA ([id number]) 1950 [address] [place]* Date Time Provider Department 07/12/22 10:45 AM NIMA MOLINA OTABBY During your visit today, we recorded the following information about you: Nima Molina MD 07/18/2022 7:05 PM Signed Staging: -[id number] esophageal adenocarcinoma (tx 2013) -[id number] p16+ left tonsillar SCC History ID: 2013: [id number] esophageal adenocarcinoma (underwent Transhiatal approach, thoracic esophagectomy, proximal gastrectomy, abdominal lymphadenectomy, pyloromyotomy 2015: total thyroidectomy with 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 01/06/21 - CT Neck Enlarged left level II lymph node concerning for malignancy. 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 01/25/21: Laryngoscopy direct with excision of tumor w/ microscope (left), biopsy of left tonsillar lesion 02/01/[address] Hypermetabolic left tonsillar malignancy. Hypermetabolic bilateral cervical lymphadenopathy. 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 05/14 lymph nodes positive with extranodal extension, pT1N1 p16 positive squamous cell carcinoma. Hospital course complicated by left neck hematoma necessitating incision and drainage and tracheostomy. Patient readmitted after having some mental status changes. 06/02/21 - 06/09/21 - completed concurrent chemotherapy and radiation, respectively. Could only tolerate 160 mg/m2 secondary to renal dysfunction 07/29/2021 -PET/CT -no evidence of focal uptake to suggest FDG avid neoplastic process. 07/30/2021 -CT neck -expected posttreatment changes without mass, nodularity or lymphadenopathy. CT chest -no evidence of intrathoracic metastases 01/05/22 - CT neck / chest - postoperative changes. No suggested recurrent disease. Chest - a 0.3 cm left upper nodule is unchanged. No lymphadenopathy. HPI: Washington Garcia is a 72 y/o male with a history of [id number] p16+ left tonsillar SCC status post left transoral radical tonsillectomy, right tonsillectomy, left selective neck dissection levels 2 through 4 with adjuvant chemoradiation completed in May of 2021. Doing well without any reported issues. Denies any dysphagia or odynophagia. Denies any hemoptysis or otalgia. 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 HTN (hypertension) Hx of peptic ulcer NEGATIVE MEDICAL HISTORY No TB, pnuemonia, DM, heart dis PAST SURGICAL HISTORY Procedure Laterality Date CONJUNCTIVAL SURGERY UNLISTED Left 05/30/2022 Ex of Lesion on Left Conjunctiva for MEJIA left eye 05/30/2022 ESOPHAGECTOMYANDGASTRI ANASTANDVAGOT 05/15/2013 Transhiatal esophagectomy for esophageal cancer ESOPHAGOGASTRODUODENOSCOP Y TRANSORAL DIAGNOSTIC EGD- several HERNIA REPAIR HX inguinal hernia x2, ventral hernia PAST SURGICAL HISTORY OF skin growth removal PAST SURGICAL HISTORY OF 04/2013 G-tube insertion and removal Current Outpatient Medications Medication Sig Dispense Refill dorzolamide-timolol (COSOPT) 22.3-6.8 mg/mL ophthalmic solution Use 1 Drop in the left eye twice daily. 5 mL 0 SYNTHROID 137 mcg tablet Take 1 tablet by mouth once daily. ascorbic acid (VITAMIN C ORAL) Take by mouth. cyanocobalamin, vitamin B-12, (VITAMIN B-12 ORAL) Take by mouth. lisinopril (ZESTRIL, PRINIVIL) 20 mg tablet flecainide (TAMBOCOR) 100 mg tablet Take 100 mg by mouth twice daily. ALPRAZolam (XANAX) 1 mg tablet Take 1 mg by mouth at bedtime as needed. warfarin (COUMADIN) 5 mg tablet Take 1 tablet by mouth once daily. jia hydrALAZINE (APRESOLINE) 50 mg tablet Take 50 mg by mouth twice daily. diltiazem CR (TIAZAC, TAZTIA XT) 180 mg 24 hr capsule Take 180 mg by mouth once daily. No current facility-administered medications for this visit. ALLERGIES No Known Allergies PHYSICAL EXAM (detailed): Constitutional: * There were no vitals taken for this visit. * General appearance: Well developed, well nourished male without obvious deformities. Patient has a normal body habitus and is well groomed. * Communication: The patient speaks with a normal voice without hoarseness or breaks in speech. Head and Face: * Ove (more content not included)... Normal [facility] Prothrombin Time INRon 07-07 INR Coag (PPP) [Relative time] 2.7 {INR} [employer] Other Pro[facility]rombin Time [facility]R [facility] [employer] Other Prothrombin Time INRon 06-09 INR Coag (PPP) [Relative time] 1.8 {INR} [employer] Other Prothrombin Time INR [facility] [employer] Other ANES POSTPROC EVALon 023 ANES POSTPROC EVAL HNO ID: [id number] Author: Kristopher Robles MD Service: ? 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 PACU/ICU Patient Condition: stable. Anticipated Disposition: phase 2 then home. Neurological Status: aware and responsive. Pulmonary Status: breathing comfortably on room air Airway Control: returned to baseline unsupported. Cardiovascular Status: stable. Pain Management: clinically adequate Postoperative Hydration: acceptable. Intraoperative Events: no significant anesthesia events Post Operative Nausea/Vomiting Status: no significant post operative nausea or vomiting Recommendation: continue current plan of care and further care per PACU/ICU/floor team. Anesthesia Observations No Documentation SIGNATURE: Daren Asencio MD PATIENT NAME: Washington Garcia DATE: May 30, 2022 TIME: 6:01 PM CSN: [id number] Normal [facility] ANES PRE-OPon 05-30-2022 ANES PRE-OP HNO ID: [id number] Author: Kristopher Robles MD Service: ? Author Type: Anesthesiologist Type: Anesthesia Preprocedure Evaluation Filed: 05/30/2022 3:52 PM Note Text: ANESTHESIOLOGY DAY OF SURGERY NOTE : 1950 Procedure Information Date/Time: 05/30/22 1445 Procedure: EXCISION LESION CONJUNCTIVA, UP TO 1 CM (Left: Eye) Location: [facility] / [facility] Surgeons: Claudia Lee MD Estimated body mass index is 31.79 kg/m? as calculated from the following: Height as of 08/27/21: 173.5 cm (5' 8.31 ). Weight as of 08/27/21: 95.7 kg (211 lb). Most recent hematocrit and potassium results: Hematocrit 30.8 06/25/2021 Potassium 3.5 06/25/2021 Relevant Problems CARDIO (+) A-fib (HCC) (+) Hypertension ENDO (+) Postoperative hypothyroidism Other (+) Malignant neoplasm of tonsil (HCC) (+) Tonsil cancer (HCC) I - PHYSICAL EVALUATION AIRWAY Patient intubated: No. Tracheostomy tube not present Mallampati: II. TM distance: >3 FB. Neck ROM: full ROM without neurological symptoms. Mouth opening: adequate. Short neck: no. Thick neck: no II - ANESTHESIA PLAN ASA Score: 3 Anesthetic Plan: MAC NPO Status: adequate Beta Av Monitoring Plan Monitoring plan: standard ASA. Post Procedure Analgesic Plan Postoperative analgesic plan: per surgical service. Informed Consent Anesthetic risks, benefits, alternatives, personnel and consent discussed: yes. Patient / Responsible Democrat agrees to proceed: yes Patient / Surrogate agrees to blood products: blood products not planned Significant changes in the patient condition since the History and Physical, not otherwise documented in primary service progress note: no. Potential Anesthesia issues that may suggest increased risk of complications or contraindication to planned procedure: none. Vitals Value Taken Time BP 161/70 05/30/22 1412 Pulse 61 05/30/22 1412 Resp 16 05/30/22 1412 Temp 36.3 ?C (97.3 ?F) 05/30/22 1412 SpO2 96 % 05/30/22 1412 No current facility-administered medications on file as of 05/30/2022. Outpatient Medications as of 05/30/2022 Medication Sig - lisinopril (ZESTRIL, PRINIVIL) 20 mg tablet - levothyroxine (SYNTHROID) 125 mcg tablet Take 125 mcg by mouth daily before breakfast. - flecainide (TAMBOCOR) 100 mg tablet Take 100 mg by mouth twice daily. - ALPRAZolam (XANAX) 1 mg tablet Take 1 mg by mouth at bedtime as needed. - warfarin (COUMADIN) 5 mg tablet Take 1 tablet by mouth once daily. jia - hydrALAZINE (APRESOLINE) 50 mg tablet Take 50 mg by mouth twice daily. - diltiazem CR (TIAZAC, TAZTIA XT) 180 mg 24 hr capsule Take 180 mg by mouth once daily. I have interviewed and examined the patient. I have reviewed the medical record and/or the pre-anesthesia evaluation, pertinent labs, and test results. This contains updated information obtained within 48 hours of Surgery/Procedure. SIGNATURE: Daren Asencio MD PATIENT NAME: Washington Garcia DATE: May 30, 2022 TIME: 3:52 PM CSN: [id number] Normal [facility] BRIEF OP NOTon 05-30-2022 BRIEF OP NOT HNO ID: [id number] Author: Claudia Lee MD Service: Ophthalmology Author Type: Physician Type: Brief Op Note Filed: 05/30/2022 5:29 PM Note Text: BRIEF OPERATIVE / PROCEDURE NOTE LOG ID: [id number] SURGERY/PROCEDURE DATE: 05/30/2022 INCISION/PROCEDURE START TIME: 5:09 PM INCISION CLOSE/PROCEDURE END TIME: 5:27 PM SURGEON(S)/PROCEDURALIST( S) AND SCOURING PADS SUPERVISOR(S): Surgeon(s) and Role: * Claudia Lee MD - Primary * Marcelino Cross MD - Fellow No Additional Staff SURGERY/PROCEDURE(S): left eye conjunctival lesion removal ANESTHESIA: Monitored Anesthesia Care FINDINGS: conj lesion OS ESTIMATED BLOOD LOSS: 1 mls SPECIMENS: sent to lab COMPLICATIONS: None CLOSURE TECHNIQUE: Primary PRE-OP/PRE-PROCEDURE DIAGNOSIS: left eye conj lesion POST-OP/POST-PROCEDURE DIAGNOSIS: Same as Preop SIGNATURE: Claudia Lee MD PATIENT NAME: Washington Garcia DATE: May 30, 2022 TIME: 5:29 PM Normal [facility] OPERATIVE NOon 05-30-2022 OPERATIVE NO HNO ID: [id number] Author: Claudia Lee MD Service: Ophthalmology Author Type: Physician Type: Operative Report Filed: 05/30/2022 5:34 PM Note Text: [place] [id number] [place] 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 After the correct patient, surgery, and site were confirmed, the patient was then anesthetized. The operative eye was then prepped and draped in the usual manner and the lid speculum was inserted. A papillomatous conjunctival lesion was found in the nasal limbus that spread from 7 to 10 o'clock. It was marked with a marking pen. The corneal epithelium was covered with healon except in the area proximal to the conjunctival lesion within 1 mm. Absolute was instilled resulting in a denaturation of the exposed epithelium not covered by viscoelastic. Cautery was applied in the conjunctival area marked previously. The conjunctiva within the markings was dissected and reflected anteriorly, only leaving the edge of the corneal limbus still adherent. Corneal epithelectomy was performed at this margin until the entire lesion was free. It was sent to pathology. Hemostasis was achieved. Conjunctiva was then closed with interrupted 8-0 Vicryl sutures. There were no complications. The patient tolerated the procedure well. Cyclogyl drops, Maxitrol ointment, double patch were aplied, and patient was sent to recovery in good condition. I/primary surgeon/proceduralist performed the procedure with assistance. INCISION/PROCEDURE START TIME: 5:09 PM INCISION CLOSE/PROCEDURE END TIME: 5:27 PM ESTIMATED BLOOD LOSS: 1 mls SPECIMENS: sent to lab COMPLICATIONS: None SIGNATURE: Claudia Lee MD DATE: May 30, 2022 TIME: 5:29 PM Normal [facility] SURGICAL PATHOLOGYon 023 CASE REPORT Normal [facility] Comment on above: Order Comment: Speci men Type: TISSUE SPECIMENOrdering Facility: [facility] Address: [address] [place] [phone] Result Comment: Surg ical Pathology Report Case: [id number] Authorizing Provider: Claudia Lee MD Collected: 05/30/2022 05:39 PM Ordering Location: Ophthalmology Received: 05/31/2022 11:37 PM Pathologist: Sharla Thomas MD Specimen: CONJUNCTIVA BIOPSY LEFT Performed By: #### S ####[facility] LABCLIA [id number] [address] STATES OF [facility] CLINICAL HISTORY papillomatous MEJIA Normal [facility] Comment on above: Order Comment: Speci men Type: TISSUE SPECIMENOrdering Facility: [facility] Address: [address] [place] [address] Performed By: #### S ####[facility] LABCLIA [id number] [address] DIAGNOSIS COMMENT Normal [facility] Comment on above: Order Comment: Speci men Type: TISSUE SPECIMENOrdering Facility: [facility] Address: [address] [address] Result Comment: Immu nohistochemical stain to help with classification shows the lesion is negative for p16. Laboratory Developed Test (LDT) Disclaimer: Performance characteristics of immunohistochemical, immunofluorescent and chromogenic in-situ hybridization tests have been determined by the performing laboratory within [facility] [place] ([facility], [facility], [facility], [facility], [facility], or [facility]) in a manner consistent with CLIA requirements. One or more of these tests have not been cleared or approved by the FDA. [facility] is regulated under CLIA as qualified to perform high-complexity testing. These tests are used for clinical purposes. They should not be regarded as investigational or for research. Positive and negative controls stain appropriately. Performed By: #### S ####[facility] LABCLIA [id number] [address] FINAL DIAGNOSIS Normal [facility] Comment on above: Order Comment: Speci men Type: TISSUE SPECIMENOrdering Facility: [facility] Address: [address] [place], [place] [id number] Result Comment: Eye, left conjunctiva, biopsy - Severe squamous dysplasia, with papillary growth, arising in conjunctival mucosa (Conjunctival Intraepithelial Neoplasia MEJIA 3 of 3; OSSN); - Lateral margins negative for dysplasia; - See comment. Performed By: #### S ####[facility] LABCLIA [id number] [address] STATES OF [facility] FINAL PERFORMING LAB Normal [facility] Comment on above: Order Comment: Speci men Type: TISSUE SPECIMENOrdering Facility: [facility] Address: [address] [place] [address] Result Comment: Diag nostic interpretation performed at [facility], [address] [place] [address] CLIA# [id number] [employer] Manager: Tom Montemayor M.D. Performed By: #### S ####[facility] LABCLIA [id number] [address] STATES OF [facility] GROSS DESCRIPTION Normal [facility] Comment on above: Order Comment: Speci men Type: TISSUE SPECIMENOrdering Facility: [facility] Address: [address] [place] [address] Result Comment: A. C ONJUNCTIVA BIOPSY LEFT Received in formalin on filter paper, labeled as left conjunctiva biopsy is a villanueva segment of membranous tissue that is 0.6 x 0.5 x 0.3 cm. There is no visible lesion. The specimen is bisected and entirely submitted on edge in 1 cassette in histo wrap on the filter paper. CG/MLG June 01, 2022 9:49 AM Gross examination performed at [facility], [address] [place] [address] Performed By: #### S ####[facility] LABCLIA [id number] [address] [place] Prothrombin Time INRon 05-12 INR Coag (PPP) [Relative time] 2.7 {INR} [employer] Other Prothrombin Time INR [place] [employer] Other Prothrombin Time INRon 04-14 INR Coag (PPP) [Relative time] 3.2 {INR} [employer] Other Prothrombin Time INR [facility] [employer] Other Prothrombin Time INRon 03-17 INR Coag (PPP) [Relative time] 2.9 {INR} [employer] Other Prothrombin Time INR [facility] [employer] Other Office Visit (Cardiology)on 01-31-2022 Follow-up visit Diagnoses/Problems Assessed Paroxysmal atrial fibrillation (427.31) (I48.0) High risk medication use (V58.69) (Z79.899) Essential hypertension, benign (401.1) (I10) Hypothyroidism (244.9) (E03.9) Former smoker (V15.82) (Z87.891) quit 02/2018 Class 1 obesity with body mass index (BMI) of 31.0 to 31.9 in adult (278.00,V85.31) (E66.9,Z68.31) History of thyroidectomy (246.8) (E89.0) Esophageal cancer (150.9) (C15.9) Orders Class 1 obesity with body mass index (BMI) of 31.0 to 31.9 in adult Healthy Weight Tips; Status:Complete - Retrospective Authorization; Done: 31Jan2022 Some eating tips that can help you lose weight.; Status:Complete - Retrospective Authorization; Done: 31Jan2022 Essential hypertension, benign Renew: Lisinopril 20 MG Oral Tablet; TAKE 1 TABLET DAILY High risk medication use, Paroxysmal atrial fibrillation IO EKG Electrocardiogram- 12 Lead; Status:Complete; Done: 31Jan2022 SocHx: Former smoker Tobacco Use Screening; Status:Complete; Done: 31Jan2022 Patient Instructions Please bring all medicines, vitamins, and herbal supplements with you when you come to the office. Prescriptions will not be filled unless you are compliant with your follow up appointments or have a follow up appointment scheduled as per instruction of your physician. Refills should be requested at the time of your visit. Lab as scheduled with Dr. Thurman Follow up in 6 months The provider reviewed the following test(s) and result(s) with the patient: ECG Chief Complaint WASHINGTON GARCIA is being seen for a 6 month follow-up of. Patient is in the office for follow-up for the problems noted below with no events of atrial fibrillation noticed since he was last seen in the office several months ago. He remains on flecainide and on Coumadin therapy. EKG confirmed normal sinus rhythm with normal intervals. Patient has no dyspnea orthopnea PND or lower extremity edema. His head and neck cancer has been in remission followed by the [facility]. His weight remains above target and we discussed at length the measures I recommended to bring his weight under control. He is scheduled to have blood work in the near future and we requested the lab to be sent to our office. Assessment/recommendation s: 1?paroxysmal atrial fibrillation, currently in sinus rhythm on flecainide. Currently on Coumadin with therapeutic INR without any bleeding problems 2? cardiac catheterization July 2018 revealed normal coronary arteries 3?hypertension presently under control, will continue to follow on present medications 4?obesity, healthy lifestyle with low calorie diet and exercise was highly recommended 5?status post thyroidectomy with hypothyroidism on replacement therapy, followed by PCP 6?history of esophageal cancer more than 6 years ago, in remission, the patient was diagnosed with head and neck cancer and just finished his radiation and chemotherapy after having surgery. He will continue to follow with the [facility] Surgical History Problems History of Complete colonoscopy History of Esophagectomy History of Knee replacement History of Thyroidectomy History of Tonsillectomy Current Meds Medication NameInstruction ALPRAZolam 1 MG Oral TabletTAKE 1 TABLET AT BEDTIME NEEDED. dilTIAZem HCl ER Beads 180 MG Oral Capsule Extended Release 24 Hour Flecainide Acetate 100 MG Oral TabletTake 1 tablet every 12 hours hydrALAZINE HCl - 50 MG Oral TabletTAKE 1 TABLET TWICE DAILY. Jantoven 5 MG Oral TabletTAKE 1 TABLET DAILY DIRECTEd by coumadin clinic Lisinopril 20 MG Oral TabletTAKE 1 TABLET DAILY. Synthroid 125 MCG Oral TabletTAKE 1 TABLET DAILY. 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 Cardiovascular: no intermittent leg claudication and as noted in HPI. Respiratory: no cough and no shortness of breath. Gastrointestinal: no change in bowel habits and no blood in stools. Integumentary: no skin rashes. Neurological: no seizures and no frequent falls. All other systems have been reviewed and are negative for complaint. Vitals Vital Signs Recorded: 31Jan2022 02:40PM Heart Rate59, Apical Ydcascxh115, RUE, Sitting Nlvemeahs07, RUE, Sitting Height5 ft 9 in Lmjvnu761 lb BMI Zarrmtdzxd64.6 kg/m2 BSA Calculated2.13 Tobacco Useb) No PHQ-2 #1. Over the last 2 weeks have you felt down, depressed or hopeless? (If yes, answer PHQ-9 below)No PHQ-2 #2. Over the last 2 weeks have you felt little interest or pleasure in doing things? (If yes, answer PHQ-9 below)No Falls Screening (Age 18+)a) No falls within the last year EKG done in office today Physical Exam Consti (more content not included)... [facility] Tobacco Screening.on 022 Adult depression screening assessment No [facility] [employer] [facility] [employer] DO Work Phone: Fall risk assessment a) No falls within the last year [facility] [employer] 250 DO Work Phone: Tobacco use status [facility] b) No [facility] [employer] [facility] 250 DO Work Phone: Prothrombin Time INRon 01-20 INR Coag (PPP) [Relative time] 2.8 {INR} [employer] Other Prothrombin Time INR [facility] [employer] Other Prothrombin Time INRon 12-23 INR Coag (PPP) [Relative time] 2.4 {INR} [employer] Other Prothrombin Time INR [facility] [employer] Other Prothrombin Time INRon 11-25 INR Coag (PPP) [Relative time] 2.3 {INR} [employer] Other Prothrombin Time INR [employer] Other Prothrombin Time INRon 09-29 INR Coag (PPP) [Relative time] 2.4 {INR} [employer] Other Prothrombin Time INR [employer] Other Prothrombin Time INRon 09-01 INR Coag (PPP) [Relative time] 2.3 {INR} [employer] Other Prothrombin Time INR [employer] Other [place] Aorta Screeningon 022 US Aorta Screening ABDOMINAL AORTA SCRE ENING ULTRASOUND CLINICAL HISTORY: Screening for abdominal aortic aneurysm. COMPARISON: None. TECHNIQUE: Sonography of the abdominal aorta was performed. Images were obtained and stored in a permanent archive. FINDINGS: Aorta (AP x transverse): Proximal: Not well visualized due to bowel gas Mid: 2.4 x 2.2 cm Distal: 2.4 x 2.3 cm Common iliac arteries (AP x transverse): Right: 1.2 x 1.3 cm Left: 1.4 x 1.2 cm Atherosclerotic plaque: Present. Incidental cholelithiasis. IMPRESSION: Negative study for abdominal aortic aneurysm in the visualized aorta with the proximal segment not well visualized due to bowel gas. Per the Society of Vascular surgery guideline from 2009 (updated 2018), these are the recommendations: No abdominal aortic aneurysm: Negative. No follow-up necessary. 2.6 cm- 2.9 cm: Ultrasound follow-up every 5 years. 3.0 cm - 3.4 cm: Ultrasound follow-up every 3 years. 3.5 cm- 3.9 cm: Ultrasound follow-up every 12 months. 4.0 cm - 4.9 cm: Ultrasound follow-up every 12 months. Vascular surgery consult. 5.0 cm to 5.4 cm: Ultrasound follow-up every 6 months. Vascular surgery consult. Greater than or equal to 5.5 cm: Referral to vascular surgery. Report reported and signed by Speedy Cannon on 08/30/2021 1456 Normal [facility] Comprehensive Metabolic Pane jameson 08-09-2021 Albumin [Mass/Vol] 4.4 g/dL Normal 3.6-5.1 [facility] Comment on above: Performed By: #### C MP, LIPD #### [facility] [address] [place], [place] [id number] Albumin/Globulin [Mass ratio] 2.2 {ratio} Normal 1.0-2.5 [facility] Comment on above: Performed By: #### C MP, LIPD #### [facility] [address] [facility] [place] [id number] ALP [Catalytic activity/Vol] 81 U/L Normal 40-129 [facility] Comment on above: Performed By: #### C FADI, LIPD #### [facility] [address] [place], [place] [id number] ALT [Catalytic activity/Vol] 13 U/L Normal 9-46 [facility] Comment on above: Result Comment: 02/17 Female reference range changed. Performed By: #### C MP, LIPD #### [facility] [address] [place], [place] [id number] Anion gap [Moles/Vol] 17 mmol/L Normal 12-20 [facility] Comment on above: Result Comment: Effe ctive 03/25/2019 reference range changed. Performed By: #### C MP, LIPD #### [facility] [address] [place], [place] [id number] AST [Catalytic activity/Vol] 17 U/L Normal 10-40 [facility] Comment on above: Performed By: #### C MP, LIPD #### [facility] [address] [facility] [place] [id number] Bilirubin [Mass/Vol] 0.45 mg/dL Normal 0.30-1.20 [facility] Comment on above: Performed By: #### C MP, LIPD #### [facility] [address] [place], [place] [id number] BUN/CREA 15 Ratio Normal 6-22 [facility] Comment on above: Performed By: #### C FADI LIPD #### [facility] [address] [facility] [place] [id number] Calcium [Mass/Vol] 9.5 mg/dL Normal 8.6-10.2 [facility] Comment on above: Performed By: #### C FADI LIPD #### [facility] [address] [facility] [place] [id number] Chloride [Moles/Vol] 104 mmol/L Normal 98-107 [facility] Comment on above: Performed By: #### C FADI LIPD #### [facility] [address] [place] [id number] CO2 [Moles/Vol] 22 mmol/L Normal 20-31 [facility] Comment on above: Performed By: #### C FADI LIPD #### [facility] [address] [place], [place] [id number] Creatinine [Mass/Vol] 1.1 mg/dL Normal 0.7-1.4 [facility] Comment on above: Performed By: #### C FADI LIPD #### [facility] [address] [facility] [place] [id number] eGFRAA 82 mL/min/1.73m2 Normal >60 [facility] Comment on above: Performed By: #### C FADI, LIPD #### [facility] [address] [facility] [place] [id number] eGFRNAA 68 mL/min/1.73m2 Normal >60 [facility] Comment on above: Performed By: #### C FADI LIPD #### [facility] [address] [place], [place] [id number] Globulin (S) [Mass/Vol] 2.0 g/dL Normal 1.9-3.7 [facility] Comment on above: Performed By: #### C FADI LIPD #### [facility] [address] [place], [place] [id number] Glucose [Mass/Vol] 113 mg/dL High 65-99 [facility] [place] [employer] Comment on above: Result Comment: For FASTING Glucose --- ADA reference ranges: Normal 65-99 mg/dl Prediabetes 100-125 Diabetes >/= 126 Performed By: #### C MP, LIPD #### [facility] [address] [place], [place] [id number] Potassium [Moles/Vol] 4.2 mmol/L Normal 3.5-5.5 [facility] Comment on above: Performed By: #### C MP, LIPD #### [facility] [address] [place], [place] [id number] Protein [Mass/Vol] 6.4 g/dL Normal 6.1-8.1 [facility] Comment on above: Performed By: #### C MP, LIPD #### [facility] [address] [place], [place] [id number] Sodium [Moles/Vol] 139 mmol/L Normal 135-146 [facility] Comment on above: Performed By: #### C MP, LIPD #### [facility] [address] [place], [place] [id number] Urea nitrogen [Mass/Vol] 16 mg/dL Normal 7-25 [facility] Comment on above: Performed By: #### C MP, LIPD #### [facility] [address] [place], [place] [id number] Lipid Panelon 08-09-2021 Cholesterol [Mass/Vol] 194 mg/dL Normal 125-200 No [facility] Comment on above: Result Comment: Low risk < 200mg/dL Borderline risk 201-239 mg/dl High risk > or equal to 240 Performed By: #### C MP, LIPD #### [facility] [address] [place], [place] [id number] Cholesterol in HDL [Mass/Vol] 62 mg/dL Normal >40 [facility] Comment on above: Result Comment: High Cardiovascular Risk HDL <40 mg/dL Low Cardiovascular Risk HDL > or equal to 60 mg/dl Performed By: #### C MP, LIPD #### [facility] [address] [place], [place] [id number] Cholesterol in LDL [Mass/Vol] 112 mg/dL Normal [facility] Comment on above: Result Comment: LDL ATP III CLASSIFICATION LDL less than 100 mg/dl Optimal LDL 100-129 mg/dl Near or above optimal LDL 130-159 Borderline high LDL 160-189 High LDL greater than 189 mg/dl Very High Performed By: #### C FADI, LIPD #### [facility] [address] [place], [place] [id number] Cholesterol in VLDL [Mass/Vol] 20 mg/dL Normal [facility] [employer] Comment on above: Performed By: #### C FADI, LIPD #### [facility] [address] [place], [place] [id number] Cholesterol.total/Chol esterol in HDL [Mass ratio] 3 {ratio} Normal [facility] [employer] [facility] Comment on above: Performed By: #### C FADI, LIPD #### [facility] [address] [place], [place] [id number] Triglyceride [Mass/Vol] 102 mg/dL Normal 30-150 [facility] [employer] [facility] Comment on above: Result Comment: TRIG ATPIII CLASSIFICATIONS TRIG less than 150 mg/dl Normal TRIG 150-199 mg/dl Borderline High TRIG 200-500 mg/dl High TRIG greather than 500 mg/dl Very High Performed By: #### C FADI, LIPD #### [facility] [address] [place], [place] [id number] Prothrombin Time INRon 08-04 INR Coag (PPP) [Relative time] 1.8 {INR} [facility] [employer] Other Prothrombin Time INR [facility] [employer] Other Tobacco Screening.on 022 Adult depression screening assessment No [facility] 250 DO Work Phone: Fall risk assessment a) No falls within the last year [facility] 250 DO Work Phone: Tobacco use status CPHS b) No [facility] 250 DO Work Phone: CBC W Auto Differential pane l (Bld)on 06-25-2021 Abs Immature Gran <0.03 <0.10 k/uL [facility] Basophils (Bld) [#/Vol] 0.04 10*3/uL <0.11 k/uL [facility] Basophils/100 WBC (Bld) 1.0 % [facility] Differential cell count method Nom (Bld) Auto [facility] Eosinophils (Bld) [#/Vol] 0.12 10*3/uL <0.46 k/uL [facility] Eosinophils/100 WBC (Bld) 2.9 % [facility] Erythrocyte distribution width (RBC) [Ratio] 15.8 % High 11.5 - 15.0 % [facility] Hematocrit (Bld) [Volume fraction] 30.8 % Low 39.0 - 51.0 % [facility] Hemoglobin (Bld) [Mass/Vol] 10.6 g/dL Low 13.0 - 17.0 g/dL [facility] Immature Gran % 0.5 % [facility] Lymphocytes (Bld) [#/Vol] 0.69 10*3/uL Low 1.00 - 4.00 k/uL [facility] Lymphocytes/100 WBC (Bld) 16.7 % [facility] MCH (RBC) [Entitic mass] 31.2 pg 26.0 - 34.0 pg [facility] MCHC (RBC) [Mass/Vol] 34.4 g/dL 30.5 - 36.0 g/dL [facility] MCV (RBC) [Entitic vol] 90.6 fL 80.0 - 100.0 fL [facility] Monocytes (Bld) [#/Vol] 0.66 10*3/uL <0.87 k/uL [facility] Monocytes/100 WBC (Bld) 16.0 % [facility] Neutrophils (Bld) [#/Vol] 2.59 10*3/uL 1.45 - 7.50 k/uL [facility] Neutrophils/100 WBC (Bld) 62.9 % [facility] Nucleated RBC (Bld) [#/Vol] 10*3/uL <0.01 k/uL [facility] Nucleated RBC/100 WBC (Bld) [Ratio] 0.0 /100 WBC [facility] Platelet mean volume (Bld) [Entitic vol] 8.2 fL Low 9.0 - 12.7 fL [facility] Platelets (Bld) [#/Vol] 194 10*3/uL 150 - 400 k/uL [facility] RBC (Bld) [#/Vol] 3.40 10*6/uL Low 4.20 - 6.00 m/uL [facility] WBC (Bld) [#/Vol] 4.12 10*3/uL 3.70 - 11.00 k/uL [facility] Comprehensive metabolic 2000 panelon 06-25-2021 Albumin [Mass/Vol] 4.2 g/dL 3.9 - 4.9 g/dL [facility] ALP [Catalytic activity/Vol] 82 U/L 38 - 113 U/L [facility] ALT [Catalytic activity/Vol] 10 U/L 10 - 54 U/L [facility] Anion gap [Moles/Vol] 10 mmol/L 9 - 18 mmol/L [facility] AST [Catalytic activity/Vol] 14 U/L 14 - 40 U/L [facility] Bilirubin [Mass/Vol] 0.2 mg/dL 0.2 - 1 .3 mg/dL [facility] Calcium [Mass/Vol] 9.5 mg/dL 8.5 - 10. 2 mg/dL [facility] Chloride [Moles/Vol] 97 mmol/L 97 - 10 5 mmol/L [facility] CO2 [Moles/Vol] 25 mmol/L 22 - 30 mmol/L [facility] Creatinine [Mass/Vol] 1.00 mg/dL 0.73 - 1.22 mg/dL [facility] Estimated Glomerular Filtration Rate 81 mL/min/1.73m >=60 mL/min/1.7 3m [facility] Glucose [Mass/Vol] 100 mg/dL High 74 - 99 mg/dL [facility] Potassium [Moles/Vol] 3.5 mmol/L Low 3.7 - 5.1 mmol/L [facility] Protein [Mass/Vol] 6.4 g/dL 6.3 - 8.0 g/dL [facility] Sodium [Moles/Vol] 132 mmol/L Low 136 - 144 mmol/L [facility] Urea nitrogen [Mass/Vol] 13 mg/dL 9 - 24 mg/dL [facility] Prothrombin Time INRon 06-10 INR Coag (PPP) [Relative time] 2.7 {INR} [employer] Other Prothrombin Time INR [facility] [employer] Other Prothrombin Time INRon 05-20 INR Coag (PPP) [Relative time] 2.3 {INR} [employer] Other Prothrombin Time INR [facility] [employer] Other Prothrombin Time INRon 05-11 INR Coag (PPP) [Relative time] 2.3 {INR} [employer] Other [facility] [employer] Other Prothrombin Time INRon 04-06 INR Coag (PPP) [Relative time] 2.0 {INR} [employer] Other Prothrombin Time INR [facility] Other Prothrombin Time INRon 02-19 INR Coag (PPP) [Relative time] 2.0 {INR} [employer] Other Prothrombin Time INR [employer] Other NM PET/CT SKULL-THIGH INITIA Jameson 02-01-2021 [facility] Tobacco Screening.on 021 Fall risk assessment a) No falls within the last year [facility] [employer] DO Work Phone: Tobacco use status CPHS b) No [facility] [facility] 250 DO Work Phone: Prothrombin Time INRon 01-21 Prothrombin Time INR 2.2 [facility] [employer] Other Tobacco Screening.on 021 Fall risk assessment a) No falls within the last year [facility] [facility] 250 DO Work Phone: Tobacco use status CPHS b) No [facility] [employer] 250 DO Work Phone: Prothrombin Time INRon 12-24 INR Coag (PPP) [Relative time] 2.5 {INR} [employer] Other Prothrombin Time INR [employer] [facility] ([facility]) ----- [place] GARCIA ( ) 1950 [employer] [employer]* Date Time Provider Department 09/08/20 YENIFER CHANEL During your visit today, we recorded the following information about you: Allergies As of Date: 09/08/2020 Noted Allergy Reaction PENICILLIN G 04/04/2013 16 - Unknown Date Reviewed: 01/29/2020 Reviewed by: [place] (Rn) GIUSEPPE [place] - Fully Assessed Reason for Visit: Orders [681] Primary Visit Diagnosis:Encounter for follow-up surveillance of esophageal cancer [Z08, Z85.01] Order(s):EGD GEN FRITZ [[id number]] Order #: [id number] FUTURE Prescriptions as of 09/08/2020 Sig: CHOLECALCIFEROL (VITAMIN D3) * Cholecalciferol Cholecalcifer* KRILL NCX-DCICK-3-DHA-EPA 300* Krill Eff-Vhsum-3-Dha-Epa Kri* MULTIVITAMIN,TX-MINERALS ORAL Multivitamin,Tx-Minerals Mult* FLECAINIDE 50 MG TABLET Take 50 mg by mouth twice jia* DILTIAZEM CR 180 MG CAP Take 180 mg by mouth once jia* APIXABAN 5 MG TABLET Take by mouth twice daily. LEVOTHYROXINE 112 MCG TABLET Take 1 tablet by mouth once d* LISINOPRIL 20 MG-HYDROCHLOROT* PO ALPRAZOLAM 1 MG TABLET PO QHS PRN Problem List As Of Date 09/08/2020 Noted Resolved Transhiatal approach, thoracic esophagectomy, p*04/18/2013 Multiple thyroid nodules [E04.2] 04/23/2013 04/02/2014 Atelectasis [J98.11] 05/15/2013 Intravascular volume depletion [E86.1] 05/15/2013 05/16/2013 Postoperative pain [G89.18] 05/15/2013 Fluid overload [E87.70] 05/16/2013 Hypertension [I10] 05/16/2013 DVT prophylaxis [Z29.9] 05/16/2013 DISPOSITION AND FOLLOW-UP [V999.01] 05/16/2013 Atrial fibrillation [I48.91] 05/18/2013 05/22/2013 Encounter Status:Closed by YENIFER CHANEL on 09/08/20 [facility] Lab Reportson 06-05-2020 Lab Reports [id number]:127 [facility] Reminderson 05-27-2020 Reminders - From: Alice Blair MA To: [facility] Clinical; Sent: 05/20/2020 14:06:43 EST Show up: 05/23/2020 14:06:00 EST Subject: urine cx Reminder/Recall urine cx From: Alice Blair MA ([facility] Clinical) To: Pham SALDAÑA MD; Sent: 05/25/2020 11:38:04 EST Show up: 05/25/2020 11:37:00 EST Subject: RE: urine cx Cx was done and is in system under labs review. Please advise. From: Pham SALDAÑA MD To: [facility] Clinical; Sent: 05/25/2020 15:22:41 EST Show up: 05/25/2020 15:22:00 EST Subject: RE: urine cx infection is pos. please propose doxy 100mg bid for 10 days pw. From: Alice Blair MA ([facility] Clinical) To: Pham SALDAÑA MD; Sent: 05/25/2020 16:10:27 EST Show up: 05/25/2020 16:06:00 EST Subject: RE: urine cx This will be proposed in another message, but i did call patient to let him know that we were going to be sending this in.. He is currently on sulfamethoxazole-trimetho prim for prostatitis. Patient states that it is making him very nauseous. I did tell him to stop this. TO start the doxy and that i would let you know about the side effect of the sulfamethoxazole-trimetho prim and see how you wanted to move forward. From: Pham SALDAÑA MD To: EU - Clinical; Sent: 05/27/2020 07:05:21 EST Show up: 05/27/2020 07:04:00 EST Subject: RE: urine cx not sure about the issue here. he needs to start the doxy. please propose pw. Normal [facility] RAD - CT Reporton 05-22-2020 RAD - CT Report [id number]:12 7 Normal [facility] RAD - Ultrasound Reporton RAD - Ultrasound Report [id number]:12 7 Normal [facility] UTI (P4 Labs)on 05-22-2020 UTI Report Diagnosis Info [facility] Comment on above: Result Comment: Tien shipley UTI Organisms Acinetobacter baumannii:notdetected Actinobaculum schaalii:notdetected Alloscardovia omnicolens:notdetected Aerococcus urinae:notdetected Neyda albicans:notdetected Neyda glabrata:notdetected Corynebacterium riegelii:notdetected Corynebacterium urealyticum:notdetected Citrobacter amalonaticus:notdetected Citrobacter freundii:notdetected Citrobacter koseri:notdetected Enterobacter aerogenes:notdetected Enterobacter cloacae:notdetected Neyda parapsilosis:notdetected Enterococcus faecalis:notdetected Enterococcus faecium:notdetected Escherichia coli:notdetected Klebsiella oxytoca:notdetected Klebsiella pneumoniae:detected Morganella morganii:notdetected Pantoea agglomerans:notdetected Proteus mirabilis:notdetected Providencia stuartii:notdetected Pseudomonas aeruginosa:notdetected Serratia marcescens:notdetected Staphylococcus aureus:notdetected Staphylococcus epidermidis:notdetected Mycobacterium tuberculosis:notdetected Mycoplasma genitalium:notdetected Mycoplasma hominis:notdetected Staphylococcus haemolyticus:notdetected Staphylococcus lugdunenesis:notdetected Staphylococcus saprophyticus:notdetected Streptococcus agalactiae:notdetected Streptococcus oralis*:notdetected Streptococcus pasteuranus:notdetected Streptococcus pyogenes:notdetected Ureaplasma urealyticum:notdetected ABR Genes AmpC ?-lactamase (Class C):notdetected Carbapenemase (Class A):notdetected Carbapenemase (Class A):notdetected Carbapenemase (Class B):notdetected Carbapenemase (Class B):notdetected Carbapenemase (Class D):notdetected Extended Spectrum ?-lactamase (Class A):notdetected Extended Spectrum ?-lactamase (Class A):notdetected Extended-Spectrum-?-Lactamase:notdetected Extended-Spectrum-?-Lactamase:notdetected Extended-Spectrum-?-Lactamase:notdetected Extended-Spectrum-?-Lactamase:notdetected Macrolide Resistance:notdetected Quinolone Resistance:notdetected Vancomycin Resistance:notdetected ?-lactamase (class D):notdetected Quinolone Resistance:notdetected manuelito integron-encoded metallo-?-lactamase:notdetected Culture Urine Electronically signed by : on: 05/22/2020 10:21:43 Performed By: #### 2 [id number] ####[facility] [address] [place] [address] Formson 05-21-2020 Forms [id number]:12 7 Normal [facility] Ambulatory Clinical Summaryo n 05-20-2020 Ambulatory Clinical Summary {[id number]}C [id number] Normal [facility] Patient Educationon 05-21-19 Patient Education Urology Acute Urinary Retention, Male Acute urinary retention is a condition in which a person is unable to pass urine. This can last for a short time or for a long time. If left untreated, it can result in kidney damage or other serious complications. What are the causes? This condition may be caused by: ? Obstruction or narrowing of the tube that drains the bladder (urethra). This may be caused by surgery or problems with nearby organs, such as the prostate gland, which can press or squeeze the urethra. ? Problems with the nerves in the bladder. These can be caused by diseases, such as multiple sclerosis, or by spinal cord injuries. ? Certain medicines. ? Tumors in the area of the pelvis, bladder, or urethra. ? Diabetes. ? Degenerative cognitive conditions such as delirium or dementia. ? Bladder or urinary tract infection. ? Constipation. ? Blood in the urine (hematuria). ? Injury to the bladder or urethra.? ? Psychological (psychogenic) conditions. Someone may hold his urine due to trauma or because he does not want to use the bathroom. What increases the risk? This condition is more likely to develop in older men. As men age, their prostate may become larger and may start pressing or squeezing on the bladder or the urethra. What are the signs or symptoms? Symptoms of this condition include: ? Trouble urinating. ? Pain in the lower abdomen. Symptoms usually come on slowly over a long period of time. How is this diagnosed? This condition is diagnosed based on a physical exam and a medical history. You may also have other tests, including: ? An ultrasound of the bladder or kidneys or both. ? Blood tests. ? A urine analysis. ? Additional tests may be needed such as an MRI, kidney, or bladder function tests. How is this treated? Treatment for this condition may include: ? Medicines. ? Placing a thin, sterile tube (catheter) into the bladder to drain urine out of the body. This is called an indwelling urinary catheter. After being inserted, the catheter is held in place with a small balloon that is filled with sterile water. Urine drains from the catheter into a collection bag outside of the body. ? Behavioral therapy. ? Treatment for any underlying conditions. ? If needed, you may be treated in the hospital for kidney function problems or to manage other complications. Follow these instructions at home: ? Take sfuu-zni-ihhdatq and prescription medicines only as told by your health care provider. Avoid certain medicines, such as decongestants, antihistamines, and some prescription medicines. Do not take any medicine unless your health care provider has approved. ? If you were given an indwelling urinary catheter, take care of it as told by your health care provider. ? Drink enough fluid to keep your urine clear or pale yellow. ? If you were prescribed an antibiotic, take it as told by your health care provider. Do not stop taking the antibiotic even if you start to feel better. ? Do not use any products that contain nicotine or tobacco, such as cigarettes and e-cigarettes. If you need help quitting, ask your health care provider. ? Monitor any changes in your symptoms. Tell your health care provider about any changes. ? If instructed, monitor your blood pressure at home. Report changes as told by your health care provider. ? Keep all follow-up visits as told by your health care provider. This is important. Contact a health care provider if: ? You have uncomfortable bladder contractions that you cannot control (spasms) or you leak urine with the spasms. Get help right away if: ? You have chills or fever. ? You have blood in your urine. ? You have a catheter and: ? Your catheter stops draining urine. ? Your catheter falls out. Summary ? Acute urinary retention is a condition in which a person is unable to pass urine. If left untreated, it can result in kidney damage or other serious complications. ? The cause of this condition may include an enlarged prostate. As men age, their prostate gland may become larger and may start pressing or squeezing on the bladder or the urethra. ? Treatment for this condition may include medicines and placement of an indwelling urinary catheter. ? Monitor any changes in your symptoms. Tell your health care provider about any changes. This information is not intended to replace advice given to you by your health care provider. Make sure you discuss any questions you have with your health care provider. Document Released: 06/12/2001 Document Revised: 02/16/2018 Document Reviewed: 04/07/2017 [employer] Patient Education ? 2020 [employer] Normal [facility] UTI (P4 Labs)on 05-20-2020 UTI Method of Extraction Voided Normal [facility] Comment on above: Performed By: #### 2 [id number] ####[facility] [address] [place] [address] UTI Number of Jars 1 [facility] Comment on above: Performed By: #### 2 [id number] ####[facility] [address] [facility] [address] UTI Specimen Urine Normal [facility] Comment on above: Performed By: #### 2 [id number] ####[facility] [address] [facility] [address] UTI Type of Service Global Normal [facility] Comment on above: Performed By: #### 2 [id number] ####[facility] [address] [facility] [address] Urology Office/Clinic Noteon 05-20-2020 Urology Office/Clinic Note Chief Complaint New patient here for URinary retention HPI Staff New patient [place] is a 69 y.o. male here for urinary retention. He was admitted to [facility] for bilateral knee replacement. Upon stay had a UTI and urinary retention. He refused to go home with catheter. He does not have a De Oliveira catheter in. He has finished antibiotic course. He is voiding on own but unsure if he is emptying. He was prescribed tamsulosin 0.4 mg daily but stopped two days prior. He felt stream seemed worse. He complains of no ejaculation during orgasm. PVR is 72 ml today. UA is negative today. Dysuria: Denies Incomplete bladder emptying: Unsure if emptying out enough Hematuria: Denies Frequency: Yes-3-4 xs a day. Urgency: Denies Nocturia: 2x a night Stream: Normal stream Leaking: Denies Post void dripping: Denies Wearing pads/ Depends: None Urge incontinence: None Stress incontinence: None Incontinence without Sensory Awareness: None Abdominal pain: None Flank pain: None Sexual complaints: _ History of Present Illness Pt is here for Urinary Retention Reviewed UA and PVR Pt has no associated symptoms, no fever, no chills, no flank pain. Review of Systems PHQ Score Initial Depression Screen Score: 0 ROS - Provider Constitutional: denies weight loss, denies hot flashes. Eyes: denies eye problems. Gastrointestinal: denies nausea, denies vomiting. Cardiovascular: denies chest pain or angina. Integumentary: no dryness Musculoskeletal: denies musculoskeletal symptoms. ENMT: denies otolaryngeal symptoms. Respiratory: no shortness of breath. Heme/Lymph: denies easy bleeding tendency, denies easy bruising tendency. Psychiatric: no confusion, no anxiety. Genitourinary: denies dysuria, denies hematuria, denies discharge, denies urinary frequency, denies urinary hesitancy, mild nocturia, denies incontinence, denies genital sores, denies decreased libido, and denies erectile dysfunction. Physical Exam Vitals & Measurements HR: 89(Peripheral) BP: 138/57 General Appearance: alert, no distress, well nourished, well developed male. Head: normocephalic . Eyes: normal orbit and globe. ENMT: normal examination of external ears. Chest: Lungs CTA, respirations non labored. Cardiovascular: regular rate and rhythm. Abdomen: soft, non distended, no tenderness, no mass or organomegaly, no hernia. Genitourinary: normal scrotum, normal testes, normal urethra, normal epididymis, normal vas deferens/spermatic cord. Flank Pain: none. Bladder: nonpalpable. Penis: normal shaft, normal glans. Prostate: normal prostate, estimated weight 35 gms, no hard nodule observed. Lymph Nodes: unremarkable palpation of the cervical area. Skin: warm, dry, no bruising. Psychiatric: cooperative, affect appropriate for age, normal judgement, euthymic mood. Assessment/Plan Will return for follow up in 2 months w/PSA and bladder scan pvr. 1. Prostatitis (N41.9: Inflammatory disease of prostate, unspecified) The patient likely has prostatitis. He was advised about the different possible causes of bacterial and non-bacterial prostatitis. He needs to complete the course of prescribed antibiotics. He understands that the symptoms improve if he decreases his exercise and activity level. Anti-inflammatory medicines can also be helpful, as well as frequent ejaculations. Hot baths are also helpful in easing the discomfort. Will start Bactrim DS BID for 3 weeks. Will start Tamsulosin 0.4mg BID Ordered: PSA Total Urine Cytology ([facility]) 2. Urinary retention (R33.9: Retention of urine, unspecified) Pt's PVR today is 72cc. Ordered: Bladder irrigation, simple lavage and/or instillation 25907 Measure Post Void residual urine and/or bladder capacity by US- non-imaging 57647 Urine Cytology ([facility]) Urnls Dip Stick Auto w/o Microscopy POC 66489 3. BPH with urinary obstruction (N40.1: Benign prostatic hyperplasia with lower urinary tract symptoms) he voids fairly well with flomax. Orders: sulfamethoxazole-trimetho prim, 1 tab(s), Oral, BID, 42 tab(s), Refill(s) 0, [facility] 858 tamsulosin, 0.4 mg = 1 cap(s), Oral, Daily, # 30 cap(s), Refills(s) 11, Pharmacy: [place] [id number] Follow-up With When Contact Information PIOTR GARCIA, Pham Duran In 2 months [facility] [address] Business (1) Additional Instructions: w/PSA Patient Education Acute Urinary Retention, Male I, Fouzia Estrada personally scribed for Dr. Saldaña on 05/20/2020 13:46:48. . Documentation recorded by the scribe, Fouzia Estrada, accurately reflects the services(s) I performed and decisions made by me. Authenticated by Dr. Saldaña on 05/20/2020 13:50:15. Problem List/Past Medical History Ongoing Atrial fibrillation Depression Esophageal cancer Hypertension Hyperthyroidism Prostatitis Urinary retention Historical No qualifying data Procedure/Surgical History Knee replacement. Medications alprazolam 1 mg oral tablet, disintegrating, 1 mg= 1 tab(s), Oral, TID, PRN Bactrim 400 mg-80 mg Tab, 1 tab(s), Oral, BID Diltiazem Hydrochloride ER 180 mg/24 hours oral capsule, extended release, Oral, Daily flecainide 100 mg Tab, Oral, q12hr hydrochlorothiazide-lisin opril 25 mg-20 mg Tab, Oral, Daily tamsulosin 0.4 mg Cap, 0.4 mg= 1 cap(s), Oral, Daily, 11 refills Allergies penicillin (Hives) Social History Alcohol Current, 3-5 times per week, 05/20/2020 Substance Abuse - Denies Substance Abuse, 05/20/2020 Tobacco Never (less than 100 in lifetime) Tobacco Use:. Never Smokeless Tobacco Use:., 05/20/2020 Family History Lung cancer: Father and Sister. Immunizations Vaccine Date Status Comments influenza virus vaccine, inactivated - Not Given Postpone due to refusal Lab Results Ambulatory Point of Care Results Bilirubin Urine Dipstick: Negative (05/20/20 13:24:00) Blood Urine Dipstick: Negative (05/20/20 13:24:00) Glucose Urine Dipstick: Negative (05/20/20 13:24:00) Ketones Urine Dipstick: Trace - 5 mg/dl (05/20/20 13:24:00) Leukocytes Urine Dipstick: Negative (05/20/20 13:24:00) Nitrite Urine Dipstick: Negative (05/20/20 13:24:00) Protein Urine Dipstick: Negative (05/20/20 13:24:00) Specific [place]orne Urine Dipstick: 1.020 (05/20/20 13:24:00) Urine Appearance Urine Dipstick: Clear (05/20/20 13:24:00) Urine Color Urine Dipstick: Yellow (05/20/20 13:24:00) Urobilinogen Urine Dipstick: Normal 0.2-1 EU/dl (05/20/20 13:24:00) pH Urine Dipstick: 5.5 (05/20/20 13:24:00) Normal [facility] Comment on above: Result Comment: Elec tronically Signed By: Pham SALDAÑA MD\.br\Date and Time Signed: 05/20/20 13:50 EST\.br\Electronically Co-Signed By: Fouzia Estrada\.br\Date and Time Co-Signed: 05/20/20 13:47 EST Discharge Documentationon Discharge Documentation [id number]:127 Normal [facility] Lab Reportson 05-01-2020 Lab Reports [id number]#1.00CD:12 7 Normal [facility] Outside [facility] Correspo ndenceon 05-01-2020 Outside Hospital Correspondence [id number]:127 Normal [facility] Outside Hospital Correspondence [id number]#1.00CD:1 27 Normal [facility] Facesheeton 04-29-2020 Facesheet [id number]#1.00CD:127 Normal [facility] RAD - CT Reporton 04-29-2020 RAD - CT Report [id number]#1.00CD:1 27 Normal [facility] RAD - Ultrasound Reporton RAD - Ultrasound Report [id number]:1 27 Normal [facility] ALLIED HEALTHon 12-03-2019 ALLIED HEALTH HNO ID: [id number] Author: Meka RestrepoRt) Rosi Caldwell Service: ? Author Type: Pharmacy Technician Type: Allied Health Filed: 12/03/2019 5:08 PM Note Text: Radiology Service Progress Note DATE OF SERVICE: December 03, 2019 TIME: 5:07 PM PATIENT IDENTITY VERIFICATION COMPLETED USING TWO (2) STANDARD IDENTIFIERS: Name and Date of confirmed by patient verbally and Name and Date of confirmed by identification band. FALL SCREENING: Has the patient had 2 falls in the last year or 1 fall with injury or currently using an Ambulatory Assistive Device (Walker, Cane, Wheelchair, Crutches, etc.)? No PATIENT GENDER DATA: Male PATIENT RELEVANT IMPLANT DATA REVIEWED: Yes ALLERGIES: Reviewed and unchanged CONTRAST ALLERGY: NO. EXAM: MRI - CONTRAST TYPE: GROUP II PERIPHERAL IV DATA: Ambulatory: A peripheral IV was started in the Right antecubital site with a Angio cath/Butterfly: 24 gauge. RADIOLOGY DEPARTMENT: MR; Exam(s) Completed: Body: Liver (routine) SIGNATURE: RT Joe PATIENT NAME: Washington Garcia DATE: December 03, 2019 TIME: 5:07 PM [facility] MRI LIVER (EOVIST) WO/W IVCO Non 12-03-2019 MRI LIVER (EOVIST) WO/W IVCON * * *Final Report* * * DATE OF EXAM: Dec 03 2019 5:15PM [facility]175 - MRI LIVER (EOVIST) WO/W IVCON / PROCEDURE REASON: Encounter for other preprocedural examination * * * * Physician Interpretation * * * * HISTORY: History of esophageal adenocarcinoma MRI OF THE LIVER/MRI ABDOMEN 12/03/2019 5:15 PM : TECHNIQUE: MR imaging of the liver is performed in sagittal, axial and coronal planes using HASTE, in axial plane using T2 weighted STIR, in and out of phase T1 weighted pulse sequences and VIBE. Following the intravenous administration of 10 cc Eovist contrast, serial imaging of the liver is performed at zero, 45 seconds, and 120 seconds and 20 minutes using VIBE pulse sequences. RESULT: Comparison: CT abdomen and pelvis 10/07/2019, 07/17/2018 and 09/13/2016 Liver: Mild steatosis. Scattered 1.1 cm or less cysts without significant interval change from prior CT studies. Multiple areas of transient arterial enhancement in the liver, series 16:15, 26, 32, 36, 38, and 43. The areas, isointense on the delayed images and retained contrast on the 20 minutes hepatobiliary phase, compatible with perfusion abnormality/vascular shunting. Multiple lesions with arterial enhancement, some are discontinuous nodular enhancement in the liver. The lesions do not the retained contrast on the 20 minutes hepatobiliary phase. The lesions are present on prior CT studies, likely hemangiomas: 7 mm in segment 8, series 28:12; 1 cm in segment 6, series 20:36 and 1.4 cm in segment 6, series 20:51. 7 mm T2-weighted hyperintense lesion lesion without restricted diffusion in segment 5, series 29:19. Following the intravenous contrast, there is 1.4 cm area of arterial enhancement, series 12:55, consistent with vascular blush. Findings may represent another small flash hemangioma. Pancreas: No enhancing mass or pancreatitis. 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 Spleen: No mass or other obvious abnormality. Adrenal glands: No adrenal mass Biliary system: No intrahepatic or extrahepatic biliary dilatation is seen. Right kidney: No hydronephrosis or enhancing mass. Multiple cysts, largest cyst 1.5 cm in the upper pole. Left kidney: No hydronephrosis or enhancing mass. Multiple cysts, largest cyst in the lower pole, 4.3 cm Vasculatures: No abdominal aortic aneurysm. No portal venous thrombosis or other obvious venous thrombosis is noted in the visualized abdomen. No significant stenosis at the celiac artery or superior mesentery artery. Lymph nodes: No lymphadenopathy. Mesentery, retroperitoneum and retroperitoneum: No mass or ascites. GI tract: Gastric pull-up is noted. Diverticulosis of the visualized colon. IMPRESSION: Multiple areas of abnormal enhancement and lesions in the liver including cysts, diffusion abnormalities/vascular shunting and hemangiomas as described in the result report. No definite metastatic hepatic lesion is noted. Another short-term follow-up in 6 months with [facility] is recommended to assess the terminal carman stability of the findings. 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 Bilateral renal cysts. No lymphadenopathy. Tank Car Repairer: LUCRECIA Transcribe Date/Time: Dec 03 2019 5:36P Dictated by : SINGH MARIE MD This examination was interpreted and the report reviewed and electronically signed by: SINGH MARIE MD on Dec 04 2019 11:43AM EST [id number] [facility] No Panel Information [facility] Vital Signs Date Time Vital Sign Value Performing Clinician Facility 04-28-2023 09:46-0500 Body height 172.7 cm Rolaqasim Kwon PROFESSOR OF VOICE Work Phone: [facility] 04-28-2023 09:46-0500 Body mass index (BMI) [Ratio] 31.17 kg/m2 Rola Freddyaliti PROFESSOR OF VOICE Work Phone: [facility] 04-28-2023 09:46-0500 Body weight 92.99 kg Rola Risaliti PROFESSOR OF VOICE Work Phone: [facility] 04-28-2023 09:46-0500 Diastolic blood pressure 68 mm[Hg] Rolaqasim Hayesaliti PROFESSOR OF VOICE Work Phone: [facility] 04-28-2023 09:46-0500 Heart rate 87 /min Rola Risaliti PROFESSOR OF VOICE Work Phone: [facility] 04-28-2023 09:46-0500 SaO2% (BldA) [Mass fraction] 97 % Rola Risaliti PROFESSOR OF VOICE Work Phone: [facility] 04-28-2023 09:46-0500 Systolic blood pressure 146 mm[Hg] Rola Kwon PROFESSOR OF VOICE Work Phone: [facility] 04-18-2023 07:30-0500 Body temperature 98.1 [degF] MD Zachery Thurman Work Phone: [facility] 04-18-2023 07:30-0500 Diastolic blood pressure 65 mm[Hg] MD Zachery Thurman Work Phone: [facility] 04-18-2023 07:30-0500 Heart rate 72 /min MD Zachery Thurman Work Phone: [facility] 04-18-2023 07:30-0500 Respiratory rate 18 /min MD Zachery Thurman Work Phone: [facility] 04-18-2023 07:30-0500 SaO2% (BldA) [Mass fraction] 97 % MD Zachery Thurman Work Phone: [facility] 04-18-2023 07:30-0500 Systolic blood pressure 131 mm[Hg] MD Zachery Thurman Work Phone: [facility] 04-17-2023 14:38-0500 Body height 172.72 cm MD Zachery Thurman Work Phone: [facility] 04-17-2023 09:00-0500 Body weight 94 kg MD Zachery Thurman Work Phone: [facility] 04-16-2023 03:12-0500 Diastolic blood pressure 78 mm[Hg] MD Zachery Thurman Work Phone: [facility] 04-16-2023 03:12-0500 Heart rate 80 /min MD Zachery Thurman Work Phone: [facility] 04-16-2023 03:12-0500 Respiratory rate 20 /min MD Zachery Thurman Work Phone: [facility] 04-16-2023 03:12-0500 SaO2% (BldA) [Mass fraction] 98 % MD Zachery Thurman Work Phone: [facility] 04-16-2023 03:12-0500 Systolic blood pressure 160 mm[Hg] MD Zachery Thurman Work Phone: [facility] 04-16-2023 01:06-0500 Body height 172.72 cm MD Zachery Thurman Work Phone: [facility] 04-16-2023 01:06-0500 Body temperature 97.7 [degF] MD Zachery Thurman Work Phone: [facility] 04-16-2023 01:06-0500 Body weight 94 kg MD Zachery Thurman Work Phone: [facility] 04-02-2023 19:05-0500 Body temperature 97.2 [degF] MD Zachery Thurman Work Phone: [facility] 04-02-2023 19:05-0500 Diastolic blood pressure 74 mm[Hg] MD Zachery Thurman Work Phone: [facility] 04-02-2023 19:05-0500 Heart rate 61 /min MD Zachery Thurman Work Phone: [facility] 04-02-2023 19:05-0500 Respiratory rate 16 /min MD Zachery Thurman Work Phone: [facility] 04-02-2023 19:05-0500 SaO2% (BldA) [Mass fraction] 96 % MD Zachery Thurman Work Phone: [facility] 04-02-2023 19:05-0500 Systolic blood pressure 159 mm[Hg] MD Zachery Thurman Work Phone: [facility] 04-02-2023 17:47-0500 Body height 172.72 cm MD Zachery Thurman Work Phone: [facility] 04-02-2023 17:47-0500 Body weight 97 kg MD Zachery Thurman Work Phone: [facility] 02-22-2023 10:44-0500 Diastolic blood pressure 60 mm[Hg] Christine King MD Work Phone: [facility] 02-22-2023 10:44-0500 Systolic blood pressure 150 mm[Hg] Christine King MD Work Phone: [facility] 02-22-2023 10:14-0500 Body height 172.7 cm Christine King MD Work Phone: [facility] 02-22-2023 10:14-0500 Body mass index (BMI) [Ratio] 32.08 kg/m2 Christine King MD Work Phone: [facility] 02-22-2023 10:14-0500 Body weight 95.71 kg Christine King MD Work Phone: [facility] 02-22-2023 10:14-0500 Heart rate 65 /min Christine King MD Work Phone: [facility] 08-16-2022 09:19-0400 Body height 175.26 cm Christine King MD Work Phone: [facility] [address] DO Work Phone: 08-16-2022 09:19-0400 Body mass index (BMI) [Ratio] 31.45 kg/m2 Christine King MD Work Phone: [facility] [address] DO Work Phone: 08-16-2022 09:19-0400 Body surface area Derived from formula 2.12 m2 Christine King MD Work Phone: [facility] [address] DO Work Phone: 08-16-2022 09:19-0400 Body weight 96.62 kg Christine King MD Work Phone: [facility] [address] DO Work Phone: 05-30-2023 09:19-0400 Diastolic blood pressure 40 mm[Hg] Christine King MD Work Phone: [facility] [address] DO Work Phone: 08-16-2022 09:19-0400 Heart rate 74 /min Christine King MD Work Phone: [facility] [address] DO Work Phone: 08-16-2022 09:19-0400 Systolic blood pressure 130 mm[Hg] Christine King MD Work Phone: [facility] [address] DO Work Phone: 07-27-2022 12:06-0400 Diastolic blood pressure 60 mm[Hg] Christine King MD Work Phone: [facility] [address] DO Work Phone: 07-27-2022 12:06-0400 Systolic blood pressure 150 mm[Hg] Christine King MD Work Phone: [facility] [address] DO Work Phone: 07-27-2022 11:51-0400 Body height 175.26 cm Christine King MD Work Phone: [facility] [address] DO Work Phone: 07-27-2022 11:51-0400 Body mass index (BMI) [Ratio] 31.01 kg/m2 Christine King MD Work Phone: [facility] [address] DO Work Phone: 07-27-2022 11:51-0400 Body surface area Derived from formula 2.11 m2 Christine King MD Work Phone: [facility] [address] DO Work Phone: 07-27-2022 11:51-0400 Body weight 95.26 kg Christine King MD Work Phone: [facility] [address] DO Work Phone: 07-27-2022 11:51-0400 Diastolic blood pressure 68 mm[Hg] Christine King MD Work Phone: [facility] [address] DO Work Phone: 07-27-2022 11:51-0400 Heart rate 63 /min Christine King MD Work Phone: [facility] [address] DO Work Phone: 07-27-2022 11:51-0400 Systolic blood pressure 154 mm[Hg] Christine King MD Work Phone: [facility] DO Work Phone: 05-30-2022 17:45-0400 Diastolic blood pressure 72 mm[Hg] Claudia Lee MD Work Phone: [facility] 05-30-2022 17:45-0400 Heart rate 65 /min Claudia Lee MD Work Phone: [facility] 05-30-2022 17:45-0400 Respiratory rate 15 /min Claudia Lee MD Work Phone: [facility] 05-30-2022 17:45-0400 SaO2% (BldA) [Mass fraction] 97 % Claudia Lee MD Work Phone: [facility] 05-30-2022 17:45-0400 Systolic blood pressure 160 mm[Hg] Claudia Lee MD Work Phone: [facility] 05-30-2022 17:35-0400 Body temperature 98.1 [degF] Claudia Lee MD Work Phone: [facility] 03-23-2022 10:02-0500 Body height 175.26 cm MD Zachery Thurman Work Phone: [facility] 03-23-2022 10:02-0500 Body temperature 97.5 [degF] MD Zachery Thurman Work Phone: [facility] 03-23-2022 10:02-0500 Body weight 99.79 kg MD Zachery Thurman Work Phone: [facility] 03-23-2022 10:02-0500 Diastolic blood pressure 74 mm[Hg] MD Zachery Thurman Work Phone: [facility] 03-23-2022 10:02-0500 Heart rate 85 /min MD Zachery Thurman Work Phone: [facility] 03-23-2022 10:02-0500 Respiratory rate 20 /min MD Zachery Thurman Work Phone: [facility] 03-23-2022 10:02-0500 SaO2% (BldA) [Mass fraction] 95 % MD Zachery Thurman Work Phone: [facility] 03-23-2022 10:02-0500 Systolic blood pressure 165 mm[Hg] MD Zachery Thurman Work Phone: [facility] 01-31-2022 14:40-0500 Body height 175.26 cm Christine King MD Work Phone: [facility] [address] DO Work Phone: 01-31-2022 14:40-0500 Body mass index (BMI) [Ratio] 31.6 kg/m2 Christine King MD Work Phone: [facility] DO Work Phone: 01-31-2022 14:40-0500 Body surface area Derived from formula 2.13 m2 Christine King MD Work Phone: [facility] [address] DO Work Phone: 01-31-2022 14:40-0500 Body weight 97.07 kg Christine King MD Work Phone: [facility] [address] DO Work Phone: 01-31-2022 14:40-0500 Diastolic blood pressure 70 mm[Hg] Christine King MD Work Phone: [facility] [address] DO Work Phone: 01-31-2022 14:40-0500 Heart rate 59 /min Christine King MD Work Phone: [facility] [address] DO Work Phone: 01-31-2022 14:40-0500 Systolic blood pressure 138 mm[Hg] Christine King MD Work Phone: [facility] [address] DO Work Phone: 08-27-2021 09:52-0400 Body height 173.5 cm Rikki Castro MD Work Phone: [facility] 08-27-2021 09:52-0400 Body temperature 97.5 [degF] Rikki Castro MD Work Phone: [facility] 08-27-2021 09:52-0400 Body weight 95.71 kg Rikki Castro MD Work Phone: [facility] 08-27-2021 09:52-0400 Diastolic blood pressure 53 mm[Hg] Rikki Castro MD Work Phone: [facility] 08-27-2021 09:52-0400 Heart rate 88 /min Rikki Castro MD Work Phone: [facility] 08-27-2021 09:52-0400 Respiratory rate 18 /min Rikki Castro MD Work Phone: [facility] 08-27-2021 09:52-0400 SaO2% (BldA) [Mass fraction] 98 % Rikki Castro MD Work Phone: [facility] 08-27-2021 09:52-0400 Systolic blood pressure 140 mm[Hg] Rikki Castro MD Work Phone: [facility] 08-27-2021 09:20-0400 Body temperature 97.5 [degF] Haroon Moffett MD Work Phone: [facility] 08-27-2021 09:20-0400 Body weight 95.71 kg Haroon Moffett MD Work Phone: [facility] 08-27-2021 09:20-0400 Diastolic blood pressure 53 mm[Hg] Haroon Moffett MD Work Phone: [facility] 08-27-2021 09:20-0400 Heart rate 88 /min Haroon Moffett MD Work Phone: [facility] 08-27-2021 09:20-0400 Respiratory rate 18 /min Haroon Moffett MD Work Phone: [facility] 08-27-2021 09:20-0400 SaO2% (BldA) [Mass fraction] 98 % Haroon Moffett MD Work Phone: [facility] 08-27-2021 09:20-0400 Systolic blood pressure 140 mm[Hg] Haroon Moffett MD Work Phone: [facility] 07-08-2021 10:20-0400 Body temperature 97 [degF] Haroon Mofeftt MD Work Phone: [facility] 07-08-2021 10:20-0400 Body weight 93.89 kg Haroon Moffett MD Work Phone: [facility] 07-08-2021 10:20-0400 Diastolic blood pressure 55 mm[Hg] Haroon Moffett MD Work Phone: [facility] 07-08-2021 10:20-0400 Heart rate 88 /min Haroon Moffett MD Work Phone: [facility] 07-08-2021 10:20-0400 Respiratory rate 16 /min Haroon Moffett MD Work Phone: [facility] 07-08-2021 10:20-0400 SaO2% (BldA) [Mass fraction] 98 % Haroon Moffett MD Work Phone: [facility] 07-08-2021 10:20-0400 Systolic blood pressure 127 mm[Hg] Haroon Moffett MD Work Phone: [facility] 07-01-2021 10:45-0400 Diastolic blood pressure 60 mm[Hg] Christine King MD Work Phone: [facility] [address] DO Work Phone: 07-01-2021 10:45-0400 Systolic blood pressure 136 mm[Hg] Christine King MD Work Phone: [facility] [address] DO Work Phone: 07-01-2021 10:05-0400 Body height 175.26 cm Christine King MD Work Phone: [facility] [address] DO Work Phone: 07-01-2021 10:05-0400 Body mass index (BMI) [Ratio] 30.42 kg/m2 Christine King MD Work Phone: [facility] DO Work Phone: 07-01-2021 10:05-0400 Body surface area Derived from formula 2.09 m2 Christine King MD Work Phone: [facility] DO Work Phone: 07-01-2021 10:05-0400 Body weight 93.44 kg Christine King MD Work Phone: [facility] [address] DO Work Phone: 07-01-2021 10:05-0400 Diastolic blood pressure 76 mm[Hg] Christine King MD Work Phone: [facility] [address] DO Work Phone: 07-01-2021 10:05-0400 Heart rate 88 /min Christine King MD Work Phone: [facility] [address] DO Work Phone: 07-01-2021 10:05-0400 Systolic blood pressure 140 mm[Hg] Christine King MD Work Phone: [facility] [address] DO Work Phone: 06-11-2021 09:38-0400 Body height 173.5 cm Salvador Hunter MD Work Phone: [facility] 06-11-2021 09:38-0400 Body temperature 97.2 [degF] Salvador Hunter MD Work Phone: [facility] 06-11-2021 09:38-0400 Body weight 94.71 kg Salvador Hunter MD Work Phone: [facility] 06-11-2021 09:38-0400 Diastolic blood pressure 62 mm[Hg] Salvador Hunter MD Work Phone: [facility] 06-11-2021 09:38-0400 Heart rate 70 /min Salvador Hunter MD Work Phone: [facility] 06-11-2021 09:38-0400 Respiratory rate 16 /min Salvador Hunter MD Work Phone: [facility] 06-11-2021 09:38-0400 SaO2% (BldA) [Mass fraction] 95 % Salvador Hunter MD Work Phone: [facility] 06-11-2021 09:38-0400 Systolic blood pressure 145 mm[Hg] Salvador Hunter MD Work Phone: [facility] 06-09-2021 10:20-0400 Body temperature 97.39 [degF] Haroon Moffett MD Work Phone: [facility] 06-09-2021 10:20-0400 Body weight 94.35 kg Haroon Moffett MD Work Phone: [facility] 06-09-2021 10:20-0400 Diastolic blood pressure 73 mm[Hg] Haroon Moffett MD Work Phone: [facility] 06-09-2021 10:20-0400 Heart rate 96 /min Haroon Moffett MD Work Phone: [facility] 06-09-2021 10:20-0400 Respiratory rate 20 /min Haroon Moffett MD Work Phone: [facility] 06-09-2021 10:20-0400 SaO2% (BldA) [Mass fraction] 97 % Haroon Moffett MD Work Phone: [facility] 06-09-2021 10:20-0400 Systolic blood pressure 148 mm[Hg] Haroon Moffett MD Work Phone: [facility] 05-26-2021 10:12-0500 Body temperature 97.2 [degF] Haroon Moffett MD Work Phone: [facility] 05-26-2021 10:12-0500 Body weight 98.43 kg Haroon Moffett MD Work Phone: [facility] 05-26-2021 10:12-0500 Diastolic blood pressure 69 mm[Hg] Haroon Moffett MD Work Phone: [facility] 05-26-2021 10:12-0500 Heart rate 90 /min Haroon Moffett MD Work Phone: [facility] 05-26-2021 10:12-0500 Respiratory rate 16 /min Haroon Moffett MD Work Phone: [facility] 05-26-2021 10:12-0500 SaO2% (BldA) [Mass fraction] 97 % Haroon Moffett MD Work Phone: [facility] 05-26-2021 10:12-0500 Systolic blood pressure 156 mm[Hg] Haroon Moffett MD Work Phone: [facility] 02-22-2021 13:15-0500 Diastolic blood pressure 78 mm[Hg] [id number] [facility] [id number] MANAGER MONITORING 1 Work Phone: [facility] [address] DO Work Phone: 02-22-2021 13:15-0500 Systolic blood pressure 132 mm[Hg] [id number] NO [id number] MANAGER MONITORING 1 Work Phone: [facility] 250 DO Work Phone: 02-22-2021 13:14-0500 Diastolic blood pressure 68 mm[Hg] [id number] NO [id number] MANAGER MONITORING 1 Work Phone: [facility] 250 DO Work Phone: 02-22-2021 13:14-0500 Systolic blood pressure 138 mm[Hg] [id number] NO [id number] MANAGER MONITORING 1 Work Phone: [facility] 250 DO Work Phone: 02-22-2021 13:06-0500 Diastolic blood pressure 64 mm[Hg] [id number] NO [id number] MANAGER MONITORING 1 Work Phone: [facility] 250 DO Work Phone: 02-22-2021 13:06-0500 Systolic blood pressure 162 mm[Hg] [id number] NO [id number] MANAGER MONITORING 1 Work Phone: [facility] 250 DO Work Phone: 02-22-2021 13:00-0500 Body height 175.26 cm [id number] NO [id number] MANAGER MONITORING 1 Work Phone: [facility] 250 DO Work Phone: 02-22-2021 13:00-0500 Body mass index (BMI) [Ratio] 33.08 kg/m2 [id number] NOH [id number] MANAGER MONITORING 1 Work Phone: [facility] 250 DO Work Phone: 02-22-2021 13:00-0500 Body surface area Derived from formula 2.17 m2 [id number] NO [id number] MANAGER MONITORING 1 Work Phone: [facility] 250 DO Work Phone: 02-22-2021 13:00-0500 Body weight 101.61 kg [id number] NO [id number] MANAGER MONITORING 1 Work Phone: [facility] 250 DO Work Phone: 02-22-2021 13:00-0500 Diastolic blood pressure 72 mm[Hg] [id number] NO [id number] MANAGER MONITORING 1 Work Phone: [facility] 250 DO Work Phone: 02-22-2021 13:00-0500 Heart rate 68 /min [id number] NO [id number] MANAGER MONITORING 1 Work Phone: [facility] 250 DO Work Phone: 02-22-2021 13:00-0500 Systolic blood pressure 168 mm[Hg] [id number] NO [id number] MANAGER MONITORING 1 Work Phone: [facility] 250 DO Work Phone: 01-28-2021 11:33-0500 Body height 175.26 cm [id number] NO [id number] MANAGER MONITORING 1 Work Phone: [facility] 250 DO Work Phone: 01-28-2021 11:33-0500 Body mass index (BMI) [Ratio] 33.37 kg/m2 [id number] NO [id number] MANAGER MONITORING 1 Work Phone: [facility] [address] DO Work Phone: 01-28-2021 11:33-0500 Body surface area Derived from formula 2.18 m2 [id number] NOShyann [id number] MANAGER MONITORING 1 Work Phone: [facility] 250 DO Work Phone: 01-28-2021 11:33-0500 Body weight 102.51 kg [id number] NO [id number] MANAGER MONITORING 1 Work Phone: [facility] 250 DO Work Phone: 01-28-2021 11:33-0500 Diastolic blood pressure 82 mm[Hg] [id number] NO [id number] MANAGER MONITORING 1 Work Phone: [facility] 250 DO Work Phone: 01-28-2021 11:33-0500 Diastolic blood pressure 74 mm[Hg] [id number] NO [id number] MANAGER MONITORING 1 Work Phone: [facility] [address] DO Work Phone: 01-28-2021 11:33-0500 Heart rate 64 /min [id number] NO [id number] MANAGER MONITORING 1 Work Phone: [facility] 250 DO Work Phone: 01-28-2021 11:33-0500 Systolic blood pressure 166 mm[Hg] [id number] NO [id number] MANAGER MONITORING 1 Work Phone: [facility] 250 DO Work Phone: 01-28-2021 11:33-0500 Systolic blood pressure 164 mm[Hg] [id number] NO [id number] MANAGER MONITORING 1 Work Phone: [facility] [address] DO Work Phone: 01-28-2021 11:20-0500 Body height 175.26 cm [id number] NOH [id number] MANAGER MONITORING 1 Work Phone: [facility] 250 DO Work Phone: 01-28-2021 11:20-0500 Diastolic blood pressure 76 mm[Hg] [id number] NO [id number] MANAGER MONITORING 1 Work Phone: [facility] 250 DO Work Phone: 01-28-2021 11:20-0500 Heart rate 64 /min [id number] NO [id number] MANAGER MONITORING 1 Work Phone: [facility] 250 DO Work Phone: 01-28-2021 11:20-0500 Systolic blood pressure 172 mm[Hg] [id number] NO [id number] MANAGER MONITORING 1 Work Phone: [facility] 250 DO Work Phone: 01-14-2021 10:17-0400 Body height 175.26 cm Christine King MD Work Phone: [facility] [facility] DO Work Phone: 01-14-2021 10:17-0400 Body mass index (BMI) [Ratio] 32.49 kg/m2 Christine King MD Work Phone: [facility] 250 DO Work Phone: 01-14-2021 10:17-0400 Body surface area Derived from formula 2.15 m2 Christine King MD Work Phone: [facility] 250 DO Work Phone: 01-14-2021 10:17-0400 Body weight 99.79 kg Christine King MD Work Phone: [facility] [address] DO Work Phone: 01-14-2021 10:17-0400 Diastolic blood pressure 86 mm[Hg] Christine King MD Work Phone: [facility] [facility] DO Work Phone: 01-14-2021 10:17-0400 Heart rate 82 /min Christine King MD Work Phone: [facility] 250 DO Work Phone: 01-14-2021 10:170400 Systolic blood pressure 188 mm[Hg] Christine King MD Work Phone: [facility] [address] DO Work Phone: Encounters Encounter Date Encounter Type Care Provider Facility Start: 05-25-2023 End: 05-26-2023 Emergency department patient visit Eduardo Redding Jr Facility:[facility] Start: 05-23-2023 End: 05-24-2023 Emergency department patient visit Srinivasan Gross Facility:[facility] Start: 05-19-2023 Telephone encounter Alex baez MD, PhD Work Phone: [facility] Comment on above: Appointment Start: 05-17-2023 End: 05-17-2023 Emergency department patient visit Zachery Thurman Facility:[facility] Start: 04-28-2023 End: 04-28-2023 ambulatory ZACHERY THURMAN Not Available Start: 04-28-2023 End: 04-28-2023 Office outpatient visit 25 minutes Rola Kwon NP Work Phone: [facility] Comment on above: Generalized anxiety disorder (CMS/HCC) (Primary Dx) Start: 04-25-2023 ([facility] R A/c) [facility] Alida wisemant A/C Adriana [facility] Start: 04-25-2023 End: 04-26-2023 ambulatory MD Zachery Thurman Work Phone: [facility] [employer] Other Start: 04-25-2023 End: 04-25-2023 Discharged Recurring MD Zachery Thurman Work Phone: [facility] Work Phone: Start: 04-24-2023 Telephone encounter Nima carrasquillo MD Work Phone: [facility] Comment on above: Patient Update Start: 04-19-2023 End: 04-19-2023 ambulatory ZACHERY THURMAN Not Available Start: 04-18-2023 End: 04-18-2023 ambulatory Ernestina Muñoz Other [employer] Other Start: 04-18-2023 Telephone encounter Ernestina Muñoz [facility] Start: 04-16-2023 End: 04-18-2023 Evaluation and management of inpatient Darrellarchie Duenas Facility:[facility] Start: 04-16-2023 Evaluation and management of inpatient MD Zachery Thurman Work Phone: [facility]-[address] [place] [address] Work Phone: Start: 04-16-2023 Non-patient / Non-visit MD Nahum Thurman Work Phone: [facility] Work Phone: Start: 04-13-2023 Registered Recurring MD Zachery Thurman Work Phone: [facility] Work Phone: Start: 04-13-2023 ([facility] R A/c) [facility] Re peat A/C [facility] Start: 04-13-2023 End: 04-14-2023 ambulatory JORI MARADIAGA-FRAN [facility] [employer] Other Start: 04-02-2023 End: 04-02-2023 Emergency department patient visit Anita Garfield Facility:[facility] Start: 04-02-2023 End: 04-02-2023 Emergency department patient visit MD Zachery Thurman Work Phone: [facility] Work Phone: Start: 03-30-2023 ([facility] R A/c) [facility] Re peat A/C Cesar [facility] Start: 03-30-2023 End: 03-30-2023 ambulatory ZACHERY THURMAN [facility] [employer] Other Start: 03-30-2023 Registered Recurring MD Zachery Thurman Work Phone: [facility] Work Phone: Start: 03-24-2023 End: 03-24-2023 ambulatory ZACHERY THURMAN Facility:[facility] Start: 03-09-2023 ([facility] R A/c) [facility] Re peat A/C Adriana [facility] Start: 03-09-2023 End: 03-09-2023 ambulatory Adriana Bills Other [employer] Other Start: 02-22-2023 End: 02-22-2023 ambulatory CHRISTINE Koenig KING [facility] Start: 02-22-2023 End: 02-22-2023 Office outpatient visit 25 minutes Christine King MD Work Phone: [facility] Comment on above: Paroxysmal atrial fi brillation (CMS/HCC) (Primary Dx); Essential hypertension, benign; High risk medication use; Hypothyroidism, unspecified type; Class 1 obesity with body mass index (BMI) of 32.0 to 32.9 in adult, unspecified obesity type, unspecified whether serious comorbidity present Start: 02-02-2023 ([facility] R A/c) [facility] Re peat A/C Cesar [facility] Start: 02-02-2023 End: 02-02-2023 ambulatory Guerrero Sanner Other [employer] Other Start: 12-29-2022 ([facility] R A/c) [facility] Re peat A/C Guerrero Ruben[facility] Start: 12-29-2022 End: 12-29-2022 ambulatory Guerrero Sanner Other [employer] Other Start: 12-01-2022 ([facility] R A/c) [facility] Re peat A/C Adriana [facility] Start: 12-01-2022 End: 12-01-2022 ambulatory Adriana Bills Other [employer] Other Start: 11-15-2022 End: 11-15-2022 ambulatory [facility] Facility:[facility] Start: 11-15-2022 End: 11-15-2022 Patient encounter procedure Claudia Lee MD Work Phone: Ophthalmology Comment on above: 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) Start: 11-03-2022 ([facility] R A/c) [facility] Re peat A/C Cesar Martines [facility] Start: 11-03-2022 End: 11-03-2022 ambulatory Cesar Martines Other [facility] [employer] Other Start: 10-25-2022 End: 10-25-2022 ambulatory [facility] Facility:[facility] Start: 10-25-2022 End: 10-25-2022 Patient encounter procedure Nima Molina MD Work Phone: Otolarynogology Comment on above: History of cancer to nsil (Primary Dx); History of radiation therapy; History of chemotherapy Start: 10-14-2022 Telephone encounter Nima carrasquillo MD Work Phone: Otolaryngology Comment on above: Results (CT neck sca n) Start: 10-13-2022 End: 10-13-2022 ambulatory NIMA MOLINA Facility:[facility] Start: 09-26-2022 End: 09-26-2022 ambulatory Ernestina Muñoz Other [employer] Other Start: 09-26-2022 Telephone encounter Ernestina Branham [facility] Start: 09-14-2022 Telephone encounter Nima carrasquillo MD Work Phone: Hematology/Oncology Comment on above: Orders Start: 09-01-2022 ([facility] R A/c) [facility] Re peat A/C Adriana Bills [facility] Start: 09-01-2022 End: 09-01-2022 ambulatory Adriana Bills Other [employer] Other Start: 08-16-2022 ambulatory Christine King Facility : Start: 08-16-2022 Patient encounter procedure Christine King MD Work Phone: [facility] [address] DO Work Phone: Start: 08-16-2022 ambulatory Christine King Facility : Start: 08-09-2022 End: 08-09-2022 ambulatory Zachery Andover Facility:[facility] Start: 07-27-2022 Office outpatient vi sit 25 minutes Christine King MD Work Phone: [facility] 250 DO Work Phone: Start: 07-27-2022 ambulatory Christine King Facility : Start: 2022 End: 2022 ambulatory NIMA MOLINA Facility:[facility] Start: 2022 End: 2022 ambulatory ZACHERY THURMAN Facility:[facility] Start: 2022 End: 2022 Patient encounter procedure Nima Molina MD Work Phone: Otolarynogology Comment on above: Localized enlarged l ymph nodes (Primary Dx); History of cancer tonsil; History of radiation therapy Start: 2022 End: 2022 Patient encounter procedure Claudia Lee MD Work Phone: Ophthalmology Comment on above: 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) Start: 05-30-2022 ambulatory [facility] Facil ity:[facility] Start: 05-30-2022 End: 05-30-2022 Subsequent hospital visit by physician Claudia Lee MD Work Phone: Ophthalmology Comment on above: Conjunctival papillo ma, 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] Start: 05-24-2022 Telephone encounter Ernestina golden [facility] Start: 05-24-2022 End: 05-24-2022 ambulatory CLAUDIA LEE [facility] [employer] Other Start: 05-24-2022 End: 05-24-2022 Patient encounter procedure Claudia Lee MD Work Phone: Ophthalmology Comment on above: 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 Start: 05-06-2022 Telephone encounter Claudia marvin MD Work Phone: Ophthalmology Comment on above: Appointment Start: 04-14-2022 ([facility] R A/c) [facility] Re peat A/C Adriana [facility] Start: 04-14-2022 End: 04-14-2022 ambulatory Adriana Bills Other [employer] Other Start: 04-12-2022 End: 04-12-2022 Patient encounter procedure Nima Molina MD Work Phone: Otolarynogology Comment on above: History of cancer to nsil (Primary Dx); History of radiation therapy; History of chemotherapy Start: 03-23-2022 End: 03-23-2022 Emergency department patient visit MD Zachery Thurman Work Phone: [facility] Work Phone: Start: 03-17-2022 ([facility] R A/c) [facility] Re peat A/C Adrianafrederick Bills [facility] Start: 03-17-2022 End: 03-17-2022 ambulatory Adriana Bills Other [employer] Other Start: 03-17-2022 Registered Recurring MD Zachery Thurman Work Phone: [facility] Work Phone: Start: 02-09-2022 End: 02-09-2022 ambulatory MD Zachery Thurman Work Phone: [facility] Work Phone: Start: 02-09-2022 End: 02-09-2022 Discharged Recurring MD Zachery Thurman Work Phone: [facility]-[address] Start: 02-08-2022 Rx Renewal Christine King MD Work Phone: -[facility] 250 DO Work Phone: Start: 01-31-2022 Office outpatient vi sit 25 minutes Christine King MD Work Phone: -[facility] 250 DO Work Phone: Start: 01-31-2022 ambulatory Christine King Facility : Start: 01-20-2022 ([facility] R A/c) [facility] Re peat A/C Ernestina Fitt [facility] Start: 01-20-2022 End: 01-20-2022 ambulatory Ernestina Fitt Other [employer] Other Start: 01-20-2022 Registered Recurring MD Zachery Thurman Work Phone: [facility] Start: 01-11-2022 End: 01-11-2022 Patient encounter procedure Nima Molina MD Work Phone: Otolarynogology Comment on above: History of cancer to nsil (Primary Dx); History of radiation therapy; History of chemotherapy Start: 12-23-2021 ([facility] R A/c) [facility] Re peat A/C Ernestina Fitt [facility] Start: 12-23-2021 End: 12-23-2021 ambulatory Ernestina Fitt Other [employer] Other Start: 11-25-2021 ([facility] R A/c) [facility] Re peat A/C Ernestina Fitt [facility] Start: 11-25-2021 End: 11-25-2021 ambulatory Ernestina Fitt Other [employer] Other Start: 10-12-2021 End: 10-12-2021 Patient encounter procedure Nima Molina MD Work Phone: Otolarynogology Comment on above: History of cancer to nsil (Primary Dx); History of radiation therapy; History of chemotherapy Start: 10-11-2021 Rx Renewal Christine King MD Work Phone: -[facility] 250 DO Work Phone: Start: 09-29-2021 ([facility] R A/c) [facility] Re peat A/C Ernestina [facility] Start: 09-29-2021 End: 09-29-2021 ambulatory Ernestina Fitt Other [employer] Other Start: 09-01-2021 ([facility] R A/c) [facility] Re peat A/C Ernestina [facility] Start: 09-01-2021 End: 09-01-2021 ambulatory Ernestina Fitt Other [employer] Other Start: 08-27-2021 Telephone encounter Rikki wheeler MD Work Phone: [facility] Comment on above: Future Appointment Start: 08-27-2021 End: 08-27-2021 ambulatory Rikki Castro MD Work Phone: Hematology/Oncology Comment on above: 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) Start: 08-27-2021 End: 08-27-2021 Patient encounter procedure Rikki Castro MD Work Phone: [facility] Comment on above: 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) Start: 08-18-2021 Telephone encounter Saundra Cunningham RN Work Phone: Hematology/Oncology Comment on above: Care Coordination (s can results) Start: 08-17-2021 Telephone encounter Grace machado RN Work Phone: Hematology/Oncology Comment on above: Care Coordination (C T Neck Results) Start: 08-04-2021 ([facility] R A/c) [facility] Re peat A/C Ernestina Fitt [facility] Start: 08-04-2021 End: 08-04-2021 ambulatory Ernestina Fitt Other [employer] Other Start: 07-14-2021 Telephone encounter Michelle Escoto RN R adiology Pet CT Comment on above: Orders Start: 07-13-2021 End: 07-14-2021 Patient encounter procedure Nima Molina MD Work Phone: Otolarynogology Comment on above: History of cancer to nsil (Primary Dx); History of radiation therapy; History of chemotherapy Start: 07-13-2021 Telephone encounter Nima carrasquillo MD Work Phone: Hematology/Oncology Comment on above: Nm Pet Request Start: 07-08-2021 End: 07-08-2021 Patient encounter procedure Haroon Moffett MD Work Phone: Radiation Oncology Comment on above: 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) Start: 07-01-2021 Office outpatient vi sit 25 minutes Christine King MD Work Phone: [facility] 250 DO Work Phone: Start: 06-24-2021 Telephone encounter Rikki wheeler MD Work Phone: Hematology/Oncology Comment on above: Lab Orders Start: 06-22-2021 Telephone encounter Marie Rodas RN Radiation Oncology Comment on above: Nurse Triage Call (P ost Radiation Nurse Call ) Start: 06-11-2021 Telephone encounter Saundra Cunningham RN Work Phone: Hematology/Oncology Comment on above: Care Coordination (delfina magallon) Start: 06-11-2021 End: 06-11-2021 ambulatory Salvador Hunter MD Work Phone: Hematology/Oncology Comment on above: 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); Thrush Start: 06-11-2021 End: 06-11-2021 Patient encounter procedure Salvador Hunter MD Work Phone: [facility] Start: 06-10-2021 ([facility] R A/c) [facility] Re peat A/C Ernestina Mu[facility]oz [facility] Start: 06-10-2021 End: 06-10-2021 ambulatory Ernestina Muñoz Other [employer] Other Start: 06-10-2021 Telephone encounter Nima carrasquillo MD Work Phone: Otolaryngology Comment on above: Patient Update Start: 06-09-2021 End: 06-09-2021 Patient encounter procedure Haroon Moffett MD Work Phone: Radiation Oncology Comment on above: Tonsil cancer (HCC) (Primary Dx) Start: 06-09-2021 Radiation Oncology Note Haroon cotter MD Work Phone: Radiation Oncology Comment on above: Completion Note Start: 06-02-2021 End: 06-02-2021 Patient encounter procedure Haroon Moffett MD Work Phone: Radiation Oncology Comment on above: Tonsil cancer (HCC) (Primary Dx) Start: 05-26-2021 End: 05-26-2021 Patient encounter procedure Haroon Moffett MD Work Phone: Radiation Oncology Comment on above: Tonsil cancer (HCC) (Primary Dx) Start: 05-20-2021 ([facility] R A/c) [facility] Re peat A/C Ernestina Fitt [facility] Start: 05-20-2021 End: 05-20-2021 ambulatory Ernestina Fitt Other [employer] Other Start: 05-11-2021 ([facility] R A/c) [facility] Re peat A/C Ernestina Fitt [facility] Start: 05-11-2021 End: 05-11-2021 ambulatory Ernestina Fitt Other [employer] Other Start: 05-11-2021 Telephone encounter Yamile NEGROC Work Phone: Hematology/Oncology Comment on above: Results Start: 04-06-2021 ([facility] R A/c) [facility] Re peat A/C Ernestina Fitt [facility] Start: 04-06-2021 End: 04-06-2021 ambulatory Ernestina Fitt Other [employer] Other Start: 03-31-2021 End: 03-31-2021 ambulatory Ernestina Fitt Other [employer] Other Start: 03-31-2021 Telephone encounter Ernestina Wanda Branham [facility] Start: 02-22-2021 Office outpatient vi sit 5 minutes [id number] MANAGER MONITORING 1 Work Phone: [facility] DO Work Phone: Start: 02-19-2021 ([facility] R A/c) [facility] Re peat A/C Ernestina Tut [facility] Start: 02-19-2021 End: 02-19-2021 ambulatory Ernestina Fitt Other [facility] [employer] Other Start: 02-01-2021 End: 02-01-2021 Subsequent hospital visit by physician [facility] Mobile [address] Comment on above: 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, face, 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] Start: 01-28-2021 Office outpatient vi sit 10 minutes [id number] MANAGER MONITORING 1 Work Phone: [facility] 250 DO Work Phone: Start: 01-21-2021 ([facility] R A/c) [facility] Re peat A/C Ernestina Tut [facility] Start: 01-21-2021 End: 01-21-2021 ambulatory Ernestina Fitt Other [employer] Other Start: 01-14-2021 Office outpatient vi sit 25 minutes Christine King MD Work Phone: [facility] 250 DO Work Phone: Start: 12-24-2020 ([facility] R A/c) [facility] Re peat A/C Ernestina Fitt [facility] Start: 05-22-2018 Patient encounter procedure CHRISTINE KING Facility:[id number] Procedures Date Procedure Procedure Detail Performing Clinician Start: 04-02-2023 Plain chest X-ray MD Zachery Thurman Work Phone: Start: 02-22-2023 ECG 12-LEAD CHRISTINE KING Start: 02-22-2023 Ecg routine ecg w/least 12 lds w/i&r Christine King MD Work Phone: Start: 02-21-2023 History of thyroidectomy History of thyroidectomy Christine hill MD Work Phone: Start: 09-14-2022 Lipid 1996 panel - Serum or Plasma Nima Molina MD Work Phone: Start: 05-30-2022 End: 05-30-2022 Excision lesion conjunctiva 1 cm Claudia Lee MD Work Phone: Start: 05-24-2022 End: 05-24-2022 Cmptr ophthalmic dx img ant segmt w/i&r uni/bi Marcelino Cross MD Work Phone: Start: 03-23-2022 X-ray of right knee MD Zachery Thurman Work Phone: Start: 06-25-2021 Adult depression screening assessment Rikki Castro MD Work Phone: Start: 02-01-[address] attenuation skull base mid-thigh Verenice Lopez MD Work Phone: Start: 02-11-2020 Colonoscopy Rola Kwon NP Work Phone: Start: 03-20-2018 Total colonoscopy Christine King MD Work Phone: Arthroplasty of knee Christine King MD Work Phone: Esophagectomy Christine King MD Work Phone: History of radiation therapy History of radiation therapy Nima Molina MD Work Phone: History of radiation therapy History of radiation therapy Nima Molina MD Work Phone: History of radiation therapy History of radiation therapy Nima Molina MD Work Phone: History of radiation therapy History of radiation therapy Nima Molina MD Work Phone: History of radiation therapy History of radiation therapy Nima Molina MD Work Phone: History of radiation therapy History of radiation therapy Nima Molina MD Work Phone: History of thyroidectomy History of thyro idectomy Christine King MD Work Phone: Surgical procedure o n eye proper Christine King MD Work Phone: Thyroidectomy Christine King MD Work Phone: Tonsillectomy Christine King MD Work Phone: Plan of Treatment Date Care Activity Detail Author Start: 02-10-2030 Screening for malign ant neoplasm of colon [facility] Start: 09-15-2027 Lipid panel Lipid Screening [facility] Start: 09-15-2027 LIPID SCREEN LIPID SCREEN [facility] Start: 06-25-2024 DIABETES SCREEN DIABETES SCREEN [facility] Start: 06-25-2024 Diabetes Screening Diabetes Screenin g [facility] Start: 06-11-2024 DIABETES SCREEN DIABETES SCREEN [facility] Start: 06-02-2024 DIABETES SCREEN DIABETES SCREEN [facility] Start: 10-05-2023 End: 10-05-2023 Patient encounter procedure 10/05/2023 9:45 AM EDT Office Visit [facility] [address] [place] [id number] Zachery Thurman MD [address] [place] [address] [facility] Start: 09-23-2023 Medicare Annual Well ness (AWV) Medicare Annual Wellness (AWV) [facility] Start: 09-07-2023 End: 09-07-2023 Patient encounter procedure 09/07/2023 10:50 AM EDT Office Visit [facility] [address] [place] [id number] Christine King MD [address] [place] [address] [facility] Start: 04-18-2023 [facility] Start: 04-16-2023 Hospital admission [facility] Start: 03-20-2023 Advance Directive Discussion Advance Directive Discussion [facility] Start: 03-20-2023 Depression Assessment Depression Ass essment [facility] Start: 03-15-2023 End: 03-15-2023 Clinical Support 03/15/2023 10:30 AM EST Clinical Support [facility] [address] [place] [address] [facility] Start: 03-02-2023 Zoster Vaccines (2 of 2) Zoste r Vaccines (2 of 2) [facility] Start: 02-22-2023 End: 02-23-2024 Basic metabolic 2000 panel - Serum or Plasma Basic Metabolic Panel Lab Routine Essential hypertension, benign Paroxysmal atrial fibrillation (CMS/HCC) Expected: 02/22/2023 (Approximate), Expires: 02/23/2024 [facility] Service Area Work Phone: Comment on above: Expected: 02/22/2023 (Approximate), Expires: 02/23/2024 Start: 02-22-2023 FUV, Provider: Christine King, Status: Pen, Time: 10:10 AM FUV, Provider: Christine King, Status: Pen, Time: 10:10 AM [place] [address] DO Work Phone: Start: 01-05-2023 Influenza vaccination LUNG CANCER SC REENING [facility] Start: 01-05-2023 Screening for malign ant neoplasm of lung Lung Cancer Screening [facility] Start: 11-18-2022 Covid-19 Vaccine ( season) Covid-19 Vaccine ( season) [facility] Start: 11-18-2022 Influenza vaccination [facility] Start: 09-29-2022 End: 11-29-2022 CREATININE BLD CREATININE BLD Lab Routine Tonsil cancer (HCC) Expected: 09/29/2022 (Approximate), Expires: 11/29/2022 [facility] Work Phone: Comment on above: Expected: 09/29/2022 (Approximate), Expires: 11/29/2022 Start: 08-17-2022 Influenza vaccination LUNG CANCER SC SVETLANANING [facility] Start: 08-16-2022 FUV, Provider: Christine King, Status: Pen, Time: 9:30 AM FUV, Provider: Christine King, Status: Pen, Time: 9:30 AM [facility] DO Work Phone: Start: 07-27-2022 FUV, Provider: Christine King, Status: Pen, Time: 11:50 AM FUV, Provider: Christine King, Status: Pen, Time: 11:50 AM [facility] 250 DO Work Phone: Start: 2022 End: 09-11-2022 CREATININE BLD CREATININE BLD Lab Routine Localized enlarged lymph nodes History of cancer tonsil History of radiation therapy Expected: 2022, Expires: 09/11/2022 [facility] Work Phone: Comment on above: Expected: 2022 , Expires: 09/11/2022 Start: 07-08-2022 BP CONTROLLED (<130/80) BP CONTROLLE D (<130/80) [facility] Start: 06-25-2022 Adult depression screening assessment DEPRESSION SCREENING [facility] Start: 03-20-2022 ADVANCE DIRECTIVE DISCUSSION ADVANCE DIRECTIVE DISCUSSION [facility] Start: 03-20-2022 DEPRESSION ASSESSMENT DEPRESSION ASS ESSMENT [facility] Start: 02-26-2022 End: 04-28-2022 CBC W Auto Differential panel - Blood CBC + DIFF Lab Routine Malignant neoplasm of tonsil (HCC) Expected: 02/26/2022 (Approximate), Expires: 04/28/2022 [facility] Work Phone: Comment on above: Expected: 02/26/2022 (Approximate), Expires: 04/28/2022 Start: 02-26-2022 End: 04-28-2022 Comprehensive metabolic 2000 panel - Serum or Plasma COMP METABOLIC PANEL Lab Routine Malignant neoplasm of tonsil (HCC) Expected: 02/26/2022 (Approximate), Expires: 04/28/2022 [facility] Work Phone: Comment on above: Expected: 02/26/2022 (Approximate), Expires: 04/28/2022 Start: 02-26-2022 End: 04-28-2022 Thyrotropin [Units/volume] in Serum or Plasma TSH BLD Lab Routine Malignant neoplasm of tonsil (HCC) Expected: 02/26/2022 (Approximate), Expires: 04/28/2022 [facility] Work Phone: Comment on above: Expected: 02/26/2022 (Approximate), Expires: 04/28/2022 Start: 01-11-2022 FUV, Provider: Christine King, Status: Pen, Time: 10:10 AM FUV, Provider: Christine King, Status: Pen, Time: 10:10 AM [facility] 250 DO Work Phone: Start: 11-18-2021 Influenza vaccination [facility] Start: 10-12-2021 End: 12-12-2021 CREATININE BLD CREATININE BLD Lab Routine History of cancer tonsil History of radiation therapy History of chemotherapy Expected: 10/12/2021, Expires: 12/12/2021 [facility] Work Phone: Comment on above: Expected: 10/12/2021 , Expires: 12/12/2021 Start: 07-15-2021 COVID-19 VACCINE (4 - Booster for Moderna series) COVID-19 VACCINE (4 - Booster for Moderna series) [facility] Start: 07-09-2021 COVID-19 VACCINE (4 - Booster for Moderna series) COVID-19 VACCINE (4 - Booster for Moderna series) [facility] Start: 07-01-2021 FUV, Provider: Christine King, Status: Pen, Time: 10:00 AM FUV, Provider: Christine King, Status: Pen, Time: 10:00 AM [facility] 250 DO Work Phone: Start: 06-11-2021 COVID-19 VACCINE (4 - Booster for Moderna series) COVID-19 VACCINE (4 - Booster for Moderna series) [facility] Start: 06-11-2021 COVID-19 VACCINE (4 - Moderna series) COVID-19 VACCINE (4 - Moderna series) [facility] Start: 03-20-2021 ADVANCE DIRECTIVE DISCUSSION ADVANCE DIRECTIVE DISCUSSION [facility] Start: 03-20-2021 DEPRESSION ASSESSMENT DEPRESSION ASS ESSMENT [facility] Start: 02-22-2021 NURSEVST, Provider: CELIA CAO MANAGER MONITORING 1,[id number], Status: Pen, Time: 1:00 PM NURSEVST, Provider: CELIA CAO MANAGER MONITORING 1,[id number], Status: Pen, Time: 1:00 PM [facility] Work Phone: Start: 01-25-2021 NURSEVST, Provider: CELIA CAO MANAGER MONITORING 1,[id number], Status: Pen, Time: 1:15 PM NURSEVST, Provider: CELIA CAO MANAGER MONITORING 1,[id number], Status: Pen, Time: 1:15 PM [facility] DO Work Phone: Start: 11-18-2020 Influenza vaccination INFLUENZA (#1) [facility] Start: 08-17-2020 COVID-19 VACCINE (2 - Moderna risk 4-dose series) COVID-19 VACCINE (2 - Moderna risk 4-dose series) [facility] Start: 07-18-2019 Influenza vaccination LUNG CANCER SC REENING [facility] Start: 07-11-2016 Abdominal aortic aneurysm screening Abdominal Aortic Aneurysm (AAA) Screening [facility] Start: 2011 RSV Vaccine (1 - 1-d ose 60+ series) RSV Vaccine (1 - 1-dose 60+ series) [facility] Start: 07-11-2001 SHINGRIX VACCINE (1 of 2) SHINGRIX VACCINE (1 of 2) [facility] Start: 07-11-1996 COLOGUARD (FIT-DNA) COLOGUARD (FIT-D NA) [facility] Start: 07-11-1996 Colonoscopy COLONOSCOPY [facility] Start: 07-11-1996 COLORECTAL CANCER SCREENING COLORECTAL CANCER SCREENING [facility] Start: 07-11-[address] COLONOGRAPHY [facility] Start: 07-11-1996 FECAL OCCULT BLOOD FECAL OCCULT BLOO D [facility] Start: 07-11-1996 Screening for malign ant neoplasm of colon [facility] Start: 07-11-1996 SIGMOIDOSCOPY SIGMOIDOSCOPY Cleemiliano ruben [facility] Start: 07-11-1986 LIPID SCREEN LIPID SCREEN [facility] Start: 07-11-1973 DTaP/Tdap/Td Vaccine s (1 - Tdap) DTaP/Tdap/Td Vaccines (1 - Tdap) [facility] Start: 07-11-1970 SHINGRIX VACCINE (1 of 2) SHINGRIX VACCINE (1 of 2) [facility] Start: 07-11-1970 Urine microalbumin profile [facility] Start: 07-11-1969 ANNUAL PCP TEAM BEHAVIORAL HEALTH WORKER MARCO ANTONIO DISEASE VISIT ANNUAL PCP TEAM CHRONIC DISEASE VISIT [facility] Start: 07-11-1969 BP CONTROLLED (<130/80) BP CONTROLLE D (<130/80) [facility] Start: 07-11-1969 Diabetes mellitus screening Diabetes Screening [facility] Start: 07-11-1969 HEPATITIS C SCREENING [facility]PATITIS [facility] Start: 07-11-1969 Hepatitis C screening [facility] Start: 1963 Adult depression screening assessment DEPRESSION SCREENING [facility] Start: 1950 ABDOMINAL AORTIC ANEURYSM SCREENING ABDOMINAL AORTIC ANEURYSM SCREENING [facility] Start: 1950 Abdominal aortic aneurysm screening Abdominal Aortic Aneurysm Screening [facility] Start: 1950 Lipid panel Lipid Panel [facility] Start: 1950 Medicare Annual Well ness Visit Medicare Annual Wellness Visit (AWV) [facility] Start: 1950 Screening for malign ant neoplasm of colon [facility] Start: 1950 Thyroid stimulating hormone measurement TSH Level [facility] End: 11-11-2022 CT CHEST W IVCON CT CHEST W IVCON Radiology Routine History of cancer tonsil History of radiation therapy History of chemotherapy 1 Occurrences starting 10/12/2021 until 11/11/2022 [facility] Work Phone: Comment on above: 1 Occurrences starti ng 10/12/2021 until 11/11/2022 End: 11-12-2022 Ct soft tissue neck w/contrast material CT NECK SOFT TISSUE W IVCON Radiology Routine History of cancer tonsil History of radiation therapy History of chemotherapy 1 Occurrences starting 10/12/2021 until 11/12/2022 [facility] Work Phone: Comment on above: 1 Occurrences starti ng 10/12/2021 until 11/12/2022 End: 08-12-2023 Ct soft tissue neck w/contrast material CT NECK SOFT TISSUE W IVCON Radiology Routine Localized enlarged lymph nodes History of cancer tonsil History of radiation therapy 1 Occurrences starting 2022 until 08/12/2023 [facility] Work Phone: Comment on above: 1 Occurrences starti ng 2022 until 08/12/2023 End: 08-13-2022 NM PET/CT SKULL-THIGH SUBSEQUENT NM PET/CT SKULL-THIGH SUBSEQUENT Radiology Routine Malignant neoplasm of head, face and neck (HCC) 1 Occurrences starting 07/20/2021 until 08/13/2022 [facility] Work Phone: Comment on above: 1 Occurrences starti ng 07/20/2021 until 08/13/2022 Patient Education [facility] Work Phone: Patient referral [facility] Work Phone: End: 08-12-[address] attenuation skull base mid-thigh NM PET/CT SKULL-THIGH INITIAL Radiology Routine 1 Occurrences starting 07/13/2021 until 08/12/2022 [facility] Work Phone: Comment on above: 1 Occurrences starti ng 07/13/2021 until 08/12/[address] [facility] Immunizations Immunization Date Immunization Notes Care Provider Dana mace 03-10-2023 zoster vaccine recombinant Rola Risaliti PROFESSOR OF VOICE Work Phone: [facility] 01-05-2023 zoster vaccine recombinant Rola Risaliti PROFESSOR OF VOICE Work Phone: [facility] 04-16-2021 Moderna COVID-19 Vaccine 100 MCG/0.5ML Intramuscular Suspension Christine King MD Work Phone: [facility] 250 DO Work Phone: 08-17-2020 Moderna COVID-19 Vaccine 100 MCG/0.5ML Intramuscular Suspension Christine King MD Work Phone: [facility] 250 DO Work Phone: 07-20-2020 Moderna COVID-19 Vaccine 100 MCG/0.5ML Intramuscular Suspension Christine King MD Work Phone: [facility] 250 DO Work Phone: 12-19-2019 Presley Muñoz Other [employer] Other 05-01-2019 pneumococcal polysaccharide vaccine, 23 anurag King MD Work Phone: [facility] 05-10-2018 pneumococcal conjugate vaccine, Joanna King MD Work Phone: [facility] 05-01-2018 pneumococcal conjugate vaccine, Joanna King MD Work Phone: [facility] 04-20-2018 pneumococcal polysaccharide vaccine, 23 anurag King MD Work Phone: [facility] 02-23-2018 influenza, seasonal, injectable Patient Objection Ernestina Muñoz Other [employer] Other 02-23-2018 influenza virus vaccine, unspecified formulation Nima Molina MD Work Phone: [facility] 07-25-2017 Kenalog -40 mg Ernestina Wanda Other [employer] Other NEGATED: Highlighted row has not occurred! 2 COVID-19 vaccine, age 12+ yr ([employer]) Haroon Moffett MD Work Phone: [facility] NEGATED: Highlighted row has not occurred! 8 influenza, seasonal, injectable Patient Objection Ernestina Muñoz Other [employer] Other Payers Date Payer Category Payer Medicare [id number] 2021 Medicare [id number] 2020 Self-pay [id number] 2019 Medicare [id number] 2019 Unknown 2019 Unknown ANTHEM BLUE CROS S AND BLUE SHIELD ANTHEM MEDIBLUE O [id number] 2019-Present [phone] [address] [place] [address] O [id number] [id number] 1950 Unknown [id number] 2.16.840.1.275197.3.579. 2.355 1950 Unknown [id number] 2.16.840.1.998506.3.579. 2.356 1950 Unknown [id number] 2.16.840.1.213344.3.579. 2.356 1951 Unknown [id number] 2.16.840.1.525770.3.579. 2.356 1951 Unknown [id number] 2.16.840.1.914166.3.579. 2.356 1951 Unknown [id number] 2..840.1.858002.3.579. 2.1244 1951 Unknown [id number] 2.16.840.1.326396.3.579. 2.1259 1951 Unknown [id number] 2.840.1.872613.3.579. 2.125 1951 Unknown [id number] 2..840.1.594651.3.579. 2.125 1951 Unknown [id number] 2.840.1.571236.3.579. 2.1259 1950 Unknown [id number] 2.840.1.622678.3.579. 2.1259 Private Health Insurance [id number] Unknown [id number] Unknown Dexter BITA [id number] Unknown [id number] 2..840.1.388653.3.579. 2.531 Unknown [id number] 2.840.1.272322.3.579. 2.531 Unknown [id number] 2.16.840.1.376219.3.579. 2.531 Unknown [id number] 2.16.840.1.929650.3.579. 2.531 Unknown [id number] 2.16.840.1.951295.3.579. 2.531 Unknown [id number] 2.16840.1.610494.3.579. 2.531 Unknown [id number] 2.16.840.1.417699.3.579. 2.531 Social History Date Type Detail Facility Start: 07-17-2018 End: 10-25-2022 Alcohol ingestion Alcohol ingestion [facility] Comment on above: 3 beer weekly; Coffee 2 cups daily; medical; quit 02/2018; Start: 07-17-2018 End: 01-11-2022 Tobacco smoking status NHIS Ex-smoker [facility] End: 03-13-2017 History of tobacco use Current smoker [facility] End: 03-13-2017 History of tobacco use Cigarette Smoker [facility] Start: 07-17-2018 End: 01-11-2022 Tobacco use and exposure Smokeless tobacco non-user [facility] Start: 05-26-2021 End: 03-24-2023 Alcohol intake Current drinker of alcohol (finding) [facility] Start: 1950 Sex Assigned At Not on file [facility] Start: 12-26-2020 End: 02-22-2023 Exposure to SARS-CoV-2 (event) Not sure [facility] Start: 2022 End: 10-25-2022 Sex Assigned At [facility] Start: 1950 Sex Assigned At Male F [facility] Start: 03-23-2022 Tobacco smoking stat us [facility] Never smoked tobacco (finding) [facility] Adult Depression Screening Assessment 0 [facility] Start: 04-02-2023 End: 04-16-2023 Tobacco smoking status LAIS Current some day smoker [facility] Within the last year , have you been afraid of your partner or ex-partner? No [facility] Do you belong to any clubs or organizations such as jew groups, unions, fraternal or athletic groups, or school groups? Yes [facility] Are you now , , , , never or living with a partner? [facility] How often to you hav e a drink containing alcohol? 2-3 time sa week [facility] How many standard dr inks containing alcohol do you have on a typical day? 1 or 2 [facility] How often do you hav e 6 or more drinks on 1 occasion? Never [facility] Do you feel stress - tense, restless, nervous, or anxious, or unable to sleep at night because your mind is troubled all the time - these days [OSQ] Not at all [facility] (I/We) worried wheth er (my/our) food would run out before (I/we) got money to buy more. Never true [facility] Start: 09-05-2022 Tobacco Comment Smokes 5-6 cig arettes a week. [facility] Start: 09-05-2022 Alcohol Comment 2-3 beers a co uples times a week [facility] Medical Equipment Procedure Code Equipment Code Equipment Origin al Text Equipment Identifier Dates Capsule endoscopy, for patency of lumen evaluation Video capsule endoscopy system ()[id number] FDA Start: 04-22-2020 Capsule endoscopy, for patency of lumen evaluation Video capsule endoscopy system ()[id number] FDA Start: 05-28-2020 Arthroplasty, knee, bilateral, total Orthopaedic cement, non-medicated ()[id number] FDA Start: 04-13-2020 Arthroplasty, knee, bilateral, total Tibial insert ()[id number] FDA Start: 04-13-2020 Arthroplasty, knee, bilateral, total Tibial insert ()[id number] FDA Start: 04-13-2020 Arthroplasty, knee, bilateral, total Uncoated knee tibia prosthesis, metallic ()[id number] FDA Start: 04-13-2020 Arthroplasty, knee, bilateral, total Uncoated knee femur prosthesis, metallic ()[id number] FDA Start: 04-13-2020 Arthroplasty, knee, bilateral, total Uncoated knee femur prosthesis ()[id number] FDA Start: 04-13-2020 Arthroplasty, knee, bilateral, total Uncoated knee tibia prosthesis, metallic ()[id number] FDA Start: 04-13-2020 Arthroplasty, knee, bilateral, total Polyethylene patella prosthesis ()[id number] FDA Start: 04-13-2020 Arthroplasty, knee, bilateral, total Polyethylene patella prosthesis ()[id number] FDA Start: 04-13-2020 Clinical Notes 05-15-2013 to 05-19-2023 Telephone Encounter - Rossy Daniels - 05/19/2023 10:09 AM Gerard Kwon NP - 04/28/2023 9:45 AM EST Note Date & Type Note Facility 05-19-2023 Miscellaneous Notes Formattin g of this note might be different from the original. RECEIVED CALL FROM: Patient PATIENT INFORMATION: Name: Washington Garica : 1950 (home) [phone] (cell) Email: No e-mail address on record Referring Provider: No referring provider defined for this encounter. Phone: N/A Fax: Requested Surgeon: Alex Parks M.D., Ph. D. Reason for appointment/diagnosis: Pt is requesting appt with Dr. Parks. Recently went to ER had acid reflux wants next available appt. Rossy Woods May 19, 2023 10:10 AM documented in this encounter [facility] 04-28-2023 History of Presen t illness Narrative Images from the original note were not included. Washington Garcia is a 72 y.o. male presents with chief complaint of ER Follow-up HPI: Patient was seen at [facility] ER 04/24/2023 with complaints of feeling shaky and SOB. He had CT head and CXR. Diagnosis of anxiety. He had a follow-up in the office 04/19/2023 after hospital [facility]. He had reported losing his job which is causing him anxiety. He was not started on any new medications. [facility] with [facility] health [facility]. He reports having a melt down on Monday04/21/2023. Reports he is feeling much better. His son was able to calm him down. Flowsheet Row Patient Outreach from 04/25/2023 in [facility] with Faith Tay RN Discharge Information ED or Hospital Discharge? ED Patient has been contacted within 1 week of being seen in the ED Yes Discharge Date 04/24/23 Discharge Hospital [facility] [Clinical Impression: Anxiety] Discharged To: Home Setting Engagement Call Start Time 09 Medications Discharge medications reviewed and reconciled from hospital? Not applicable [no changes] Does the patient have all medications ordered at discharge? Not applicable Nursing Interventions No intervention needed Is the patient taking all medications as directed (includes completed medication regime)? Yes Nursing Interventions Nurse provided patient education Appointments Does the patient have a primary care provider? Yes [er f/u 04/28 at 9:45am] Nursing Interventions Verified appointment date/time/provider Self Management Has home health visited the patient within 72 hours of discharge? Not applicable Patient Teaching Does the patient have access to their discharge instructions? Yes Nursing Interventions Reviewed instructions with patient What is the patient's perception of their health status since discharge? Improving Is the patient/caregiver able to teach back the hierarchy of who to call/visit for symptoms/problems? PCP, Specialist, Home Health nurse, Urgent Care, ED, 911 Yes Wrap Up Wrap Up Additional Comments Labs, urinalysis, EKG, CXR and CT head completed at ER. Pt reports he is feeling much better today. Was able to eat today. [phone]. Call End Time 1051 HISTORIES: PAST MEDICAL HISTORY: Past Medical History: Diagnosis Date Anemia Atrial fibrillation (CMS/HCC) Essential hypertension (CMS/HCC) DAWN (generalized anxiety disorder) (CMS/HCC) History of esophageal cancer Hypothyroidism (CMS/HCC) SURGICAL HISTORY: Past Surgical History: Procedure Laterality Date EGD 09/08/2020 ESOPHAGUS SURGERY 2013 EYE SURGERY 2022 Papillomatous MEJIA OS HERNIA REPAIR THYROIDECTOMY TONSILLECTOMY 2021 left level II-IV neck dissection TOTAL KNEE ARTHROPLASTY Bilateral 2020 FAMILY HISTORY: Family History Problem Relation Name Age of Onset Lung cancer Father SOCIAL HISTORY: Social History Tobacco Use Smoking status: Some Days Years: 61 Types: Cigarettes Smokeless tobacco: Never Tobacco comments: Smokes 5-6 cigarettes a week. Vaping Use Vaping Use: Never used Substance Use Topics Alcohol use: Yes Alcohol/week: 3.0 standard drinks of alcohol Types: 3 Cans of beer per week Comment: 2-3 beers a couples times a week Drug use: Yes Frequency: 5.0 times per week Types: Marijuana Depression: At risk (04/13/2023) PHQ-2 PHQ-2 Score: 5 MEDICATIONS: Current Outpatient Medications Medication Instructions ALPRAZolam (XANAX) 1 mg, Oral, Nightly ascorbic acid (VITAMIN C) 1,000 mg, Oral, Daily Brimonidine Tartrate (Lumify) 0.025 % solution 1 drop, Ophthalmic, Daily PRN Carboxymethylcellulose Sodium (REFRESH TEARS OP) 1 drop, Ophthalmic, As needed cholecalciferol (Vitamin D-3) 10 MCG (400 UNIT) tablet 1 tablet, Oral, Daily dilTIAZem ER (Tiazac) 180 MG 24 hr capsule 1 capsule, Oral, Daily flecainide (Tambocor) 100 MG tablet 1 tablet, Oral, Every 12 hours hydrALAZINE (Apresoline) 100 MG tablet 1 tablet, Oral, 2 times daily levothyroxine (Synthroid, Levoxyl) 137 MCG tablet 1 tablet, Oral, Daily before breakfast, On empty stomach lisinopril 20 mg, Oral, Daily sildenafil (Viagra) 50 MG tablet 1 tablet, Oral, Daily PRN warfarin (Jantoven) 5 MG tablet TAKE 1 TABLET each day except on Monday take 1/2 tablet ALLERGIES: No Known Allergies REVIEW OF SYMPTOMS: Review of Systems Respiratory: Negative for chest tightness and shortness of breath. Cardiovascular: Negative for chest pain. Psychiatric/Behavioral: The patient is not nervous/anxious. PHYSICAL EXAM: BP 146/68 (BP Location: Left arm, Patient Position: Sitting) Pulse 87 Ht 5' 8 Wt 205 lb SpO2 97% BMI 31.17 kg/m Visit Vitals Smoking Status Some Days Physical Exam Cardiovascular: Rate and Rhythm: Normal rate and regular rhythm. Heart sounds: No murmur heard. No friction rub. No gallop. Pulmonary: Effort: Pulmonary effort is normal. Breath sounds: Normal breath sounds. Neurological: Mental Status: He is alert and oriented to person, place, and time. Psychiatric: Mood and Affect: Mood normal. Behavior: Behavior normal. Thought Content: Thought content normal. Judgment: Judgment normal. ASSESSMENT AND PLAN: 1. Generalized anxiety disorder (CMS/HCC) He reports he feels much better after ER visit to [facility]. Records reviewed. He declines daily medication, psychiatry and counseling referrals. He did talk with behavioral therapist at [facility] but canceled follow up. He reports his son has offered to let him live there if he can not afford his rent. Symptoms all started with losing his job. He reports he feels much better and is talking with son and granddaughter. He denies suicidal ideation. He states I won't see you for 6 months, I am good now . He is going to play golf today. He reports he exercises 3 times per week and this helps. He has the hotline number if needed. Written instructions given to consider [facility] online therapy for anxiety. Discussed if he wishes to see counselor, psych or take medication daily he should let us know. He again refuses at this time stating he does not need that. 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 Discussed going to ER if he feels suicidal. He is not a big drinker and encouraged to stay off alcohol as this can worsen symptoms. documented in this encounter [facility] 04-25-2023 Evaluation note Encounter Date Diagnosis Assessment Notes Apr, Medication monitoring encounter (ICD-10 - Z51.81) Referring Provider: Christine King Diagnosis: Atrial Fibrillation INR Goal: 2-3 INR: 2.9 Warfarin Tablet Size: 5mg Monday: 5mg Monday: 2.5mg Monday: 5mg Monday: 5mg : 5mg Monday: 5mg Monday: 5mg Total Weekly Dose: 32.5mg Continue plan above. Follow up in 3 weeks. Plan reviewed patient takeaway with patient thoroughly. Patient understands and repeats back the plan. Patient declined handwritten calendar with number of tablets to take daily. Seen by Eryn Bills, [facility] [employer] Other 02-05-2024 Miscellaneous Notes* Telephone Encounter - Frida Ruiz RN - 04/24/2023 3:57 PM EST Spoke to son, Edi, they are in the ED and just wanted to let know. I told him that was the best place for him. * Telephone Encounter - Krissy Gauthier - 04/24/2023 3:43 PM EST Patient is not in his right mind and this happened in the last month. Kind of similar to what happened after surgery. [facility] Discharge instructions Additional Instructions Important Contact Information You can call [facility] at [phone] any time day or night if you have emergent questions or question regarding discharge instructions. If at any time you are feeling an increase in your psychiatric symptoms, call your physician or behavioral healthcare provider. If any time you have thoughts of harming yourself or others contact one of the following: Call 9-8-8 (available 10/10) Crisis Text Line (available 10/10) text [facility] to [phone] [facility] Line (available 8 a.m. Midnight) call [phone] ([phone]) [facility] Work Phone: 1(255) 142-870001-25-2024 Evaluation note* Encounter Date Diagnosis Assessment Notes Treatment Notes Treatment Clinical Notes Mar, Medication monitoring encounter (ICD-10 - Z51.81) Referring Provider: Christine King Diagnosis: Atrial Fibrillation INR Goal: 2-3 INR: 2.3 Warfarin Tablet Size: 5mg Monday: 5mg Monday: 2.5mg Monday: 5mg Monday: 5mg : 5mg Monday: 5mg Monday: 5mg Total Weekly Dose: 32.5mg Continue plan above. Follow up in 2 weeks. Patient is unsure if he started the plan above or continued with the previous plan (a 7% lower TWD). Clinical decision to continue the plan above, as patients INR has been trending lower. Plan reviewed with patient thoroughly. Patient understands and repeats back the plan. This documentation is being amended on 04/21/23 due to an internal data corruption event that occurred on 04/13/23. This data corruption event was NOT the result of any breach, fraud, or malicious third constitution party actors and no personal patient information was compromised. Seen by Carissa Francis PharmD Candidate/Cesar Martines PharmD [employer] Other 01-11-2024 Evaluation note* Encounter Date Diagnosis Assessment Notes Treatment Notes Treatment Clinical Notes Mar, Medication monitoring encounter (ICD-10 - Z51.81) Referring Provider: Christine King Diagnosis: Atrial Fibrillation INR Goal: 2-3 INR: 1.6 Warfarin Tablet Size: 5mg Monday: 5mg Monday: 2.5mg Monday: 5mg Monday: 5mg : 5mg Monday: 5mg Monday: 5mg Total Weekly Dose: 32.5mg Boost an additional 2.5mg for two days, then begin new plan, an 8% increase. Follow up in 2 weeks. Patient states he has been eating more Kiwi lately. Possible that increase in Vitamin K contributing to low INR. Seen by Carissa Francis PharmD Candidate/Cesar Martines PharmD [employer] Other 01-05-2024 NoteHNO ID: [id number] Author: MARÍA THOMPSON APRN.[employer] Service: ? Author Type: Nurse Practitioner Type: Progress Notes Filed: 03/28/2023 08:18 Note Text: [facility] Note CC: oncologic follow up Patient of Dr. 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 01/06/21 - CT Neck Enlarged left level II lymph node concerning for malignancy. 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 01/25/21: Laryngoscopy direct with excision of tumor w/ microscope (left), biopsy of left tonsillar lesion 02/01/[address] Hypermetabolic left tonsillar malignancy. Hypermetabolic bilateral cervical lymphadenopathy. 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 05/14 lymph nodes positive with extranodal extension, pT1N1 p16 positive squamous cell carcinoma. Hospital course complicated by left neck hematoma necessitating incision and drainage and tracheostomy. Patient readmitted after having some mental status changes. 06/02/21 - 06/09/21 - completed concurrent chemotherapy and radiation, respectively. Could only tolerate 160 mg/m2 secondary to renal dysfunction 07/29/2021 -PET/CT -no evidence of focal uptake to suggest FDG avid neoplastic process. 07/30/2021 -CT neck -expected posttreatment changes without mass, nodularity or lymphadenopathy. CT chest -no evidence of intrathoracic metastases 01/05/22 - CT neck / chest - postoperative changes. No suggested recurrent disease. Chest - a 0.3 cm left upper nodule is unchanged. No lymphadenopathy. 10/13/22 - CT Neck soft tissue - stable postoperative and posttreatment appearance of neck, no cervical lymphadenopathy HPI: Patient is a 72 year old male with a history of [id number] p16+ left tonsillar SCC status post left transoral radical tonsillectomy, right tonsillectomy, left selective neck dissection levels 2 through 4 with adjuvant chemoradiation completed in May of 2021. ( Could only tolerate 160 mg/m2 secondary to renal dysfunction) questions/concerns today include: Today doing well. Denies dysphagia, odynophagia, voice changes, otalgia, dyspnea or weight changes. Has also not felt any new lumps/bumps in the neck on personal exam his son did not come in the room with him today he continues his lymphedema treatments Remains active Last 2 Encounter Wt Readings: Date: Wt: 08/27/2021 95.7 kg (211 lb) 08/27/2021 95.7 kg (211 lb) There were no vitals taken for this visit. Current Outpatient Medications Medication Sig Dispense Refill SYNTHROID 137 mcg tablet Take 1 tablet by mouth once daily. ascorbic acid (VITAMIN C ORAL) Take by mouth. lisinopril (ZESTRIL, PRINIVIL) 20 mg tablet flecainide (TAMBOCOR) 100 mg tablet Take 100 mg by mouth twice daily. ALPRAZolam (XANAX) 1 mg tablet Take 1 mg by mouth at bedtime as needed. warfarin (COUMADIN) 5 mg tablet Take 1 tablet by mouth once daily. jia hydrALAZINE (APRESOLINE) 50 mg tablet Take 100 mg by mouth twice daily. diltiazem CR (TIAZAC, TAZTIA XT) 180 mg 24 hr capsule Take 180 mg by mouth once daily. cyanocobalamin, vitamin B-12, (VITAMIN B-12 ORAL) Take by mouth. (Patient not taking: Reported on 11/15/2022) No current facility-administered medications for this visit. EXAM: * General appearance: Well developed, well nourished male without obvious deformities. Patient has a normal body habitus and is well groomed. * Communication: The patient speaks with a normal voice without hoarseness or breaks in speech. Head and Face: * Overall appearance: No evident asymmetries, obvious scars, lesions or masses. Palpation of face did not reveal any sinus tenderness. * Parotid and submandibular glands: No masses, tenderness or swelling. * Facial strength: House-Brackmann 1/6 bilaterally. Eyes: * Extraocular movements are intact bilaterally and primary gaze alignment is normal. * No evidence of ectropion present. Ears, Nose, Mouth and Throat: * External ears and nose: Normal in appearance, without scars, lesions, or masses. * Ears: Otoscopic examination demonstrates external auditory canals are normal bilaterally. The tympanic membranes are (more content not included)... [facility]12-21-2023 Evaluation note* Encounter Date Diagnosis Assessment Notes Treatment Notes Treatment Clinical Notes Feb, Medication monitoring encounter (ICD-10 - Z51.81) Referring Provider: Christine King Diagnosis: Atrial Fibrillation INR Goal: 2-3 INR: 1.9 Warfarin Tablet Size: 5mg Monday: 5mg Monday: 2.5mg Monday: 5mg Monday: 5mg : 5mg Monday: 2.5mg Monday: 5mg Total Weekly Dose: 30mg Boost to 5mg tomorrow (Saturday 03/10), then continue current plan. Follow up in 3 weeks. Unable to determine cause of low INR. Patient expressed desire to boost to 5mg one time only, tomorrow, to correct low INR. I am in agreement with patient. Will assess INR trend at next appointment for possible need for TWD adjustment. Seen by Eryn Bills, [facility] Other 12-06-2023 History of Present illness Narrative* Christine King MD - 02/22/2023 10:10 AM EST Subjective [place] Garcia is a 72 y.o. male Chief Complaint Follow-up HPI Patient is in the office for follow-up for the problems noted below. He has been doing well with nocomplaints. His weight remains above target and his pressure remains elevated. Adjustment of medication was made today as noted below. He is esophageal cancer has been in remission and he follows with surgery in [place]. He denies any palpitations orthopnea PND or lower extremity edema and his EKG today reveals normal sinus rhythm heart rate 65 bpm and QTc interval 436 ms. Assessment/recommendations: 1-paroxysmal atrial fibrillation, currently in sinus rhythm on flecainide. Currently on Coumadin with therapeutic INR without any bleeding problems 2-cardiac catheterization July 2018 revealed normal coronary arteries 3-hypertension presently not under control, We will add indapamide 1.25 mg daily and follow blood pressure readings and basic metabolic profile 4-class I obesity, healthy lifestyle with low calorie diet and exercise was highly recommended 5-status post thyroidectomy with hypothyroidism on replacement therapy, followed by PCP 6-history of esophageal cancer more than 7 years ago, in remission, the patient was diagnosed with head and neck cancer and finished his radiation and chemotherapy after having surgery. He will continue to follow with the [facility] Review of Systems All other systems reviewed and are negative. Visit Vitals BP 150/60 Pulse 65 Ht 1.727 m (5' 8 ) Wt 95.7 kg (211 lb) BMI 32.08 kg/m Smoking Status Former BSA 2.14 m Objective Physical Exam Constitutional: Appearance: Normal appearance. He is normal weight. HENT: Nose: Nose normal. Neck: Vascular: No carotid bruit. Cardiovascular: Rate and Rhythm: Normal rate. Pulses: Normal pulses. Heart sounds: Normal heart sounds. Pulmonary: Effort: Pulmonary effort is normal. Abdominal: General: Bowel sounds are normal. Palpations: Abdomen is soft. Genitourinary: Rectum: Normal. Musculoskeletal: General: Normal range of motion. Cervical back: Normal range of motion. Right lower leg: No edema. Left lower leg: No edema. Skin: General: Skin is warm and dry. Neurological: General: No focal deficit present. Mental Status: He is alert. Psychiatric: Mood and Affect: Mood normal. Behavior: Behavior normal. Thought Content: Thought content normal. Judgment: Judgment normal. Current Medications Current Outpatient Medications: ALPRAZolam (Xanax) 1 mg tablet, Take 1 tablet (1 mg) by mouth as needed at bedtime., Disp: , Rfl: dilTIAZem CD (Cardizem CD) 180 mg 24 hr capsule, Take 1 capsule (180 mg) by mouth once daily., Disp: , Rfl: flecainide (Tambocor) 100 mg tablet, Take 1 tablet (100 mg) by mouth every 12 hours., Disp: , Rfl: hydrALAZINE (Apresoline) 100 mg tablet, Take 1 tablet (100 mg) by mouth 2 times a day., Disp: , Rfl: Jantoven 5 mg tablet, Take 1 tablet (5 mg) by mouth. Take one tablet by mouth as directed by [facility], Disp: , Rfl: lisinopril 20 mg tablet, Take 1 tablet (20 mg) by mouth once daily., Disp: , Rfl: Synthroid 137 mcg tablet, Take 1 tablet (137 mcg) by mouth once daily in the morning. Take before meals., Disp: , Rfl: indapamide (Lozol) 1.25 mg tablet, Take 1 tablet (1.25 mg) by mouth once daily in the morning., Disp: 30 tablet, Rfl: 11 Assessment/Plan 1. Paroxysmal atrial fibrillation (CMS/HCC) Basic Metabolic Panel ECG 12 Lead Follow Up In Cardiology indapamide (Lozol) 1.25 mg tablet 2. Essential hypertension, benign Follow Up In Cardiology Basic Metabolic Panel Follow Up In Cardiology indapamide (Lozol) 1.25 mg tablet 3. High risk medication use 4. Hypothyroidism, unspecified type 5. Class 1 obesity with body mass index (BMI) of 32.0 to 32.9 in adult, unspecified obesity type, unspecified whether serious comorbidity present EKG done in office today [facility] Work Phone: 1(584) 206-940512-06-2023 Instructions* Patient Instructions* Christal Bunn LPN - 02/22/2023 10:10 AM EST Please bring all medicines, vitamins, and herbal supplements with you when you come to the office. Prescriptions will not be filled unless you are compliant with your follow up appointments or have a follow up appointment scheduled as per instruction of your physician. Refills should be requested at the time of your visit. Start Lozol 1.25 mg daily Lab work and b/p check 2 weeks. 6 month follow up documented [facility] Work Phone: 1(128) 487-241511-16-2023 Evaluation note* Encounter Date Diagnosis Assessment Notes Treatment Notes Treatment Clinical Notes Jan, Medication monitoring encounter (ICD-10 - Z51.81) Referring Provider: Christine King Diagnosis: Atrial Fibrillation INR Goal: 2-3 INR: 2.0 Warfarin Tablet Size: 5mg Monday: 5mg Monday: 2.5mg Monday: 5mg Monday: 5mg : 5mg Monday: 2.5mg Monday: 5mg Total Weekly Dose: 30mg Continue current plan. Follow up in 5 weeks. Seen by Cesar Martines PharmD [employer] Other 10-12-2023 Evaluation note* Encounter Date Diagnosis Assessment Notes Treatment Notes Treatment Clinical Notes Dec, Medication monitoring encounter (ICD-10 - Z51.81) Referring Provider: Christine King Diagnosis: Atrial Fibrillation INR Goal: 2-3 INR: 2.5 Warfarin Tablet Size: 5mg Monday: 5mg Monday: 2.5mg Monday: 5mg Monday: 5mg : 5mg Monday: 2.5mg Monday: 5mg Total Weekly Dose: 30mg Continue current plan. Follow up in 5 weeks. Seen by Cesar Martines PharmD [employer] Other 09-14-2023 Evaluation note* Encounter Date Diagnosis Assessment Notes Treatment Notes Treatment Clinical Notes Nov, Medication monitoring encounter (ICD-10 - Z51.81) Referring Provider: Christine King Diagnosis: Atrial Fibrillation INR Goal: 2-3 INR: 2.3 Warfarin Tablet Size: 5mg Monday: 5mg Monday: 2.5mg Monday: 5mg Monday: 5mg : 5mg Monday: 2.5mg Monday: 5mg Total Weekly Dose: 30mg Continue current plan. Follow up in 4 weeks. Seen by Eryn Bills [facility] [employer] Other 08-29-2023 NoteHNO ID: [id number] Author: Claudia Lee MD Service: ? Author Type: Physician Type: Progress Notes Filed: 11/15/2022 1:35 PM Note Text: 71 y/o male - referred by Dr Yashira Haynes ([facility]) for evaluation of conjunctival lesion in the left eye suspicious for SCC Papillomatous MEJIA OS - first noticed 02/2022 with redness - sp Conj Excision OS 05/30/2022 Path: MEJIA 3/3, lateral margins negative for dysplasia - intraocular pressure borderline elevated (possible early steroid response) History of Esophageal Adenocarcinoma - 2014: [id number] esophageal adenocarcinoma (underwent Transhiatal approach, thoracic esophagectomy, proximal gastrectomy, abdominal lymphadenectomy, pyloromyotomy - 2015: total thyroidectomy with 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 - 01/06/21 - CT Neck Enlarged left level II lymph node concerning for malignancy. 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 - 01/25/21: Laryngoscopy direct with excision of tumor w/ microscope (left), biopsy of left tonsillar lesion - 02/01/[address] Hypermetabolic left tonsillar malignancy. Hypermetabolic bilateral cervical lymphadenopathy. 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 05/14 lymph nodes positive with extranodal extension, pT1N1 p16 positive squamous cell carcinoma. Hospital course complicated by left neck hematoma necessitating incision and drainage and tracheostomy. Patient readmitted after having some mental status changes. - 06/02/21 - 06/09/21 - completed concurrent chemotherapy and radiation, respectively. Could only tolerate 160 mg/m2 secondary to renal dysfunction - 07/29/2021 -PET/CT -no evidence of focal uptake to suggest FDG avid neoplastic process. - 07/30/2021 -CT neck -expected posttreatment changes without mass, nodularity or lymphadenopathy. CT chest -no evidence of intrathoracic metastases - 01/05/22 - CT neck / chest - postoperative changes. No suggested recurrent disease. Chest - a 0.3 cm left upper nodule is unchanged. No lymphadenopathy. - last seen 03/2022 - no evidence of disease on endoscopy - Dr Nima Molina IMP: no recc Plan - RTC [address] Haynes (every 3 mo for first year, then every 6 months for second year) - Letter to Dr Haynes I have confirmed and edited as necessary the relevant ophthalmic history, ROS, and the neuro exam findings as obtained by others. I have seen and examined this patient. I have discussed the case and the management of this patient's care with the Resident/Fellow, if applicable. I also have reviewed and agree with the assessment and plan as stated above and agree with all of its relevant components. Claudia Lee MD November 15, 2022 1:35 [facility]08-29-2023 History of Present illness Narrative* Claudia Lee MD - 11/15/2022 12:21 PM EDT 71 y/o male - referred by Dr Yashira Haynes ([facility]) for evaluation of conjunctival lesion in the left eye suspicious for SCC Papillomatous MEJIA OS - first noticed 02/2022 with redness - sp Conj Excision OS 05/30/2022 Path: MEJIA 3/3, lateral margins negative for dysplasia - intraocular pressure borderline elevated (possible early steroid response) History of Esophageal Adenocarcinoma - 2013: [id number] esophageal adenocarcinoma (underwent Transhiatal approach, thoracic esophagectomy, proximal gastrectomy, abdominal lymphadenectomy, pyloromyotomy - 2015: total thyroidectomy with 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 - 01/06/21 - CT Neck Enlarged left level II lymph node concerning for malignancy. 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 - 01/25/21: Laryngoscopy direct with excision of tumor w/ microscope (left), biopsy of left tonsillar lesion - 02/01/[address] Hypermetabolic left tonsillar malignancy. Hypermetabolic bilateral cervical lymphadenopathy. 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 2/25 lymph nodes positive with extranodal extension, [id number] positive squamous cell carcinoma. Hospital course complicated by left neck hematoma necessitating incision and drainage and tracheostomy. Patient readmitted after having some mental status changes. - 06/02/21 - 06/09/21 - completed concurrent chemotherapy and radiation, respectively. Could only tolerate 160 mg/m2 secondary to renal dysfunction - 07/29/2021 -PET/CT -no evidence of focal uptake to suggest FDG avid neoplastic process. - 07/30/2021 -CT neck -expected posttreatment changes without mass, nodularity or lymphadenopathy. CT chest -no evidence of intrathoracic metastases - 01/05/22 - CT neck / chest - postoperative changes. No suggested recurrent disease. Chest - a 0.3cm left upper nodule is unchanged. No lymphadenopathy. - last seen 03/2022 - no evidence of disease on endoscopy - Dr Nima Molina IMP: no recc Plan - RTC [address] Haynes (every 3 mo for first year, then every 6 months for second year) - Letter to Dr Haynes I have confirmed and edited as necessary the relevant ophthalmic history, ROS, and the neuro exam findings as obtained by others. I have seen and examined this patient. I have discussed the case and the management of this patient's care with the Resident/Fellow, if applicable. I also have reviewed and agree with the assessment and plan as stated above and agree withall of its relevant components. Claudia Lee MD November 15, 2022 1:35 PM documented in this encounter[facility] Evaluation note* Encounter Date Diagnosis Assessment Notes Treatment Notes Treatment Clinical Notes Oct, Medication monitoring encounter (ICD-10 - Z51.81) Referring Provider: Christine King Diagnosis: Atrial Fibrillation INR Goal: 2-3 INR: 2.6 Warfarin Tablet Size: 5mg Monday: 5mg Monday: 2.5mg Monday: 5mg Monday: 5mg : 5mg Monday: 2.5mg Monday: 5mg Total Weekly Dose: 30mg Continue current plan. Follow up in 4 weeks. Seen by Jude Mantilla, PharmD Candidate/[employer] Other 08-08-2023 NoteHNO ID: [id number] Author: Nima Molina MD Service: ? 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 01/06/21 - CT Neck Enlarged left level II lymph node concerning for malignancy. 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 01/25/21: Laryngoscopy direct with excision of tumor w/ microscope (left), biopsy of left tonsillar lesion 02/01/[address] Hypermetabolic left tonsillar malignancy. Hypermetabolic bilateral cervical lymphadenopathy. 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 05/14 lymph nodes positive with extranodal extension, pT1N1 p16 positive squamous cell carcinoma. Hospital course complicated by left neck hematoma necessitating incision and drainage and tracheostomy. Patient readmitted after having some mental status changes. 06/02/21 - 06/09/21 - completed concurrent chemotherapy and radiation, respectively. Could only tolerate 160 mg/m2 secondary to renal dysfunction 07/29/2021 -PET/CT -no evidence of focal uptake to suggest FDG avid neoplastic process. 07/30/2021 -CT neck -expected posttreatment changes without mass, nodularity or lymphadenopathy. CT chest -no evidence of intrathoracic metastases 01/05/22 - CT neck / chest - postoperative changes. No suggested recurrent disease. Chest - a 0.3 cm left upper nodule is unchanged. No lymphadenopathy. 10/13/22 - CT Neck soft tissue - stable postoperative and posttreatment appearance of neck, no cervical lymphadenopathy HPI: Washington Garcia is a 72 y/o male with a history of hC2N4M0 p16+ left tonsillar SCC status post left transoral radical tonsillectomy, right tonsillectomy, left selective neck dissection levels 2 through 4 with adjuvant chemoradiation completed in May of 2021. He is here today with his son and granddaughter. He reports that he is doing well with no issues. He underwent lymphedema treatment and massages his neck daily. He is actively golfing. 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 HTN (hypertension) Hx of peptic ulcer NEGATIVE MEDICAL HISTORY No TB, pnuemonia, DM, heart dis PAST SURGICAL HISTORY Procedure Laterality Date CONJUNCTIVAL SURGERY UNLISTED Left 05/30/2022 Ex of Lesion on Left Conjunctiva for MEJIA left eye 05/30/2022 ESOPHAGECTOMYANDGASTRI ANASTANDVAGOT 05/15/2013 Transhiatal esophagectomy for esophageal cancer ESOPHAGOGASTRODUODENOSCOPY TRANSORAL DIAGNOSTIC EGD- several HERNIA REPAIR HX inguinal hernia x2, ventral hernia PAST SURGICAL HISTORY OF skin growth removal PAST SURGICAL HISTORY OF 04/2013 G-tube insertion and removal Current Outpatient Medications Medication Sig Dispense Refill SYNTHROID 137 mcg tablet Take 1 tablet by mouth once daily. ascorbic acid (VITAMIN C ORAL) Take by mouth. cyanocobalamin, vitamin B-12, (VITAMIN B-12 ORAL) Take by mouth. lisinopril (ZESTRIL, PRINIVIL) 20 mg tablet flecainide (TAMBOCOR) 100 mg tablet Take 100 mg by mouth twice daily. ALPRAZolam (XANAX) 1 mg tablet Take 1 mg by mouth at bedtime as needed. warfarin (COUMADIN) 5 mg tablet Take 1 tablet by mouth once daily. jia hydrALAZINE (APRESOLINE) 50 mg tablet Take 50 mg by mouth twice daily. diltiazem CR (TIAZAC, TAZTIA XT) 180 mg 24 hr capsule Take 180 mg by mouth once daily. No current facility-administered medications for this visit. ALLERGIES No Known Allergies PHYSICAL EXAM (detailed): Constitutional: * There were no vitals taken for this visit. * General appearance: Well developed, well nourished male without obvious deformities. Patient has a normal body habitus and is well groomed. * Communication: The patient speaks with a normal voice without hoarseness or breaks in speech. Head and Face: * Overall appearance: No evident asymmetries, obvious scars, lesions or masses. Palpation of face did not reve (more content not included)... [facility]08-08-2023 Nurse Note* Cristal Conley, OMAR - 10/25/2022 10:53 AM EDT Tobacco Use: 1 packs/day, for 50 years. Quit 03/13/2017. Types: Cigarettes Was smoking cessation packet given? N/A - Patient is a non-smoker or quit >1 year ago. 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 01/06/21 - CT Neck Enlarged left level II lymph node concerning for malignancy. 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 01/25/21: Laryngoscopy direct with excision of tumor w/ microscope (left), biopsy of left tonsillar lesion 02/01/[address] Hypermetabolic left tonsillar malignancy. Hypermetabolic bilateral cervical lymphadenopathy. 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 05/14 lymph nodes positive with extranodal extension, pT1N1 p16 positive squamous cell carcinoma. Hospital course complicated by left neck hematoma necessitatingincision and drainage and tracheostomy. Patient readmitted after having some mental status changes. 06/02/21 - 06/09/21 - completed concurrent chemotherapy and radiation, respectively. Could only tolerate 160 mg/m2 secondary to renal dysfunction 07/29/2021 -PET/CT -no evidence of focal uptake to suggest FDG avid neoplastic process. 07/30/2021 -CT neck -expected posttreatment changes without mass, nodularity or lymphadenopathy. CT chest -no evidence of intrathoracic metastases 01/05/22 - CT neck / chest - postoperative changes. No suggested recurrent disease. Chest - a 0.3 cm left upper nodule is unchanged. No lymphadenopathy. 10/13/22 - CT Neck soft tissue - stable postoperative and posttreatment appearance of neck, no cervical lymphadenopathy HPI: Washington Garcia is a 72 y/o male with a history of vA1O5Q3 p16+ left tonsillar SCC status post left transoral radical tonsillectomy, right tonsillectomy, left selective neck dissection levels 2 through 4 with adjuvant chemoradiation completed in May of 2021. He is here today with his son and granddaughter. He reports that he is doing well with no issues. He underwent lymphedema treatment and massages his neck daily. He is actively golfing. 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 HTN (hypertension) Hx of peptic ulcer NEGATIVE MEDICAL HISTORY No TB, pnuemonia, DM, heart dis PAST SURGICAL HISTORY Procedure Laterality Date CONJUNCTIVAL SURGERY UNLISTED Left 05/30/2022 Ex of Lesion on Left Conjunctiva for MEJIA left eye 05/30/2022 ESOPHAGECTOMY&GASTRI ANAST&VAGOT 05/15/2013 Transhiatal esophagectomy for esophageal cancer ESOPHAGOGASTRODUODENOSCOPY TRANSORAL DIAGNOSTIC EGD- several HERNIA REPAIR HX inguinal hernia x2, ventral hernia PAST SURGICAL HISTORY OF skin growth removal PAST SURGICAL HISTORY OF 04/2013 G-tube insertion and removal Current Outpatient Medications Medication Sig Dispense Refill SYNTHROID 137 mcg tablet Take 1 tablet by mouth once daily. ascorbic acid (VITAMIN C ORAL) Take by mouth. cyanocobalamin, vitamin B-12, (VITAMIN B-12 ORAL) Take by mouth. lisinopril (ZESTRIL, PRINIVIL) 20 mg tablet flecainide (TAMBOCOR) 100 mg tablet Take 100 mg by mouth twice daily. ALPRAZolam (XANAX) 1 mg tablet Take 1 mg by mouth at bedtime as needed. warfarin (COUMADIN) 5 mg tablet Take 1 tablet by mouth once daily. jia hydrALAZINE (APRESOLINE) 50 mg tablet Take 50 mg by mouth twice daily. diltiazem CR (TIAZAC, TAZTIA XT) 180 mg 24 hr capsule Take 180 mg by mouth once daily. No current facility-administered medications for this visit. ALLERGIES No Known Allergies PHYSICAL EXAM (detailed): Constitutional: * There were no vitals taken for this visit. * General appearance: Well developed, well nourished male without obvious deformities. Patient has a normal body habitus and is well groomed. * Communication: The patient speaks with a normal voice without hoarseness or breaks in speech. Head and Face: * Overall appearance: No evident asymmetries, obvious scars, lesions or masses. Palpation of face did not reveal any sinus tenderness. * Parotid and submandibular glands: No masses, tenderness or swelling. * Facial strength: House-Brackmann 1/6 bilaterally. Eyes: * Extraocular movements are intact bilaterally and primary gaze alignment is normal. * No evidence of ectropion present. Ears, Nose, Mouth and Throat: * External ears and nose: Normal in appearance, without scars, lesions, or masses. * Ears: Otoscopic examination demonstrates external auditory canals are normal bilaterally. The tympanic membranes are intact and mobile to pneumotoscopy bilaterally. * Nasal exam: Nasal mucosa is pink and the septum is midline, visualized turbinates are normal in appearance. * Mastication: Dentures above, edentulous * Oral cavity and oropharynx: Tonsillar fossa is clear. The oral mucosa, hard and soft palates, tongue, tonsil area, and posterior pharyngeal mucosa are without lesions or notable asymmetries. Moist mucus membranes present. * Larynx: See scope. Neck: * Neck: Well healed incision. The neck appears symmetric and on palpation is without masses, lymphadenopathy or crepitus.Trachea is midline. * Thyroid: There are no masses, thyromegaly, thyroid nodules or tenderness on palpation. Neurologic: * Mental status: Patient is alert and oriented to person, place and time Mood and affect are appropriate PROCEDURE NOTE: PROCEDURE: Flexible laryngoscopy PREOPERATIVE DIAGNOSIS: Oncologic surveillance POSTOPERATIVE DIAGNOSIS: Oncologic surveillance INDICATIONS: Evaluate upper aerodigestive tract ANESTHESIA: Phenylephrine and lidocaine PROCEDURE: Vasoconstriction was applied with spray to the both side(s) of the nose. After waiting an appropriate period of time for vasoconstriction to become effective, a flexible endoscope was passed through the right side(s) of the nose. The scope was advanced to visualize the nasopharynx, oropharynx, hypopharynx and larynx. FINDINGS: Glossotonsillar sulcus looks good. Examination of the nasal cavity demonstrates pink mucosa without any polyps or masses. Nasopharynx was clear with patent eustachian tube orifices bilaterally. Oropharynx demonstrated a normal base oftongue and posterior pharynx. Larynx demonstrated normal supraglottis and true vocal folds were mobile and symmetric bilaterally. Hypopharynx was clear. Patient tolerated the procedure well. Nima Molina MD IMAGING: CT Neck Soft Tissue W IVCON on 10/13/22 Impression: 1. Stable postoperative and posttreatment/post radiation appearance of the neck. No evidence of residual/recurrent disease. 2. No cervical lymphadenopathy or other CT evidence of metastatic disease in the neck. MEDICAL DECISION MAKING: Washington Garcia is a 72 y/o male with a history of wT2A7D6 p16+ left tonsillar SCC status post left transoral radical tonsillectomy, right tonsillectomy, left selective neck dissection levels 2 through 4 with adjuvant chemoradiation completed in May of 2021. Today, he is doing great and his physical exam and scope exam were normal. I can see him again in 3 months. -Follow up in 3 months Nima Molina MD Scribe Attestation: By signing my name below, I, Jennie Martins, attest that this documentation has been prepared under the direction and in the presence of Nima Molina MD. Electronically Signed:jason Varghese, October 25, 2022 10:09 AM I agree with the Chief Complaint, ROS, and Past Histories independently gathered by the clinical business support administrator and the remaining scribed note accurately describes my personal service to the patient. Nima Molina MD documented in this encounterU[facility]07-28-2023 Miscellaneous Notes* Telephone Encounter - Frida Ruiz RN - 10/14/2022 10:20 AM EDT Spoke to Washington about CT scan being ''ok'' per Dr. Molina. He verbally understood, no further questions at this time. documented in this encounterU[facility] Center07-27-2023 NoteHNO ID: [id number] Author: Preet Sue RT(R) Service: ? Author Type: Technologist Type: Progress Notes Filed: 10/13/2022 10:06 AM Note Text: Radiology Service Progress Note PATIENT NAME: Washington Garcia DATE OF SERVICE: October 13, 2022 TIME: 10:06 AM PATIENT IDENTITY VERIFICATION COMPLETED USING TWO (2) IDENTIFIERS: Name and Date of confirmed by patient verbally. FALL SCREENING: Has the patient had 2 falls in the last year or 1 fall with injury or currently using an Ambulatory Assistive Device (Walker, Cane, Wheelchair, Crutches, etc.)? No PATIENT GENDER DATA: Male PATIENT RELEVANT IMPLANT DATA REVIEWED: Not Applicable RADIOLOGY DEPARTMENT: CT; Exam(s) Completed: Neck PERIPHERAL IV DATA: Site assessment: Clean,Dry and Intact, Site disposition Discontinued SIGNED BY: RT Emir(R) October 13, 2022 10:06 [facility]07-27-2023 NoteHNO ID: [id number] Author: Kevin Pack RN Service: ? Author Type: Registered Nurse Type: Progress Notes Filed: 10/13/2022 10:05 AM Note Text: Radiology Service Progress Note DATE OF SERVICE: October 13, 2022 TIME: 10:04 AM PATIENT WEIGHT: 209LBS PATIENT IDENTITY VERIFICATION COMPLETED USING TWO (2) STANDARD IDENTIFIERS: Name and Date of confirmed by patient verbally. FALL SCREENING: Has the patient had 2 falls in the last year or 1 fall with injury or currently using an Ambulatory Assistive Device (Walker, Cane, Wheelchair, Crutches, etc.)? No PATIENT GENDER DATA: Male ALLERGIES: Reviewed and unchanged CONTRAST ALLERGY: No EXAM: CT -CONTRAST INDUCED NEPHROPATHY RISK FACTORS: Patient age > 60 years CREATININE: Creatinine Date Value Ref Range Status 10/13/2022 1.47 (H) 0.73 - 1.22 mg/dL Final 01/05/2022 1.23 (H) 0.73 - 1.22 mg/dL Final 06/25/2021 1.00 0.73 - 1.22 mg/dL Final Estimated Glomerular Filtration Rate Date Value Ref Range Status 10/13/2022 51 (L) >=60 mL/min/1.73m? Final Comment: Estimated Glomerular Filtration Rate (eGFR) is calculated using the 2020 CKD-EPI creatinine equation. This equation utilizes serum creatinine, sex, and age as parameters. The creatinine assay has traceable calibration to isotope dilution-mass spectrometry. Refer to KDIGO guidelines for clinical interpretation. In patients with unstable renal function, e.g. those with acute kidney injury, the eGFR may not accurately reflect actual GFR. eGFR- Date Value Ref Range Status 05/12/2021 55 Final P.O.C.T. RESULTS: POC done: Yes, See Lab Tab October 13, 2022 TREATMENT: N/A IV SITE: Ambulatory: A peripheral IV was started in the Left antecubital site with a Angio cath: 20 gauge. IV SITE APPEARANCE: Clean,Dry and Intact SIGNATURE: Kevin Pack RN PATIENT NAME: Washington Garcia DATE: October 13, 2022 TIME: 10:04 [facility]06-29-2023 Miscellaneous Notes* Telephone Encounter - Nima Molina MD - 09/15/2022 1:28 PM EDT Order signed. * Telephone Encounter - Kevin Pack RN - 09/14/2022 3:19 PM EDT Please sign Cre order for pending CT scan. Thank You! Kevin Pack RN documented in this encounterU[facility] Center06-15-2023 Evaluation note* Encounter Date Diagnosis Assessment Notes Treatment Notes Treatment Clinical Notes Aug, Medication monitoring encounter (ICD-10 - Z51.81) Referring Provider: Christine King Diagnosis: Atrial Fibrillation INR Goal: 2-3 INR: 2.2 Warfarin Tablet Size: 5mg Monday: 5mg Monday: 2.5mg Monday: 5mg Monday: 5mg : 5mg Monday: 2.5mg Monday: 5mg Total Weekly Dose: 30mg Continue current plan. Follow up in 4 weeks. Seen by Eryn Bills [facility] [employer] Other 04-25-2023 NoteHNO ID: [id number] Author: Nima Molina MD Service: ? 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 01/06/21 - CT Neck Enlarged left level II lymph node concerning for malignancy. 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 01/25/21: Laryngoscopy direct with excision of tumor w/ microscope (left), biopsy of left tonsillar lesion 02/01/[address] Hypermetabolic left tonsillar malignancy. Hypermetabolic bilateral cervical lymphadenopathy. 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 05/14 lymph nodes positive with extranodal extension, pT1N1 p16 positive squamous cell carcinoma. Hospital course complicated by left neck hematoma necessitating incision and drainage and tracheostomy. Patient readmitted after having some mental status changes. 06/02/21 - 06/09/21 - completed concurrent chemotherapy and radiation, respectively. Could only tolerate 160 mg/m2 secondary to renal dysfunction 07/29/2021 -PET/CT -no evidence of focal uptake to suggest FDG avid neoplastic process. 07/30/2021 -CT neck -expected posttreatment changes without mass, nodularity or lymphadenopathy. CT chest -no evidence of intrathoracic metastases 01/05/22 - CT neck / chest - postoperative changes. No suggested recurrent disease. Chest - a 0.3 cm left upper nodule is unchanged. No lymphadenopathy. HPI: Washington Garcia is a 72 y/o male with a history of [id number] p16+ left tonsillar SCC status post left transoral radical tonsillectomy, right tonsillectomy, left selective neck dissection levels 2 through 4 with adjuvant chemoradiation completed in May of 2021. Doing well without any reported issues. Denies any dysphagia or odynophagia. Denies any hemoptysis or otalgia. 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 Coronary artery disease COVID 03/18/2021 Disorder of thyroid Esophageal adenocarcinoma (HCC) 04/09/2013 [id number] adenocarcinoma arising in Rodriguez's esophagus HTN (hypertension) Hx of peptic ulcer NEGATIVE MEDICAL HISTORY No TB, pnuemonia, DM, heart dis PAST SURGICAL HISTORY Procedure Laterality Date CONJUNCTIVAL SURGERY UNLISTED Left 05/30/2022 Ex of Lesion on Left Conjunctiva for MEJIA left eye 05/30/2022 ESOPHAGECTOMYANDGASTRI ANASTANDVAGOT 05/15/2013 Transhiatal esophagectomy for esophageal cancer ESOPHAGOGASTRODUODENOSCOPY TRANSORAL DIAGNOSTIC EGD- several HERNIA REPAIR HX inguinal hernia x2, ventral hernia PAST SURGICAL HISTORY OF skin growth removal PAST SURGICAL HISTORY OF 04/2013 G-tube insertion and removal Current Outpatient Medications Medication Sig Dispense Refill dorzolamide-timolol (COSOPT) 22.3-6.8 mg/mL ophthalmic solution Use 1 Drop in the left eye twice daily. 5 mL 0 SYNTHROID 137 mcg tablet Take 1 tablet by mouth once daily. ascorbic acid (VITAMIN C ORAL) Take by mouth. cyanocobalamin, vitamin B-12, (VITAMIN B-12 ORAL) Take by mouth. lisinopril (ZESTRIL, PRINIVIL) 20 mg tablet flecainide (TAMBOCOR) 100 mg tablet Take 100 mg by mouth twice daily. ALPRAZolam (XANAX) 1 mg tablet Take 1 mg by mouth at bedtime as needed. warfarin (COUMADIN) 5 mg tablet Take 1 tablet by mouth once daily. jia hydrALAZINE (APRESOLINE) 50 mg tablet Take 50 mg by mouth twice daily. diltiazem CR (TIAZAC, TAZTIA XT) 180 mg 24 hr capsule Take 180 mg by mouth once daily. No current facility-administered medications for this visit. ALLERGIES No Known Allergies PHYSICAL EXAM (detailed): Constitutional: * There were no vitals taken for this visit. * General appearance: Well developed, well nourished male without obvious deformities. Patient has a normal body habitus and is well groomed. * Communication: The patient speaks with a normal voice without hoarseness or breaks in speech. Head and Face: * Overall appearance: No evident asymmetries, obvious scars, lesions or masses. Palpation of face did not reveal any sinus tenderness. * Parotid and submandibular glands: No masses, tenderness or (more content not included)...[facility]04-25-2023 NoteHNO ID: [id number] Author: Claudia Lee MD Service: ? Author Type: Physician Type: Progress Notes Filed: 2022 11:10 AM Note Text: 71 y/o male - referred by Dr Yashira Haynes ([facility]) for evaluation of conjunctival lesion in the left eye suspicious for SCC Papillomatous MEJIA OS - first noticed 02/2022 with redness - sp Excision 05/30/2022 Path: MEJIA 3/3, lateral margins negative for dysplasia - intraocular pressure borderline elevated (possible early steroid response) History of Esophageal Adenocarcinoma - 2013: [id number] esophageal adenocarcinoma (underwent Transhiatal approach, thoracic esophagectomy, proximal gastrectomy, abdominal lymphadenectomy, pyloromyotomy - 2015: total thyroidectomy with 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 - 01/06/21 - CT Neck Enlarged left level II lymph node concerning for malignancy. 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 - 01/25/21: Laryngoscopy direct with excision of tumor w/ microscope (left), biopsy of left tonsillar lesion - 02/01/[address] Hypermetabolic left tonsillar malignancy. Hypermetabolic bilateral cervical lymphadenopathy. 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 05/14 lymph nodes positive with extranodal extension, pT1N1 p16 positive squamous cell carcinoma. Hospital course complicated by left neck hematoma necessitating incision and drainage and tracheostomy. Patient readmitted after having some mental status changes. - 06/02/21 - 06/09/21 - completed concurrent chemotherapy and radiation, respectively. Could only tolerate 160 mg/m2 secondary to renal dysfunction - 07/29/2021 -PET/CT -no evidence of focal uptake to suggest FDG avid neoplastic process. - 07/30/2021 -CT neck -expected posttreatment changes without mass, nodularity or lymphadenopathy. CT chest -no evidence of intrathoracic metastases - 01/05/22 - CT neck / chest - postoperative changes. No suggested recurrent disease. Chest - a 0.3 cm left upper nodule is unchanged. No lymphadenopathy. - last seen 03/2022 - no evidence of disease on endoscopy - Dr Nima Molina Plan - DC all meds - IOP normalized - No recc - AT prn - RTC 3 mo I have confirmed and edited as necessary the relevant ophthalmic history, ROS, and the neuro exam findings as obtained by others. I have seen and examined this patient. I have discussed the case and the management of this patient's care with the Resident/Fellow, if applicable. I also have reviewed and agree with the assessment and plan as stated above and agree with all of its relevant components. Claudia Lee MD 2022 11:09 [facility]04-25-2023 Nurse Note* OMAR Villegas - 2022 11:15 AM EDT Tobacco Use: 1 packs/day, for 50 years. Quit 03/13/2017. Types: Cigarettes Was smoking cessation packet given? N/A - Patient is a non-smoker or quit >1 year ago. 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 01/06/21 - CT Neck Enlarged left level II lymph node concerning for malignancy. 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 01/25/21: Laryngoscopy direct with excision of tumor w/ microscope (left), biopsy of left tonsillar lesion 02/01/[address] Hypermetabolic left tonsillar malignancy. Hypermetabolic bilateral cervical lymphadenopathy. 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 05/14 lymph nodes positive with extranodal extension, pT1N1 p16 positive squamous cell carcinoma. Hospital course complicated by left neck hematoma necessitatingincision and drainage and tracheostomy. Patient readmitted after having some mental status changes. 06/02/21 - 06/09/21 - completed concurrent chemotherapy and radiation, respectively. Could only tolerate 160 mg/m2 secondary to renal dysfunction 07/29/2021 -PET/CT -no evidence of focal uptake to suggest FDG avid neoplastic process. 07/30/2021 -CT neck -expected posttreatment changes without mass, nodularity or lymphadenopathy. CT chest -no evidence of intrathoracic metastases 01/05/22 - CT neck / chest - postoperative changes. No suggested recurrent disease. Chest - a 0.3 cm left upper nodule is unchanged. No lymphadenopathy. HPI: Washington Garcia is a 72 y/o male with a history of [id number] p16+ left tonsillar SCC status post left transoral radical tonsillectomy, right tonsillectomy, left selective neck dissection levels 2 through 4 with adjuvant chemoradiation completed in May of 2021. Doing well without any reported issues.Denies any dysphagia or odynophagia. Denies any hemoptysis or otalgia. 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 HTN (hypertension) Hx of peptic ulcer NEGATIVE MEDICAL HISTORY No TB, pnuemonia, DM, heart dis PAST SURGICAL HISTORY Procedure Laterality Date CONJUNCTIVAL SURGERY UNLISTED Left 05/30/2022 Ex of Lesion on Left Conjunctiva for MEJIA left eye 05/30/2022 ESOPHAGECTOMY&GASTRI ANAST&VAGOT 05/15/2013 Transhiatal esophagectomy for esophageal cancer ESOPHAGOGASTRODUODENOSCOPY TRANSORAL DIAGNOSTIC EGD- several HERNIA REPAIR HX inguinal hernia x2, ventral hernia PAST SURGICAL HISTORY OF skin growth removal PAST SURGICAL HISTORY OF 04/2013 G-tube insertion and removal Current Outpatient Medications Medication Sig Dispense Refill dorzolamide-timolol (COSOPT) 22.3-6.8 mg/mL ophthalmic solution Use 1 Drop in the left eye twice daily. 5 mL 0 SYNTHROID 137 mcg tablet Take 1 tablet by mouth once daily. ascorbic acid (VITAMIN C ORAL) Take by mouth. cyanocobalamin, vitamin B-12, (VITAMIN B-12 ORAL) Take by mouth. lisinopril (ZESTRIL, PRINIVIL) 20 mg tablet flecainide (TAMBOCOR) 100 mg tablet Take 100 mg by mouth twice daily. ALPRAZolam (XANAX) 1 mg tablet Take 1 mg by mouth at bedtime as needed. warfarin (COUMADIN) 5 mg tablet Take 1 tablet by mouth once daily. jia hydrALAZINE (APRESOLINE) 50 mg tablet Take 50 mg by mouth twice daily. diltiazem CR (TIAZAC, TAZTIA XT) 180 mg 24 hr capsule Take 180 mg by mouth once daily. No current facility-administered medications for this visit. ALLERGIES No Known Allergies PHYSICAL EXAM (detailed): Constitutional: * There were no vitals taken for this visit. * General appearance: Well developed, well nourished male without obvious deformities. Patient has a normal body habitus and is well groomed. * Communication: The patient speaks with a normal voice without hoarseness or breaks in speech. Head and Face: * Overall appearance: No evident asymmetries, obvious scars, lesions or masses. Palpation of face did not reveal any sinus tenderness. * Parotid and submandibular glands: No masses, tenderness or swelling. * Facial strength: House-Brackmann 1/6 bilaterally. Eyes: * Extraocular movements are intact bilaterally and primary gaze alignment is normal. * No evidence of ectropion present. Ears, Nose, Mouth and Throat: * External ears and nose: Normal in appearance, without scars, lesions, or masses. * Ears: Otoscopic examination demonstrates external auditory canals are normal bilaterally. The tympanic membranes are intact and mobile to pneumotoscopy bilaterally. * Nasal exam: Nasal mucosa is pink and the septum is midlin, visualized turbinates are normal in appearance. * Oral cavity and oropharynx: The oral mucosa, hard and soft palates, tongue, tonsil area, and posterior pharyngeal mucosa are without lesions or notable asymmetries. Moist mucus membranes present. * Larynx: Base of tongue, valleculae, epiglottis and false vocal folds are normal in appearance permirror exam. Neck: * Neck: Well healed neck incision. The neck appears symmetric, and on palpation is without masses, lymphadenopathy or crepitus. Trachea is midline. * Thyroid: There are no masses, thyromegaly, thyroid nodules or tenderness on palpation. Neurologic: * Mental status: Patient is alert and oriented to person, place and time Mood and affect are appropriate PROCEDURE NOTE: PROCEDURE: Flexible laryngoscopy PREOPERATIVE DIAGNOSIS: history of left tonsillar cancer POSTOPERATIVE DIAGNOSIS: RON INDICATIONS: Evaluate upper aerodigestive tract ANESTHESIA: Phenylephrine and lidocaine PROCEDURE: Vasoconstriction was applied with spray to the both side(s) of the nose. After waiting an appropriate period of time for vasoconstriction to become effective, a flexible endoscope was passed through the left side(s) of the nose. The scope was advanced to visualize the nasopharynx, oropharynx, hypopharynx and larynx. FINDINGS: Examination of the nasal cavity demonstrates pink mucosa without any polyps or masses. Nasopharynx was clear with patent eustachian tube orifices bilaterally. Oropharynx demonstrated a normal base oftongue and posterior pharynx. Larynx demonstrated normal supraglottis and true vocal folds were mobile and symmetric bilaterally. Hypopharynx was clear. Patient tolerated the procedure well. Nima Tracy, MD IMAGING: No relevant imaging since last visit. MEDICAL DECISION MAKING: Washington Garcia is a 71 y/o male with a history of wM1P1R2 p16+ left tonsillar SCC status post left transoral radical tonsillectomy, right tonsillectomy, left selective neck dissection levels 2 through 4 with adjuvant chemoradiation completed in May of 2021. RON. -Follow up in [address] neck Nima Molina MD Scribe Attestation: By signing my name below, I, Jennie Martins, attest that this documentation has been prepared under the direction and in the presence of Nima Molina MD. Electronically Signed:jason Varghese, 2022 9:04 AM I agree with the Chief Complaint, ROS, and Past Histories independently gathered by the clinical business support administrator and the remaining scribed note accurately describes my personal service to the patient. Nima Molina MD [facility] encounter[facility]04-[facility]23 History of Present illness Narrative* Claudia Lee MD - 2022 10:08 AM EDT 71 y/o male - referred by Dr Yashira Haynes ([facility]) for evaluation of conjunctival lesion in the left eye suspicious for SCC Papillomatous MEJIA OS - first noticed 02/2022 with redness - sp Excision 05/30/2022 Path: MEJIA 3/3, lateral margins negative for dysplasia - intraocular pressure borderline elevated (possible early steroid response) History of Esophageal Adenocarcinoma - 2013: [id number] esophageal adenocarcinoma (underwent Transhiatal approach, thoracic esophagectomy, proximal gastrectomy, abdominal lymphadenectomy, pyloromyotomy - 2015: total thyroidectomy with 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 - 01/06/21 - CT Neck Enlarged left level II lymph node concerning for malignancy. 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 - 01/25/21: Laryngoscopy direct with excision of tumor w/ microscope (left), biopsy of left tonsillar lesion - 02/01/[address] Hypermetabolic left tonsillar malignancy. Hypermetabolic bilateral cervical lymphadenopathy. 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 05/14 lymph nodes positive with extranodal extension, [id number] positive squamous cell carcinoma. Hospital course complicated by left neck hematoma necessitating incision and drainage and tracheostomy. Patient readmitted after having some mental status changes. - 06/02/21 - 06/09/21 - completed concurrent chemotherapy and radiation, respectively. Could only tolerate 160 mg/m2 secondary to renal dysfunction - 07/29/2021 -PET/CT -no evidence of focal uptake to suggest FDG avid neoplastic process. - 07/30/2021 -CT neck -expected posttreatment changes without mass, nodularity or lymphadenopathy. CT chest -no evidence of intrathoracic metastases - 01/05/22 - CT neck / chest - postoperative changes. No suggested recurrent disease. Chest - a 0.3cm left upper nodule is unchanged. No lymphadenopathy. - last seen 03/2022 - no evidence of disease on endoscopy - Dr Nima Molina Plan - DC all meds - IOP normalized - No recc - AT prn - RTC 3 mo I have confirmed and edited as necessary the relevant ophthalmic history, ROS, and the neuro exam findings as obtained by others. I have seen and examined this patient. I have discussed the case and the management of this patient's care with the Resident/Fellow, if applicable. I also have reviewed and agree with the assessment and plan as stated above and agree withall of its relevant components. Claudia Lee MD 2022 11:09 AM [facility] encounter[facility]04-20-[facility]23 Evaluation note* Encounter Date Diagnosis Assessment Notes Treatment Notes Treatment Clinical Notes Jun, Medication monitoring encounter (ICD-10 - Z51.81) Referring Provider: Christine King Diagnosis: Atrial Fibrillation INR Goal: 2-3 INR: 2.7 Warfarin Tablet Size: 5mg Monday: 5mg Monday: 2.5mg Monday: 5mg Monday: 5mg : 5mg Monday: 2.5mg Monday: 5mg Total Weekly Dose: 30mg Continue current plan. Follow up in 4 weeks. Seen by Eryn Bills, [facility] Other 03-23-2023 Evaluation note* Encounter Date Diagnosis Assessment Notes Treatment Notes Treatment Clinical Notes May, Medication monitoring encounter (ICD-10 - Z51.81) Referring Provider: Christine King Diagnosis: Atrial Fibrillation INR Goal: 2-3 INR: 1.8 Warfarin Tablet Size: 5mg Monday: 5mg Monday: 2.5mg Monday: 5mg Monday: 5mg : 5mg Monday: 2.5mg Monday: 5mg Total Weekly Dose: 30mg Boost to 7.5mg today, then continue current plan. Follow up in 4 weeks per patient preference. Patient had eye surgery 05/30 and held warfarin for 5 days prior. This is the probable cause of today's subtherapeutic INR. Seen by Eryn Bills, [facility] [employer] [facility] Other 03-21-2023 NoteHNO ID: [id number] Author: Claudia Lee MD Service: ? Author Type: Physician Type: Progress Notes Filed: 06/07/2022 9:18 AM Note Text: 71 y/o male - referred by Dr Yashira Haynes ([facility]) for evaluation of conjunctival lesion in the left eye suspicious for SCC Papillomatous MEJIA OS - first noticed 02/2022 with redness - sp Excision 05/30/2022 - Pathology confirms MEJIA 3/3, lateral margins negative for dysplasia - Doing well post op W1 - intraocular pressure borderline elevated (possible early steroid response) - Continue Maxitrol four times a day X 1 week, then twice a day X 2 weeks then stop - Add cosopt twice a day left eye X 3 weeks then stop - FU 1 month History of Esophageal Adenocarcinoma - 2014: [id number] esophageal adenocarcinoma (underwent Transhiatal approach, thoracic esophagectomy, proximal gastrectomy, abdominal lymphadenectomy, pyloromyotomy - 2015: total thyroidectomy with 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 - 01/06/21 - CT Neck Enlarged left level II lymph node concerning for malignancy. 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 - 01/25/21: Laryngoscopy direct with excision of tumor w/ microscope (left), biopsy of left tonsillar lesion - 02/01/[address] Hypermetabolic left tonsillar malignancy. Hypermetabolic bilateral cervical lymphadenopathy. 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 25 lymph nodes positive with extranodal extension, pT1N1 p16 positive squamous cell carcinoma. Hospital course complicated by left neck hematoma necessitating incision and drainage and tracheostomy. Patient readmitted after having some mental status changes. - 06/02/21 - 06/09/21 - completed concurrent chemotherapy and radiation, respectively. Could only tolerate 160 mg/m2 secondary to renal dysfunction - 07/29/2021 -PET/CT -no evidence of focal uptake to suggest FDG avid neoplastic process. - 07/30/2021 -CT neck -expected posttreatment changes without mass, nodularity or lymphadenopathy. CT chest -no evidence of intrathoracic metastases - 01/05/22 - CT neck / chest - postoperative changes. No suggested recurrent disease. Chest - a 0.3 cm left upper nodule is unchanged. No lymphadenopathy. - last seen 03/2022 - no evidence of disease on endoscopy - Dr Nima Molina SEND PATH REPORT TO DR Haynes I have confirmed and edited as necessary the relevant ophthalmic history, ROS, and the neuro exam findings as obtained by others. I have seen and examined this patient. I have discussed the case and the management of this patient's care with the Resident/Fellow, if applicable. I also have reviewed and agree with the assessment and plan as stated above and agree with all of its relevant components. Claudia Lee MD June 07, 2022 9:16 [facility]03-21-2023 History of Present illness Narrative* Claudia Lee MD - 06/07/2022 8:38 AM EDT 71 y/o male - referred by Dr Yashira Haynes ([facility]) for evaluation of conjunctival lesion in the left eye suspicious for SCC Papillomatous MEJIA OS - first noticed 02/2022 with redness - sp Excision 05/30/2022 - Pathology confirms MEJIA 3/3, lateral margins negative for dysplasia - Doing well post op W1 - intraocular pressure borderline elevated (possible early steroid response) - Continue Maxitrol four times a day X 1 week, then twice a day X 2 weeks then stop - Add cosopt twice a day left eye X 3 weeks then stop - FU 1 month History of Esophageal Adenocarcinoma - 2014: [id number] esophageal adenocarcinoma (underwent Transhiatal approach, thoracic esophagectomy, proximal gastrectomy, abdominal lymphadenectomy, pyloromyotomy - 2015: total thyroidectomy with 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 - 01/06/21 - CT Neck Enlarged left level II lymph node concerning for malignancy. 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 - 01/25/21: Laryngoscopy direct with excision of tumor w/ microscope (left), biopsy of left tonsillar lesion - 02/01/[address] Hypermetabolic left tonsillar malignancy. Hypermetabolic bilateral cervical lymphadenopathy. 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 05/14 lymph nodes positive with extranodal extension, [id number] positive squamous cell carcinoma. Hospital course complicated by left neck hematoma necessitating incision and drainage and tracheostomy. Patient readmitted after having some mental status changes. - 06/02/21 - 06/09/21 - completed concurrent chemotherapy and radiation, respectively. Could only tolerate 160 mg/m2 secondary to renal dysfunction - 07/29/2021 -PET/CT -no evidence of focal uptake to suggest FDG avid neoplastic process. - 07/30/2021 -CT neck -expected posttreatment changes without mass, nodularity or lymphadenopathy. CT chest -no evidence of intrathoracic metastases - 01/05/22 - CT neck / chest - postoperative changes. No suggested recurrent disease. Chest - a 0.3cm left upper nodule is unchanged. No lymphadenopathy. - last seen 03/2022 - no evidence of disease on endoscopy - Dr Nima Molina SEND PATH REPORT TO DR Haynes I have confirmed and edited as necessary the relevant ophthalmic history, ROS, and the neuro exam findings as obtained by others. I have seen and examined this patient. I have discussed the case and the management of this patient's care with the Resident/Fellow, if applicable. I also have reviewed and agree with the assessment and plan as stated above and agree withall of its relevant components. Claudia Lee MD June 07, 2022 9:16 AM documented in this encounterU[facility]03-13-[facility]23 Hospital Discharge instructions* Discharge Instr - Other Orders* Claudia Lee MD - 05/30/2022 5:29 PM EDT Patient Instructions After Eye Surgery It is very important to follow these instructions after your procedure to ensure its success. Please leave the dressing on until tomorrow, at that time you may remove it yourself. The dressing puts pressure on the area in order to prevent bleeding. If the dressing comes off, an ice pack may be applied on the area to reduce pain and swelling. The effects of the local anesthetic you received will wear off after four to six hours. You may take two acetaminophen tablets every four hours as needed for discomfort. If this does not relieve the pain, a stronger medication may also be prescribed. Use it as directed. DO NOT TAKE ASPIRIN OR PRODUCTS CONTAINING ASPIRIN for at least five day after surgery unless otherwise recommended by your doctor or surgeon. Aspirin may cause bleeding. You may have some oozing and bloody discharge from under the patch for the first few days after surgery. This is normal. You may wear an eye pad over the area to absorb the discharge if you desire. You will be given a prescription for an ointment to be applied to the incision site four times per day for 3 weeks after the dressing is removed. You will have swelling and bruising in the area of your surgery. This is normal. Avoid heavy lifting, sudden bending, strenuous physical activity, and straining for the next week to prevent pressure following surgery. You may find it more comfortable to sleep with your head propped up with pillows the first few nights after surgery. This helps to reduce swelling. You may take a shower, but do not let the water stream hit directly on your patch or surgical site until the swelling and tenderness have resolved. Your follow up appointment is listed at the bottom of this sheet. If you have severe pain, severe swelling of the eyelid, or active bleeding, please call the doctor at one of the numbers listed. Contact Dr. Claudia Lee at [phone] weekdays between 8am and 5pm. During non-business hours, call [phone] or [phone] ext [phone] and ask for the eye doctor air pollution auditor. documented in this encounter[facility] Surgical operation note* Brief Op Note - Claudia Lee MD - 05/30/2022 5:29 PM EDT BRIEF OPERATIVE / PROCEDURE NOTE LOG ID: [id number] SURGERY/PROCEDURE DATE: 05/30/2022 INCISION/PROCEDURE START TIME: 5:09 PM INCISION CLOSE/PROCEDURE END TIME: 5:27 PM SURGEON(S)/PROCEDURALIST(S) AND SCOURING PADS SUPERVISOR(S): Surgeon(s) and Role: * Claudia Lee MD - Primary * Marcelino Cross MD - Fellow No Additional Staff SURGERY/PROCEDURE(S): left eye conjunctival lesion removal ANESTHESIA: Monitored Anesthesia Care FINDINGS: conj lesion OS ESTIMATED BLOOD LOSS: 1 mls SPECIMENS: sent to lab COMPLICATIONS: None CLOSURE TECHNIQUE: Primary PRE-OP/PRE-PROCEDURE DIAGNOSIS: left eye conj lesion POST-OP/POST-PROCEDURE DIAGNOSIS: Same as Preop SIGNATURE: Claudia Lee MD PATIENT NAME: Washington Garcia DATE: May 30, 2022 TIME: 5:29 PM * Operative Report - Claudia Lee MD - 05/30/2022 4:55 PM EDT [place] [id number] [place] 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 After the correct patient, surgery, and site were confirmed, the patient was then anesthetized. The operative eye was then prepped and draped in the usual manner and the lid speculum was inserted. A papillomatous conjunctival lesion was found in the nasal limbus that spread from 7 to 10 o'clock. It was marked with a marking pen. The corneal epithelium was covered with healon except in the area proximal to the conjunctival lesion within 1 mm. Absolute was instilled resulting in a denaturation of the exposed epithelium not covered by viscoelastic. Cautery was applied in the conjunctival area marked previously. The conjunctiva within the markings was dissected and reflected anteriorly, only leaving the edge of the corneal limbus still adherent. Corneal epithelectomy was performed at thismargin until the entire lesion was free. It was sent to pathology. Hemostasis was achieved. Conjunctiva was then closed with interrupted 8-0 Vicryl sutures. There were no complications. The patient tolerated the procedure well. Cyclogyl drops, Maxitrol ointment, double patch were aplied, and patient was sent to recovery in good condition. I/primary surgeon/proceduralist performed the procedure with assistance. INCISION/PROCEDURE START TIME: 5:09 PM INCISION CLOSE/PROCEDURE END TIME: 5:27 PM ESTIMATED BLOOD LOSS: 1 mls SPECIMENS: sent to lab COMPLICATIONS: None SIGNATURE: Claudia Lee MD DATE: May 30, 2022 TIME: 5:29 PM documented in this encounterU[facility]03-07-2023 NoteHNO ID: [id number] Author: Claudia Lee MD Service: ? 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 - 01/06/21 - CT Neck Enlarged left level II lymph node concerning for malignancy. 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 - 01/25/21: Laryngoscopy direct with excision of tumor w/ microscope (left), biopsy of left tonsillar lesion - 02/01/[address] Hypermetabolic left tonsillar malignancy. Hypermetabolic bilateral cervical lymphadenopathy. 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 05/14 lymph nodes positive with extranodal extension, pT1N1 p16 positive squamous cell carcinoma. Hospital course complicated by left neck hematoma necessitating incision and drainage and tracheostomy. Patient readmitted after having some mental status changes. - 06/02/21 - 06/09/21 - completed concurrent chemotherapy and radiation, respectively. Could only tolerate 160 mg/m2 secondary to renal dysfunction - 07/29/2021 -PET/CT -no evidence of focal uptake to suggest FDG avid neoplastic process. - 07/30/2021 -CT neck -expected posttreatment changes without mass, nodularity or lymphadenopathy. CT chest -no evidence of intrathoracic metastases - 01/05/22 - CT neck / chest - postoperative changes. No suggested recurrent disease. Chest - a 0.3 cm left upper nodule is unchanged. No lymphadenopathy. - last seen 03/2022 - no evidence of disease on endoscopy - Dr Nima Molina Plan Photos + OCT Excision of conjunctival lesion OS Hold warfarin before I have confirmed and edited as necessary the relevant ophthalmic history, ROS, and the neuro exam findings as obtained by others. I have seen and examined this patient. I have discussed the case and the management of this patient's care with the Resident/Fellow, if applicable. I also have reviewed and agree with the assessment and plan as stated above and agree with all of its relevant components. 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 - 01/06/21 - CT Neck Enlarged left level II lymph node concerning for malignancy. 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 - 01/25/21: Laryngoscopy direct with excision of tumor w/ microscope (left), biopsy of left tonsillar lesion - 02/01/[address] Hypermetabolic left tonsillar malignancy. Hypermetabolic bilateral cervical lymphadenopathy. 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 2/25 lymph nodes positive with extranodal extension, [id number] positive squamous cell carcinoma. Hospital course complicated by left neck hematoma necessitating incision and drainage and tracheostomy. Patient readmitted after having some mental status changes. - 06/02/21 - 06/09/21 - completed concurrent chemotherapy and radiation, respectively. Could only tolerate 160 mg/m2 secondary to renal dysfunction - 07/29/2021 -PET/CT -no evidence of focal uptake to suggest FDG avid neoplastic process. - 07/30/2021 -CT neck -expected posttreatment changes without mass, nodularity or lymphadenopathy. CT chest -no evidence of intrathoracic metastases - 01/05/22 - CT neck / chest - postoperative changes. No suggested recurrent disease. Chest - a 0.3cm left upper nodule is unchanged. No lymphadenopathy. - last seen 03/2022 - no evidence of disease on endoscopy - Dr Nima Molina Plan Photos + OCT Excision of conjunctival lesion OS Hold warfarin before I have confirmed and edited as necessary the relevant ophthalmic history, ROS, and the neuro exam findings as obtained by others. I have seen and examined this patient. I have discussed the case and the management of this patient's care with the Resident/Fellow, if applicable. I also have reviewed and agree with the assessment and plan as stated above and agree withall of its relevant components. Claudia Lee MD May 24, 2022 8:41 AM documented in this encounterU[facility] Center02-23-2023 Evaluation note* Encounter Date Diagnosis Assessment Notes Treatment Notes Treatment Clinical Notes Apr, Medication monitoring encounter (ICD-10 - Z51.81) Referring Provider: Christine King Diagnosis: Atrial Fibrillation INR Goal: 2-3 INR: 2.7 Warfarin Tablet Size: 5mg Monday: 5mg Monday: 2.5mg Monday: 5mg Monday: 5mg : 5mg Monday: 2.5mg Monday: 5mg Total Weekly Dose: 30mg Continue current plan. Follow up in 4 weeks. Seen by Cesar Martines, Stephen, Mariela Corcoran, ReneD Candidate [employer] Other 02-20-2023 Miscellaneous Notes* Telephone Encounter - Constanza Porter - 05/09/2022 12:43 PM EST Spoke with patient / unable to schedule sooner appt at this time. * Telephone Encounter - Ramirez Ruiz - 05/06/2022 2:09 PM EST Patient called regarding is conversation with you yesterday about a sooner appointment. 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 01/06/21 - CT Neck Enlarged left level II lymph node concerning for malignancy. 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 01/25/21: Laryngoscopy direct with excision of tumor w/ microscope (left), biopsy of left tonsillar lesion 02/01/[address] Hypermetabolic left tonsillar malignancy. Hypermetabolic bilateral cervical lymphadenopathy. 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 2/25 lymph nodes positive with extranodal extension, pT1N1 p16 positive squamous cell carcinoma. Hospital course complicated by left neck hematoma necessitatingincision and drainage and tracheostomy. Patient readmitted after having some mental status changes. 06/02/21 - 06/09/21 - completed concurrent chemotherapy and radiation, respectively. Could only tolerate 160 mg/m2 secondary to renal dysfunction 07/29/2021 -PET/CT -no evidence of focal uptake to suggest FDG avid neoplastic process. 07/30/2021 -CT neck -expected posttreatment changes without mass, nodularity or lymphadenopathy. CT chest -no evidence of intrathoracic metastases 01/05/22 - CT neck / chest - postoperative changes. No suggested recurrent disease. Chest - a 0.3 cm left upper nodule is unchanged. No lymphadenopathy. HPI: Patient returns for established visit. He has been doing well. Denies any issues with swallowing. Denies any hemoptysis or otalgia. PHYSICAL EXAM (detailed): Constitutional: * There were no vitals taken for this visit. * General appearance: Well developed, well nourished male without obvious deformities. Patient has a normal body habitus and is well groomed. * Communication: The patient speaks with a normal voice without hoarseness or breaks in speech. Head and Face: * Overall appearance: No evident asymmetries, obvious scars, lesions or masses. Palpation of face did not reveal any sinus tenderness. * Parotid and submandibular glands: No masses, tenderness or swelling. * Facial strength: House-Brackmann 1/6 bilaterally. Eyes: * Extraocular movements are intact bilaterally and primary gaze alignment is normal. * No evidence of ectropion present. Ears, Nose, Mouth and Throat: * External ears and nose: Normal in appearance, without scars, lesions, or masses. * Ears: Otoscopic examination demonstrates external auditory canals are normal bilaterally. The tympanic membranes are intact and mobile to pneumotoscopy bilaterally. * Nasal exam: Nasal mucosa is pink and the septum is bilaterally deviated, worst on the left, visualized turbinates are normal in appearance. * Mastication: The patient is completely edentulous. The lips and gums are without lesions. * Oral cavity and oropharynx: The oral mucosa, hard and soft palates, tongue, tonsil area, and posterior pharyngeal mucosa are without lesions or notable asymmetries. Moist mucus membranes present. Neck: * Neck: Well-healed left neck incision. Mild submental lymphedema. No palpable masses, lymphadenopathy or crepitus. Trachea is midline. * Thyroid: There are no masses, thyromegaly, thyroid nodules or tenderness on palpation. Neurologic: * Mental status: Patient is alert and oriented to person, place and time Mood and affect are appropriate PROCEDURE NOTE: PROCEDURE: Flexible laryngoscopy PREOPERATIVE DIAGNOSIS: History of tonsillar cancer POSTOPERATIVE DIAGNOSIS: RON INDICATIONS: Evaluate upper aerodigestive tract ANESTHESIA: Phenylephrine and lidocaine PROCEDURE: Vasoconstriction was applied with spray to the both side(s) of the nose. After waiting an appropriate period of time for vasoconstriction to become effective, a flexible endoscope was passed through the right side(s) of the nose. The scope was advanced to visualize the nasopharynx, oropharynx, hypopharynx and larynx. FINDINGS: Examination of the nasal cavity demonstrates pink mucosa without any polyps or masses. Nasopharynx was clear with patent eustachian tube orifices bilaterally. Oropharynx demonstrated a normal base oftongue and posterior pharynx. Larynx demonstrated normal supraglottis and true vocal folds were mobile and symmetric bilaterally. Hypopharynx was clear. Patient tolerated the procedure well. Nima Molina MD IMAGING: None MEDICAL DECISION MAKING: Washington Garcia is a 71 y/o male with a history of [id number] p16+ left tonsillar SCC status post left transoral radical tonsillectomy, right tonsillectomy, left selective neck dissection levels 2 through 4 with adjuvant chemoradiation completed in May of 2021. No evidence of new or recurrent diseaseon examination today - Flexible laryngoscopy today, no evidence of new or recurrent disease on exam - Follow-up in 3 months - Continue with Lymphedema treatment Nima Molina MD documented in this encounterU[facility] Center01-26-2023 Evaluation note* Encounter Date Diagnosis Assessment Notes Treatment Notes Treatment Clinical Notes Mar, Medication monitoring encounter (ICD-10 - Z51.81) Referring Provider: Christine King Diagnosis: Atrial Fibrillation INR Goal: 2-3 INR: 3.2 Warfarin Tablet Size: 5mg Monday: 5mg Monday: 2.5mg Monday: 5mg Monday: 5mg : 5mg Monday: 2.5mg Monday: 5mg Total Weekly Dose: 30mg Reduce to 2.5mg today, then continue current plan. Follow up in 4 weeks. Seen by Eryn Bills, [facility] Other 01-24-2023 Nurse Note* OMAR Villegas - 04/12/2022 9:40 AM EST Tobacco Use: 1 packs/day, for 50 years. Quit 03/13/2017. Types: Cigarettes Was smoking cessation packet given? N/A - Patient is a non-smoker or quit >1 year ago. Was a referral initiated?N/A Patient is a non-smoker documented in this encounterU[facility]12-29-2022 Evaluation note* Encounter Date Diagnosis Assessment Notes Treatment Notes Treatment Clinical Notes Feb, Medication monitoring encounter (ICD-10 - Z51.81) Referring Provider: Christine King Diagnosis: Atrial Fibrillation INR Goal: 2-3 INR: 2.9 Warfarin Tablet Size: 5mg Monday: 5mg Monday: 2.5mg Monday: 5mg Monday: 5mg : 5mg Monday: 2.5mg Monday: 5mg Total Weekly Dose: 30mg Continue current plan. Follow up in 4 weeks. Seen by Eryn Bills, [facility] Other 11-03-2022 Evaluation note* Encounter Date Diagnosis Assessment Notes Treatment Notes Treatment Clinical Notes Jan, Medication monitoring encounter (ICD-10 - Z51.81) Referring Provider: Christine King Diagnosis: Atrial Fibrillation INR Goal: 2-3 INR: 2.8 Warfarin Tablet Size: 5mg Monday: 5mg Monday: 2.5mg Monday: 5mg Monday: 5mg : 5mg Monday: 2.5mg Monday: 5mg Total Weekly Dose: 30mg Continue above plan. Follow up in 4 weeks. 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 01/06/21 - CT Neck Enlarged left level II lymph node concerning for malignancy. 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 01/25/21: Laryngoscopy direct with excision of tumor w/ microscope (left), biopsy of left tonsillar lesion 02/01/[address] Hypermetabolic left tonsillar malignancy. Hypermetabolic bilateral cervical lymphadenopathy. 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 05/14 lymph nodes positive with extranodal extension, pT1N1 p16 positive squamous cell carcinoma. Hospital course complicated by left neck hematoma necessitatingincision and drainage and tracheostomy. Patient readmitted after having some mental status changes. 06/02/21 - 06/09/21 - completed concurrent chemotherapy and radiation, respectively. Could only tolerate 160 mg/m2 secondary to renal dysfunction 07/29/2021 -PET/CT -no evidence of focal uptake to suggest FDG avid neoplastic process. 07/30/2021 -CT neck -expected posttreatment changes without mass, nodularity or lymphadenopathy. CT chest -no evidence of intrathoracic metastases 01/05/22 - CT neck / chest - postoperative changes. No suggested recurrent disease. Chest - a 0.3 cm left upper nodule is unchanged. No lymphadenopathy. HPI: Patient returns for established visit. He has been doing well. Denies any issues with swallowing. He has had some lymphedema and is requesting a consultation. Denies any hemoptysis or otalgia. PHYSICAL EXAM (detailed): Constitutional: * There were no vitals taken for this visit. * General appearance: Well developed, well nourished male without obvious deformities. Patient has a normal body habitus and is well groomed. * Communication: The patient speaks with a normal voice without hoarseness or breaks in speech. Head and Face: * Overall appearance: No evident asymmetries, obvious scars, lesions or masses. Palpation of face did not reveal any sinus tenderness. * Parotid and submandibular glands: No masses, tenderness or swelling. * Facial strength: House-Brackmann 1/6 bilaterally. Eyes: * Extraocular movements are intact bilaterally and primary gaze alignment is normal. * No evidence of ectropion present. Ears, Nose, Mouth and Throat: * External ears and nose: Normal in appearance, without scars, lesions, or masses. * Ears: Otoscopic examination demonstrates external auditory canals are normal bilaterally. The tympanic membranes are intact and mobile to pneumotoscopy bilaterally. * Nasal exam: Nasal mucosa is pink and the septum is bilaterally deviated, worst on the left, visualized turbinates are normal in appearance. * Mastication: The patient is completely edentulous. The lips and gums are without lesions. * Oral cavity and oropharynx: The oral mucosa, hard and soft palates, tongue, tonsil area, and posterior pharyngeal mucosa are without lesions or notable asymmetries. Moist mucus membranes present. Neck: * Neck: Well-healed left neck incision. Mild submental lymphedema. No palpable masses, lymphadenopathy or crepitus. Trachea is midline. * Thyroid: There are no masses, thyromegaly, thyroid nodules or tenderness on palpation. Neurologic: * Mental status: Patient is alert and oriented to person, place and time Mood and affect are appropriate PROCEDURE NOTE: PROCEDURE: Flexible laryngoscopy PREOPERATIVE DIAGNOSIS: History of tonsillar cancer POSTOPERATIVE DIAGNOSIS: RON INDICATIONS: Evaluate upper aerodigestive tract ANESTHESIA: Phenylephrine and lidocaine PROCEDURE: Vasoconstriction was applied with spray to the both side(s) of the nose. After waiting an appropriate period of time for vasoconstriction to become effective, a flexible endoscope was passed through the right side(s) of the nose. The scope was advanced to visualize the nasopharynx, oropharynx, hypopharynx and larynx. FINDINGS: Examination of the nasal cavity demonstrates pink mucosa without any polyps or masses. Nasopharynx was clear with patent eustachian tube orifices bilaterally. Oropharynx demonstrated a normal base oftongue and posterior pharynx. Larynx demonstrated normal supraglottis and true vocal folds were mobile and symmetric bilaterally. Hypopharynx was clear. Patient tolerated the procedure well. Nima Molina MD IMAGING: None MEDICAL DECISION MAKING: Washington Garcia is a 71 y/o male with a history of [id number] p16+ left tonsillar SCC status post left transoral radical tonsillectomy, right tonsillectomy, left selective neck dissection levels 2 through 4 with adjuvant chemoradiation completed in May of 2021. No evidence of new or recurrent diseaseon examination today - Flexible laryngoscopy today, no evidence of new or recurrent disease on exam - Follow-up in 3 months - Lymphedema treatment (consultation provided) Nima Molina MD CC: MD Rikki Sanchez MD documented [facility] this encounter[facility]22 Nurse Note* Amarilys Lewis MA - 01/11/2022 11:09 AM EDT Tobacco Use: 1 packs/day, for 50 years. Quit 03/13/2017. Types: Cigarettes Was smoking cessation packet given? N/A - Patient is a non-smoker or quit >1 year ago. Was a referral initiated?N/A Patient is a non-smoker documented [facility] Evaluation note* Encounter Date Diagnosis Assessment Notes Treatment Notes Treatment Clinical Notes Dec, Medication monitoring encounter (ICD-10 - Z51.81) Referring Provider: Christine King Diagnosis: Atrial Fibrillation INR Goal: 2-3 INR: 2.4 Warfarin Tablet Size: 5mg Monday: 5mg Monday: 2.5mg Monday: 5mg Monday: 5mg : 5mg Monday: 2.5mg Monday: 5mg Total Weekly Dose: 30mg Continue above plan. Follow up in 4 weeks. Seen by Alvaro Dorsey PharmD [employer] Other 09-08-2022 Evaluation note* Encounter Date Diagnosis Assessment Notes Treatment Notes Treatment Clinical Notes Nov, Medication monitoring encounter (ICD-10 - Z51.81) Referring Provider: Christine King Diagnosis: Atrial Fibrillation INR Goal: 2-3 INR: 2.3 Warfarin Tablet Size: 5mg Monday: 5mg Monday: 2.5mg Monday: 5mg Monday: 5mg : 5mg Monday: 2.5mg Monday: 5mg Total Weekly Dose: 30mg Continue above plan. Follow up in 4 weeks. 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 01/06/21 - CT Neck Enlarged left level II lymph node concerning for malignancy. 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 01/25/21: Laryngoscopy direct with excision of tumor w/ microscope (left), biopsy of left tonsillar lesion 02/01/[address] Hypermetabolic left tonsillar malignancy. Hypermetabolic bilateral cervical lymphadenopathy. 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 05/14 lymph nodes positive with extranodal extension, pT1N1 p16 positive squamous cell carcinoma. Hospital course complicated by left neck hematoma necessitatingincision and drainage and tracheostomy. Patient readmitted after having some mental status changes. 06/02/21 - 06/09/21 - completed concurrent chemotherapy and radiation, respectively. Could only tolerate 160 mg/m2 secondary to renal dysfunction 07/29/2021 -PET/CT -no evidence of focal uptake to suggest FDG avid neoplastic process. 07/30/2021 -CT neck -expected posttreatment changes without mass, nodularity or lymphadenopathy. CT chest -no evidence of intrathoracic metastases HPI: Washington Garcia is a 71 year old male who is here for oncologic surveillance. He recently finishedadjuvant chemoradiation at the end of May and has been doing well since then. He has no new or concerning symptoms and specifically denies any otalgia, odynophagia, dysphagia, voice changes, oral cavity pain, trismus, dysarthria, hemoptysis, new neck masses. Breathing comfortably and remaining active. Patient has been playing golf daily. 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 HTN (hypertension) Hx of peptic ulcer NEGATIVE MEDICAL HISTORY No TB, pnuemonia, DM, heart dis PAST SURGICAL HISTORY Procedure Laterality Date ESOPHAGECTOMY&GASTRI ANAST&VAGOT 05/15/2013 Transhiatal esophagectomy for esophageal cancer ESOPHAGOGASTRODUODENOSCOPY TRANSORAL DIAGNOSTIC EGD- several HERNIA REPAIR HX inguinal hernia x2, ventral hernia PAST SURGICAL HISTORY OF skin growth removal PAST SURGICAL HISTORY OF 04/2013 G-tube insertion and removal Current Outpatient Medications Medication Sig Dispense Refill lisinopril (ZESTRIL, PRINIVIL) 20 mg tablet levothyroxine (SYNTHROID) 125 mcg tablet Take 125 mcg by mouth daily before breakfast. flecainide (TAMBOCOR) 100 mg tablet Take 100 mg by mouth twice daily. ALPRAZolam (XANAX) 1 mg tablet Take 1 mg by mouth at bedtime as needed. warfarin (COUMADIN) 5 mg tablet Take 1 tablet by mouth once daily. jia hydrALAZINE (APRESOLINE) 50 mg tablet Take 50 mg by mouth twice daily. diltiazem CR (TIAZAC, TAZTIA XT) 180 mg 24 hr capsule Take 180 mg by mouth once daily. No current facility-administered medications for this visit. ALLERGIES No Known Allergies PHYSICAL EXAM (detailed): Constitutional: * There were no vitals taken for this visit. * General appearance: Well developed, well nourished male without obvious deformities. Patient has a normal body habitus and is well groomed. * Communication: The patient speaks with a normal voice without hoarseness or breaks in speech. Head and Face: * Overall appearance: No evident asymmetries, obvious scars, lesions or masses. Palpation of face did not reveal any sinus tenderness. * Parotid and submandibular glands: No masses, tenderness or swelling. * Facial strength: House-Brackmann 1/6 bilaterally. Eyes: * Extraocular movements are intact bilaterally and primary gaze alignment is normal. * No evidence of ectropion present. Ears, Nose, Mouth and Throat: * External ears and nose: Normal in appearance, without scars, lesions, or masses. * Ears: Otoscopic examination demonstrates external auditory canals are normal bilaterally. The tympanic membranes are intact and mobile to pneumotoscopy bilaterally. * Nasal exam: Nasal mucosa is pink and the septum is bilaterally deviated, worst on the left, visualized turbinates are normal in appearance. * Mastication: The patient is completely edentulous. The lips and gums are without lesions. * Oral cavity and oropharynx: The oral mucosa, hard and soft palates, tongue, tonsil area, and posterior pharyngeal mucosa are without lesions or notable asymmetries. Moist mucus membranes present. Neck: * Neck: Well-healed left neck incision. Mild submental lymphedema. No palpable masses, lymphadenopathy or crepitus. Trachea is midline. * Thyroid: There are no masses, thyromegaly, thyroid nodules or tenderness on palpation. Neurologic: * Mental status: Patient is alert and oriented to person, place and time Mood and affect are appropriate PROCEDURE NOTE: PROCEDURE: Flexible laryngoscopy PREOPERATIVE DIAGNOSIS: History of tonsillar cancer POSTOPERATIVE DIAGNOSIS: RON INDICATIONS: Evaluate upper aerodigestive tract ANESTHESIA: Phenylephrine and lidocaine PROCEDURE: Vasoconstriction was applied with spray to the both side(s) of the nose. After waiting an appropriate period of time for vasoconstriction to become effective, a flexible endoscope was passed through the right side(s) of the nose. The scope was advanced to visualize the nasopharynx, oropharynx, hypopharynx and larynx. FINDINGS: Examination of the nasal cavity demonstrates pink mucosa without any polyps or masses. Nasopharynx was clear with patent eustachian tube orifices bilaterally. Oropharynx demonstrated a normal base oftongue and posterior pharynx. Larynx demonstrated normal supraglottis and true vocal folds were mobile and symmetric bilaterally. Hypopharynx was clear. Patient tolerated the procedure well. 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 No evidence of new or recurrent diseaseon examination today - Flexible laryngoscopy today, no evidence of new or recurrent disease on exam CT neck and chest on follow-up Follow-up in 3 months Nima Molina MD CC: MD Rikki Sanchez MD documented in this encounterU[facility]07-26-2022 Nurse Note* OMAR Villegas - 10/12/2021 11:27 AM EDT Tobacco Use: 1 packs/day, for 50 years. Quit 03/13/2017. Types: Cigarettes Was smoking cessation packet given? N/A - Patient is a non-smoker or quit >1 year ago. Was a referral initiated?N/A Patient is a non-smoker documented in this encounter[facility]07-13-2022 Evaluation note* Encounter Date Diagnosis Assessment Notes Treatment Notes Treatment Clinical Notes Sep, Medication monitoring encounter (ICD-10 - Z51.81) Referring Provider: Christine King Diagnosis: Atrial Fibrillation INR Goal: 2-3 INR: 2.4 Tablet Size: 5mg Monday: 5mg Monday: 2.5mg Monday: 5mg Monday: 5mg : 5mg Monday: 2.5mg Monday: 5mg Total Weekly Dose: 30mg Continue above plan. Follow up in 4 weeks. Seen by Wanda Kerr RN [employer] Other 06-16-2022 Miscellaneous Notes* Telephone Encounter - Smita Rodrigo Pss - 09/02/2021 1:28 PM EDT Called [facility] spoke with Alexus. She states they have received this referral and patient was seen by therapist at their office today. Smita Wallace Pss * Telephone Encounter - Constanza Rodas [facility] - 08/27/2021 12:12 PM EDT Records faxed. * Telephone Encounter - Mary Lou Naqvi Sec - 08/27/2021 10:35 AM EDT Please refer to [facility] PT. Neck swelling for XRT. Julianne, Please fax order and records. I have printed some information for you for faxing. Thank you documented in this encounterU[facility]06-15-2022 Evaluation note* Encounter Date Diagnosis Assessment Notes Treatment Notes Treatment Clinical Notes Aug, Medication monitoring encounter (ICD-10 - Z51.81) Referring Provider: Christine King Diagnosis: Atrial Fibrillation INR Goal: 2-3 INR: 2.3 Tablet Size: 5mg Monday: 5mg Monday: 2.5mg Monday: 5mg Monday: 5mg : 5mg Monday: 2.5mg Monday: 5mg Total Weekly Dose: 30mg Continue above plan. Follow up in 4 weeks. Seen by Wanda Kerr RN [employer] Other 06-10-2022 History of Present illness Narrative* Haroon Moffett MD - 08/27/2021 11:37 PM EDT Radiation Oncology - Follow Up Note PATIENT NAME: Washington Garcia PATIENT DIAGNOSIS/PATIENT IDENTIFICATION: Mr. Garcia is a 71-year old gentleman diagnosed with a multifocal stage I, [id number], p16+ SCC of the left oropharynx involving the left base of tongue and tonsil status post left transoral radical tonsillectomy and right tonsillectomy with left selective neck dissection (levels 2-4) on 03/22/[address] Molina. Pathology revealed a 2 mm focus in the left tonsilwith negative margins with additional 1.5 cm tumor in the left tongue base resection with focally positive margins inferiorly. 2 of 25 lymph nodes both from level 2 were positive for metastatic disease with the largest measuring 2 cm and containing microscopic extranodal extension. He completed a course of post-operative chemoradiation therapy on 06/09/2021 (6600 cGy/30 fractions with weekly cisplatin). INTERVAL HISTORY/ROS: Mr. Garcia returns to clinic today for routine follow-up approximately three months after the completion of his radiation treatments and two months since his last visit on 07/08/2021. In the interim, he had initial posttreatment imaging with PET/CT on 07/29/2021 as well as CTneck and chest on 08/17/2021 both showing no evidence of persistent or new disease. States today he denies any pain/discomfort in the head and neck area and is swallowing well except for certain consistencies such as wheat cereal. He does note dry mouth and feels that his taste is returning and denies any sores or ulcers in the mouth. The area of soreness along his posterior soft palate chest is much improved with no further bleeding. After all his skin is intact however he doeshave midline edema of the neck and is no longer using a moisturizer. He does endorse good energy appetite and hydration with stable weight. He was seen by Dr. Molina on 07/13/2021 with dedicated headand neck exam showing no evidence of disease recurrence. He otherwise denies any recent fevers, chills, headaches, difficulty with speech/swallowing, shortness of breath, chest pain/palpitations, abdominal pain, nausea, vomiting, change in bowel/urinary habits, difficulty with gait/balance, recent falls, etc. The remainder of the review of systems was performed and was otherwise noncontributory. ALLERGIES ALLERGIES No Known Allergies MEDICATIONS: Current Outpatient Medications: lisinopril (ZESTRIL, PRINIVIL) 20 mg tablet levothyroxine (SYNTHROID) 125 mcg tablet flecainide (TAMBOCOR) 100 mg tablet ALPRAZolam (XANAX) 1 mg tablet warfarin (COUMADIN) 5 mg tablet hydrALAZINE (APRESOLINE) 50 mg tablet diltiazem CR (TIAZAC, TAZTIA XT) 180 mg 24 hr capsule PHYSICAL EXAM: GENERAL: elderly gentleman sitting in chair in no acute distress. VITALS: BP 140/53 Pulse 88 Temp (Src) 97.5 (Temporal) Resp 18 Wt 211 lb (95.7kg) SpO2 98% KPS: 80 HEENT: NC/AT, anicteric sclera HEART: S1S2 LUNGS: non-labored breathing ABDOMEN: soft MUSCULOSKELETAL: no peripheral edema, moves all extremities. NEURO: no focal deficit; A&O X3. RADIOLOGIC DATA: PET/CT (07/29/2021) IMPRESSION: 1. HEAD and NECK: No evidence of focal uptake to suggest FDG avid neoplastic process.. 2. CHEST: No evidence of focal uptake to suggest FDG avid neoplastic process.. 3. ABDOMEN/PELVIS: No evidence of focal uptake to suggest FDG avid neoplastic process.. 4. EXTREMITIES/SKELETON: No evidence of focal uptake to suggest FDG avid neoplastic process.. CT Neck (08/17/2021) Impression: Expected post treatment changes without mass, nodularity, or lymphadenopathy. CT Chest (08/17/2021) IMPRESSION: 1. No evidence of intrathoracic metastases. 2. No interval change since 07/17/18. ASSESSMENT AND PLAN: Mr. 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 Molina. Pathology revealed a 2 mm focus in the left tonsil with negative margins with additional 1.5 cm tumor in the left tongue base resection with focally positive margins inferiorly. 2 of 25 lymph nodes both from level 2 were positive for metastatic disease with the largest measuring 2 cm and containing microscopic extranodal extension. He completed a course of post- operative chemoradiation therapy on 06/09/2021 (6600 cGy/30 fractions with weekly cisplatin). Mr. Garcia is doing well clinically approximately 3 months out from the completion of his postoperative chemoradiation treatment with resolution of much of the acute toxicities of therapy. His initial posttreatment imaging with PET/CT on 07/29/[address] neck and chest from 08/18/2019 to show no evidence of persistent or new disease. Examination by Dr. Molina 07/13/2021 showed no visible areas concerning for disease. He will continue surveillance with Dr. Molina and I will plan to see him back in approximately 9 months. The patient is aware to contact the clinic in the interim should any questions or concerns arise. Thank you for allowing us to participate in the care of this patient. Signed by: Haroon Moffett MD I spent a total of 20 minutes on the date of the service which included preparing to see the patient, [id number] patient care and counseling and educating the patient/family/caregiver. This document has been created with the use of voice recognition technology. It may contain inaccuracies, misspellings, inaccurate syntax or inappropriate word context that are a result of the inadequacies/shortcomings of said technology/software. documented in this encounterU[facility] Center06-10-2022 History of Present illness Narrative* Rikki Castro MD - 08/27/2021 10:09 AM EDT PATIENT NAME: Washington Garcia CLINIC NO.: [id number] ATTENDING PHYSICIAN: Rikki Castro MD DATE OF SERVICE: August 27, 2021 Some of the elements of this note have been copied from my previous progress note dated 06/25/2021. All the information has been reviewed carefully. Dear Dr. Jone Greene here is an update on a follow up visit on male Washington Garcia at the clinic August 27, 2021 Diagnosis: 1.T1b,N0,M0-distal esophageal adenocarcinoma diagnosed 2013 2. Left tonsillar invasive squamous cell cancer, p16 positive, diagnosed January 2021 Treatment History: 1. Transhiatal approach, thoracic esophagectomy, proximal gastrectomy, abdominal lymphadenectomy, pyloromyotomy and J-tube placement May 15, 2013. 2. Left transoral robotic radical tonsillectomy, right tonsillectomy, left selective neck dissection levels 2 through 4 March 22, 2021 3. Left neck exploration for control of bleeding 03/23/2021 4. Concurrent Adjuvant Chemo and Radiation 04/28/2021-06/09/2021-- Last chemo 06/02/2021, could only tolerate 160 mg/m2 secondary to renal dysfunction HPI: Washington Garcia is a 71 year old year old male here for follow up. Overall he states that he is doing well postoperatively. No difficulty swallowing. He states that he developed a sore throat in May 2020. Initially this was attributed to infections and allergies but it persisted. He was seen by ENT at [facility] and no abnormalities were visualized. He states that hissymptoms persisted and he subsequently had a CT scan and requested evaluation by ENT at [facility]. Laryngoscopy in January [address] Lopez demonstrated an exophytic papillomatous lesion involvingthe left tonsil. Biopsies were consistent with invasive squamous cell carcinoma, p16 positive. Patient subsequently underwent a resection, pathology below. Interval History: Feels fine just concerned about the lymphedema in his neck PAST MEDICAL HISTORY Diagnosis Date Anxiety Rodriguez's esophagus Coronary artery disease COVID 03/18/2021 Disorder of thyroid Esophageal adenocarcinoma (HCC) 04/09/2013 [id number] adenocarcinoma arising in Rodriguez's esophagus HTN (hypertension) Hx of peptic ulcer NEGATIVE MEDICAL HISTORY No TB, pnuemonia, DM, heart dis Social History Tobacco Use Smoking status: Former Smoker Packs/day: 1.00 Years: 50.00 Pack years: 50.00 Types: Cigarettes Quit date: 03/13/2017 Years since quittin.4 Smokeless tobacco: Never Used Vaping Use Vaping Use: Never used Substance Use Topics Alcohol use: Yes Alcohol/week: 12.0 standard drinks Types: 12 Cans of Beer (12oz) per week Drug use: Yes Frequency: 4.0 times per week Types: Marijuana Comment: Medical Marijuana FAMILY HISTORY Problem Relation Age of Onset Cancer Mother colon Cancer Father lung Cancer Sister lung Past medical, social and family history reviewed without any changes. REVIEW OF SYSTEMS GENERAL: No weight loss, malaise or fevers. No night sweats. HEENT: Negative for headaches, No changes in hearing or vision, no nose bleeds or other nasal problems. RESPIRATORY: Negative for cough, wheezing and shortness of breath CARDIOVASCULAR: Negative for chest pain, leg swelling and palpitations GI: Negative for abdominal discomfort, blood in stools or black stools and change in bowel habits : Negative for dysuria, frequency and incontinence MUSCULOSKELETAL: Negative for joint pain or swelling, back pain, and muscle pain. SKIN: Negative for lesions, rash, and itching. HEMATOLOGY/LYMPHOLOGY Negative for prolonged bleeding, bruising easily, and swollen nodes. NEURO: Negative for numbness or tingling of hands/feet. No weakness. PHYSICAL EXAMINATION: BP 140/53 Pulse 88 Temp (Src) 97.5 (Temporal) Resp 18 Ht 5' 8.307 (1.74m) Wt 211 lb (95.7kg) SpO2 98% BMI 31.79 kg/(m^2). Wt 101.6 kg (224 lb) BMI 33.37 kg/m2 Last 3 Encounter Wt Readings: Date: Wt: 04/20/2021 101.6 kg (224 lb) 04/16/2021 98 kg (216 lb) 04/13/2021 96.4 kg (212 lb 9.6 oz) General appearance:ECOG PERFORMANCE STATUS: 0- Fully active, able to carry on all pre-disease performance w/o restriction. Patient in NAD. Skin: Skin color, texture, turgor normal. No rashes or lesions. Eyes: Anicteric sclera. Pupils are equally round and reactive to light. Extraocular movements are intact. Lymph Nodes: No cervical, supraclavicular, axillary or inguinal adenopathy. Oropharynx: Lips, mucosa, and tongue normal. Back: No pain to percussion. Negative SLR test Lungs clear to auscultation, No wheezing or rhonchi Heart: RRR without murmur, gallop, or rubs. Abdomen soft, non-tender. No masses, organomegaly Extremities: No deformities. No edema Neuro: Gait and speech normal. Reflexes normal and symmetric. Muscular strength intact. Sensation grossly intact. Rectal: Deferred : Deferred LABS: Glucose (mg/dL) Date Value 06/25/2021 100 05/12/2021 101 Potassium (mmol/L) Date Value 06/25/2021 3.5 05/12/2021 4.0 Sodium (mmol/L) Date Value 06/25/2021 132 05/12/2021 132 Chloride (mmol/L) Date Value 06/25/2021 97 05/12/2021 97 CO2 (mmol/L) Date Value 06/25/2021 25 05/12/2021 25 Creatinine (mg/dL) Date Value 06/25/2021 1.00 05/12/2021 1.52 BUN (mg/dL) Date Value 06/25/2021 13 05/12/2021 26 Anion Gap (mmol/L) Date Value 06/25/2021 10 05/12/2021 10 Calcium (mg/dL) Date Value 05/12/2021 9.7 Calcium, Total (mg/dL) Date Value 06/25/2021 9.5 Protein, Total (g/dL) Date Value 06/25/2021 6.4 05/12/2021 6.6 Albumin (g/dL) Date Value 06/25/2021 4.2 05/12/2021 4.0 Bilirubin, Total (mg/dL) Date Value 06/25/2021 0.2 05/12/2021 0.3 Alkaline Phosphatase (U/L) Date Value 06/25/2021 82 05/12/2021 83 AST (U/L) Date Value 06/25/2021 14 05/12/2021 12 ALT (U/L) Date Value 06/25/2021 10 05/12/2021 13 WBC Date Value Ref Range Status 06/25/2021 4.12 3.70 - 11.00 k/uL Final RBC Date Value Ref Range Status 06/25/2021 3.40 (L) 4.20 - 6.00 m/uL Final Hemoglobin Date Value Ref Range Status 06/25/2021 10.6 (L) 13.0 - 17.0 g/dL Final Hematocrit Date Value Ref Range Status 06/25/2021 30.8 (L) 39.0 - 51.0 % Final MCV Date Value Ref Range Status 06/25/2021 90.6 80.0 - 100.0 fL Final MCH Date Value Ref Range Status 06/25/2021 31.2 26.0 - 34.0 pg Final MCHC Date Value Ref Range Status 06/25/2021 34.4 30.5 - 36.0 g/dL Final RDW-CV Date Value Ref Range Status 06/25/2021 15.8 (H) 11.5 - 15.0 % Final Platelet Count Date Value Ref Range Status 06/25/2021 194 150 - 400 k/uL Final MPV Date Value Ref Range Status 06/25/2021 8.2 (L) 9.0 - 12.7 fL Final Abs Neut Date Value Ref Range Status 06/25/2021 2.59 1.45 - 7.50 k/uL Final Lymph% Date Value Ref Range Status 06/25/2021 16.7 % Final Abs Lymph Date Value Ref Range Status 06/25/2021 0.69 (L) 1.00 - 4.00 k/uL Final [place]% Date Value Ref Range Status 06/25/2021 16.0 % Final Abs [place] Date Value Ref Range Status 06/25/2021 0.66 <0.87 k/uL Final Eosin% Date Value Ref Range Status 06/25/2021 2.9 % Final Abs Eosin Date Value Ref Range Status 06/25/2021 0.12 <0.46 k/uL Final Baso% Date Value Ref Range Status 06/25/2021 1.0 % Final Abs Baso Date Value Ref Range Status 06/25/2021 0.04 <0.11 k/uL Final PATH: LEFT RADICAL TONSILLECTOMY 03/22/2021: Procedure: Excision Tonsillectomy Neck (lymph node) dissection (specify):Left levels 2, 3, 4, perifacial Tumor Site: Oropharynx, Freeburn tonsil Oropharynx, Base of tongue, including lingual tonsil Tumor Laterality: Left Tumor Focality: Multifocal Tumor Size: Greatest dimension: 1.5 cm Histologic Type: Human papillomavirus (HPV)-mediated (positive) squamous cell carcinoma (oropharynx only) Tumor Extension: Carcinoma involves the left palatine tonsil at the base of tongue and the lateral pharyngeal wall. Margins: Involved by invasive tumor Margin(s) involved by invasive tumor: final inferior tongue base/lateral pharyngeal wall resection margin Lymphovascular Invasion: Present Perineural Invasion: Not identified Regional Lymph Nodes: Number of regional lymph nodes involved: 2 Number of regional lymph nodes examined: 25 Laterality of Lymph Nodes Involved: Ipsilateral (including midline) Size of largest metastatic deposit: 2 cm Extranodal Extension: Present Distance from lymph node capsule: 1 mm ENEmi (<= 2 mm) Pathologic Stage Classification (pTNM, AJCC 8th ed) TNM Descriptors: m (multiple primary tumors) Primary Tumor (pT): pT1: Tumor 2 cm or smaller in greatest dimension Regional Lymph Nodes: pN1: Metastasis in 4 or fewer lymph nodes Distant Metastasis (pM): Not applicable/Not confirmed pathologically in this case Additional Pathologic Findings: None identified Imaging: PET 01/2021: 1. NECK: Hypermetabolic left tonsillar malignancy. Hypermetabolic bilateral cervical lymphadenopathy. 2. CHEST: No FDG avid neoplastic process. No hypermetabolic mass, adenopathy, or fluid collection. 3. ABDOMEN/PELVIS: No FDG avid neoplastic process. No hypermetabolic mass, adenopathy, or fluid collection. 4. EXTREMITIES/SKELETON: No suspicious FDG avid osseous process. CT of the Neck and Chest 07/2021: 1. No evidence of intrathoracic metastases. 2. No interval change since 07/17/18. Expected post treatment changes without mass, nodularity, or lymphadenopathy. Assessment and Plan: Washington Garcia is a 71 year old year old male here for follow up. Washington with a previous history of T1b, N0, M0 distal esophageal adenocarcinoma status post resectionin 2013 with no recurrence. Most recently diagnosed with left tonsillar squamous cell carcinoma, p16 positive, HPV positive. Patient was a former smoker as well as continues to drink on a regular basis. I reviewed the postoperative pathology status post his tonsil resection and selective neck dissection which demonstrated 2 nodes with extranodal extension as well as positive margins of the primary. The tumor appeared multifocal. T1,N1,M0 Patient started on Adjuvant concurrent chemo and XRT with weekly bill moore's slough. Therapy started 04/28/2021nd his third weekly dose was held secondary to an increase in creat and he also had C. Diff which has been successfully treated with Vanco, He resumed chemo 05/26/2021 and completed a total of 160 mg/m2 of bill moore's slough concurrently with radiation due to above mentioned complications. Last saw ENT 07/2021 and continue ENT surveillance Creat- Improved- and will monitor C. Diff- Completed Vacno and diarrhea resolved. Mucositis- Improved Lymphedema neck- PT referral See back in 6 months with repeat imaging and follow up with Rad/Onc and also ENT Thank you for the kind referral. If there are any questions and or concerns please do not hesitate to contact me at [phone]. Rikki Castro MD Hematology/Medical Oncology [facility] spent a total of 25 minutes on the date of the service which included preparing to see the patient, [id number] patient care, completing clinical documentation, obtaining and/or reviewing separately obtained history, performing a medically appropriate examination, counseling and educating the pat ient/family/caregiver, ordering medications, tests, or procedures and communicating with other HCPs(not separately reported). Medical Decision Making: Medical Decision Making Level: 1 - N/A CC: MD Zachery Sanchez MD Emrullah Yilmaz, MD, PhD documented in this encounter[facility]-2022 Miscellaneous Notes* Telephone Encounter - Saundra Cunningham RN - 08/18/2021 1:00 PM EDT Message left with this information on pt's voicemail Saundra Cunningham RN * Telephone Encounter - Saundra Cunningham RN - 08/18/2021 1:00 PM EDT ----- Message from Rikki Castro MD sent at 08/17/2021 8:53 PM EDT ----- Call with negative CT documented in this encounterU[facility]05-31-2022 Miscellaneous Notes* Telephone Encounter - Grace Hull RN - 08/17/2021 3:42 PM EDT Pt notified and verbalizes understanding. Grace Hull RN * Telephone Encounter - Grace Hull RN - 08/17/2021 3:42 PM EDT ----- Message from Rikki Castro MD sent at 08/17/2021 3:01 PM EDT ----- Please call with no evidence of recurrence in the neck documented in this encounterU[facility] Center05-18-2022 Evaluation note* Encounter Date Diagnosis Assessment Notes Treatment Notes Treatment Clinical Notes July, Medication monitoring encounter (ICD-10 - Z51.81) Referring Provider: Christine King Diagnosis: Atrial Fibrillation INR Goal: 2-3 INR: 1.8 Tablet Size: 5mg Monday: 5mg Monday: 2.5mg Monday: 5mg Monday: 5mg : 5mg Monday: 2.5mg Monday: 5mg Total Weekly Dose: 30mg Boost additional 2.5mg today and then continue above plan. Unknown reason for low INR. Follow up in 4 weeks. Seen by Wanda Kerr RN [employer] Other 04-27-2022 Miscellaneous Notes* Telephone Encounter - Michelle Escoto RN - 07/14/2021 2:17 PM EDT Please sign corrected PET order on Washington Garcia [id number] as this is not his initial PET scan. Thank you. documented in this encounterU[facility] Center04-27-2022 Miscellaneous Notes* Telephone Encounter - RT Jayne(R) - 07/14/2021 10:39 AM EDT Patient called. Please schedule him for July 29. 130 arrival and 245 scan time. * Telephone Encounter - Milka Chavez - 07/13/2021 4:41 PM EDT Images from the original note were not included. * Telephone Encounter - Ange Guerrero - 07/13/2021 4:33 PM EDT This form is used for MAIN CAMPUS APPOINTMENTS ONLY. Is this request for a [facility] [place] PET scan appointment? Yes: Splitter Head: Ange Albert Requesting Person (Last Name, First Name): ANGE GUERRERO Area Code + Phone/Pager: [phone] Who do we call to schedule this appointment? Patient Requesting Staff Area Code + Phone/Pager: N/A PET Orders (A delay in scheduling will result if the orders are not present at time of review): Internal ADDITIONAL ACTION MAY BE REQUIRED IF PATIENTS OON INSURANCE OR SELF PAY COVERAGE HAS NOT BEEN CLEARED FOR REQUESTED APPOINTMENT. Scheduling: STEPHANIE: As soon as insurance will allow What account will this PET appointment be linked to? P/F Type of PET: Oncology: Are there additional diagnostic CT scans required to be done at time of PET scan? No Is the request for a PET MR ? No What account will diagnostic testing appointment be linked to? P/F Will this patient be admitted for testing? No Will the patient need anesthesia? 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 01/06/21 - CT Neck Enlarged left level II lymph node concerning for malignancy. 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 01/25/21: Laryngoscopy direct with excision of tumor w/ microscope (left), biopsy of left tonsillar lesion 02/01/[address] Hypermetabolic left tonsillar malignancy. Hypermetabolic bilateral cervical lymphadenopathy. 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 05/14 lymph nodes positive with extranodal extension, pT1N1 p16 positive squamous cell carcinoma. Hospital course complicated by left neck hematoma necessitatingincision and drainage and tracheostomy. Patient readmitted after having some mental status changes. 06/02/21, 06/09/21 - completed concurrent chemotherapy and radiation, respectively. Could only tolerate 160 mg/m2 secondary to renal dysfunction HPI: Washington Garcia is a 71 year old male who is here for oncologic surveillance. He recently finishedadjuvant chemoradiation at the end of May and has been doing well since then. He has no new or concerning symptoms and specifically denies any otalgia, odynophagia, dysphagia, voice changes, oral cavity pain, trismus, dysarthria, hemoptysis, new neck masses. He has lost about 10 lbs since June 09, but he states that this was partly intentional as he had been meaning to drop his weight. Breathing comfortably and remaining active. 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 HTN (hypertension) Hx of peptic ulcer NEGATIVE MEDICAL HISTORY No TB, pnuemonia, DM, heart dis PAST SURGICAL HISTORY Procedure Laterality Date ESOPHAGECTOMY&GASTRI ANAST&VAGOT 05/15/2013 Transhiatal esophagectomy for esophageal cancer ESOPHAGOGASTRODUODENOSCOPY TRANSORAL DIAGNOSTIC EGD- several HERNIA REPAIR HX inguinal hernia x2, ventral hernia PAST SURGICAL HISTORY OF skin growth removal PAST SURGICAL HISTORY OF 04/2013 G-tube insertion and removal Current Outpatient Medications Medication Sig Dispense Refill lisinopril (ZESTRIL, PRINIVIL) 20 mg tablet iv contrast (will be provided with radiology test) CT Chest W -Inject, intravenously, once for 1 dose.No IV access, insert saline lock prior to the beginning of sedation, infusion, injection of imaging exam. Discontinue saline lock post exam. If Pt. has a central line or IVAD, may access for administration according to line specific nursing protocol. Once exam is complete flush line and de-accessaccording to line specific nursing protocol in the CT contrast administration guidelines link. 1 Each 0 HYDROcodone-acetaminophen (HYCET) 7.5-325 mg/15 mL oral liquid Take 10 mL by mouth every 6 hours asneeded for pain. May alternate with NSAID if allowed. Take with stool softener. 400 mL 0 sennosides (SENNA) 8.8 mg/5 mL oral liquid Take 5 mL by mouth daily at bedtime. Hold for loose stool/diarrrhea. 200 mL 1 prochlorperazine (COMPAZINE) 10 mg tablet Take 1 tablet by mouth every 6 hours as needed. 100 tablet 2 ondansetron (ZOFRAN) 8 mg tablet Take 1 tablet by mouth every 8 hours as needed for nausea/vomiting. 90 tablet 2 levothyroxine (SYNTHROID) 125 mcg tablet Take 125 mcg by mouth daily before breakfast. flecainide (TAMBOCOR) 100 mg tablet Take 100 mg by mouth twice daily. ALPRAZolam (XANAX) 1 mg tablet Take 1 mg by mouth at bedtime as needed. warfarin (COUMADIN) 5 mg tablet Take 1 tablet by mouth once daily. jia hydrALAZINE (APRESOLINE) 50 mg tablet Take 50 mg by mouth twice daily. diltiazem CR (TIAZAC, TAZTIA XT) 180 mg 24 hr capsule Take 180 mg by mouth once daily. No current facility-administered medications for this visit. ALLERGIES No Known Allergies PHYSICAL EXAM (detailed): Constitutional: * There were no vitals taken for this visit. * General appearance: Well developed, well nourished male without obvious deformities. Patient has a normal body habitus and is well groomed. * Communication: The patient speaks with a normal voice without hoarseness or breaks in speech. Head and Face: * Overall appearance: No evident asymmetries, obvious scars, lesions or masses. Palpation of face did not reveal any sinus tenderness. * Parotid and submandibular glands: No masses, tenderness or swelling. * Facial strength: House-Brackmann 1/6 bilaterally. Eyes: * Extraocular movements are intact bilaterally and primary gaze alignment is normal. * No evidence of ectropion present. Ears, Nose, Mouth and Throat: * External ears and nose: Normal in appearance, without scars, lesions, or masses. * Ears: Otoscopic examination demonstrates external auditory canals are normal bilaterally. The tympanic membranes are intact and mobile to pneumotoscopy bilaterally. * Nasal exam: Nasal mucosa is pink and the septum is bilaterally deviated, worst on the left, visualized turbinates are normal in appearance. * Mastication: The patient is completely edentulous. The lips and gums are without lesions. * Oral cavity and oropharynx: The oral mucosa, hard and soft palates, tongue, tonsil area, and posterior pharyngeal mucosa are without lesions or notable asymmetries. Moist mucus membranes present. Neck: * Neck: Well-healed left neck incision. Mild submental lymphedema. No palpable masses, lymphadenopathy or crepitus. Trachea is midline. * Thyroid: There are no masses, thyromegaly, thyroid nodules or tenderness on palpation. Neurologic: * Mental status: Patient is alert and oriented to person, place and time Mood and affect are appropriate IMAGING: None MEDICAL DECISION MAKING: Washington Garcia is a 71 y/o male with a history of [id number] p16+ left tonsillar SCC status post left transoral radical tonsillectomy, right tonsillectomy, left selective neck dissection levels 2 through 4 with adjuvant chemoradiation completed in May of 2021. No evidence of new or recurrent diseaseon examination today - Flexible laryngoscopy today, no evidence of new or recurrent disease on exam - PET/CT ordered in addition to other imaging, patient will obtain this back in [place] - Plan for recheck in 3 months for continued oncologic surveillance Robson Joseph MD for the service of Nima Molina MD I participated in the history and physical exam of Washington Garcia. I discussed the management of Washington Garcia with the resident. I reviewed the resident's note and agree with the documented findings and plan of care. Nima Molina MD CC: MD Rikki Sanchez MD documented in this encounterUc [facility] Center04-26-2022 Nurse Note* Cristal Conley, CT - 07/13/2021 3:48 PM EDT Tobacco Use: 1 packs/day, for 50 years. Quit 03/13/2017. Types: Cigarettes Was smoking cessation packet given? N/A - Patient is a non-smoker or quit >1 year ago. Was a referral initiated?N/A Patient is a non-smoker documented in this encounterUc [facility] Center04-21-2022 History of Present illness Narrative* Haroon Moffett MD - 07/08/2021 11:08 PM EDT Radiation Oncology - Follow Up Note PATIENT NAME: Washington Garcia PATIENT DIAGNOSIS/PATIENT IDENTIFICATION: Mr. Garcia is a 70-year old gentleman diagnosed with a multifocal stage I, [id number], p16+ SCC of the left oropharynx involving the left base of tongue and tonsil status post left transoral radical tonsillectomy and right tonsillectomy with left selective neck dissection (levels 2-4) on 03/22/[address] Molina. Pathology revealed a 2 mm focus in the left tonsilwith negative margins with additional 1.5 cm tumor in the left tongue base resection with focally positive margins inferiorly. 2 of 25 lymph nodes both from level 2 were positive for metastatic disease with the largest measuring 2 cm and containing microscopic extranodal extension. He completed a course of post-operative chemoradiation therapy on 06/09/2021 (6600 cGy/30 fractions with weekly cisplatin). Mr. Garcia returns to clinic today for routine follow-up approximately four weeks after the completion of his radiation treatments. In the interim, his symptoms have been improving and he reports near resolution of the pain discomfort in the head and neck area with intact swallowing where he is able to eat all consistencies without choking reports no sores or ulcers in the mouth. He does note continued dry mouth mostly at night and small improvement in taste but still largely off. He continues to use the baking soda rinse occasionally and is no longer using a moisturizer. His skin is intactwithout breakdown but he has noted some edema in the neck with no new lumps or bumps. The whitish plaque in the back of his throat at the end of treatment has improved substantially. He also reports improving energy with stable weight. He is scheduled with Dr. Molina for laryngoscopic surveillance and I will plan to see him back in approximately 4 to 6 weeks with initial posttreatment imaging. The patient is aware to contact the clinic in the interim should any questions or concerns arise. Thank you for allowing us to participate in the care of this patient. Signed by: Haroon Moffett MD This document has been created with the use of voice recognition technology. It may contain inaccuracies, misspellings, inaccurate syntax or inappropriate word context that are a result of the inadequacies/shortcomings of said technology/software. documented in this encounterUc Medical Center04-07-2022 Miscellaneous Notes* Telephone Encounter - Rikki Castro MD - 06/24/2021 6:27 PM EDT Yes. CBC and cmp. Thanks documented in this encounterUc Medical Center04-05-2022 Miscellaneous Notes* Telephone Encounter - Marie Rodas RN - 06/22/2021 9:11 AM EDT RADIATION POST TREATMENT CALL BACK Today's date: June 22, 2021 Patient's final treatment on 06/09/21. Treatment senior site manager and Neck Called patient to follow-up on symptom management and follow-up appointments. Spoke with patient. Focused Toxicity Assessment: Head and Neck Pain: None. 0 on a scale of 0 to 10. Fatigue: increased fatigue over baseline but not altering normal activities Appetite: no changes in appetite Taste: none Nutritional Intake: Regular oral intake: No difficulty Mucositis: mild Reports he does still have white patch In the back of the throat. He has not refilled his mouth wash as he did not feel it made any difference. Mucosal Secretions: WNL Salt/Soda Rinses: 1-3 times/day Xerostomia: none Erythema/Hyperpigmentation: mild Desquamation: none Rash: none Skin Care: None - Stopped over the weekend Skin Sensation: Within Normal Limits Reminded of followup with Dr Castro 06/[address] Moffett 07/08. Marie Rodas RN documented in this encounterUc Medical Center03-30-2022 History of Present illness Narrative* Haroon Moffett MD - 06/16/2021 5:01 PM EDT Opened in error. documented in this encounterUc Medical Center03-25-2022 History of Present illness Narrative* Salvador Hunter MD - 06/11/2021 10:23 AM EDT PATIENT NAME: Washington Garcia [facility] NO.: [id number] ATTENDING PHYSICIAN: Rikki Castro MD DATE OF SERVICE: June 11, 2021 Some of the elements of this note have been copied from the previous progress note dated 06/02/2021.All the information has been reviewed carefully. Dear Dr. Jone Greene here is an update on a follow up visit on Washington Garcia at the clinic June 11, 2021 Diagnosis: 1.T1b,N0,M0-distal esophageal adenocarcinoma diagnosed 2013 2. Left tonsillar invasive squamous cell cancer, p16 positive, diagnosed January 2021 Treatment History: 1. Transhiatal approach, thoracic esophagectomy, proximal gastrectomy, abdominal lymphadenectomy, pyloromyotomy and J-tube placement May 15, 2013. 2. Left transoral robotic radical tonsillectomy, right tonsillectomy, left selective neck dissection levels 2 through 4 March 22, 2021 3. Left neck exploration for control of bleeding 03/23/2021 4. Concurrent Adjuvant Chemo and Radiation 04/28/2021, completed 06/09/2021 (total cisplatin [id number] mg/m2) HPI: Washington Garcia is a 70 year old year old male here for follow up. Overall he states that he is doing well postoperatively. No difficulty swallowing. He states that he developed a sore throat in May 2020. Initially this was attributed to infections and allergies but it persisted. He was seen [facility] and no abnormalities were visualized. He states that hissymptoms persisted and he subsequently had a CT scan and requested evaluation by E[facility] at [facility]. Laryngoscopy in January [address] Lopez demonstrated an exophytic papillomatous lesion involvingthe left tonsil. Biopsies were consistent with invasive squamous cell carcinoma, p16 positive. Patient subsequently underwent a resection, pathology below. Interval History: Patient has completed radiation this week. He comes in today for concern of a thrush. He thinks this might be a recurrence of cancer. No oral pain. He continues to take Magic mouthwash regularly. Otherwise doing well. No new lymph nodes in the neck. 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 HTN (hypertension) Hx of peptic ulcer NEGATIVE MEDICAL HISTORY No TB, pnuemonia, DM, heart dis Social History Tobacco Use Smoking status: Former Smoker Packs/day: 1.00 Years: 50.00 Pack years: 50.00 Types: Cigarettes Quit date: 03/13/2017 Years since quittin.2 Smokeless tobacco: Never Used Vaping Use Vaping Use: Never used Substance Use Topics Alcohol use: Yes Alcohol/week: 12.0 standard drinks Types: 12 Cans of Beer (12oz) per week Drug use: Yes Frequency: 4.0 times per week Types: Marijuana Comment: Medical Marijuana FAMILY HISTORY Problem Relation Age of Onset Cancer Mother colon Cancer Father lung Cancer Sister lung Past medical, social and family history reviewed without any changes. REVIEW OF SYSTEMS GENERAL: No weight loss, malaise or fevers. No night sweats. HEENT: Negative for headaches, No changes in hearing or vision, no nose bleeds or other nasal problems. RESPIRATORY: Negative for cough, wheezing and shortness of breath CARDIOVASCULAR: Negative for chest pain, leg swelling and palpitations GI: Negative for abdominal discomfort, blood in stools or black stools and change in bowel habits : Negative for dysuria, frequency and incontinence MUSCULOSKELETAL: Negative for joint pain or swelling, back pain, and muscle pain. SKIN: Negative for lesions, rash, and itching. HEMATOLOGY/LYMPHOLOGY Negative for prolonged bleeding, bruising easily, and swollen nodes. NEURO: Negative for numbness or tingling of hands/feet. No weakness. PHYSICAL EXAMINATION: BP 145/62 Pulse 70 Temp (Src) 97.2 (Temporal) Resp 16 Ht 5' 8.307 (1.74m) Wt 208 lb 12.8oz (94.7kg) SpO2 95% BMI 31.46 kg/(m^2). Wt 101.6 kg (224 lb) BMI 33.37 kg/m2 Last 3 Encounter Wt Readings: Date: Wt: 04/20/2021 101.6 kg (224 lb) 04/16/2021 98 kg (216 lb) 04/13/2021 96.4 kg (212 lb 9.6 oz) General appearance:ECOG PERFORMANCE STATUS: 0- Fully active, able to carry on all pre-disease performance w/o restriction. Patient in NAD. Skin: Skin color, texture, turgor normal. No rashes or lesions. Eyes: Anicteric sclera. Pupils are equally round and reactive to light. Extraocular movements are intact. Lymph Nodes: No cervical, supraclavicular, axillary or inguinal adenopathy. Oropharynx: Notable for thrush in the left lateral tongue and tonsillar area Back: No pain to percussion. Negative SLR test Lungs clear to auscultation, No wheezing or rhonchi Heart: RRR without murmur, gallop, or rubs. Abdomen soft, non-tender. No masses, organomegaly Extremities: No deformities. No edema Neuro: Gait and speech normal. Reflexes normal and symmetric. Muscular strength intact. Sensation grossly intact. Rectal: Deferred : Deferred LABS: Glucose (mg/dL) Date Value 06/11/2021 104 05/12/2021 101 Potassium (mmol/L) Date Value 06/11/2021 3.9 05/12/2021 4.0 Sodium (mmol/L) Date Value 06/11/2021 132 05/12/2021 132 Chloride (mmol/L) Date Value 06/11/2021 96 05/12/2021 97 CO2 (mmol/L) Date Value 06/11/2021 26 05/12/2021 25 Creatinine (mg/dL) Date Value 06/11/2021 1.15 05/12/2021 1.52 BUN (mg/dL) Date Value 06/11/2021 15 05/12/2021 26 Anion Gap (mmol/L) Date Value 06/11/2021 10 05/12/2021 10 Calcium (mg/dL) Date Value 05/12/2021 9.7 Calcium, Total (mg/dL) Date Value 06/11/2021 9.5 Protein, Total (g/dL) Date Value 06/11/2021 6.2 05/12/2021 6.6 Albumin (g/dL) Date Value 06/11/2021 4.0 05/12/2021 4.0 Bilirubin, Total (mg/dL) Date Value 06/11/2021 0.3 05/12/2021 0.3 Alkaline Phosphatase (U/L) Date Value 06/11/2021 74 05/12/2021 83 AST (U/L) Date Value 06/11/2021 14 05/12/2021 12 ALT (U/L) Date Value 06/11/2021 10 05/12/2021 13 WBC Date Value Ref Range Status 06/11/2021 6.54 3.70 - 11.00 k/uL Final RBC Date Value Ref Range Status 06/11/2021 3.36 (L) 4.20 - 6.00 m/uL Final Hemoglobin Date Value Ref Range Status 06/11/2021 10.5 (L) 13.0 - 17.0 g/dL Final Hematocrit Date Value Ref Range Status 06/11/2021 30.8 (L) 39.0 - 51.0 % Final MCV Date Value Ref Range Status 06/11/2021 91.7 80.0 - 100.0 fL Final MCH Date Value Ref Range Status 06/11/2021 31.3 26.0 - 34.0 pg Final MCHC Date Value Ref Range Status 06/11/2021 34.1 30.5 - 36.0 g/dL Final RDW-CV Date Value Ref Range Status 06/11/2021 16.1 (H) 11.5 - 15.0 % Final Platelet Count Date Value Ref Range Status 06/11/2021 193 150 - 400 k/uL Final MPV Date Value Ref Range Status 06/11/2021 8.6 (L) 9.0 - 12.7 fL Final Abs Neut Date Value Ref Range Status 06/11/2021 5.15 1.45 - 7.50 k/uL Final Lymph% Date Value Ref Range Status 06/11/2021 6.7 % Final Abs Lymph Date Value Ref Range Status 06/11/2021 0.44 (L) 1.00 - 4.00 k/uL Final [place]% Date Value Ref Range Status 06/11/2021 13.0 % Final Abs [place] Date Value Ref Range Status 06/11/2021 0.85 <0.87 k/uL Final Eosin% Date Value Ref Range Status 06/11/2021 0.6 % Final Abs Eosin Date Value Ref Range Status 06/11/2021 0.04 <0.46 k/uL Final Baso% Date Value Ref Range Status 06/11/2021 0.3 % Final Abs Baso Date Value Ref Range Status 06/11/2021 <0.03 <0.11 k/uL Final PATH: LEFT RADICAL TONSILLECTOMY 03/22/2021: Procedure: Excision Tonsillectomy Neck (lymph node) dissection (specify):Left levels 2, 3, 4, perifacial Tumor Site: Oropharynx, [place] tonsil Oropharynx, Base of tongue, including lingual tonsil Tumor Laterality: Left Tumor Focality: Multifocal Tumor Size: Greatest dimension: 1.5 cm Histologic Type: Human papillomavirus (HPV)-mediated (positive) squamous cell carcinoma (oropharynx only) Tumor Extension: Carcinoma involves the left palatine tonsil at the base of tongue and the lateral pharyngeal wall. Margins: Involved by invasive tumor Margin(s) involved by invasive tumor: final inferior tongue base/lateral pharyngeal wall resection margin Lymphovascular Invasion: Present Perineural Invasion: Not identified Regional Lymph Nodes: Number of regional lymph nodes involved: 2 Number of regional lymph nodes examined: 25 Laterality of Lymph Nodes Involved: Ipsilateral (including midline) Size of largest metastatic deposit: 2 cm Extranodal Extension: Present Distance from lymph node capsule: 1 mm ENEmi (<= 2 mm) Pathologic Stage Classification (pTNM, AJCC 8th ed) TNM Descriptors: m (multiple primary tumors) Primary Tumor (pT): pT1: Tumor 2 cm or smaller in greatest dimension Regional Lymph Nodes: pN1: Metastasis in 4 or fewer lymph nodes Distant Metastasis (pM): Not applicable/Not confirmed pathologically in this case Additional Pathologic Findings: None identified Imaging: PET 01/2021: 1. NECK: Hypermetabolic left tonsillar malignancy. Hypermetabolic bilateral cervical lymphadenopathy. 2. CHEST: No FDG avid neoplastic process. No hypermetabolic mass, adenopathy, or fluid collection. 3. ABDOMEN/PELVIS: No FDG avid neoplastic process. No hypermetabolic mass, adenopathy, or fluid collection. 4. EXTREMITIES/SKELETON: No suspicious FDG avid osseous process. Assessment and Plan: Washington Garcia is a 70 year old year old male here for follow up. [place] with a previous history of T1b, N0, M0 distal esophageal adenocarcinoma status post resectionin 2013 with no recurrence. Most recently diagnosed with left tonsillar squamous cell carcinoma, p16 positive, HPV positive. Patient was a former smoker as well as continues to drink on a regular basis. I reviewed the postoperative pathology status post his tonsil resection and selective neck dissection which demonstrated 2 nodes with extranodal extension as well as positive margins of the primary. The tumor appeared multifocal. T1,N1,M0 Patient started on Adjuvant concurrent chemo and XRT with weekly [facility]. Therapy started 04/28/2021nd his third weekly dose was held secondary to an increase in creat and he also had C. Diff which has been successfully treated with Vanco. He completed a total of 160 mg square meter of cisplatin and finished treatments 06/09/21. Creat- Improved and stable- He was taken off Lisinopril and HCTZ and BP up and I suggested restarting Lisinopril and he will check in 2 weeks C. Diff- Completed Vanco and diarrhea resolved. Mucositis- Continue Magic mouth wash with Nystatin. Exam today is notable for thrush in the left oropharynx. No visible mass in the cervical neck or oropharynx. I recommended a single dose of fluconazole today. Patient is planning to follow-up with Dr. Molina next week. I discussed with the patient that thrush is a very common complication from treatments and we will continue to monitor very closely. Follow-up in 2 weeks. Continue Nutrition follow up Salvador Hunter MD I spent a total of 20 minutes on the date of the service which included preparing to see the patient, [id number] patient care, completing clinical documentation, obtaining and/or reviewing separately obtained history, performing a medically appropriate examination, counseling and educating the pat ient/family/caregiver, ordering medications, tests, or procedures and communicating with other HCPs(not separately reported). CC: MD Zachery Sanchez MD Emrullah Yilmaz, MD, PhD documented in this encounter[facility]03-[facility]22 Nurse Note* Cuca George MA - 06/11/2021 9:46 AM EDT Patient just wants your opinion he is worried, states it is not going away. Cuca George MA * Cuca George MA - 06/11/2021 9:42 AM EDT Patient states that he noticed spots on his throat he was given medicine but the spots are still there. He saw Dr. Escobar and he said it was an infection. Dr. Castro said it was a fungus. He is on [facility] wash. Cuca George MA documented in this encounterUc [facility] Center03-25-2022 Miscellaneous Notes* Telephone Encounter - Saundra Cunningham RN - 06/11/2021 9:25 AM EDT Pt here in the office getting his labs drawn and requests to speak to the nurse. Pt states he has white sores in his mouth that look just like the ones when he was diagnosed, and he is concerned thathis cancer is growing. Pt requesting to be seen today for piece of mind. Discussed with Dr Hunter and he is agreeable to seeing pt. Pt added to Dr Hunter's schedule today since Juan and Yamile are off, sharla Calderon's schedule is full. Saundra Cunningham RN documented in this encounterUc [facility] Center03-24-2022 Evaluation note* Encounter Date Diagnosis Assessment Notes Treatment Notes Treatment Clinical Notes May, Medication monitoring encounter (ICD-10 - Z51.81) Referring Provider: Christine King Diagnosis: Atrial Fibrillation INR Goal: 2-3 INR: 2.7 Tablet Size: 5mg Monday: 5mg Monday: 2.5mg Monday: 5mg Monday: 5mg : 5mg Monday: 2.5mg Monday: 5mg Total Weekly Dose: 30mg Continue above plan. Follow up in 4 weeks. Patient states he finished chemotherapy and radiation. Seen by Jess Cherry [facility] Other 03-24-2022 Miscellaneous Notes* Telephone Encounter - [facility] - 06/10/2021 8:54 AM EDT Called patient. Sounds like was examined and placed on nystatin. Will see him at end of June. Nima Molina MD Person Calling: Pt (Washington) Reason for Call: Pt contacted the office because he has completed his radiation as of 06/08/2021 andwould like a call back to discuss next step. Pt also mentioned that there is a white area that isconcerning that could possibly be an infection. Pt was offered to see PROFESSOR OF VOICE María Thompson but declined...wants to wait and see/speak the physician and will await a call back. Pt Phone #: [phone] Pharmacy Name and # : [facility] - [phone] Pt last seen: 04/13/2021 [facility] documented in this encounterUc Medical Center03-23-2022 History of Present illness Narrative* Haroon Moffett MD - 06/09/2021 10:49 PM EDT Radiation Oncology - On Treatment Review (OTR) Note PATIENT NAME: [place] Garcia PATIENT DIAGNOSIS: Mr. 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 Molina. Pathology revealed a 2 mm focus in the left tonsil with negative margins with additional 1.5 cm tumor in the left tongue base resection with focally positive margins inferiorly. 2 of 25 lymph nodes both from level 2 were positive for metastatic disease with the largest measuring 2 cm and containing microscopic extranodal extension. COURSE: post-operative and concurrent chemotherapy Area Treated: Post-op bed/bilateral neck Current dose: 6600 Gy in 30 fx Planned dose: 6600 Gy in 30 fx SUBJECTIVE: Tolerating XRT fairly well and notes some pain in the area of the left neck as well as with swallowing. He manages with Hycet. Continues with a white patch in the back of his soft palate mild bleeding. Continues use the baking soda rinse 5-6 times a day and reports eating a fairly regular diet despite altered swallowing. PHYSICAL EXAM: KPS: 80 General Appearance: Alert and oriented. No acute distress. Radiation dermatitis: Mild Mucositis: Mild Oral cavity and oropharynx: lips and gums normal, oral and pharyngeal mucosa moist; whitish patch noted in the area of the left soft palate. Neck: Normal ROM. Postoperative changes noted with mild erythema and no breakdown. IMAGING/LAB RESULTS: None TOXICITY ASSESSMENT (CTCv4): Dysphagia:grade 1 - Symptomatic, able to eat regular diet Mucositis: grade 1 - Asymptomatic or mild symtoms; intervention not indicated Radiation dermatitis: grade 1 - Faint erythema or dry desquamation Trismus: grade 1 - Decreased ROM (range of motion) without impaired eating. Voice Changes:grade 0 - No symptoms Xerostomia: grade 1 - Symptomatic (dry or thick saliva) without significant dietary alteration; unstimulated saliva flow >2ml/min Fatigue: grade 1 - Fatigue relieved by rest Pain: grade 1 - Mild pain Treatment chart checked: Yes Patient treatment site reviewed and verified:Yes Port films reviewed and current:Yes Medications started: None ASSESSMENT:Clinically stable. Toxicity within expected parameters. The patient has completed radiotherapy and will be seen in follow-up in 2 weeks. Acute and delayed side effects reviewed. Haroon Moffett MD documented in this encounterUc [facility] Center03-23-2022 History of Present illness Narrative* Haroon Moffett MD - 06/09/2021 12:00 AM EDT [facility] Radiation Oncology Department RADIATION ONCOLOGY - COMPLETION NOTE PATIENT: WASHINGTON GARCIA: 1950 DATES OF TREATMENT: 04/28/2021- 06/09/2021 DIAGNOSIS: Mr. 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 Molina. Pathology revealed a 2 mm focus in the left tonsil with negative margins with additional 1.5 cm tumor in the left tongue base resection with focally positive margins inferiorly. 2 of 25 lymph nodes both from level 2 were positive for metastatic disease with the largest measuring 2 cm and containing microscopic extranodal extension. AREA TREATED: Post Op Bed and Bilateral Neck DELIVERED DOSE: Area: Post op Bed and Bilateral Neck 6600/6000/5400 cGy in 30 fractions (SIB), 3 Arcs, IMRT (VMAT), 6MV with daily CBCT guidance TOTAL: 6600/6000/5400 cGy in 30 fractions (SIB) with concurrent weekly cisplatin ELAPSED TIME: 42 days. CLINICAL SUMMARY: The patient tolerated course of radiation therapy to the head and neck fairly well with treatment related fatigue, dermatitis, throat pain/dysphagia as expected. No other significant issues. He also developed a whitish patch in the posterior left soft palate and treated with antifungal therapy - will continue to follow and consider evaluation by Dr. Molina if persistent. The patient was able to complete treatment as intended without break interruption or modification of prescription plan. The patient will be evaluated in 2 weeks for postradiation follow-up and follow with Dr. Molina and Dr. Hunter as scheduled for continued evaluation/surveillance. Staff Physician Haroon Moffett M.D. / [place] 24:05 AM Electronically Signed cc: Rikki Castro MD ([facility]) Nima Molina MD ([facility]) Zachery Thurman MD [address] [address] [address] documented in this encounterUc Medical Center03-09-2022 History of Present illness Narrative* Haroon Moffett MD - 05/26/2021 8:56 PM EST Radiation Oncology - On Treatment Review (OTR) Note PATIENT NAME: [place] Garcia PATIENT DIAGNOSIS: Mr. 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 Molina. Pathology revealed a 2 mm focus in the left tonsil with negative margins with additional 1.5 cm tumor in the left tongue base resection with focally positive margins inferiorly. 2 of 25 lymph nodes both from level 2 were positive for metastatic disease with the largest measuring 2 cm and containing microscopic extranodal extension. COURSE: post-operative and concurrent chemotherapy Area Treated: Post-op bed/bilateral neck Current dose: 4620 Gy in 21 fx Planned dose: 6600 Gy in 30 fx SUBJECTIVE: Tolerating XRT well reports mild pain/discomfort which he rates today at 1 2/10. Indicates swallowing well and eating a regular diet and has noted dry mouth and altered taste. He has alsobeen recently noting blood in his saliva in the mornings and denies any excessive coughing. He doesnote skin irritation without breakdown and is using a moisturizer. Last 5 Encounter Wt Readings: Date: Wt: 05/26/2021 98.4 kg (216 lb 14.9 oz) 05/26/2021 98.4 kg (217 lb) 05/19/2021 96.6 kg (213 lb) 05/19/2021 96.6 kg (213 lb) 05/12/2021 95.7 kg (211 lb) PHYSICAL EXAM: KPS: 90 General Appearance: Alert and oriented. No acute distress. Radiation dermatitis: Mild Mucositis: Mild Oral cavity and oropharynx: lips and gums normal, oral and pharyngeal mucosa dry. Neck: Normal ROM. No palpable cervical or supraclavicular adenopathy. IMAGING/LAB RESULTS: None TOXICITY ASSESSMENT (CTCv4): Dysphagia:grade 1 - Symptomatic, able to eat regular diet Mucositis: grade 1 - Asymptomatic or mild symtoms; intervention not indicated Radiation dermatitis: grade 1 - Faint erythema or dry desquamation Trismus: grade 1 - Decreased ROM (range of motion) without impaired eating. Voice Changes:grade 0 - No symptoms Xerostomia: grade 1 - Symptomatic (dry or thick saliva) without significant dietary alteration; unstimulated saliva flow >2ml/min Fatigue: grade 1 - Fatigue relieved by rest Pain: grade 1 - Mild pain Treatment chart checked: Yes Patient treatment site reviewed and verified:Yes Port films reviewed and current:Yes Medications started: None ASSESSMENT:Clinically stable. Toxicity within expected parameters. Continue radiation treatment as planned. No source of bleeding noted today. We will continue to monitor. Haroon Moffett MD documented in this encounterUc Medical Center03-03-2022 Evaluation note* Encounter Date Diagnosis Assessment Notes Treatment Notes Treatment Clinical Notes May, Medication monitoring encounter (ICD-10 - Z51.81) Referring Provider: Christine King Diagnosis: Atrial Fibrillation INR Goal: 2-3 INR: 2.3 Tablet Size: 5mg Monday: 5mg Monday: 2.5mg Monday: 5mg Monday: 5mg : 5mg Monday: 2.5mg Monday: 5mg Total Weekly Dose: 30mg Continue above plan. Follow up in 3 weeks. Patient's oncologist is Dr. Castro, and is receiving chemotherapy Cisplatin. His last radiation treatment is on 06/08/21. Chemo is on hold for now, but last treatment may be 06/09. INR scheduled for next day. Seen by Ernestina Muñoz [facility] Other 02-22-2022 Evaluation note* Encounter Date Diagnosis Assessment Notes Treatment Notes Treatment Clinical Notes Apr, Medication monitoring encounter (ICD-10 - Z51.81) Referring Provider: Christine King Diagnosis: Atrial Fibrillation INR Goal: 2-3 INR: 2.3 Tablet Size: 5mg Monday: 5mg Monday: 2.5mg Monday: 5mg Monday: 5mg : 5mg Monday: 2.5mg Monday: 5mg Total Weekly Dose: 30mg Continue above plan. Patient c/o diarrhea and states he will get treated with medication and is instructed to notify [facility] of name. Follow up in 10 days, avoid Monday appointments. Patient's oncologist is Dr. Castro, and is receiving chemotherapy Cisplatin. Seen by Wanda Kerr RN [employer] Other 02-22-2022 Miscellaneous Notes* Telephone Encounter - Rikki Castro MD - 05/11/2021 12:56 PM EST Thanks for doing all that * Telephone Encounter - Yamile Mccoy PA-C - 05/11/2021 12:30 PM EST Yes, we can. I advised patient that we woul send Flagyl to [facility] today so he can get started on ittoday, but patient refused. Advised it is best to start soon. He did not want to go out again today, and wishes to get Vanco here tomorrow. Advised patient that if symptoms worsen, he should go to the ER. He understood. Pharmacy notified and will proceed with ordering Vanco for patient to pickling tank operator tomorrow. Yamile Mccoy PA-C * Telephone Encounter - Rikki Castro MD - 05/11/2021 12:27 PM EST Can we just put him on Flagyl? * Telephone Encounter - Yamile Mccoy PA-C - 05/11/2021 12:13 PM EST While we wait for medications, If patient has persisting rigors/chills and/or fevers and/or abdominal pain, he will need to go to ER. Thanks. Yamile Mccoy PA-C * Telephone Encounter - Saundra Cunningham RN - 05/11/2021 10:55 AM EST Pt was here to pickling tank operator vanco and our pharmacy doesn't have it in stock. Pt's insurance requires a prior auth and Gala will work on this and call the pt back. Pt's at cost out of pocket will be $92. Pt is able to get this but Gala will do prior auth through insurance first to see if this is approved. Saundra Cunningham RN * Telephone Encounter - Saundra Cunningham RN - 05/11/2021 10:12 AM EST Pt notified and will be picking script up this morning. Pt states he's been having 2-3 diarrhea stools a day. Pt was also experiencing chills this morning. Pt denied any other symptoms of infection. Pt had a small bit of nausea and took his antiemetics for this with good relief. Saundra Cunningham RN * Telephone Encounter - Yamile Mccoy PA-C - 05/11/2021 8:12 AM EST Please call and inform patient that he does have C Diff infection in his stool. Ask how his diarrhea is and if there is any blood. Please review infectious precautions with him and hand washing, etc.He will need to start Vancomycin 125 mg QID for 10 days. I will send it to our pharmacy. Yamile Mccoy PA-C documented in this encounterUc Medical Center01-18-2022 Evaluation note* Encounter Date Diagnosis Assessment Notes Treatment Notes Treatment Clinical Notes Mar, Medication monitoring encounter (ICD-10 - Z51.81) Referring Provider: Christine King Diagnosis: Atrial Fibrillation INR Goal: 2-3 INR: 2.0 Tablet Size: 5mg Monday: 5mg Monday: 2.5mg Monday: 5mg Monday: 5mg : 5mg Monday: 2.5mg Monday: 5mg Total Weekly Dose: 30mg Continue current plan. Follow up in 4 weeks. Patient had tonsils out due to cancer on 03/22 and held warfarin for 5 days prior to procedured. Patient resumed warfarin while IP. Patient was discharged 03/27/21. Seen by Wanda Kerr RN [facility] Other 01-10-2022 History of Past illness Narrative* Problem Noted Date Resolved Date Delirium 03/29/2021 04/02/2021 Intravascular volume depletion 05/15/2013 0 05/16/2013 Overview: IV fluid resuscitation Multiple thyroid nodules 04/23/2013 015 Transhiatal approach, thorac ic esophagectomy, proximal gastrectomy, abdominal lymphadenectomy, pyloromyotomy, J-tube placement 04/18/2013 03/25/2021 Overview: [place] Garcia is a 62 year old male who presented with abdominal discomfort and hematemesis, underwent evaluation including EGD which showed Rodriguez's adenocarcinoma, staged [id number]. Metastatic survey was negative and on 05/15/2013, underwent transhiatal esophagectomy and feeding jejunostomy by Dr. Parks. Patient did not tolerate tube feeds today so J tube back to gravity and reglan initiated to promote motility. Plan: - NPO - TF to goal of 70ml/hr, Add water flushes - Enteral pain management - Out of bed, frequent ambulation. - Cough/deep breathe, acapella . Last Assessment & Plan: Assessment history of Rodriguez's adenocarcinoma, staged [id number]. Metastatic survey was negative and on 05/15/2013, underwent transhiatal esophagectomy and feeding jejunostomy by Dr. Parks. Patient did not tolerate tube feeds so J tube back to gravity and reglan initiated to promote motility PLAN: now stable post op TORS will see Speech to advance diet documented as of this encounter (statuses as of 06/09/2021) [facility] of Past illness Narrative* Problem Noted Date Resolved Date Delirium 03/29/2021 04/02/2021 Intravascular volume depletion 05/15/2013 0 05/16/2013 Overview: IV fluid resuscitation Multiple thyroid nodules 04/23/2013 015 Transhiatal approach, thorac ic esophagectomy, proximal gastrectomy, abdominal lymphadenectomy, pyloromyotomy, J-tube placement 04/18/2013 03/25/2021 Overview: [place] Garcia is a 62 year old male who presented with abdominal discomfort and hematemesis, underwent evaluation including EGD which showed Rodriguez's adenocarcinoma, staged [id number]. Metastatic survey was negative and on 05/15/2013, underwent transhiatal esophagectomy and feeding jejunostomy by Dr. Parks. Patient did not tolerate tube feeds today so J tube back to gravity and reglan initiated to promote motility. Plan: - NPO - TF to goal of 70ml/hr, Add water flushes - Enteral pain management - Out of bed, frequent ambulation. - Cough/deep breathe, acapella . Last Assessment & Plan: Assessment history of Rodriguez's adenocarcinoma, staged [id number]. Metastatic survey was negative and on 05/15/2013, underwent transhiatal esophagectomy and feeding jejunostomy by Dr. Parks. Patient did not tolerate tube feeds so J tube back to gravity and reglan initiated to promote motility PLAN: now stable post op TORS will see Speech to advance diet documented as of this encounter (statuses as of 06/11/2021) [facility] of Past illness Narrative* Problem Noted Date Resolved Date Delirium 03/29/2021 04/02/2021 Intravascular volume depletion 05/15/2013 0 05/16/2013 Overview: IV fluid resuscitation Multiple thyroid nodules 04/23/2013 015 Transhiatal approach, thorac ic esophagectomy, proximal gastrectomy, abdominal lymphadenectomy, pyloromyotomy, J-tube placement 04/18/2013 03/25/2021 Overview: [place] Garcia is a 62 year old male who presented with abdominal discomfort and hematemesis, underwent evaluation including EGD which showed Rodriguez's adenocarcinoma, staged [id number]. Metastatic survey was negative and on 05/15/2013, underwent transhiatal esophagectomy and feeding jejunostomy by Dr. Parks. Patient did not tolerate tube feeds today so J tube back to gravity and reglan initiated to promote motility. Plan: - NPO - TF to goal of 70ml/hr, Add water flushes - Enteral pain management - Out of bed, frequent ambulation. - Cough/deep breathe, acapella . Last Assessment & Plan: Assessment history of Rodriguez's adenocarcinoma, staged [id number]. Metastatic survey was negative and on 05/15/2013, underwent transhiatal esophagectomy and feeding jejunostomy by Dr. Parks. Patient did not tolerate tube feeds so J tube back to gravity and reglan initiated to promote motility PLAN: now stable post op TORS will see Speech to advance diet documented as of this encounter (statuses as of 06/11/2021) [facility]01-10-2022 History of Past illness Narrative* Problem Noted Date Resolved Date Delirium 03/29/2021 04/02/2021 Intravascular volume depletion 05/15/2013 0 05/16/2013 Overview: IV fluid resuscitation Multiple thyroid nodules 04/23/2013 015 Transhiatal approach, thorac ic esophagectomy, proximal gastrectomy, abdominal lymphadenectomy, pyloromyotomy, J-tube placement 04/18/2013 03/25/2021 Overview: Washington Garcia is a 62 year old male who presented with abdominal discomfort and hematemesis, underwent evaluation including EGD which showed Rodriguez's adenocarcinoma, staged [id number]. Metastatic survey was negative and on 05/15/2013, underwent transhiatal esophagectomy and feeding jejunostomy by Dr. Parks. Patient did not tolerate tube feeds today so J tube back to gravity and reglan initiated to promote motility. Plan: - NPO - TF to goal of 70ml/hr, Add water flushes - Enteral pain management - Out of bed, frequent ambulation. - Cough/deep breathe, acapella . Last Assessment & Plan: Assessment history of Rodriguez's adenocarcinoma, staged [id number]. Metastatic survey was negative and on 05/15/2013, underwent transhiatal esophagectomy and feeding jejunostomy by Dr. Parks. Patient did not tolerate tube feeds so J tube back to gravity and reglan initiated to promote motility PLAN: now stable post op TORS will see Speech to advance diet documented as of this encounter (statuses as of 06/13/2021) [facility]01-10-2022 History of Past illness Narrative* Problem Noted Date Resolved Date Delirium 03/29/2021 04/02/2021 Intravascular volume depletion 05/15/2013 0 05/16/2013 Overview: IV fluid resuscitation Multiple thyroid nodules 04/23/2013 015 Transhiatal approach, thorac ic esophagectomy, proximal gastrectomy, abdominal lymphadenectomy, pyloromyotomy, J-tube placement 04/18/2013 03/25/2021 Overview: Washington Garcia is a 62 year old male who presented with abdominal discomfort and hematemesis, underwent evaluation including EGD which showed Rodriguez's adenocarcinoma, staged [id number]. Metastatic survey was negative and on 05/15/2013, underwent transhiatal esophagectomy and feeding jejunostomy by Dr. Parks. Patient did not tolerate tube feeds today so J tube back to gravity and reglan initiated to promote motility. Plan: - NPO - TF to goal of 70ml/hr, Add water flushes - Enteral pain management - Out of bed, frequent ambulation. - Cough/deep breathe, acapella . Last Assessment & Plan: Assessment history of Rodriguez's adenocarcinoma, staged [id number]. Metastatic survey was negative and on 05/15/2013, underwent transhiatal esophagectomy and feeding jejunostomy by Dr. Parks. Patient did not tolerate tube feeds so J tube back to gravity and reglan initiated to promote motility PLAN: now stable post op TORS will see Speech to advance diet documented as of this encounter (statuses as of 06/16/2021) [facility]01-10-2022 History of Past illness Narrative* Problem Noted Date Resolved Date Delirium 03/29/2021 04/02/2021 Intravascular volume depletion 05/15/2013 0 05/16/2013 Overview: IV fluid resuscitation Multiple thyroid nodules 04/23/2013 015 Transhiatal approach, thorac ic esophagectomy, proximal gastrectomy, abdominal lymphadenectomy, pyloromyotomy, J-tube placement 04/18/2013 03/25/2021 Overview: Washington Garcia is a 62 year old male who presented with abdominal discomfort and hematemesis, underwent evaluation including EGD which showed Rodriguez's adenocarcinoma, staged [id number]. Metastatic survey was negative and on 05/15/2013, underwent transhiatal esophagectomy and feeding jejunostomy by Dr. Parks. Patient did not tolerate tube feeds today so J tube back to gravity and reglan initiated to promote motility. Plan: - NPO - TF to goal of 70ml/hr, Add water flushes - Enteral pain management - Out of bed, frequent ambulation. - Cough/deep breathe, acapella . Last Assessment & Plan: Assessment history of Rodriguez's adenocarcinoma, staged [id number]. Metastatic survey was negative and on 05/15/2013, underwent transhiatal esophagectomy and feeding jejunostomy by Dr. Parks. Patient did not tolerate tube feeds so J tube back to gravity and reglan initiated to promote motility PLAN: now stable post op TORS will see Speech to advance diet documented as of this encounter (statuses as of 06/22/2021) [facility]01-10-[facility] History of Past illness Narrative* Problem Noted Date Resolved Date Delirium 03/29/2021 04/02/2021 Intravascular volume depletion 05/15/2013 0 05/16/2013 Overview: IV fluid resuscitation Multiple thyroid nodules 04/23/2013 015 Transhiatal approach, thorac ic esophagectomy, proximal gastrectomy, abdominal lymphadenectomy, pyloromyotomy, J-tube placement 04/18/2013 03/25/2021 Overview: Washington Garcia is a 62 year old male who presented with abdominal discomfort and hematemesis, underwent evaluation including EGD which showed Rodriguez's adenocarcinoma, staged [id number]. Metastatic survey was negative and on 05/15/2013, underwent transhiatal esophagectomy and feeding jejunostomy by Dr. Parks. Patient did not tolerate tube feeds today so J tube back to gravity and reglan initiated to promote motility. Plan: - NPO - TF to goal of 70ml/hr, Add water flushes - Enteral pain management - Out of bed, frequent ambulation. - Cough/deep breathe, acapella . Last Assessment & Plan: Assessment history of Rodriguez's adenocarcinoma, staged [id number]. Metastatic survey was negative and on 05/15/2013, underwent transhiatal esophagectomy and feeding jejunostomy by Dr. Parks. Patient did not tolerate tube feeds so J tube back to gravity and reglan initiated to promote motility PLAN: now stable post op TORS will see Speech to advance diet documented as of this encounter (statuses as of 06/23/2021) [facility] History of Past illness Narrative* Problem Noted Date Resolved Date Delirium 03/29/2021 04/02/2021 Intravascular volume depletion 05/15/2013 0 05/16/2013 Overview: IV fluid resuscitation Multiple thyroid nodules 04/23/2013 015 Transhiatal approach, thorac ic esophagectomy, proximal gastrectomy, abdominal lymphadenectomy, pyloromyotomy, J-tube placement 04/18/2013 03/25/2021 Overview: Washington Garcia is a 62 year old male who presented with abdominal discomfort and hematemesis, underwent evaluation including EGD which showed Rodriguez's adenocarcinoma, staged [id number]. Metastatic survey was negative and on 05/15/2013, underwent transhiatal esophagectomy and feeding jejunostomy by Dr. Parks. Patient did not tolerate tube feeds today so J tube back to gravity and reglan initiated to promote motility. Plan: - NPO - TF to goal of 70ml/hr, Add water flushes - Enteral pain management - Out of bed, frequent ambulation. - Cough/deep breathe, acapella . Last Assessment & Plan: Assessment history of Rodriguez's adenocarcinoma, staged [id number]. Metastatic survey was negative and on 05/15/2013, underwent transhiatal esophagectomy and feeding jejunostomy by Dr. Parks. Patient did not tolerate tube feeds so J tube back to gravity and reglan initiated to promote motility PLAN: now stable post op TORS will see Speech to advance diet documented as of this encounter (statuses as of 06/25/2021) [facility]01-10-20[facility] History of Past illness Narrative* Problem Noted Date Resolved Date Delirium 03/29/2021 04/02/2021 Intravascular volume depletion 05/15/2013 0 05/16/2013 Overview: IV fluid resuscitation Multiple thyroid nodules 04/23/2013 015 Transhiatal approach, thorac ic esophagectomy, proximal gastrectomy, abdominal lymphadenectomy, pyloromyotomy, J-tube placement 04/18/2013 03/25/2021 Overview: Washington Garcia is a 62 year old male who presented with abdominal discomfort and hematemesis, underwent evaluation including EGD which showed Rodriguez's adenocarcinoma, staged [id number]. Metastatic survey was negative and on 05/15/2013, underwent transhiatal esophagectomy and feeding jejunostomy by Dr. Parks. Patient did not tolerate tube feeds today so J tube back to gravity and reglan initiated to promote motility. Plan: - NPO - TF to goal of 70ml/hr, Add water flushes - Enteral pain management - Out of bed, frequent ambulation. - Cough/deep breathe, acapella . Last Assessment & Plan: Assessment history of Rodriguez's adenocarcinoma, staged [id number]. Metastatic survey was negative and on 05/15/2013, underwent transhiatal esophagectomy and feeding jejunostomy by Dr. Parks. Patient did not tolerate tube feeds so J tube back to gravity and reglan initiated to promote motility PLAN: now stable post op TORS will see Speech to advance diet documented as of this encounter (statuses as of 07/05/2021) [facility] History of Past illness Narrative* Problem Noted Date Resolved Date Delirium 03/29/2021 04/02/2021 Intravascular volume depletion 05/15/2013 0 05/16/2013 Overview: IV fluid resuscitation Multiple thyroid nodules 04/23/2013 015 Transhiatal approach, thorac ic esophagectomy, proximal gastrectomy, abdominal lymphadenectomy, pyloromyotomy, J-tube placement 04/18/2013 03/25/2021 Overview: Washington Garcia is a 62 year old male who presented with abdominal discomfort and hematemesis, underwent evaluation including EGD which showed Rodriguez's adenocarcinoma, staged [id number]. Metastatic survey was negative and on 05/15/2013, underwent transhiatal esophagectomy and feeding jejunostomy by Dr. Parks. Patient did not tolerate tube feeds today so J tube back to gravity and reglan initiated to promote motility. Plan: - NPO - TF to goal of 70ml/hr, Add water flushes - Enteral pain management - Out of bed, frequent ambulation. - Cough/deep breathe, acapella . Last Assessment & Plan: Assessment history of Rodriguez's adenocarcinoma, staged [id number]. Metastatic survey was negative and on 05/15/2013, underwent transhiatal esophagectomy and feeding jejunostomy by Dr. Parks. Patient did not tolerate tube feeds so J tube back to gravity and reglan initiated to promote motility PLAN: now stable post op TORS will see Speech to advance diet documented as of this encounter (statuses as of 07/14/2021) [facility]01[facility] History of Past illness Narrative* Problem Noted Date Resolved Date Delirium 03/29/2021 04/02/2021 Intravascular volume depletion 05/15/2013 0 05/16/2013 Overview: IV fluid resuscitation Multiple thyroid nodules 04/23/2013 015 Transhiatal approach, thorac ic esophagectomy, proximal gastrectomy, abdominal lymphadenectomy, pyloromyotomy, J-tube placement 04/18/2013 03/25/2021 Overview: Washington Garcia is a 62 year old male who presented with abdominal discomfort and hematemesis, underwent evaluation including EGD which showed Rodriguez's adenocarcinoma, staged [id number]. Metastatic survey was negative and on 05/15/2013, underwent transhiatal esophagectomy and feeding jejunostomy by Dr. Parks. Patient did not tolerate tube feeds today so J tube back to gravity and reglan initiated to promote motility. Plan: - NPO - TF to goal of 70ml/hr, Add water flushes - Enteral pain management - Out of bed, frequent ambulation. - Cough/deep breathe, acapella . Last Assessment & Plan: Assessment history of Rodriguez's adenocarcinoma, staged [id number]. Metastatic survey was negative and on 05/15/2013, underwent transhiatal esophagectomy and feeding jejunostomy by Dr. Parks. Patient did not tolerate tube feeds so J tube back to gravity and reglan initiated to promote motility PLAN: now stable post op TORS will see Speech to advance diet documented as of this encounter (statuses as of 07/20/2021) [facility] History of Past illness Narrative* Problem Noted Date Resolved Date Delirium 03/29/2021 04/02/2021 Intravascular volume depletion 05/15/2013 0 05/16/2013 Overview: IV fluid resuscitation Multiple thyroid nodules 04/23/2013 015 Transhiatal approach, thorac ic esophagectomy, proximal gastrectomy, abdominal lymphadenectomy, pyloromyotomy, J-tube placement 04/18/2013 03/25/2021 Overview: Washington Garcia is a 62 year old male who presented with abdominal discomfort and hematemesis, underwent evaluation including EGD which showed Rodriguez's adenocarcinoma, staged [id number]. Metastatic survey was negative and on 05/15/2013, underwent transhiatal esophagectomy and feeding jejunostomy by Dr. Parks. Patient did not tolerate tube feeds today so J tube back to gravity and reglan initiated to promote motility. Plan: - NPO - TF to goal of 70ml/hr, Add water flushes - Enteral pain management - Out of bed, frequent ambulation. - Cough/deep breathe, acapella . Last Assessment & Plan: Assessment history of Rodriguez's adenocarcinoma, staged [id number]. Metastatic survey was negative and on 05/15/2013, underwent transhiatal esophagectomy and feeding jejunostomy by Dr. Parks. Patient did not tolerate tube feeds so J tube back to gravity and reglan initiated to promote motility PLAN: now stable post op TORS will see Speech to advance diet documented as of this encounter (statuses as of 07/23/2021) [facility] History of Past illness Narrative* Problem Noted Date Resolved Date Delirium 03/29/2021 04/02/2021 Intravascular volume depletion 05/15/2013 0 05/16/2013 Overview: IV fluid resuscitation Multiple thyroid nodules 04/23/2013 015 Transhiatal approach, thorac ic esophagectomy, proximal gastrectomy, abdominal lymphadenectomy, pyloromyotomy, J-tube placement 04/18/2013 03/25/2021 Overview: Washington Garcia is a 62 year old male who presented with abdominal discomfort and hematemesis, underwent evaluation including EGD which showed Rodriguez's adenocarcinoma, staged [id number]. Metastatic survey was negative and on 05/15/2013, underwent transhiatal esophagectomy and feeding jejunostomy by Dr. Parks. Patient did not tolerate tube feeds today so J tube back to gravity and reglan initiated to promote motility. Plan: - NPO - TF to goal of 70ml/hr, Add water flushes - Enteral pain management - Out of bed, frequent ambulation. - Cough/deep breathe, acapella . Last Assessment & Plan: Assessment history of Rodriguez's adenocarcinoma, staged [id number]. Metastatic survey was negative and on 05/15/2013, underwent transhiatal esophagectomy and feeding jejunostomy by Dr. Parks. Patient did not tolerate tube feeds so J tube back to gravity and reglan initiated to promote motility PLAN: now stable post op TORS will see Speech to advance diet documented as of this encounter (statuses as of 07/28/2021) [facility] History of Past illness Narrative* Problem Noted Date Resolved Date Delirium 03/29/2021 04/02/2021 Intravascular volume depletion 05/15/2013 0 05/16/2013 Overview: IV fluid resuscitation Multiple thyroid nodules 04/23/2013 015 Transhiatal approach, thorac ic esophagectomy, proximal gastrectomy, abdominal lymphadenectomy, pyloromyotomy, J-tube placement 04/18/2013 03/25/2021 Overview: Washington Garcia is a 62 year old male who presented with abdominal discomfort and hematemesis, underwent evaluation including EGD which showed Rodriguez's adenocarcinoma, staged [id number]. Metastatic survey was negative and on 05/15/2013, underwent transhiatal esophagectomy and feeding jejunostomy by Dr. Parks. Patient did not tolerate tube feeds today so J tube back to gravity and reglan initiated to promote motility. Plan: - NPO - TF to goal of 70ml/hr, Add water flushes - Enteral pain management - Out of bed, frequent ambulation. - Cough/deep breathe, acapella . Last Assessment & Plan: Assessment history of Rodriguez's adenocarcinoma, staged [id number]. Metastatic survey was negative and on 05/15/2013, underwent transhiatal esophagectomy and feeding jejunostomy by Dr. Parks. Patient did not tolerate tube feeds so J tube back to gravity and reglan initiated to promote motility PLAN: now stable post op TORS will see Speech to advance diet documented as of this encounter (statuses as of 08/17/2021) [facility]01[facility]10-[facility] History of Past illness Narrative* Problem Noted Date Resolved Date Delirium 03/29/2021 04/02/2021 Intravascular volume depletion 05/15/2013 0 05/16/2013 Overview: IV fluid resuscitation Multiple thyroid nodules 04/23/2013 015 Transhiatal approach, thorac ic esophagectomy, proximal gastrectomy, abdominal lymphadenectomy, pyloromyotomy, J-tube placement 04/18/2013 03/25/2021 Overview: Washington Garcia is a 62 year old male who presented with abdominal discomfort and hematemesis, underwent evaluation including EGD which showed Rodriguez's adenocarcinoma, staged [id number]. Metastatic survey was negative and on 05/15/2013, underwent transhiatal esophagectomy and feeding jejunostomy by Dr. Parks. Patient did not tolerate tube feeds today so J tube back to gravity and reglan initiated to promote motility. Plan: - NPO - TF to goal of 70ml/hr, Add water flushes - Enteral pain management - Out of bed, frequent ambulation. - Cough/deep breathe, acapella . Last Assessment & Plan: Assessment history of Rodriguez's adenocarcinoma, staged [id number]. Metastatic survey was negative and on 05/15/2013, underwent transhiatal esophagectomy and feeding jejunostomy by Dr. Parks. Patient did not tolerate tube feeds so J tube back to gravity and reglan initiated to promote motility PLAN: now stable post op TORS will see Speech to advance diet documented as of this encounter (statuses as of 08/18/2021) [facility] History of Past illness Narrative* Problem Noted Date Resolved Date Delirium 03/29/2021 04/02/2021 Intravascular volume depletion 05/15/2013 0 05/16/2013 Overview: IV fluid resuscitation Multiple thyroid nodules 04/23/2013 015 Transhiatal approach, thorac ic esophagectomy, proximal gastrectomy, abdominal lymphadenectomy, pyloromyotomy, J-tube placement 04/18/2013 03/25/2021 Overview: Washington Garcia is a 62 year old male who presented with abdominal discomfort and hematemesis, underwent evaluation including EGD which showed Rodriguez's adenocarcinoma, staged [id number]. Metastatic survey was negative and on 05/15/2013, underwent transhiatal esophagectomy and feeding jejunostomy by Dr. Parks. Patient did not tolerate tube feeds today so J tube back to gravity and reglan initiated to promote motility. Plan: - NPO - TF to goal of 70ml/hr, Add water flushes - Enteral pain management - Out of bed, frequent ambulation. - Cough/deep breathe, acapella . Last Assessment & Plan: Assessment history of Rodriguez's adenocarcinoma, staged [id number]. Metastatic survey was negative and on 05/15/2013, underwent transhiatal esophagectomy and feeding jejunostomy by Dr. Parks. Patient did not tolerate tube feeds so J tube back to gravity and reglan initiated to promote motility PLAN: now stable post op TORS will see Speech to advance diet documented as of this encounter (statuses as of 08/27/2021) [facility] History of Past illness Narrative* Problem Noted Date Resolved Date Delirium 03/29/2021 04/02/2021 Intravascular volume depletion 05/15/2013 0 05/16/2013 Overview: IV fluid resuscitation Multiple thyroid nodules 04/23/2013 015 Transhiatal approach, thorac ic esophagectomy, proximal gastrectomy, abdominal lymphadenectomy, pyloromyotomy, J-tube placement 04/18/2013 03/25/2021 Overview: Washington Garcia is a 62 year old male who presented with abdominal discomfort and hematemesis, underwent evaluation including EGD which showed Rodriguez's adenocarcinoma, staged [id number]. Metastatic survey was negative and on 05/15/2013, underwent transhiatal esophagectomy and feeding jejunostomy by Dr. Parks. Patient did not tolerate tube feeds today so J tube back to gravity and reglan initiated to promote motility. Plan: - NPO - TF to goal of 70ml/hr, Add water flushes - Enteral pain management - Out of bed, frequent ambulation. - Cough/deep breathe, acapella . Last Assessment & Plan: Assessment history of Rodriguez's adenocarcinoma, staged [id number]. Metastatic survey was negative and on 05/15/2013, underwent transhiatal esophagectomy and feeding jejunostomy by Dr. Parks. Patient did not tolerate tube feeds so J tube back to gravity and reglan initiated to promote motility PLAN: now stable post op TORS will see Speech to advance diet documented as of this encounter (statuses as of 09/02/2021) [facility] History of Past illness Narrative* Problem Noted Date Resolved Date Delirium 03/29/2021 04/02/2021 Intravascular volume depletion 05/15/2013 0 05/16/2013 Overview: IV fluid resuscitation Multiple thyroid nodules 04/23/2013 015 Transhiatal approach, thorac ic esophagectomy, proximal gastrectomy, abdominal lymphadenectomy, pyloromyotomy, J-tube placement 04/18/2013 03/25/2021 Overview: Washington Garcia is a 62 year old male who presented with abdominal discomfort and hematemesis, underwent evaluation including EGD which showed Rodriguez's adenocarcinoma, staged [id number]. Metastatic survey was negative and on 05/15/2013, underwent transhiatal esophagectomy and feeding jejunostomy by Dr. Parks. Patient did not tolerate tube feeds today so J tube back to gravity and reglan initiated to promote motility. Plan: - NPO - TF to goal of 70ml/hr, Add water flushes - Enteral pain management - Out of bed, frequent ambulation. - Cough/deep breathe, acapella . Last Assessment & Plan: Assessment history of Rodriguez's adenocarcinoma, staged [id number]. Metastatic survey was negative and on 05/15/2013, underwent transhiatal esophagectomy and feeding jejunostomy by Dr. Parks. Patient did not tolerate tube feeds so J tube back to gravity and reglan initiated to promote motility PLAN: now stable post op TORS will see Speech to advance diet documented as of this encounter (statuses as of 09/08/2021) [facility] History of Past illness Narrative* Problem Noted Date Resolved Date Delirium 03/29/2021 04/02/2021 Intravascular volume depletion 05/15/2013 0 05/16/2013 Overview: IV fluid resuscitation Multiple thyroid nodules 04/23/2013 015 Transhiatal approach, thorac ic esophagectomy, proximal gastrectomy, abdominal lymphadenectomy, pyloromyotomy, J-tube placement 04/18/2013 03/25/2021 Overview: Washington Garcia is a 62 year old male who presented with abdominal discomfort and hematemesis, underwent evaluation including EGD which showed Rodriguez's adenocarcinoma, staged [id number]. Metastatic survey was negative and on 05/15/2013, underwent transhiatal esophagectomy and feeding jejunostomy by Dr. Parks. Patient did not tolerate tube feeds today so J tube back to gravity and reglan initiated to promote motility. Plan: - NPO - TF to goal of 70ml/hr, Add water flushes - Enteral pain management - Out of bed, frequent ambulation. - Cough/deep breathe, acapella . Last Assessment & Plan: Assessment history of Rodriguez's adenocarcinoma, staged [id number]. Metastatic survey was negative and on 05/15/2013, underwent transhiatal esophagectomy and feeding jejunostomy by Dr. Parks. Patient did not tolerate tube feeds so J tube back to gravity and reglan initiated to promote motility PLAN: now stable post op TORS will see Speech to advance diet documented as of this encounter (statuses as of 10/14/2021) [facility] History of Past illness Narrative* Problem Noted Date Resolved Date Delirium 03/29/2021 04/02/2021 Intravascular volume depletion 05/15/2013 0 05/16/2013 Overview: IV fluid resuscitation Multiple thyroid nodules 04/23/2013 015 Transhiatal approach, thorac ic esophagectomy, proximal gastrectomy, abdominal lymphadenectomy, pyloromyotomy, J-tube placement 04/18/2013 03/25/2021 Overview: Washington Garcia is a 62 year old male who presented with abdominal discomfort and hematemesis, underwent evaluation including EGD which showed Rodriguez's adenocarcinoma, staged [id number]. Metastatic survey was negative and on 05/15/2013, underwent transhiatal esophagectomy and feeding jejunostomy by Dr. Parks. Patient did not tolerate tube feeds today so J tube back to gravity and reglan initiated to promote motility. Plan: - NPO - TF to goal of 70ml/hr, Add water flushes - Enteral pain management - Out of bed, frequent ambulation. - Cough/deep breathe, acapella . Last Assessment & Plan: Assessment history of Rodriguez's adenocarcinoma, staged [id number]. Metastatic survey was negative and on 05/15/2013, underwent transhiatal esophagectomy and feeding jejunostomy by Dr. Parks. Patient did not tolerate tube feeds so J tube back to gravity and reglan initiated to promote motility PLAN: now stable post op TORS will see Speech to advance diet documented as of this encounter (statuses as of 10/28/2021) [facility]01-10-2022 History of Past illness Narrative* Problem Noted Date Resolved Date Delirium 03/29/2021 04/02/2021 Intravascular volume depletion 05/15/2013 0 05/16/2013 Overview: IV fluid resuscitation Multiple thyroid nodules 04/23/2013 015 Transhiatal approach, thorac ic esophagectomy, proximal gastrectomy, abdominal lymphadenectomy, pyloromyotomy, J-tube placement 04/18/2013 03/25/2021 Overview: Washington Garcia is a 62 year old male who presented with abdominal discomfort and hematemesis, underwent evaluation including EGD which showed Rodriguez's adenocarcinoma, staged [id number]. Metastatic survey was negative and on 05/15/2013, underwent transhiatal esophagectomy and feeding jejunostomy by Dr. Parks. Patient did not tolerate tube feeds today so J tube back to gravity and reglan initiated to promote motility. Plan: - NPO - TF to goal of 70ml/hr, Add water flushes - Enteral pain management - Out of bed, frequent ambulation. - Cough/deep breathe, acapella . Last Assessment & Plan: Assessment history of Rodriguez's adenocarcinoma, staged [id number]. Metastatic survey was negative and on 05/15/2013, underwent transhiatal esophagectomy and feeding jejunostomy by Dr. Parks. Patient did not tolerate tube feeds so J tube back to gravity and reglan initiated to promote motility PLAN: now stable post op TORS will see Speech to advance diet documented as of this encounter (statuses as of 01/22/2022) [facility]01-10-[facility] History of Past illness Narrative* Problem Noted Date Resolved Date Delirium 03/29/2021 04/02/2021 Intravascular volume depletion 05/15/2013 0 05/16/2013 Overview: IV fluid resuscitation Multiple thyroid nodules 04/23/2013 015 Transhiatal approach, thorac ic esophagectomy, proximal gastrectomy, abdominal lymphadenectomy, pyloromyotomy, J-tube placement 04/18/2013 03/25/2021 Overview: Washington Garcia is a 62 year old male who presented with abdominal discomfort and hematemesis, underwent evaluation including EGD which showed Rodriguez's adenocarcinoma, staged [id number]. Metastatic survey was negative and on 05/15/2013, underwent transhiatal esophagectomy and feeding jejunostomy by Dr. Parks. Patient did not tolerate tube feeds today so J tube back to gravity and reglan initiated to promote motility. Plan: - NPO - TF to goal of 70ml/hr, Add water flushes - Enteral pain management - Out of bed, frequent ambulation. - Cough/deep breathe, acapella . Last Assessment & Plan: Assessment history of Rodriguez's adenocarcinoma, staged [id number]. Metastatic survey was negative and on 05/15/2013, underwent transhiatal esophagectomy and feeding jejunostomy by Dr. Parks. Patient did not tolerate tube feeds so J tube back to gravity and reglan initiated to promote motility PLAN: now stable post op TORS will see Speech to advance diet documented as of this encounter (statuses as of 04/24/2022) [facility]10[facility] History of Past illness Narrative* Problem Noted Date Resolved Date Delirium 03/29/2021 04/02/2021 Intravascular volume depletion 05/15/2013 0 05/16/2013 Overview: IV fluid resuscitation Multiple thyroid nodules 04/23/2013 015 Transhiatal approach, thorac ic esophagectomy, proximal gastrectomy, abdominal lymphadenectomy, pyloromyotomy, J-tube placement 04/18/2013 03/25/2021 Overview: Washington Garcia is a 62 year old male who presented with abdominal discomfort and hematemesis, underwent evaluation including EGD which showed Rodriguez's adenocarcinoma, staged [id number]. Metastatic survey was negative and on 05/15/2013, underwent transhiatal esophagectomy and feeding jejunostomy by Dr. Parks. Patient did not tolerate tube feeds today so J tube back to gravity and reglan initiated to promote motility. Plan: - NPO - TF to goal of 70ml/hr, Add water flushes - Enteral pain management - Out of bed, frequent ambulation. - Cough/deep breathe, acapella . Last Assessment & Plan: Assessment history of Rodriguez's adenocarcinoma, staged [id number]. Metastatic survey was negative and on 05/15/2013, underwent transhiatal esophagectomy and feeding jejunostomy by Dr. Parks. Patient did not tolerate tube feeds so J tube back to gravity and reglan initiated to promote motility PLAN: now stable post op TORS will see Speech to advance diet documented as of this encounter (statuses as of 05/09/2022) [facility] History of Past illness Narrative* Problem Noted Date Resolved Date Delirium 03/29/2021 04/02/2021 Intravascular volume depletion 05/15/2013 0 05/16/2013 Overview: IV fluid resuscitation Multiple thyroid nodules 04/23/2013 015 Transhiatal approach, thorac ic esophagectomy, proximal gastrectomy, abdominal lymphadenectomy, pyloromyotomy, J-tube placement 04/18/2013 03/25/2021 Overview: Washington Garcia is a 62 year old male who presented with abdominal discomfort and hematemesis, underwent evaluation including EGD which showed Rodriguez's adenocarcinoma, staged [id number]. Metastatic survey was negative and on 05/15/2013, underwent transhiatal esophagectomy and feeding jejunostomy by Dr. Parks. Patient did not tolerate tube feeds today so J tube back to gravity and reglan initiated to promote motility. Plan: - NPO - TF to goal of 70ml/hr, Add water flushes - Enteral pain management - Out of bed, frequent ambulation. - Cough/deep breathe, acapella . Last Assessment & Plan: Assessment history of Rodriguez's adenocarcinoma, staged [id number]. Metastatic survey was negative and on 05/15/2013, underwent transhiatal esophagectomy and feeding jejunostomy by Dr. Parks. Patient did not tolerate tube feeds so J tube back to gravity and reglan initiated to promote motility PLAN: now stable post op TORS will see Speech to advance diet documented as of this encounter (statuses as of 05/24/2022) [facility] History of Past illness Narrative* Problem Noted Date Resolved Date Delirium 03/29/2021 04/02/2021 Intravascular volume depletion 05/15/2013 0 05/16/2013 Overview: IV fluid resuscitation Multiple thyroid nodules 04/23/2013 015 Transhiatal approach, thorac ic esophagectomy, proximal gastrectomy, abdominal lymphadenectomy, pyloromyotomy, J-tube placement 04/18/2013 03/25/2021 Overview: Washington Garcia is a 62 year old male who presented with abdominal discomfort and hematemesis, underwent evaluation including EGD which showed Rodriguez's adenocarcinoma, staged [id number]. Metastatic survey was negative and on 05/15/2013, underwent transhiatal esophagectomy and feeding jejunostomy by Dr. Parks. Patient did not tolerate tube feeds today so J tube back to gravity and reglan initiated to promote motility. Plan: - NPO - TF to goal of 70ml/hr, Add water flushes - Enteral pain management - Out of bed, frequent ambulation. - Cough/deep breathe, acapella . Last Assessment & Plan: Assessment history of Rodriguez's adenocarcinoma, staged [id number]. Metastatic survey was negative and on 05/15/2013, underwent transhiatal esophagectomy and feeding jejunostomy by Dr. Parks. Patient did not tolerate tube feeds so J tube back to gravity and reglan initiated to promote motility PLAN: now stable post op TORS will see Speech to advance diet documented as of this encounter (statuses as of 05/31/2022) [facility]01[facility]10[facility] History of Past illness Narrative* Problem Noted Date Resolved Date Delirium 03/29/2021 04/02/2021 Intravascular volume depletion 05/15/2013 0 05/16/2013 Overview: IV fluid resuscitation Multiple thyroid nodules 04/23/2013 015 Transhiatal approach, thorac ic esophagectomy, proximal gastrectomy, abdominal lymphadenectomy, pyloromyotomy, J-tube placement 04/18/2013 03/25/2021 Overview: Washington Garcia is a 62 year old male who presented with abdominal discomfort and hematemesis, underwent evaluation including EGD which showed Rodriguez's adenocarcinoma, staged [id number]. Metastatic survey was negative and on 05/15/2013, underwent transhiatal esophagectomy and feeding jejunostomy by Dr. Parks. Patient did not tolerate tube feeds today so J tube back to gravity and reglan initiated to promote motility. Plan: - NPO - TF to goal of 70ml/hr, Add water flushes - Enteral pain management - Out of bed, frequent ambulation. - Cough/deep breathe, acapella . Last Assessment & Plan: Assessment history of Rodriguez's adenocarcinoma, staged [id number]. Metastatic survey was negative and on 05/15/2013, underwent transhiatal esophagectomy and feeding jejunostomy by Dr. Parks. Patient did not tolerate tube feeds so J tube back to gravity and reglan initiated to promote motility PLAN: now stable post op TORS will see Speech to advance diet documented as of this encounter (statuses as of 06/07/2022) [facility] History of Past illness Narrative* Problem Noted Date Resolved Date Delirium 03/29/2021 04/02/2021 Intravascular volume depletion 05/15/2013 0 05/16/2013 Overview: IV fluid resuscitation Multiple thyroid nodules 04/23/2013 015 Transhiatal approach, thorac ic esophagectomy, proximal gastrectomy, abdominal lymphadenectomy, pyloromyotomy, J-tube placement 04/18/2013 03/25/2021 Overview: Washington Garcia is a 62 year old male who presented with abdominal discomfort and hematemesis, underwent evaluation including EGD which showed Rodriguez's adenocarcinoma, staged [id number]. Metastatic survey was negative and on 05/15/2013, underwent transhiatal esophagectomy and feeding jejunostomy by Dr. Parks. Patient did not tolerate tube feeds today so J tube back to gravity and reglan initiated to promote motility. Plan: - NPO - TF to goal of 70ml/hr, Add water flushes - Enteral pain management - Out of bed, frequent ambulation. - Cough/deep breathe, acapella . Last Assessment & Plan: Assessment history of Rodriguez's adenocarcinoma, staged [id number]. Metastatic survey was negative and on 05/15/2013, underwent transhiatal esophagectomy and feeding jejunostomy by Dr. Parks. Patient did not tolerate tube feeds so J tube back to gravity and reglan initiated to promote motility PLAN: now stable post op TORS will see Speech to advance diet documented as of this encounter (statuses as of 2022) [facility]01[facility]10-[facility] History of Past illness Narrative* Problem Noted Date Resolved Date Delirium 03/29/2021 04/02/2021 Intravascular volume depletion 05/15/2013 0 05/16/2013 Overview: IV fluid resuscitation Multiple thyroid nodules 04/23/2013 015 Transhiatal approach, thorac ic esophagectomy, proximal gastrectomy, abdominal lymphadenectomy, pyloromyotomy, J-tube placement 04/18/2013 03/25/2021 Overview: Washington Garcia is a 62 year old male who presented with abdominal discomfort and hematemesis, underwent evaluation including EGD which showed Rodriguez's adenocarcinoma, staged [id number]. Metastatic survey was negative and on 05/15/2013, underwent transhiatal esophagectomy and feeding jejunostomy by Dr. Parks. Patient did not tolerate tube feeds today so J tube back to gravity and reglan initiated to promote motility. Plan: - NPO - TF to goal of 70ml/hr, Add water flushes - Enteral pain management - Out of bed, frequent ambulation. - Cough/deep breathe, acapella . Last Assessment & Plan: Assessment history of Rodriguez's adenocarcinoma, staged [id number]. Metastatic survey was negative and on 05/15/2013, underwent transhiatal esophagectomy and feeding jejunostomy by Dr. Parks. Patient did not tolerate tube feeds so J tube back to gravity and reglan initiated to promote motility PLAN: now stable post op TORS will see Speech to advance diet documented as of this encounter (statuses as of 07/19/2022) [facility] History of Past illness Narrative* Problem Noted Date Resolved Date Delirium 03/29/2021 04/02/2021 Intravascular volume depletion 05/15/2013 0 05/16/2013 Overview: IV fluid resuscitation Multiple thyroid nodules 04/23/2013 015 Transhiatal approach, thorac ic esophagectomy, proximal gastrectomy, abdominal lymphadenectomy, pyloromyotomy, J-tube placement 04/18/2013 03/25/2021 Overview: Washington Garcia is a 62 year old male who presented with abdominal discomfort and hematemesis, underwent evaluation including EGD which showed Rodriguez's adenocarcinoma, staged [id number]. Metastatic survey was negative and on 05/15/2013, underwent transhiatal esophagectomy and feeding jejunostomy by Dr. Parks. Patient did not tolerate tube feeds today so J tube back to gravity and reglan initiated to promote motility. Plan: - NPO - TF to goal of 70ml/hr, Add water flushes - Enteral pain management - Out of bed, frequent ambulation. - Cough/deep breathe, acapella . Last Assessment & Plan: Assessment history of Rodriguez's adenocarcinoma, staged [id number]. Metastatic survey was negative and on 05/15/2013, underwent transhiatal esophagectomy and feeding jejunostomy by Dr. Parks. Patient did not tolerate tube feeds so J tube back to gravity and reglan initiated to promote motility PLAN: now stable post op TORS will see Speech to advance diet documented as of this encounter (statuses as of 09/15/2022) [facility] History of Past illness Narrative* Problem Noted Date Diagnosed Date Resolved Date Delirium 03/29/2021 04/02/2021 Intravascular volume depletion 05/15/2013 05/16/2013 Overview: IV fluid resuscitation Multiple thyroid nodules 04/23/2013 Transhiatal approach, thorac ic esophagectomy, proximal gastrectomy, abdominal lymphadenectomy, pyloromyotomy, J-tube placement 04/18/2013 03/25/2021 Overview: Washington Garcia is a 62 year old male who presented with abdominal discomfort and hematemesis, underwent evaluation including EGD which showed Rodriguez's adenocarcinoma, staged [id number]. Metastatic survey was negative and on 05/15/2013, underwent transhiatal esophagectomy and feeding jejunostomy by Dr. Parks. Patient did not tolerate tube feeds today so J tube back to gravity and reglan initiated to promote motility. Plan: - NPO - TF to goal of 70ml/hr, Add water flushes - Enteral pain management - Out of bed, frequent ambulation. - Cough/deep breathe, acapella . Last Assessment & Plan: Assessment history of Rodriguez's adenocarcinoma, staged [id number]. Metastatic survey was negative and on 05/15/2013, underwent transhiatal esophagectomy and feeding jejunostomy by Dr. Parks. Patient did not tolerate tube feeds so J tube back to gravity and reglan initiated to promote motility PLAN: now stable post op TORS will see Speech to advance diet documented as of this encounter (statuses as of 10/14/2022) [facility] History of Past illness Narrative* Problem Noted Date Diagnosed Date Resolved Date Delirium 03/29/2021 04/02/2021 Intravascular volume depletion 05/15/2013 05/16/2013 Overview: IV fluid resuscitation Multiple thyroid nodules 04/23/2013 Transhiatal approach, thorac ic esophagectomy, proximal gastrectomy, abdominal lymphadenectomy, pyloromyotomy, J-tube placement 04/18/2013 03/25/2021 Overview: Washington Garcia is a 62 year old male who presented with abdominal discomfort and hematemesis, underwent evaluation including EGD which showed Rodriguez's adenocarcinoma, staged [id number]. Metastatic survey was negative and on 05/15/2013, underwent transhiatal esophagectomy and feeding jejunostomy by Dr. Parks. Patient did not tolerate tube feeds today so J tube back to gravity and reglan initiated to promote motility. Plan: - NPO - TF to goal of 70ml/hr, Add water flushes - Enteral pain management - Out of bed, frequent ambulation. - Cough/deep breathe, acapella . Last Assessment & Plan: Assessment history of Rodriguez's adenocarcinoma, staged [id number]. Metastatic survey was negative and on 05/15/2013, underwent transhiatal esophagectomy and feeding jejunostomy by Dr. Parks. Patient did not tolerate tube feeds so J tube back to gravity and reglan initiated to promote motility PLAN: now stable post op TORS will see Speech to advance diet documented as of this encounter (statuses as of 10/31/2022) [facility] History of Past illness Narrative* Problem Noted Date Diagnosed Date Resolved Date Delirium 03/29/2021 04/02/2021 Intravascular volume depletion 05/15/2013 05/16/2013 Overview: IV fluid resuscitation Multiple thyroid nodules 04/23/2013 Transhiatal approach, thorac ic esophagectomy, proximal gastrectomy, abdominal lymphadenectomy, pyloromyotomy, J-tube placement 04/18/2013 03/25/2021 Overview: Washington Garcia is a 62 year old male who presented with abdominal discomfort and hematemesis, underwent evaluation including EGD which showed Rodriguez's adenocarcinoma, staged [id number]. Metastatic survey was negative and on 05/15/2013, underwent transhiatal esophagectomy and feeding jejunostomy by Dr. Parks. Patient did not tolerate tube feeds today so J tube back to gravity and reglan initiated to promote motility. Plan: - NPO - TF to goal of 70ml/hr, Add water flushes - Enteral pain management - Out of bed, frequent ambulation. - Cough/deep breathe, acapella . Last Assessment & Plan: Assessment history of Rodriguez's adenocarcinoma, staged [id number]. Metastatic survey was negative and on 05/15/2013, underwent transhiatal esophagectomy and feeding jejunostomy by Dr. Parks. Patient did not tolerate tube feeds so J tube back to gravity and reglan initiated to promote motility PLAN: now stable post op TORS will see Speech to advance diet documented as of this encounter (statuses as of 11/15/2022) [facility] History of Past illness Narrative* Problem Noted Date Diagnosed Date Resolved Date Delirium 03/29/2021 04/02/2021 Intravascular volume depletion 05/15/2013 05/16/2013 Overview: IV fluid resuscitation Multiple thyroid nodules 04/23/2013 Transhiatal approach, thorac ic esophagectomy, proximal gastrectomy, abdominal lymphadenectomy, pyloromyotomy, J-tube placement 04/18/2013 03/25/2021 Overview: Washington Garcia is a 62 year old male who presented with abdominal discomfort and hematemesis, underwent evaluation including EGD which showed Rodriguez's adenocarcinoma, staged [id number]. Metastatic survey was negative and on 05/15/2013, underwent transhiatal esophagectomy and feeding jejunostomy by Dr. Parks. Patient did not tolerate tube feeds today so J tube back to gravity and reglan initiated to promote motility. Plan: - NPO - TF to goal of 70ml/hr, Add water flushes - Enteral pain management - Out of bed, frequent ambulation. - Cough/deep breathe, acapella . Last Assessment & Plan: Assessment history of Rodriguez's adenocarcinoma, staged [id number]. Metastatic survey was negative and on 05/15/2013, underwent transhiatal esophagectomy and feeding jejunostomy by Dr. Parks. Patient did not tolerate tube feeds so J tube back to gravity and reglan initiated to promote motility PLAN: now stable post op TORS will see Speech to advance diet documented as of this encounter (statuses as of 04/25/2023) [facility] History of Past illness Narrative* Problem Noted Date Diagnosed Date Resolved Date Delirium 03/29/2021 04/02/2021 Intravascular volume depletion 05/15/2013 05/16/2013 Overview: IV fluid resuscitation Multiple thyroid nodules 04/23/2013 Transhiatal approach, thorac ic esophagectomy, proximal gastrectomy, abdominal lymphadenectomy, pyloromyotomy, J-tube placement 04/18/2013 03/25/2021 Overview: Washington Garcia is a 62 year old male who presented with abdominal discomfort and hematemesis, underwent evaluation including EGD which showed Rodriguez's adenocarcinoma, staged [id number]. Metastatic survey was negative and on 05/15/2013, underwent transhiatal esophagectomy and feeding jejunostomy by Dr. Parks. Patient did not tolerate tube feeds today so J tube back to gravity and reglan initiated to promote motility. Plan: - NPO - TF to goal of 70ml/hr, Add water flushes - Enteral pain management - Out of bed, frequent ambulation. - Cough/deep breathe, acapella . Last Assessment & Plan: Assessment history of Rodriguez's adenocarcinoma, staged [id number]. Metastatic survey was negative and on 05/15/2013, underwent transhiatal esophagectomy and feeding jejunostomy by Dr. Parks. Patient did not tolerate tube feeds so J tube back to gravity and reglan initiated to promote motility PLAN: now stable post op TORS will see Speech to advance diet documented as of this encounter (statuses as of 05/19/2023) [facility]12-03-2021 Evaluation note* Encounter Date Diagnosis Assessment Notes Treatment Notes Treatment Clinical Notes Feb, Medication monitoring encounter (ICD-10 - Z51.81) Referring Provider: Christine King Diagnosis: Atrial Fibrillation INR Goal: 2-3 INR: 2.0 Tablet Size: 5mg Monday: 5mg Monday: 2.5mg Monday: 5mg Monday: 5mg : 5mg Monday: 2.5mg Monday: 5mg Total Weekly Dose: 30mg Continue current plan. Follow up in 4 weeks. Seen by Alvaro Dorsey PharmD [employer] Other 11-15-2021 History of Present illness Narrative* Ernie Denise, RT(R) - 02/01/2021 11:00 AM EST RADIOLOGY SERVICE PROGRESS NOTE SERVICE DATE: 02/01/2021 SERVICE TIME: 10:38 AM PATIENT IDENTITY VERIFICATION COMPLETED USING TWO (2) STANDARD IDENTIFIERS: Name and Date of confirmed by patient verbally PATIENT GENDER DATA: .male IV SITE: Ambulatory: LT HAND POST EXAM PIV STATUS: Discontinued PROCEDURE TYPE: NM INJECT: PET/CT HEAD, NECK, BODY SCAN. 17.5 mCi F18 FDG. No other medications given.. ADMINISTRATION TIME: 1030 PATIENT DISCHARGED TO: Ambulatory patient, left [place] department area. A Diagnostic radioactive procedure has taken place, with no further precautions necessary other than routine body substance precautions. More information regarding radiation safety can be found usingthis link: [email or web address] SIGNATURE: RT Nicole(Renee) PATIENT NAME: Washington Garcia DATE: February 01, 2021 TIME: 10:38 AM PAGER/CONTACT #: [facility]* Encounter Date Diagnosis Assessment Notes Treatment Notes Treatment Clinical Notes Dec, Medication monitoring encounter (ICD-10 - Z51.81) Referring Provider: Christine King Diagnosis: Atrial Fibrillation INR Goal: 2-3 INR: 2.5 Tablet Size: 5mg Monday: 5mg Monday: 2.5mg Monday: 5mg Monday: 5mg : 5mg Monday: 2.5mg Monday: 5mg Total Weekly Dose: 30mg Continue current plan. Follow up in 4 weeks. Seen by Wanda Kerr RN [employer] Other 02-26-2014 History of Past illness Narrative* Problem Noted Date Diagnosed Date Resolved Date Intravascular volume depletion 05/15/2013 05/16/2013 Overview: IV fluid resuscitation Multiple thyroid nodules 04/23/2013 Transhiatal approach, thorac ic esophagectomy, proximal gastrectomy, abdominal lymphadenectomy, pyloromyotomy, J-tube placement 04/18/2013 03/25/2021 Overview: Washington Garcia is a 62 year old male who presented with abdominal discomfort and hematemesis, underwent evaluation including EGD which showed Rodriguez's adenocarcinoma, staged [id number]. Metastatic survey was negative and on 05/15/2013, underwent transhiatal esophagectomy and feeding jejunostomy by Dr. Parks. Patient did not tolerate tube feeds today so J tube back to gravity and reglan initiated to promote motility. Plan: - NPO - TF to goal of 70ml/hr, Add water flushes - Enteral pain management - Out of bed, frequent ambulation. - Cough/deep breathe, acapella . Last Assessment & Plan: Assessment history of Rodriguez's adenocarcinoma, staged [id number]. Metastatic survey was negative and on 05/15/2013, underwent transhiatal esophagectomy and feeding jejunostomy by Dr. Parks. Patient did not tolerate tube feeds so J tube back to gravity and reglan initiated to promote motility PLAN: now stable post op TORS will see Speech to advance diet documented as of this encounter (statuses as of 10/28/2022) [facility] History of Past illness Narrative* Problem Noted Date Diagnosed Date Resolved Date Intravascular volume depletion 05/15/2013 05/16/2013 Overview: IV fluid resuscitation Multiple thyroid nodules 04/23/2013 Transhiatal approach, thorac ic esophagectomy, proximal gastrectomy, abdominal lymphadenectomy, pyloromyotomy, J-tube placement 04/18/2013 03/25/2021 Overview: Washington Garcia is a 62 year old male who presented with abdominal discomfort and hematemesis, underwent evaluation including EGD which showed Rodriguez's adenocarcinoma, staged [id number]. Metastatic survey was negative and on 05/15/2013, underwent transhiatal esophagectomy and feeding jejunostomy by Dr. Parks. Patient did not tolerate tube feeds today so J tube back to gravity and reglan initiated to promote motility. Plan: - NPO - TF to goal of 70ml/hr, Add water flushes - Enteral pain management - Out of bed, frequent ambulation. - Cough/deep breathe, acapella . Last Assessment & Plan: Assessment history of Rodriguez's adenocarcinoma, staged [id number]. Metastatic survey was negative and on 05/15/2013, underwent transhiatal esophagectomy and feeding jejunostomy by Dr. Parks. Patient did not tolerate tube feeds so J tube back to gravity and reglan initiated to promote motility PLAN: now stable post op TORS will see Speech to advance diet documented as of this encounter (statuses as of 10/28/2022) [facility] Tonsil cancer (HCC)- Primary Malignant neoplasm of tonsil documented in this encounter [facility] note* Diagnosis Malignant neoplasm of tonsil (HCC)- Primary Malignant neoplasm of tonsil Thrush Candidiasis of mouth documented in this encounter [facility] note* Diagnosis Tonsil cancer (HCC)- Primary Malignant neoplasm of tonsil documented in this encounter [facility] note* Diagnosis Tonsil cancer (HCC)- Primary Malignant neoplasm of tonsil documented in this encounter [facility] note* Diagnosis Malignant neoplasm of tonsil (HCC)- Primary Malignant neoplasm of tonsil documented in this encounter [facility] note* Diagnosis Malignant neoplasm of head, face and neck (HCC) Malignant neoplasm of head, face, and neck documented in this encounter [facility] note* Diagnosis History of cancer tonsil- Primary Personal history of malignant neoplasm of other and unspecified parts of oral cavity and pharynx History of radiation therapy Personal history of irradiation, presenting hazards to health History of chemotherapy Personal history of antineoplastic chemotherapy documented in this encounter [facility] note* Diagnosis 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 Malignant neoplasm of base of tongue documented in this encounter [facility] note* Diagnosis Malignant neoplasm of tonsil (HCC)- Primary Malignant neoplasm of tonsil documented in this encounter [facility] note* Diagnosis 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 Malignant neoplasm of base of tongue documented in this encounter [facility] noteNort [employer] Other evaluation noteNo InformationNosaint franc[facility] [employer] Other evaluation note* Diagnosis History of cancer tonsil- Primary Personal history of malignant neoplasm of other and unspecified parts of oral cavity and pharynx History of radiation therapy Personal history of irradiation, presenting hazards to health History of chemotherapy Personal history of antineoplastic chemotherapy documented in this encounter [facility] note* Diagnosis History of cancer tonsil- Primary Personal history of malignant neoplasm of other and unspecified parts of oral cavity and pharynx History of radiation therapy Personal history of irradiation, presenting hazards to health History of chemotherapy Personal history of antineoplastic chemotherapy documented in this encounter [facility] noteNo assessment information availableCincinnati [facility] Work Phone: Evaluation note* Diagnosis History of cancer tonsil- Primary Personal history of malignant neoplasm of other and unspecified parts of oral cavity and pharynx History of radiation therapy Personal history of irradiation, presenting hazards to health History of chemotherapy Personal history of antineoplastic chemotherapy [facility] 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, other specified sites Conjunctival papilloma, left Conjunctival papilloma, left documented in this encounter [facility] note* 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, other specified sites documented in this encounter [facility] note* 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, other specified sites documented in this encounter [facility]* Diagnosis Localized enlarged lymph nodes- Primary Enlargement of lymph nodes History of cancer tonsil Personal history of malignant neoplasm of other and unspecified parts of oral cavity and pharynx History of radiation therapy Personal history of irradiation, presenting hazards to health documented [facility] this encounter [facility]* Diagnosis Tonsil cancer (HCC)- Primary Malignant neoplasm of tonsil documented in this encounter [facility] note* Diagnosis 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, face, and neck (HCC) Malignant neoplasm of connective and other soft tissue of head, face, and neck documented in this encounter [facility] note* Diagnosis History of cancer tonsil- Primary Personal history of malignant neoplasm of other and unspecified parts of oral cavity and pharynx History of radiation therapy Personal history of irradiation, presenting hazards to health History of chemotherapy Personal history of antineoplastic chemotherapy [facility] 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, other specified sites documented in this encounter [facility] note* Diagnosis Paroxysmal atrial fibrillation (CMS/HCC)- Primary Atrial fibrillation Essential hypertension, benign High risk medication use Hypothyroidism, unspecified type Class 1 obesity with body mass index (BMI) of 32.0 to 32.9 in adult, unspecified obesity type, unspecified whether serious comorbidity present documented in this encounter [facility] Work Phone: Evaluation note* Diagnosis Onset Date Resolution Status Depression with suicidal ideation [facility] Work Phone: Evaluation note* Diagnosis Onset Date Resolution Status Anxiety acute Depression acute Depression with suicidal ideation [facility] Work Phone: Evaluation note* Diagnosis Generalized anxiety disorder (CMS/HCC)- Primary Generalized anxiety disorder [facility] Diagnosis Onset Date Resolution Status Anxiety acute Depression acute Depression with suicidal ideation resolved [facility] Work Phone: History general Narrative - Reported* Type Description Date Medical History Hypertension Medical History Chronic obesity Medical History hypothyroid Medical History alcoholism Medical History h/o esophagas cancer Medical History copd Medical History reformed smoker Medical History Atrial fibrillation Surgical History esophagectomy Surgical History thyroidectomy Surgical History Hernia (Stomach) 07/2016 Hospitalization History See above [employer] Other Hiswjia general Narrative - ReportedNort [employer] Other Hospital Discharge instructions Additional Instructions Take the prednisone once a day starting today for 5 days You may take your muscle relaxer 3 times a day as needed for pain May apply 1-2 lidocaine patches over sorest areas daily Gentle stretching May use ice or warm moist heat Follow-up with your family doctor for recheck Return to the ER for more severe pain weakness in your legs loss of bladder bowel control high fever or any other [facility]Kind[facility] Work Phone: Reason for referral (narrative)* Diagnostic Procedure Only (Routine) - Pending Review Specialty Diagnoses / Procedures Referred By Fidelia gallardo Referred To Contact MOLECULAR & FUNCTIONAL IMAGING Diagnoses Malignant neoplasm of head, face and neck (HCC) Procedures NM PET/CT SKULL-THIGH SUBSEQUENT PET IMAGING CT ATTENUATION SKULL BASE MID-THIGH Nima Molina MD [address] [place] [address] [facility] [address] [place] [address] Referral ID Status Reason Start Date Expiration Date Visits Requested Visits Authorized [id number] Pending Review Auto-Generat ed Referral 07/20/2021 08/13/2022 1 1 [facility] for referral (narrative)* Diagnostic Procedure Only (Routine) - Authorized Specialty Diagnoses / Procedures Referred By Contac t Referred To Contact MOLECULAR & FUNCTIONAL IMAGING Diagnoses Malignant neoplasm of oropharynx (HCC) Procedures NM PET/CT SKULL-THIGH INITIAL PET IMAGING CT ATTENUATION SKULL BASE MID-THIGH Nima Molina MD [address] [place] [address] [facility] [address] [id number] Referral ID Status Reason Start Date Expiration Date Visits Requested Visits Authorized [id number] Authorized Auto-Generat ed Referral 07/13/2021 09/17/2021 1 1 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 for referral (narrative)* Consultation (Routine) - Authorized Specialty Diagnoses / Procedures [facility] Referred To Contact Cardiology Diagnoses Essential hypertension, benign Paroxysmal atrial fibrillation (CMS/HCC) Procedures Follow Up In Cardiology Christine King MD [address] [place] [address] 2, [address] [id number] Christine King MD [address] [place] [address] 2, [address] [id number] Referral ID Status Reason Start Date Expiration Date V isits Requested Visits Authorized [id number] Authorized 02/22/2023 02/22/2024 1 1 * Cardiovascular (Routine) - Pending Review Specialty Diagnoses / Procedures Referred By Contac t Referred To Contact Diagnoses Paroxysmal atrial fibrillation (CMS/HCC) Procedures ECG 12 Lead Christine King MD [address] [facility] [address], [address] [place] [address] Referral ID Status Reason Start Date Expiration Date V isits Requested Visits Authorized [id number] Pending Review 02/22/2023 02/22/2024 1 1 * Consultation (Routine) - Authorized Specialty Diagnoses / Procedures Referred By Contac t Referred To Contact Cardiology Diagnoses Essential hypertension, benign Procedures Follow Up In Cardiology Christine King MD [address] [facility] [address], [address] [address] Referral ID Status Reason Start Date Expiration Date V isits Requested Visits Authorized [id number] Authorized 02/22/2023 02/22/2024 1 1 [facility] Work Phone: Reason for visit Narrative* Diagnostic Procedure Only (Routine) - Closed Specialty Diagnoses / Procedures Referred By Contac t Referred To Contact MOLECULAR & FUNCTIONAL IMAGING Diagnoses 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, face, and neck (HCC) Procedures NM PET/CT SKULL-THIGH INITIAL TUMOR IMAGING PET W/CONC CT SKULL-THIGH Nima Molina MD [address] [place] [address] Molecular & Functional Imaging [address] [id number] Referral ID Status Reason Start Date Expiration Date V isits Requested Visits Authorized [id number] Closed Auto-Generate d Referral 01/27/2021 03/27/2021 1 1 [facility] Summary Purpose Family History No Family History Records FoundUnknown Family Member Name Dates Details No pertinent family history: Mother(V49.89, Z78.9) Status:Active Unknown Family Member Name Dates Details No pertinent family history: Mother(V49.89, Z78.9) Status:Active Unknown Family Member Name Dates Details No pertinent family history: Mother(V49.89, Z78.9) Status:Active Unknown Family Member Name Dates Details No pertinent family history: Mother(V49.89, Z78.9) Status:Active Unknown Family Member Name Dates Details No pertinent family history: Mother(V49.89, Z78.9) Status:Active Unknown Family Member Name Dates Details No pertinent family history: Mother(V49.89, Z78.9) Status:Active Unknown Family Member Name Dates Details No pertinent family history: Mother(V49.89, Z78.9) Status:Active Unknown Family Member Name Dates Details No pertinent family history: Mother(V49.89, Z78.9) Status:Active Unknown Family Member Name Dates Details No pertinent family history: Mother(V49.89, Z78.9) Status:Active Relationship Condition Age at Onset Recorded Date/T abhay father Malignant neoplasm of lung Unknown sister Malignant neoplasm of lung Unknown Unknown Family Member Name Dates Details No pertinent family history: Mother(V49.89, Z78.9) Status:Active Unknown Family Member Name Dates Details No pertinent family history: Mother(V49.89, Z78.9) Status:Active Unknown Family Member Name Dates Details No pertinent family history: Mother(V49.89, Z78.9) Status:Active Relationship Condition Age at Onset Recorded Date/T abhay father Malignant neoplasm of lung Unknown sister Malignant neoplasm of lung Unknown father Family history of lung cancer Unknown Unknown Malignant neoplasm Unknown Not Specified Unknown sister Unknown Advance Directives No Advanced Directives Records FoundDocuments on File Type Date Recorded Patient Editor Producer Expl anation Advance Directive(s) 04/08/2021 4:10 PM Advance Directive(s) 03/30/2021 2:15 PM Advance Directive(s) 03/29/2021 3:08 PM Advance Directive(s) 03/23/2021 7:04 PM Advance Directive(s) 03/01/2021 8:14 AM Advance Directive(s) 01/19/2021 4:40 PM Advance Directive(s) 09/03/2020 11:30 AM Latest Code Status on File Code Status Date Activated Date Inactivated Comments Full Code 03/29/2021 5:08 PM 04/02/2021 5:47 PM Full Code Order Discussed With: Patient Documents on File Type Date Recorded Patient Editor Producer Expl anation Advance Directive(s) 04/08/2021 4:10 PM Advance Directive(s) 03/30/2021 2:15 PM Advance Directive(s) 03/29/2021 3:08 PM Advance Directive(s) 03/23/2021 7:04 PM Advance Directive(s) 03/01/2021 8:14 AM Advance Directive(s) 01/19/2021 4:40 PM Advance Directive(s) 09/03/2020 11:30 AM Latest Code Status on File Code Status Date Activated Date Inactivated Comments Full Code 03/29/2021 5:08 PM 04/02/2021 5:47 PM Advance Directive Response Recorded Date/ Time Advance Directives No January 6:12am Latest Code Status on File Code Status Date Activated Date Inactivated Comments Full Code 03/29/2021 5:08 PM 04/02/2021 5:47 PM Question Answer Comments Full Code Order Discussed With: Patient Latest Code Status on File Code Status Date Activated Date Inactivated Comments Full Code 03/29/2021 5:08 PM 04/02/2021 5:47 PM Question Answer Comments Full Code Order Discussed With: Patient Chief Complaint * WASHINGTON GARCIA is being seen for a 6 month follow-up of. * Patient is in the office for follow-up for paroxysmal atrial fibrillation. He remains in normal sinus rhythm on flecainide and Coumadin and has had no further bleeding problems. He survived esophageal cancer more than 6 years ago but yesterday he was told that he has indication for recurrent cancerin his neck. He is going to the [facility] for evaluation. His pressure is very elevated today despite medical therapy. He had a lot to drink last night after hearing the bad news. He reports no breakthrough atrial fibrillation no orthopnea PND or lower extremity edema. He remains obese with not much change in his weight from last visit. He had blood work that was done recently which we will try to retrieve. * Assessment/recommendations: * 1 paroxysmal atrial fibrillation, currently in sinus rhythm on flecainide. Currently on Coumadin with therapeutic INR without any bleeding problems * 2 cardiac catheterization July 2018 revealed normal coronary arteries * 3 hypertension presently out of control, hydralazine 50 mg twice daily was added and blood pressurecheck in few weeks will be scheduled * 4 obesity, the patient was advised to work harder on getting his weight loss underway. * 5 status post thyroidectomy with hypothyroidism on replacement therapy, followed by PCP * 6 history of esophageal cancer more than 6 years ago, the patient was diagnosed with head and neck cancer yesterday by CT scan. He will follow with the [facility] * WASHINGTON GARCIA is being seen for a 2 week follow-up of hypertension. * Patient is in the office for hypertension management. The current medical therapy has helped control hypertension completely. He has had no side effects. Present medical therapy will left unchanged. * WASHINGTON GARCIA is being seen for a 6 month follow-up of. * Patient is in the office for follow-up for the problems noted below. Since he was last seen in the office he had couple visit for blood pressure check in the office and his pressure has become under control. He finished that the surgery and radiation therapy for his head and neck cancer and continue to follow with oncology. He currently has no cardiac complaint and his EKG revealed normal sinus rhythm his blood pressure is under control. His weight has dropped several pounds due to going through the treatment for the cancer. * Assessment/recommendations: * 1 paroxysmal atrial fibrillation, currently in sinus rhythm on flecainide. Currently on Coumadin with therapeutic INR without any bleeding problems * 2 cardiac catheterization July 2018 revealed normal coronary arteries * 3 hypertension presently under control, will continue to follow on present medications * 4 obesity, the patient had several pounds weight drop since last visit and will continue to do so * 5 status post thyroidectomy with hypothyroidism on replacement therapy, followed by PCP * 6 history of esophageal cancer more than 6 years ago, the patient was diagnosed with head and neck cancer and just finished his radiation and chemotherapy after having surgery. He will follow with the [facility] * WASHINGTON GARCIA is being seen for a 6 month follow-up of. * Patient is in the office for follow-up for the problems noted below. Since he was last seen in the office he had couple visit for blood pressure check in the office and his pressure has become under control. He finished that the surgery and radiation therapy for his head and neck cancer and continue to follow with oncology. He currently has no cardiac complaint and his EKG revealed normal sinus rhythm his blood pressure is under control. His weight has dropped several pounds due to going through the treatment for the cancer. * Assessment/recommendations: * 1 paroxysmal atrial fibrillation, currently in sinus rhythm on flecainide. Currently on Coumadin with therapeutic INR without any bleeding problems * 2 cardiac catheterization July 2018 revealed normal coronary arteries * 3 hypertension presently under control, will continue to follow on present medications * 4 obesity, the patient had several pounds weight drop since last visit and will continue to do so * 5 status post thyroidectomy with hypothyroidism on replacement therapy, followed by PCP * 6 history of esophageal cancer more than 6 years ago, the patient was diagnosed with head and neck cancer and just finished his radiation and chemotherapy after having surgery. He will follow with the [facility] * WASHINGTON GARCIA is being seen for a 6 month follow-up of. * Patient is in the office for follow-up for the problems noted below with no events of atrial fibrillation noticed since he was last seen in the office several months ago. He remains on flecainide andon Coumadin therapy. EKG confirmed normal sinus rhythm with normal intervals. Patient has no dyspnea orthopnea PND or lower extremity edema. His head and neck cancer has been in remission followed bythe [facility]. His weight remains above target and we discussed at length the measures I recommended to bring his weight under control. He is scheduled to have blood work in the near future and we requested the lab to be sent to our office. * Assessment/recommendations: * 1 paroxysmal atrial fibrillation, currently in sinus rhythm on flecainide. Currently on Coumadin with therapeutic INR without any bleeding problems * 2 cardiac catheterization July 2018 revealed normal coronary arteries * 3 hypertension presently under control, will continue to follow on present medications * 4 obesity, healthy lifestyle with low calorie diet and exercise was highly recommended * 5 status post thyroidectomy with hypothyroidism on replacement therapy, followed by PCP * 6 history of esophageal cancer more than 6 years ago, in remission, the patient was diagnosed with head and neck cancer and just finished his radiation and chemotherapy after having surgery. He will continue to follow with the [facility] * WASHINGTON GARCIA is being seen for a 6 month follow-up of. * Patient is in the office for follow-up for paroxysmal atrial fibrillation among other problems noted below. He is on flecainide and Coumadin and has been in sinus rhythm without breakthrough events. He esophageal cancer is in remission as is his head and neck cancers. 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 Details are not available. He was found to be hypertensive in the office today. He maintains active lifestyle. He is compliant with medical therapy. His weight remains significantly above target and education to bring his w eight down was discussed with the patient. * Assessment/recommendations: * 1 paroxysmal atrial fibrillation, currently in sinus rhythm on flecainide. Currently on Coumadin with therapeutic INR without any bleeding problems * 2 cardiac catheterization July 2018 revealed normal coronary arteries * 3 hypertension presently not under control, We will increase hydralazine up to 100 mg twice daily and follow blood pressure readings in the near future * 4 obesity, healthy lifestyle with low calorie diet and exercise was highly recommended * 5 status post thyroidectomy with hypothyroidism on replacement therapy, followed by PCP * 6 history of esophageal cancer more than 7 years ago, in remission, the patient was diagnosed with head and neck cancer and finished his radiation and chemotherapy after having surgery. He will continue to follow with the [facility] Reason for Referral Specialty Diagnoses / Procedures Referred By Fidelia gallardo Referred To Contact [facility] Diagnoses Malignant neoplasm of tonsil (HCC) Procedures CONSULT TO PHYSICAL THERAPY PHYSICAL THERAPY EVALUATION HIGH COMPLEX 45 MINS Rikki Castro MD [address] [place] [id number] [facility] [place] [address] [place] [id number] Referral ID Status Reason Start Date Expiration Date Visits Requested Visits Authorized [id number] Pending Review Auto-Generat ed Referral 09/03/2021 08/27/2022 1 1 Specialty Diagnoses / Procedures Referred By Fidelia gallardo Referred To Contact CT IMAGING Diagnoses History of cancer tonsil History of radiation therapy History of chemotherapy Procedures CT CHEST W IVCON DIAGNOSTIC COMPUTED TOMOGRAPHY THORAX W/CONTRAST Nima Molina MD [address] [place] [address] Ct Imaging Referral ID Status Reason Start Date Expiration Date Visits Requested Visits Authorized [id number] Authorized Auto-Generat ed Referral 10/12/2021 11/11/2022 1 1 Specialty Diagnoses / Procedures Referred By Fidelia gallardo Referred To Contact CT IMAGING Diagnoses History of cancer tonsil History of radiation therapy History of chemotherapy Procedures CT NECK SOFT TISSUE W IVCON CT SOFT TISSUE NECK W/CONTRAST MATERIAL Nima Molina MD [address] [place] [address] Ct Imaging Referral ID Status Reason Start Date Expiration Date Visits Requested Visits Authorized [id number] Authorized Auto-Generat ed Referral 10/12/2021 11/11/2022 1 1 Specialty Diagnoses / Procedures Referred By Fidelia gallardo Referred To Contact [facility] Diagnoses History of cancer tonsil History of radiation therapy History of chemotherapy Procedures CONSULT TO LYMPHEDEMA THERAPY OFFICE/OUTPATIENT [facility] 60-74 MINUTES Nima Molina MD [address] [place] [address] [facility] [address] [address] Referral ID Status Reason Start Date Expiration Date Visits Requested Visits Authorized [id number] Pending Review Auto-Generat ed Referral 01/11/2023 1 1 Specialty Diagnoses / Procedures Referred By Fidelia gallardo Referred To Contact CT IMAGING Diagnoses Localized enlarged lymph nodes History of cancer tonsil History of radiation therapy Procedures CT NECK SOFT TISSUE W IVCON CT SOFT TISSUE NECK W/CONTRAST MATERIAL Nima Molina MD [address] [place] [address] Ct Imaging Referral ID Status Reason Start Date Expiration Date Visits Requested Visits Authorized [id number] Authorized Auto-Generat ed Referral 2022 08/11/2023 1 1 Chief Complaint and Reason for Visit Chief Complaint Afib neck lymph Chief Complaint neck lymph Afib lower back pain down rt leg,nki Chief Complaint Afib Rapid heart rate, High BP Chief Complaint Rapid heart rate, Hi gh BP Afib SI Reason for Visit Depression with suic idal ideation Chief Complaint Rapid heart rate, Hi gh BP Afib SI Reason for Visit Anxiety Depression Depression with suicidal ideation Chief Complaint Rapid heart rate, Hi gh BP SI Afib Reason for Visit Anxiety Depression Depression with suicidal ideation Medications Administered Section Inactive Administered Medications - up to 3 most recent administrations Medication Order MAR Action Action Date Dose Rate Site lactated ringers iv infusion 30 mL/hr, INTRAVENOUS, CONTINUOUS, Starting on Mon05/30/22 at 1430, Until Mon05/30/22 at 1429, If blood glucose less than 100 mg/dL, contact anesthesia provider., Preprocedure New Bag/Syringe/Bottle 05/30/2022 2:22 PM EDT 30 mL/hr 30 mL/hr Additional Source Comments (unrecognized sect ion and content) No Status Records FoundNo Status Records FoundNo Status Records FoundNo Status Records FoundNo Status Records FoundNo Status Records FoundNo Status Records FoundNo Status Records FoundNo Status Records FoundNo Status Records FoundNo Status Records Found INFORMATION SOURCE (unrecogn ized section and content) DATE CREATED AUTHOR 05/24/2018 [facility] DATE CREATED AUTHOR AUTHOR'S ORGANIZ ATION 12/04/2019 [facility] DATE CREATED AUTHOR AUTHOR'S ORGANIZ ATION 06/07/2020 [facility] DATE CREATED AUTHOR AUTHOR'S ORGANIZ ATION 09/09/2020 [facility] DATE CREATED AUTHOR AUTHOR'S ORGANIZ ATION 08/31/2021 [facility] Specialist DATE CREATED AUTHOR AUTHOR'S ORGANIZ ATION 08/29/2022 [facility] DATE CREATED AUTHOR AUTHOR'S ORGANIZ ATION 08/29/2022 [facility] DATE CREATED AUTHOR AUTHOR'S ORGANIZ ATION 02/25/2023 [facility] Ambulatory DATE CREATED AUTHOR AUTHOR'S ORGANIZ ATION 04/29/2023 [facility] dical Specialists EPIC DATE CREATED AUTHOR AUTHOR'S ORGANIZ ATION 05/23/2023 [facility] DATE CREATED AUTHOR AUTHOR'S ORGANIZ ATION 05/27/2023 [facility] Source Comments (unrecognize d section and content) In the event this informatio n is protected by the Federal Confidentiality of Alcohol and Drug Abuse Patient Records regulations: The Federal rules restrict any use of the information to criminally investigate or prosecute any alcohol or drug abuse patient.[facility] Center[facility] the event this information is protected by the Federal Confidentiality of Alcohol and Drug Abuse Patient Records regulations: The Federal rules restrict any use of the information to criminally investigate or prosecute any alcohol or drug abuse patient.[facility] CenterIn the event this information is protected by the Federal Confidentiality of Alcohol and Drug Abuse Patient Records regulations: The Federal rules restrict any use of the information to criminally investigate or prosecute any alcohol or drug abuse patient.[facility] CenterIn the event this information is protected by the Federal Confidentiality of Alcohol and Drug Abuse Patient Records regulations: The Federal rules restrict any use of the information to criminally investigate or prosecute any alcohol or drug abuse patient.[facility] CenterIn the event this information is protected by the Federal Confidentiality of Alcohol and Drug Abuse Patient Records regulations: The Federal rules restrict any use of the information to criminally investigate or prosecute any alcohol or drug abuse patient.[facility] CenterIn the event this information is protected by the Federal Confidentiality of Alcohol and Drug Abuse Patient Records regulations: The Federal rules restrict any use of the information to criminally investigate or prosecute any alcohol or drug abuse patient.[facility] CenterIn the event this information is protected by the Federal Confidentiality of Alcohol and Drug Abuse Patient Records regulations: The Federal rules restrict any use of the information to criminally investigate or prosecute any alcohol or drug abuse patient.[facility] CenterIn the event this information is protected by the Federal Confidentiality of Alcohol and Drug Abuse Patient Records regulations: The Federal rules restrict any use of the information to criminally investigate or prosecute any alcohol or drug abuse patient.[facility] CenterIn the event this information is protected by the Federal Confidentiality of Alcohol and Drug Abuse Patient Records regulations: The Federal rules restrict any use of the information to criminally investigate or prosecute any alcohol or drug abuse patient.[facility] CenterIn the event this information is protected by the Federal Confidentiality of Alcohol and Drug Abuse Patient Records regulations: The Federal rules restrict any use of the information to criminally investigate or prosecute any alcohol or drug abuse patient.[facility] CenterIn the event this information is protected by the Federal Confidentiality of Alcohol and Drug Abuse Patient Records regulations: The Federal rules restrict any use of the information to criminally investigate or prosecute any alcohol or drug abuse patient.[facility] CenterIn the event this information is protected by the Federal Confidentiality of Alcohol and Drug Abuse Patient Records regulations: The Federal rules restrict any use of the information to criminally investigate or prosecute any alcohol or drug abuse patient.[facility] CenterIn the event this information is protected by the Federal Confidentiality of Alcohol and Drug Abuse Patient Records regulations: The Federal rules restrict any use of the information to criminally investigate or prosecute any alcohol or drug abuse patient.[facility] CenterIn the event this information is protected by the Federal Confidentiality of Alcohol and Drug Abuse Patient Records regulations: The Federal rules restrict any use of the information to criminally investigate or prosecute any alcohol or drug abuse patient.[facility] CenterIn the event this information is protected by the Federal Confidentiality of Alcohol and Drug Abuse Patient Records regulations: The Federal rules restrict any use of the information to criminally investigate or prosecute any alcohol or drug abuse patient.[facility] CenterIn the event this information is protected by the Federal Confidentiality of Alcohol and Drug Abuse Patient Records regulations: The Federal rules restrict any use of the information to criminally investigate or prosecute any alcohol or drug abuse patient.[facility] CenterIn the event this information is protected by the Federal Confidentiality of Alcohol and Drug Abuse Patient Records regulations: The Federal rules restrict any use of the information to criminally investigate or prosecute any alcohol or drug abuse patient.[facility] CenterIn the event this information is protected by the Federal Confidentiality of Alcohol and Drug Abuse Patient Records regulations: The Federal rules restrict any use of the information to criminally investigate or prosecute any alcohol or drug abuse patient.[facility] CenterIn the event this information is protected by the Federal Confidentiality of Alcohol and Drug Abuse Patient Records regulations: The Federal rules restrict any use of the information to criminally investigate or prosecute any alcohol or drug abuse patient.[facility] CenterIn the event this information is protected by the Federal Confidentiality of Alcohol and Drug Abuse Patient Records regulations: The Federal rules restrict any use of the information to criminally investigate or prosecute any alcohol or drug abuse patient.[facility] CenterIn the event this information is protected by the Federal Confidentiality of Alcohol and Drug Abuse Patient Records regulations: The Federal rules restrict any use of the information to criminally investigate or prosecute any alcohol or drug abuse patient.[facility] CenterIn the event this information is protected by the Federal Confidentiality of Alcohol and Drug Abuse Patient Records regulations: The Federal rules restrict any use of the information to criminally investigate or prosecute any alcohol or drug abuse patient.[facility] CenterIn the event this information is protected by the Federal Confidentiality of Alcohol and Drug Abuse Patient Records regulations: The Federal rules restrict any use of the information to criminally investigate or prosecute any alcohol or drug abuse patient.[facility] CenterIn the event this information is protected by the Federal Confidentiality of Alcohol and Drug Abuse Patient Records regulations: The Federal rules restrict any use of the information to criminally investigate or prosecute any alcohol or drug abuse patient.[facility] CenterIn the event this information is protected by the Federal Confidentiality of Alcohol and Drug Abuse Patient Records regulations: The Federal rules restrict any use of the information to criminally investigate or prosecute any alcohol or drug abuse patient.[facility] CenterIn the event this information is protected by the Federal Confidentiality of Alcohol and Drug Abuse Patient Records regulations: The Federal rules restrict any use of the information to criminally investigate or prosecute any alcohol or drug abuse patient.[facility] CenterIn the event this information is protected by the Federal Confidentiality of Alcohol and Drug Abuse Patient Records regulations: The Federal rules restrict any use of the information to criminally investigate or prosecute any alcohol or drug abuse patient.[facility] CenterIn the event this information is protected by the Federal Confidentiality of Alcohol and Drug Abuse Patient Records regulations: The Federal rules restrict any use of the information to criminally investigate or prosecute any alcohol or drug abuse patient.[facility] CenterIn the event this information is protected by the Federal Confidentiality of Alcohol and Drug Abuse Patient Records regulations: The Federal rules restrict any use of the information to criminally investigate or prosecute any alcohol or drug abuse patient.[facility] CenterIn the event this information is protected by the Federal Confidentiality of Alcohol and Drug Abuse Patient Records regulations: The Federal rules restrict any use of the information to criminally investigate or prosecute any alcohol or drug abuse patient.[facility] CenterIn the event this information is protected by the Federal Confidentiality of Alcohol and Drug Abuse Patient Records regulations: The Federal rules restrict any use of the information to criminally investigate or prosecute any alcohol or drug abuse patient.[facility] CenterIn the event this information is protected by the Federal Confidentiality of Alcohol and Drug Abuse Patient Records regulations: The Federal rules restrict any use of the information to criminally investigate or prosecute any alcohol or drug abuse patient.[facility] CenterIn the event this information is protected by the Federal Confidentiality of Alcohol and Drug Abuse Patient Records regulations: The Federal rules restrict any use of the information to criminally investigate or prosecute any alcohol or drug abuse patient.[facility] CenterIn the event this information is protected by the Federal Confidentiality of Alcohol and Drug Abuse Patient Records regulations: The Federal rules restrict any use of the information to criminally investigate or prosecute any alcohol or drug abuse patient.[facility] CenterIn the event this information is protected by the Federal Confidentiality of Alcohol and Drug Abuse Patient Records regulations: The Federal rules restrict any use of the information to criminally investigate or prosecute any alcohol or drug abuse patient.[facility] CenterIn the event this information is protected by the Federal Confidentiality of Alcohol and Drug Abuse Patient Records regulations: The Federal rules restrict any use of the information to criminally investigate or prosecute any alcohol or drug abuse patient.[facility] Care Teams (unrecognized sec tion and content) Team Status: Active Member Role Status Arnulfo Thurman MD Primary Care Provider Active Team Status: Inactive Member Role Status Arnulfo Thurman MD Primary Care Provider Active St art: April 02, 2023 End: April 02, 2023 Anita Merrill MD Emergency Provider Active St art: April 02, 2023 End: April 02, 2023 Team Status: Active Member Role Status Arnulfo Thurman MD Primary Care Provider Active St art: April 13, 2023 Christine King MD Attending Provider Active St art: April 13, 2023 Team Status: Active Member Role Status Arnulfo Thurman MD Primary Care Provider Active St art: April 16, 2023 Pham Edmond DO Emergency Provider Active St art: April 16, 2023 Darrell Duenas MD Admit Provider, Atte nding Provider Active Start: April 16, 2023 Team Status: Active Member Role Status Arnulfo Thurman MD Primary Care Provider Active Christine King MD Attending Provider Active Team Status: Inactive Member Role Status Arnulfo Thurman MD Primary Care Provider Active Anita Merrill MD Emergency Provider Active Scaffold Builder Relationship Specialty Start Date End Date Zachery Thurman MD [address] [place] [address] PCP - General Internal Medicine 09/03/20 Zuhair Aguirre [address] [place] [address] Referring General Surgery 08/30/16 Rony Sampson [address] [place] [address] Gastroenterology 04/20/20 Christine King [address] [facility] [place] [phone] Cardiology 01/19/21 Saundra Cunningham RN [address] [facility] [address] [place], [place] [id number] Specialty Senior Lead Developer Hematology/Oncology 05/04/21 Rikki Castro MD [address] [place] [address] Physician Hematology/Oncology 05/04/21 Yamile Mccoy PA-C [address] [facility] [place] [address] Physician Cattle Examiner Hematology/Oncology 05/04/21 Scaffold Builder Relationship Specialty Start Date End Date Zachery Thurman MD [address] [place] [address] PCP - General Internal Medicine 09/03/20 Zuhair Aguirre [address] [facility] [address] [place] [phone] Referring General Surgery 08/30/16 Rony Sampson [address] [facility] [address] [place] [address] Gastroenterology 04/20/20 Christine King [address] [facility] [address] [place] [phone] Cardiology 01/19/21 Saundra Cunningham, GIUSEPPE [address] [facility] [place] [address] Specialty Senior Lead Developer Hematology/Oncology 05/04/21 Rikki Castro MD [address] [facility] [place] [address] Physician Hematology/Oncology 05/04/[address] [facility] [place] [address] Physician Cattle Examiner Hematology/Oncology 05/04/21 Scaffold Builder Relationship Specialty Start Date End Date Zachery Thurman MD [address] [place] [address] PCP - General Internal Medicine 09/03/20 Zuhair Aguirre [address] [facility] [address] [place] [phone] Referring General Surgery 08/30/16 Rony Sampson [address] [facility] [address] [place] [address] Gastroenterology 04/20/20 Christine King [address] [facility] [address] [place] [address] Cardiology 01/19/21 Saundra Cunningham, RN [address] [facility] [place] [address] Specialty Senior Lead Developer Hematology/Oncology 05/04/21 Rikki Castro MD [address] [facility] [place] [address] Physician Hematology/Oncology 05/04/21 Yamile Mccoy PA-C [address] [facility] [place] [address] Physician Cattle Examiner Hematology/Oncology 05/04/21 Scaffold Builder Relationship Specialty Start Date End Date Zachery Thurman MD [address] [place] [address] PCP - General Internal Medicine 09/03/20 Zuhair Aguirre [address] [facility] [address] [place] [phone] Referring General Surgery 08/30/16 Rony Balderas R [address] [place] [address] Gastroenterology 04/20/20 Christine King [address] [place] [phone] Cardiology 01/19/21 Saundra Cunningham, RN [address] [facility] [place] [address] Specialty Senior Lead Developer Hematology/Oncology 05/04/21 Rikki Castro MD [address] [place] [address] Physician Hematology/Oncology 05/04/21 Yamile Mccoy, PA-C [address] [facility] [place] [address] Physician Cattle Examiner Hematology/Oncology 05/04/21 Scaffold Builder Relationship Specialty Start Date End Date Zachery Thurman MD [address] [place] [address] PCP - General Internal Medicine 09/03/20 Zuhair Aguirre [address] [facility] [address] [place] [phone] Referring General Surgery 08/30/16 Rony Balderas R [address] [place] [address] Gastroenterology 04/20/20 Christine King [address] [place] [phone] Cardiology 01/19/21 Saundra Cunningham RN [address] [facility] [place] [address] Specialty Senior Lead Developer Hematology/Oncology 05/04/21 Rikki Castro MD [address] [place] [address] Physician Hematology/Oncology 05/04/21 Yamile Mccoy PA-C [address] [facility] [place] [address] Physician Cattle Examiner Hematology/Oncology 05/04/21 Scaffold Builder Relationship Specialty Start Date End Date Zachery Thurman MD [address] [place] [address] PCP - General Internal Medicine 09/03/20 Zuhair Aguirre [address] [facility] [address] [place] [address] Referring General Surgery 08/30/16 Rony Sampson [address] [facility] [address] [place] [address] Gastroenterology 04/20/20 Christine King [address] [facility] [address] [place] [phone] Cardiology 01/19/21 Saundra Cunningham, RN [address] [facility] [place] [address] Specialty Senior Lead Developer Hematology/Oncology 05/04/21 Rikki Castro MD [address] [facility] [place] [address] Physician Hematology/Oncology 05/04/21 Yamile Mccoy PA-C [address] [facility] [place] [address] Physician Cattle Examiner Hematology/Oncology 05/04/21 Scaffold Builder Relationship Specialty Start Date End Date Zachery Thurman MD [address] [place] [address] PCP - General Internal Medicine 09/03/20 Zuhair Aguirre [address] [facility] [address] [place] [phone] Referring General Surgery 08/30/16 Rony Balderas [address] [facility] [address] [place] [address] Gastroenterology 04/20/20 Christine King [address] [facility] [address] [place] [phone] Cardiology 01/19/21 Saundra Cunningham, RN [address] [employer] [facility] [place] [address] Specialty Senior Lead Developer Hematology/Oncology 05/04/21 Rikki Castro MD [address] [employer] [facility] [place] [address] Physician Hematology/Oncology 05/04/21 Yamile Mccoy, PA-C [address] [employer] [facility] [place] [address] Physician Cattle Examiner Hematology/Oncology 05/04/21 Scaffold Builder Relationship Specialty Start Date End Date Zachery Thurman MD [address] [place] [address] PCP - General Internal Medicine 09/03/20 Zuhair Aguirre [address] [facility] [address] [place] [phone] Referring General Surgery 08/30/16 Rony Balderas [address] [facility] [address] [place] [address] Gastroenterology 04/20/20 Christine King3 [facility] [address] [place] [address] Cardiology 01/19/21 Saundra Cunningham, RN [address] [facility] [place] [address] Specialty Senior Lead Developer Hematology/Oncology 05/04/21 Rikki Castro MD [address] [place] [address] Physician Hematology/Oncology 05/04/21 Yamile Mccoy, PA-C [address] [facility] [place] [address] Physician Cattle Examiner Hematology/Oncology 05/04/21 Scaffold Builder Relationship Specialty Start Date End Date Zachery Thurman MD [address] [place] [address] PCP - General Internal Medicine 09/03/20 Zuhair Aguirre [address] [facility] [address] [place] [address] Referring General Surgery 08/30/16 Rony Sampson [address] [facility] [address] [place] [address] Gastroenterology 04/20/20 Christine King [address] [facility] [address] [place] [address] Cardiology 01/19/21 Saundra Cunningham, RN [address] [facility] [place] [address] Specialty Senior Lead Developer Hematology/Oncology 05/04/21 Rikki Castro MD [address] [place] [address] Physician Hematology/Oncology 05/04/21 Yamile Mccoy PA-C [address] [facility] [place] [address] Physician Cattle Examiner Hematology/Oncology 05/04/21 Scaffold Builder Relationship Specialty Start Date End Date Zachery Thurman MD [address] [place] [address] PCP - General Internal Medicine 09/03/20 Zuhair Augirre [address] [place] [phone] Referring General Surgery 08/30/16 Rony Sampson [address] [place] [address] Gastroenterology 04/20/20 Christine King [address] [facility] [address] [place] [phone] Cardiology 01/19/21 Saundra Cunningham, RN [address] [facility] [address] Specialty Senior Lead Developer Hematology/Oncology 05/04/21 Rikki Catsro MD [address] [employer] [facility] [place] [address] Physician Hematology/Oncology 05/04/21 Yamile Mccoy PA-C [address] [facility] [place] [address] Physician Cattle Examiner Hematology/Oncology 05/04/21 Scaffold Builder Relationship Specialty Start Date End Date Zachery Thurman MD [address] [place] [address] PCP - General Internal Medicine 09/03/20 Zuhair Aguirre [address] [facility] [address] [place] [address] Referring General Surgery 08/30/16 Rony Balderas R [address] [facility] [address] [place] [address] Gastroenterology 04/20/20 Christine King [address] [facility] [address] [place] [address] Cardiology 01/19/21 Saundra Cunningham RN [address] [facility] [place] [address] Specialty Senior Lead Developer Hematology/Oncology 05/04/21 Rikki Castro MD [address] [place] [address] Physician Hematology/Oncology 05/04/21 Yamile Mccoy, PA-C [address] [facility] [address] Physician Cattle Examiner Hematology/Oncology 05/04/21 Scaffold Builder Relationship Specialty Start Date End Date Zachery Thurman MD [address] [place] [address] PCP - General Internal Medicine 09/03/20 Zuhair Aguirre [address] [facility] [address] [place] [address] Referring General Surgery 08/30/16 Rony Balderas R [address] [facility] [address] [place] [address] Gastroenterology 04/20/20 Christine King [address] [facility] [address] [place] [address] Cardiology 01/19/21 Saundra Cunningham RN [address] [facility] [place] [address] Specialty Senior Lead Developer Hematology/Oncology 05/04/21 Rikki Castro MD [address] [place] [address] Physician Hematology/Oncology 05/04/21 Yamile Mccoy, PA-C [address] [facility] [place] [address] Physician Cattle Examiner Hematology/Oncology 05/04/21 Scaffold Builder Relationship Specialty Start Date End Date Zachery Thurman MD [address] [place] [address] PCP - General Internal Medicine 09/03/20 Zuhair Aguirre 7[address] [facility] [address] [place] [address] Referring General Surgery 08/30/16 Rony Sampson [address] [place] [address] Gastroenterology 04/20/20 Christine King [address] [place] [address] Cardiology 01/19/21 Saundra Cunningham, RN [address] [facility] [place] [address] Specialty Senior Lead Developer Hematology/Oncology 05/04/21 Rikki Castro MD [address] [place] [address] Physician Hematology/Oncology 05/04/21 Yamile Mccoy, PA-C [address] [facility] [place] [address] Physician Cattle Examiner Hematology/Oncology 05/04/21 Scaffold Builder Relationship Specialty Start Date End Date Zachery Thurman MD [address] [place] [address] PCP - General Internal Medicine 09/03/20 Zuhair Aguirre [address] [place] [phone] Referring General Surgery 08/30/16 Rony Sampson [address] [place] [address] Gastroenterology 04/20/20 Christine King [address] [facility] [facility] [address] [place] [phone] Cardiology 01/19/21 Saundra Cunningham RN [address] [facility] [place] [address] Specialty Senior Lead Developer Hematology/Oncology 05/04/21 Rikki Castro MD [address] [facility] [place] [address] Physician Hematology/Oncology 05/04/21 Yamile Mccoy, PA-C [address] [facility] [place] [address] Physician Cattle Examiner Hematology/Oncology 05/04/21 Scaffold Builder Relationship Specialty Start Date End Date Zachery Thurman MD [address] [place] [address] PCP - General Internal Medicine 09/03/20 Zuhair Aguirre [address] [facility] [address] [place] [address] Referring General Surgery 08/30/16 Rony Balderas [address] [facility] [address] [place] [address] Gastroenterology 04/20/20 Christine King [address] [place] [address] Cardiology 01/19/21 Saundra Cunningham, GIUSEPPE [address] [facility] [place] [address] Specialty Senior Lead Developer Hematology/Oncology 05/04/21 Rikki Castro MD [address] [facility] [place] [address] Physician Hematology/Oncology 05/04/21 Yamile Mccoy, PA-C [address] [facility] [place] [address] Physician Cattle Examiner Hematology/Oncology 05/04/21 Team Status: Inactive Member Role Status Arnulfo Thurman MD Primary Care Provider Active Nima Molina MD Attending Provider Active Team Status: Inactive Member Role Status Arnulfo Thurman MD Primary Care Provider Active Cindi Davenport , [facility] Emergency Provider Active Scaffold Builder Relationship Specialty Start Date End Date Zachery Thurman MD [address] [place] [address] PCP - General Internal Medicine 09/03/20 Zuhair Aguirre [address] [place] [address] Referring General Surgery 08/30/16 Rony Sampson [address] [place] [address] Gastroenterology 04/20/20 Christine King [address] [place] [address] Cardiology 01/19/21 Saundra Cunningham RN [address] [facility] [place] [address] Specialty Senior Lead Developer Hematology/Oncology 05/04/21 Rikki Castro MD [address] [place] [address] Physician Hematology/Oncology 05/04/21 Yamile Mccoy, PA-C [address] [facility] [place] [address] Physician Cattle Examiner Hematology/Oncology 05/04/21 Scaffold Builder Relationship Specialty Start Date End Date Zachery Thurman MD [address] [place] [address] PCP - General Internal Medicine 09/03/20 Zuhair Aguirre [address] [place] [phone] Referring General Surgery 08/30/16 Rony Sampson [address] [place] [address] Gastroenterology 04/20/20 Christine King [address] [place] [phone] Cardiology 01/19/21 Saundra Cunningham, RN [address] [facility] [place] [address] Specialty Senior Lead Developer Hematology/Oncology 05/04/21 Rikki Castro MD [address] [place] [address] Physician Hematology/Oncology 05/04/21 Yamile Mccoy, PALashandaC [address] [facility] [place] [address] Physician Cattle Examiner Hematology/Oncology 05/04/21 Scaffold Builder Relationship Specialty Start Date End Date Zachery Thurman MD [address] [place] [address] PCP - General Internal Medicine 09/03/20 Zuhair Aguirre [address] [facility] [address] [place] [phone] Referring General Surgery 08/30/16 Rony Sampson [address] [facility] [address] [place] [address] Gastroenterology 04/20/20 Christine King [facility] [address] [place] [address] Cardiology 01/19/21 Saundra Cunningham, RN [address] [facility] [place] [address] Specialty Senior Lead Developer Hematology/Oncology 05/04/21 Rikki Castro MD [address] [address] Physician Hematology/Oncology 05/04/21 Yamile Mccoy, PA-C [address] [facility] [place] [address] Physician Cattle Examiner Hematology/Oncology 05/04/21 Scaffold Builder Relationship Specialty Start Date End Date Zachery Thurman MD [address] [place] [address] PCP - General Internal Medicine 09/03/20 Zuhair Aguirre [address] [facility] [address] [place] [address] Referring General Surgery 08/30/16 Rony Sampson 7[address] [facility] [address] [place] [address] Gastroenterology 04/20/20 Christine King 703 [facility] [address] [place] [address] Cardiology 01/19/21 Saundra Cunningham, RN [address] [facility] [place] [address] Specialty Senior Lead Developer Hematology/Oncology 05/04/21 Rikki Castro MD [address] [facility] [place] [address] Physician Hematology/Oncology 05/04/21 Yamile Mccoy, PA-C [address] [facility] [place] [address] Physician Cattle Examiner Hematology/Oncology 05/04/21 Scaffold Builder Relationship Specialty Start Date End Date Zachery Thurman MD [address] [place] [address] PCP - General Internal Medicine 09/03/20 Zuhair Aguirre [address] [facility] [address] [place] [address] Referring General Surgery 08/30/16 Rony Sampson [address] [facility] [address] [place] [address] Gastroenterology 04/20/20 Christine King [address] [facility] [address] [place] [address] Cardiology 01/19/21 Saundra Cunningham, RN [address] [facility] [place] [address] Specialty Senior Lead Developer Hematology/Oncology 05/04/21 Rikki Castro MD [address] [place] [address] [place] [address] Physician Hematology/Oncology 05/04/21 Yamile Mccoy PA-C [address] [place] [address] [place] [address] Physician Cattle Examiner Hematology/Oncology 05/04/21 Scaffold Builder Relationship Specialty Start Date End Date Zachery Thurman MD [address] [facility] [address] [place] [address] PCP - General Internal Medicine 09/03/20 Zuhair Aguirre [address] [facility] [address] [place] [address] Referring General Surgery 08/30/16 Rony Sampson [address] [facility] [address] [place] [address] Gastroenterology 04/20/20 Christine King 7[address] [facility] [address] [place] [address] Cardiology 01/19/21 Scaffold Builder Relationship Specialty Start Date End Date Zachery Thurman MD [address] [facility] [address] [place] [address] PCP - General Internal Medicine 09/03/20 Zuhair Aguirre [address] [facility] [address] [place] [address] Referring General Surgery 08/30/16 Rony Sampson [address] [facility] [address] [place] [address] Gastroenterology 04/20/20 Christine King 703 [facility] [address] [place] [address] Cardiology 01/19/21 Scaffold Builder Relationship Specialty Start Date End Date Zachery Thurman MD [address] [place] [address] PCP - General Internal Medicine 09/03/20 Zuhair Aguirre [address] [facility] [address] [place] [address] Referring General Surgery 08/30/16 Rony Sampson [address] [facility] [address] [place] [address] Gastroenterology 04/20/20 Christine King 703 [facility] [address] [place] [address] Cardiology 01/19/21 Saundra Cunningham RN [address] [facility] [place] [address] Specialty Senior Lead Developer Hematology/Oncology 05/04/21 Rikki Castro MD [address] [facility] [place] [address] Physician Hematology/Oncology 05/04/21 Yamile Mccoy, PA-C [address] [facility] [place] [address] Physician Cattle Examiner Hematology/Oncology 05/04/21 Scaffold Builder Relationship Specialty Start Date End Date Zachery Thurman MD [address] [place] [address] PCP - General Internal Medicine 09/03/20 Zuhair Aguirre [address] [facility] [address] [place] [address] Referring General Surgery 08/30/16 Rony Balderas 7[address] [facility] [address] [place] [address] Gastroenterology 04/20/20 Christine King [address] [facility] [address] [place] [address] Cardiology 01/19/21 Saundra Cunningham RN [address] [facility] [place] [address] Specialty Senior Lead Developer Hematology/Oncology 05/04/21 Rikki Castro MD [address] [place] [address] [place] [address] Physician Hematology/Oncology 05/04/21 Yamile Mccoy, PALashandaC [address] [facility] [place] [address] Physician Cattle Examiner Hematology/Oncology 05/04/21 Scaffold Builder Relationship Specialty Start Date End Date Zachery Thurman MD [address] [place] [address] PCP - General Internal Medicine 02/22/23 Team Status: Active Member Role Status Dates Zachery Thurman MD Primary Care Provider Active art: April 16, 2023 Pham Edmond DO Emergency Provider Active art: April 16, 2023 Darrell Duenas MD Admit Provider, Atte nding Provider, Other Provider Active Start: April 16, 2023 Scaffold Builder Relationship Specialty Start Date End Date Zachery Thurman MD [address] [place] [address] PCP - General Internal Medicine 09/03/20 Zuhair Aguirre 7[address] [facility] [address] [place] [address] Referring General Surgery 08/30/16 Rony Sampson 703 [facility] [address] [place], [place] [address] Gastroenterology 04/20/20 Christine King MD [facility] [address] [place] [address] Cardiology 01/19/21 Saundra Cunningham RN [address] [facility] [place] [address] Specialty Senior Lead Developer Hematology/Oncology 05/04/21 Rikki Castro MD 417 [facility] [place] [address] Physician Hematology/Oncology 05/04/21 Yamile Mccoy PALashandaC [address] [facility] [place] [address] Physician Cattle Examiner Hematology/Oncology 05/04/21 Scaffold Builder Relationship Specialty Start Date End Date Zachery Thurman MD [address] [place] [address] PCP - [place] 03/20/21 Zachery Thurman MD [address] [place] [address] PCP - General Internal Medicine 09/05/22 Christine King MD 703 [facility] [address] [place] [address] Referring Physician Cardiology 09/22/22 Phillip Orr MD [address] [place] [address] [place] [address] Referring Physician Dermatology 09/22/22 Rony Lacy MD 703 [facility] 150 [place] [address] Referring Physician Gastroenterology 09/22/22 Nima Mills MD [address] [place] [address] Hematology and Oncology 09/22/22 Claudia Metz MD [address] [place] [address] Ophthalmology 09/22/22 Team Status: Active Member Role Status Dates Zachery Thurman MD Primary Care Provider Active St art: April 16, 2023 Pham Edmond DO Emergency Provider Active St art: April 16, 2023 Darrell Duenas MD Admit Provider, Atte nding Provider, Other Provider Active Start: April 16, 2023 Darrell Duenas MD Admit Provider Active Start: April 16, 2023 End: April 18, 2023 Team Status: Inactive Member Role Status Dates Zachery Thurman MD Primary Care Provider Active St art: April 25, 2023 End: April 25, 2023 Christine King MD Attending Provider Active St art: April 25, 2023 End: April 25, 2023 Scaffold Builder Relationship Specialty Start Date End Date Zachery Thurman MD [address] [place] [address] PCP - General Internal Medicine 09/03/20 Zuhair Aguirre 703 [facility] [address] [place] [address] Referring General Surgery 08/30/16 Rony Sampson 703 [facility] [address] [place] [address] Gastroenterology 04/20/20 Christine King MD 703 [facility] [address] [place] [address] Cardiology 01/19/21 Saundra Cunningham RN [address] [facility] [place] [address] Specialty Senior Lead Developer Hematology/Oncology 05/04/21 Rikki Castro MD [address] [address] Physician Hematology/Oncology 05/04/21 Yamile Mccoy, PALashandaC [address] [facility] [place] [address] Physician Cattle Examiner Hematology/Oncology 05/04/21 Reason for Visit (unrecogniz ed section and content) Reason Comments Care Coordination mouth sores Reason Comments malignant neoplasm of tonsil follow up p er phone call Reason Comments Patient Update Reason Comments Radiotherapy On-treatment Visit Reason Comments Nurse Triage Call Post Radiation Nurse Call Reason Comments Lab Orders Reason Comments Nm Pet Request Reason Comments Orders Reason Comments Follow Up 3 month follow up Reason Comments Head and Neck Cancer Specialty Diagnoses / Procedures Referred By Contac t Referred To Contact Radiation Oncology / RADIATION ONCOLOGY Diagnoses Malignant neoplasm of tonsil, unspecified SIM/KHRIS/H&N Procedures SIMULATION WAVERLY IMRT 33 [place] [address] [place] [id number] Haroon Moffett MD [address] [place] [address] [place] [address] Referral ID Status Reason Start Date Expiration Date Visits Re quested Visits Authorized [id number] Closed 04/16/2021 07/17/2021 34 [address] Reason [address] Neck Results Reason Comments Care Coordination scan results Reason Comments tonsil cancer Reason Comments Future Appointment Reason Comments tonsil cancer follow up Reason Comments Follow Up 3 month follow up Reason Comments Results Reason Comments Established Patient Follow up. Concern f or results of ct scan. Reason Comments Follow Up 4 month follow up Reason Comments Appointment Reason Comments Squamous Cell Carcinoma Evaluation OS- r eferred by Dr. 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] Procedures EXCISION LESION CONJUNCTIVA </1 CM EXCISION LESION CONJUNCTIVA, UP TO 1 CM [facility] [address] [address] Referral ID Status Reason Start Date Expiration Date Visits Re quested Visits Authorized [id number] 1 1 Reason Comments Post-op (Ophthalmology) Left Eye S/P Ex of Lesion on Left Conjunctiva for MEJIA left eye 05/30/2022 Reason Comments MEJIA OS S/p Conj Lesion Exci maye OS x 05/30/2022 Reason Comments Follow Up 3 month follow up Reason Comments Orders Reason Comments Results CT neck scan Reason Comments Radiology NM Specialty Diagnoses / Procedures Referred By Fidelia Referred To Contact Radiology / RADIO PET [facility] Diagnoses NM PET/CT SKULL-THIGH INITIAL 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 Procedures INJECTION PRIOR TO SCAN Nima Molina MD [address] [place] [address] [facility] [address] [facility] [place] [address] Referral ID Status Reason Start Date Expiration Date Visits Re quested Visits Authorized [id number] Closed 01/26/2021 05/17/2021 1 1 Reason Comments Follow Up 3 month follow up Reason Comments conjuctival lesion follow up MEJIA OS S/p Conj Lesion Excision OS x 05/30/2022 Reason Comments Follow-up 6 month Specialty Diagnoses / Procedures Referred By Contac t Referred To Contact Diagnoses Paroxysmal atrial fibrillation (CMS/HCC) Procedures ECG 12 Lead Christine King MD [address] [facility] [place] [address] Referral ID Status Reason Start Date Expiration Date V isits Requested Visits Authorized [id number] Pending Review 02/22/2023 02/22/2024 1 1 Reason Comments ER Follow-up Goals (unrecognized section and content) Goals may be documented in a n alternate section Continuous Active and Recently Administ ered Medications (unrecognized section and content) Medication Order 05/28/2022 05/29/2022 05/30/2022 lactated ringers iv infusion (CANCELED) 30 mL/hr, INTRAVENOUS, CONTINUOUS, Starting on Mon05/30/22 at 1430, Until Mon05/30/22 at 1429, If blood glucose less than 100 mg/dL, contact anesthesia provider., Preprocedure 1422 (New Bag/Syring e/Bottle - Provider: Ashley Reynolds RN)1429 (Due: Infusion Complete) PRN Medication Order 05/28/2022 05/29/2022 05/30/2022 balanced salt ophthalmic solution (BSS) (CANCELED) X (OR/PROCEDURE) PRN, Starting on Mon05/30/22 at 1710, Until Mon05/30/22 at 1734, Intraprocedure 1710 (Given - Provid er: Claudia Lee MD) ethyl alcohol 99 % injection (ABLYSINOL) (CANCELED) X (OR/PROCEDURE) PRN, Starting on Mon05/30/22 at 1712, Until Mon05/30/22 at 1734, Intraprocedure 171 (Given - Provid er: Claudia Lee MD) hyaluronidase 1 mL, lidocaine-bupivacaine 10-3.75 mg/mL retrobulbar 20 mL (CANCELED) X (OR/PROCEDURE) PRN, Starting on Mon05/30/22 at 1711, Until Mon05/30/22 at 1734, Intraprocedure 1711 (Given - Provid er: Claudia Lee MD) bytnlfyc-sesknwjkk-wuuguufrhmmvj 3.5 mg/g-10,000 unit/g-0.1 % (POLYDEX) (CANCELED) X (OR/PROCEDURE) PRN, Starting on 05/30/22 at 1711, Until Mon05/30/22 at 1734, Intraprocedure 171 (Given - Provid er: Claudia Lee MD) Povidone-Iodine 5 % ophth soln (BETADINE) (CANCELED) X (OR/PROCEDURE) PRN, Starting on 05/30/22 at 1711, Until 05/30/22 at 1734, Intraprocedure 171 (Given - Provid er: Magali De Oliveira RN) sodium hyaluronate 10 mg/mL injection (CANCELED) X (OR/PROCEDURE) PRN, Starting on 05/30/22 at 1712, Until 05/30/22 at 1734, Intraprocedure 171 (Given - Provid er: Claudia Lee MD) FOR RECORDS PERTAINING TO PATIENTS WHO ARE OR HAVE BEEN ENROLLED IN A CHEMICAL DEPENDENCY/SUBSTANCEABUSE PROGRAM, SOME INFORMATION MAY BE OMITTED. This clinical summary was aggregated from multiple sources. Caution should be exercised in using it in the provision of clinical care. This summary normalizes information from multiple sources, and as a consequence, information in this document may materially change the coding, format and clinical context of patient data. In addition, data may be omitted in some cases. CLINICAL DECISIONS SHOULD BE BASED ON THE PRIMARY CLINICAL RECORDS. [facility] [facility]. provides no warranty or guarantee of the accuracy or completeness of information in this document.
--- NOTE | 2023-05-29 15:34 | ED_ITS ---
HPI - SOB/Dyspnea General Chief Complaint: Shortness of Breath/Dyspnea Stated Complaint: SHORTNESS OF BREATH Time Seen by Provider: 05/29/23 15:22 Source: patient Mode of arrival: ambulance History of Present Illness HPI Narrative: 72-year-old male presents for shortness of breath. He is not complaining of chest pain or fever. Last week he was diagnosed with RSV at another emergency department. No back pain or chest pain or vomiting. Related Data Home Medications Medication Instructions Recorded Confirmed alprazolam 1 mg tablet 1 mg PO BEDTIME 04/24/23 04/24/23 diltiazem HCl 180 mg 180 mg PO Q24H 04/24/23 04/24/23 capsule,extended release 24 hr flecainide 100 mg tablet 100 mg PO Q12H 04/24/23 04/24/23 hydralazine 100 mg tablet 100 mg PO Q12H 04/24/23 04/24/23 levothyroxine 137 mcg tablet 137 mcg PO DAILY 04/24/23 04/24/23 (Synthroid) warfarin 5 mg tablet (Jantoven) 5 mg PO BEDTIME 04/24/23 04/24/23 Previous Rx's Medication Instructions Recorded albuterol sulfate 90 mcg/actuation 2 inh inhalation Q4H PRN shortness 05/29/23 aerosol inhaler of breath or wheezing #8.5 grams Allergies Allergy/AdvReac Type Severity Reaction Status Date / Time No Known Drug Allergies Allergy Verified 04/24/23 15:33 Review of Systems ROS Narrative A ten point review of systems is negative except as noted above. PFSH PFSH Social History Smoking status: Heavy tobacco smoker Exam Narrative Exam Narrative: Nurses note and vital signs reviewed and patient is not hypoxic. General: The patient appears well and in no apparent distress. Patient is resting comfortably on cart. Skin: Warm, dry, no pallor noted. There is no rash noted. Head: Normocephalic, atraumatic Eye: Normal conjunctiva, no drainage Ears, Nose, Mouth, and Throat: oral mucosa is moist. Nares patent. Cardiovascular: Regular Rate and Rhythm Respiratory: Patient is in no distress, no accessory muscle use, a few rhonchi present Back: non-tender GI: Normal bowel sounds, no tenderness to palpation, no masses appreciated. No rebound, guarding, or rigidity noted. Musculoskeletal: The patient has no evidence of calf tenderness, symmetrical pulses noted bilaterally Neurological: A&O, normal speech Psychiatric: Cooperative Constitutional Vital Signs, click to edit/add: Last Vital Signs Temp 98.3 F 05/29/23 15:15 Pulse 71 05/29/23 15:15 Resp 20 05/29/23 15:15 BP 158/64 H 05/29/23 15:15 Pulse Ox 96 05/29/23 15:15 O2 Del Method Room Air 05/29/23 15:15 Course Vital Signs Vital signs: Vital Signs Temperature 98.3 F 05/29/23 15:15 Pulse Rate 71 05/29/23 15:15 Respiratory Rate 20 05/29/23 15:15 Blood Pressure 158/64 H 05/29/23 15:15 Pulse Oximetry 96 05/29/23 15:15 Oxygen Delivery Method Room Air 05/29/23 15:15 Temperature 98.3 F 05/29/23 15:15 Pulse Rate 71 05/29/23 15:15 Respiratory Rate 20 05/29/23 15:15 Blood Pressure 158/64 H 05/29/23 15:15 Pulse Oximetry 96 05/29/23 15:15 Oxygen Delivery Method Room Air 05/29/23 15:15 MDM - SOB/Dyspnea MDM Narrative Medical decision making narrative: His workup here is negative here. He was diagnosed with RSV last week at another hospital. He was given aerosol treatment and feels improved. He will be discharged home on an inhaler and was given instructions. Treatment diagnosis and follow-up were discussed with the patient. Differential Diagnosis Differential diagnosis: Likely congestive heart failure, community acquired pneumonia and asthma with exacerbation Lab Data Attestation: I reviewed the patient's lab results. Labs: Lab Results 05/29/23 Range/Units 15:29 WBC 9.8 (4.0-11.0) 10^3/uL RBC 4.04 L (4.70-6.10) 10^6/uL Hgb 12.4 L (14.0-18.0) g/dL Hct 36.0 L (42.0-54.0) % MCV 89.1 (80.0-94.0) fL MCH 30.7 (25.9-34.0) pg MCHC 34.4 (29.9-35.2) g/dL RDW 12.6 (11.0-15.0) % Plt Count 322 (150-450) 10^3/uL MPV 9.2 L (9.5-13.5) fL Neut % (Auto) 78.4 H (43.0-75.0) % Lymph % (Auto) 9.9 L (20.5-60.0) % Mccone % (Auto) 9.9 (1.7-12.0) % Eos % (Auto) 0.6 L (0.9-7.0) % Baso % (Auto) 0.6 (0.2-2.0) % Neut # (Auto) 7.7 H (1.4-6.5) 10^3/uL Lymph # (Auto) 1.0 L (1.2-3.8) 10^3/uL Mccone # (Auto) 1.0 H (0.3-0.8) 10^3/uL Eos # (Auto) 0.1 (0.0-0.7) 10^3/uL Baso # (Auto) 0.1 (0.0-0.1) 10^3/uL Abs Immat Gran (auto) 0.06 H (0.00-0.03) 10^3/uL Imm/Tot Granulo (auto) 0.6 H (0.0-0.5) % Sodium 132 L (136-145) mmol/L Potassium 3.4 L (3.5-5.1) mmol/L Chloride 98 (98-107) mmol/L Carbon Dioxide 22.8 (21.0-32.0) mmol/L Anion Gap 14.6 BUN 13.0 (7.0-18.0) mg/dL Creatinine 1.26 (0.70-1.30) mg/dL Est GFR ( Amer) >60 (>=60) Est GFR (Non-Af Amer) 56 L (>=60) BUN/Creatinine Ratio 10.3 Glucose 94 (74-106) mg/dL Calcium 9.5 (8.5-10.1) mg/dL Troponin I High Sens 17.0 (4.0-76.1) pg/mL Imaging Data Chest x-ray: Radiologist's impression: ITS Impressions Chest X-Ray 05/29/23 15:26 IMPRESSION: Stable chest x-ray, no acute findings. Electronically authenticated by: YESSY KRAUSE Date: 05/29/2023 15:51 ECG Data Attestation: I personally reviewed and interpreted this ECG as follows: (EKG on my interpretation shows sinus rhythm without acute change, rate 70.) Discharge Plan Discharge Stand Alone Forms: Portal Instructions Chief Complaint: Shortness of Breath/Dyspnea Clinical Impression: Anxiety, RSV bronchiolitis Patient Disposition: Home, Self-Care Time of Disposition Decision: 16:26 Condition: Good Mode of Transportation: Private Vehicle Prescriptions / Home Meds: New albuterol sulfate 90 mcg/actuation HFA aerosol inhaler 2 inh inhalation Q4H PRN (Reason: shortness of breath or wheezing) Qty: 8.5 0RF No Action alprazolam 1 mg tablet 1 mg PO BEDTIME flecainide 100 mg tablet 100 mg PO Q12H hydralazine 100 mg tablet 100 mg PO Q12H warfarin [Jantoven] 5 mg tablet 5 mg PO BEDTIME diltiazem HCl 180 mg capsule,extended release 24hr 180 mg PO Q24H levothyroxine [Synthroid] 137 mcg tablet 137 mcg PO DAILY Instructions: Anxiety (ED), RSV (Respiratory Syncytial Virus) (ED) Referrals: ZACHERY THURMAN [Primary Care Provider] - 1 week
[2023-05-29] MEDS: METHYLPREDNISOLONE SOD SUCC PF 125 MG/2 ML VIAL IVP (15:41)
[2023-05-29 15:43] LABS: Basophils Absolute Auto 0.1 10^3/uL (0.0-0.1); Basophils Percent Auto 0.6 % (0.2-2.0); Eosinophils Absolute Auto 0.1 10^3/uL (0.0-0.7); Eosinophils Percent Auto 0.6 % (0.9-7.0); Hemoglobin 12.4 g/dL (14.0-18.0); Immature Granulocytes Abs Auto 0.06 10^3/uL (0.00-0.03); Immature Granulocytes Pct Auto 0.6 % (0.0-0.5); Lymphocytes Percent Auto 9.9 % (20.5-60.0); Mean Corpuscular HGB Conc 34.4 g/dL (29.9-35.2); Mean Corpuscular Hemoglobin 30.7 pg (25.9-34.0); Mean Corpuscular Volume 89.1 fL (80.0-94.0); Mean Platelet Volume 9.2 fL (9.5-13.5); Monocytes Percent Auto 9.9 % (1.7-12.0); Neutrophils Absolute Auto 7.7 10^3/uL (1.4-6.5); Neutrophils Percent Auto 78.4 % (43.0-75.0); Platelet Count 322 10^3/uL (150-450); Red Blood Count 4.04 10^6/uL (4.70-6.10); Red Cell Distribution Width 12.6 % (11.0-15.0); White Blood Count 9.8 10^3/uL (4.0-11.0)
[2023-05-29] MEDS: ALBUTEROL SULFATE 2.5 MG/3 ML VIAL NEB IH (15:52)
[2023-05-29 16:00] LABS: Anion Gap 14.6; BUN Creatinine Ratio 10.3; Calcium 9.5 mg/dL (8.5-10.1); Carbon Dioxide 22.8 mmol/L (21.0-32.0); Chloride 98 mmol/L (98-107); Estimated GFR (African America >60 (>=60); Estimated GFR (Non-African Ame 56 (>=60); Glucose 94 mg/dL (74-106); Potassium 3.4 mmol/L (3.5-5.1); Sodium 132 mmol/L (136-145)
[2023-05-29 16:46] VITALS: BP 148/74; PULSE 70; RESP 18; O2SAT 98
== END 2023-05-29 16:47 | disposition home or self-care (01) ==
PROVIDERS: Emergency Provider Emergency Medicine; PCP Internal Medicine
DX: J21.0 Acute bronchiolitis due to respiratory syncytial virus (principal); F41.9 Anxiety disorder, unspecified; Z79.899 Other long term (current) drug therapy; Z79.01 Long term (current) use of anticoagulants; F17.210 Nicotine dependence, cigarettes, uncomplicated
CPT/HCPCS: 36415; 71045; 80048; 84484; 85025; 93005; 94640; 96374; 99285; J2930